=== PATIENT | male | born 1965 | race Caucasian/White ===

== ENCOUNTER 2024-04-08 11:36 | Outpatient (OUT) | payer OTHER, SELFPAY ==
[2024-04-09 08:12] LABS: Testosterone 7 ng/dL (264-916)
== END 2024-04-08 11:37 | disposition home or self-care (01) ==
LOC: LAB 11:40
PROVIDERS: Visit Provider Urology
DX: C61 Malignant neoplasm of prostate (principal); N52.9 Male erectile dysfunction, unspecified
CPT/HCPCS: 36415; 84403

== ENCOUNTER 2024-09-19 13:02 | Outpatient (OUT) | payer OTHER, SELFPAY ==
[2024-09-19 14:07] LABS: Prostate Specific Antigen Dx <0.13 ng/mL (<=4.00)
== END 2024-09-19 13:03 | disposition home or self-care (01) ==
LOC: LAB 13:03
PROVIDERS: Visit Provider Urology
DX: C61 Malignant neoplasm of prostate (principal)
CPT/HCPCS: 36415; 84153

== ENCOUNTER 2024-09-20 09:24 | Outpatient (OUT) | payer OTHER, SELFPAY ==
--- NOTE | 2024-09-20 09:33 | US_ITS ---
The [address] [address] Patient Name: NIKCY FREEMAN MRN: [id number] date: 1965 Sex: M Assigned Patient Location: US Current Patient Location: US Accession/Order Number: [id number] Exam Date: 09/22/2024 09:50 Report Date: 09/22/2024 09:54 At the request of: ELOISE MARCOS MD Procedure: US renal BI BILATERAL RENAL AND BLADDER ULTRASOUND CLINICAL HISTORY: hematuria, kidney stones, prior prostate cancer COMPARISON: CT 04/23/2022 Estimation of renal size is approximately 10.5 cm on the right and 10.2 on the left. There is a stone in the midpole of the right kidney measuring approximately 1 cm in size. A stone is also seen at the inferior pole of the left measuring approximately 7 mm . No hydronephrosis is identified. A parapelvic right renal cyst is identified measuring 4.0 x 4.0 x 3.5 cm . There is also an exophytic cyst at the inferior pole measuring 1.5 x 2.1 x 2.1 cm. There is no perinephric fluid. The urinary bladder is partially distended with a volume of 166 mL. No contour or intraluminal abnormalities are seen. US/US renal BI IMPRESSION: BILATERAL NEPHROLITHIASIS. RIGHT RENAL CYSTS NO OBSTRUCTIVE UROPATHY. Impression dictated by: Elizabeth Mitchell M.D.09/22/2024 9:54 AM Dictation Location: [place] [address] Electronically authenticated by: [id number] Y Date: 09/22/2024 09:54
--- NOTE | 2024-09-20 10:02 | XR_ITS ---
The [address] [address] Patient Name: NICKY FREEMAN MRN: [id number] date: 1965 Sex: M Assigned Patient Location: US Current Patient Location: US Accession/Order Number: [id number] Exam Date: 09/21/2024 22:26 Report Date: 09/21/2024 22:29 At the request of: ELOISE MARCOS MD Procedure: XR abdomen 1V XR abdomen 1V 09/20/2024 10:04 AM SIGNS AND SYMPTOMS: Hematuria, kidney stone PROTOCOL: Frontal radiograph of the abdomen COMPARISON: 09/20/2024 FINDINGS: There are radiodense stones within the renal collecting systems bilaterally measuring 9 mm in greatest dimension on the right and 4 mm in greatest dimension on the left. There is a nonobstructive bowel gas pattern. Degenerative changes are noted in the lower lumbar spine and sacroiliac joints. Vascular calcifications are present in the pelvis. XR/XR abdomen 1V IMPRESSION: Bilateral renal stones are noted measuring up to 9 mm in greatest dimension on the right and 4 mm in greatest dimension on the left. This is consistent with that seen on the previous ultrasound. Impression dictated by: Marlon Webber M.D.09/21/2024 10:29 PM Dictation Location: [place] [address] Electronically authenticated by: [id number] Y Date: 09/21/2024 22:29
== END 2024-09-20 09:25 | disposition home or self-care (01) ==
LOC: US 09:24
PROVIDERS: Visit Provider Urology
DX: R31.0 Gross hematuria (principal); N20.0 Calculus of kidney; N28.1 Cyst of kidney, acquired
CPT/HCPCS: 74018; 76775

== ENCOUNTER 2024-11-01 13:38 | Outpatient (OUT) | payer OTHER, SELFPAY ==
--- NOTE | 2024-11-01 13:41 | ECG_ITS ---
The [facility] Test Date: 2024-11-01 Pat Name: NICKY FREEMAN Department: Room: - Gender: Male Psychotherapist Social Worker: : 1965 Requested By: ELOISE MARCOS Order Number: [id number] Reading MD: CAILIN HOUSE M.D. Measurements Intervals [place] Rate: 66 P: 44 NE: 124 QRS: 63 QRSD: 86 T: 64 QT: 415 QTc: 436 Interpretive Statements SINUS RHYTHM Normal ECG No previous ECG available for comparison Electronically Signed On 11-01-2024 20:21:06 EDT by CAILIN HOUSE M.D.
--- NOTE | 2024-11-01 14:18 | PM.PRESUREVA ---
History of Present Illness History of Present Illness Chief complaint: HEMATURIA, RIGHT KIDNEY STONES Narrative: Present for presurgical testing. The patient reports bilateral kidney stones. He states he has a history of prostate cancer. He reports frequency with urination, nocturia, and weak stream. He denies gross hematuria, dysuria, fever, abdominal pain, nausea, vomiting, or any other complaints. Review of Systems ROS Narrative REVIEW OF SYSTEMS: Negative except as stated in HPI, ten or more systems reviewed. Constitutional: No fever, chills, weakness ENT: No sore throat or epistaxis Cardiovascular: No edema, chest pain, palpitations, or activity intolerance Respiratory: No shortness of breath, cough, or wheezing Musculoskeletal: No joint pain or swelling Gastrointestinal: No abdominal pain, constipation, diarrhea, or vomiting Genitourinary: No dysuria or hematuria Neurological: No numbness, tingling, weakness, or headache Psychiatric: No mood changes [facility] Medical History (Updated 11/01/24 @ 14:03 by Gricelda Newman NP) Low iron ?E61.1 - Iron deficiency (ICD-10) Depression ?F32.A - Depression, unspecified (ICD-10) Snores ?R06.83 - Snoring (ICD-10) SVT (supraventricular tachycardia) ?I47.10 - Supraventricular tachycardia, unspecified (ICD-10) History of external beam radiation therapy ?Z92.3 - Personal history of irradiation (ICD-10) Erectile dysfunction ?N52.9 - Male erectile dysfunction, unspecified (ICD-10) BPH (benign prostatic hyperplasia) ?N40.0 - Benign prostatic hyperplasia without lower urinary tract symptoms (ICD-10) Prostate cancer ?C61 - Malignant neoplasm of prostate (ICD-10) Kidney stones ?N20.0 - Calculus of kidney (ICD-10) Hematuria ?R31.9 - Hematuria, unspecified (ICD-10) Surgical History (Updated 11/01/24 @ 14:14 by Gricelda Newman NP) History of surgery on arm ?Z98.890 - Other specified postprocedural states (ICD-10) History of cardiac radiofrequency ablation (2012) ?Z98.890 - Other specified postprocedural states (ICD-10) H/O prostate biopsy ?Z98.890 - Other specified postprocedural states (ICD-10) H/O cystoscopy ?Z98.890 - Other specified postprocedural states (ICD-10) Family History (Updated 11/01/24 @ 14:03 by Gricelda Newamn NP) Other Family history of prostate cancer Social History (Updated 11/01/24 @ 14:17 by Gricelda Newman NP) Within the past year, how often did you have a drink containing alcohol: never Score interpretation: A score less than 4 is consistent with normal alcohol consumption. Smoking status: Current some day smoker Non-prescribed substance use: denies use Previous occupational history: self-employed Highest level of school completed/degree received: high school graduate Meds Home Medications and Allergies Home Medications ?Medication ?Instructions ?Recorded ?Confirmed ?Type ascorbic acid (vitamin C) 1,000 mg 1 g PO DAILY 11/01/24 11/01/24 History capsule aspirin 81 mg tablet,delayed 81 mg PO DAILY 11/01/24 11/01/24 History release (Adult Aspirin Regimen) calcium 600 mg (as 1 tab PO DAILY 11/01/24 11/01/24 History carbonate)-vitamin D3 5 mcg (200 unit) tablet (Calcium 600 + D(3)) elderberry fruit 200 mg capsule 200 mg PO DAILY 11/01/24 11/01/24 History enzalutamide 80 mg tablet (Xtandi) 80 mg PO Q24H 11/01/24 11/01/24 History multivitamin (Daily Multi-Vitamin 1 tab PO DAILY 11/01/24 11/01/24 History tablet) omega 0-iwu-bpf-fish oil 1,000 mg 1 cap PO DAILY 11/01/24 11/01/24 History (120 mg-180 mg) capsule (Fish Oil) tadalafil 20 mg tablet 20 mg PO DAILY PRN sexual activity 11/01/24 11/01/24 History tamsulosin 0.4 mg capsule 0.4 mg PO BID 11/01/24 11/01/24 History Allergies Allergy/AdvReac Type Severity Reaction Status Date / Time ciprofloxacin (From Cipro) Allergy Anaphylaxis Verified 11/01/24 13:52 Exam Narrative Exam Narrative: Constitutional: Awake, alert, comfortable, well-appearing, nontoxic, interactive, vital signs as charted Head: Normocephalic, atraumatic Neck: Supple, normal appearance, normal range of motion, no meningeal signs, no lymphadenopathy Respiratory: No respiratory distress, breath sounds clear Cardiovascular: Regular rate and rhythm, strong and regular heart tones Abdomen: Nontender, normal bowel sounds, soft, no CVA tenderness Musculoskeletal: Normal gait, no swelling or edema Skin: No rashes or induration, no lesions, only visible skin inspected Neuro: No neurological deficits, normal sensation Psychiatric: Oriented ?3, normal affect Assessment and Plan Assessment and Plan (1) Hematuria: (2) Kidney stones: Plan Cystoscopy, right ESWL scheduled with Dr. Garcia November 17, 2024.
[2024-11-01 14:30] LABS: Basophils Percent Auto 0.2 % (0.2-2.0); Eosinophils Absolute Auto 0.1 10^3/uL (0.0-0.7); Eosinophils Percent Auto 2.4 % (0.9-7.0); Hematocrit 38.4 % (42.0-54.0); Hemoglobin 13.3 g/dL (14.0-18.0); Immature Granulocytes Abs Auto 0.02 10^3/uL (0.00-0.03); Immature Granulocytes Pct Auto 0.4 % (0.0-0.5); Lymphocytes Absolute Auto 1.7 10^3/uL (1.2-3.8); Lymphocytes Percent Auto 31.5 % (20.5-60.0); Mean Corpuscular HGB Conc 34.6 g/dL (29.9-35.2); Mean Corpuscular Hemoglobin 32.6 pg (25.9-34.0); Mean Corpuscular Volume 94.1 fL (80.0-94.0); Monocytes Absolute Auto 0.6 10^3/uL (0.3-0.8); Neutrophils Absolute Auto 2.9 10^3/uL (1.4-6.5); Neutrophils Percent Auto 54.5 % (43.0-75.0); Platelet Count 278 10^3/uL (150-450); Red Blood Count 4.08 10^6/uL (4.70-6.10); Red Cell Distribution Width 12.4 % (11.0-15.0); White Blood Count 5.4 10^3/uL (4.0-11.0)
[2024-11-01 14:41] LABS: INR 0.98; Prothrombin Time 10.4 sec (9.0-11.6)
[2024-11-01 14:54] LABS: Anion Gap 11.9; BUN Creatinine Ratio 14.7; Calcium 9.6 mg/dL (8.5-10.1); Carbon Dioxide 28.4 mmol/L (21.0-32.0); Chloride 104 mmol/L (98-107); Estimated GFR (African America >60 (>=60 mL/min/1.73m^2); Estimated GFR (Non-African Ame >60 (>=60 mL/min/1.73m^2); Glucose 92 mg/dL (74-106); Potassium 4.3 mmol/L (3.5-5.1); Sodium 140 mmol/L (136-145)
== END 2024-11-01 13:39 | disposition home or self-care (01) ==
LOC: PST 13:39
PROVIDERS: PCP Nurse Practitioner Family; Visit Provider Urology
DX: Z01.810 Encounter for preprocedural cardiovascular examination (principal); Z01.812 Encounter for preprocedural laboratory examination; Z01.818 Encounter for other preprocedural examination; R31.9 Hematuria, unspecified; N20.0 Calculus of kidney
CPT/HCPCS: 80048; 85025; 85610; 85730; 93005; G0463

== ENCOUNTER 2024-11-17 11:52 | Day surgery (SDC) | payer OTHER, SELFPAY ==
[2024-11-01 14:12] VITALS: BP 129/84; PULSE 75; TEMP 36.3; O2SAT 100; BMI 22.4
[2024-11-17] VITALS (9 sets, daily range): BP systolic 124–150; BP diastolic 71–88; PULSE 76–99; TEMP 36.2; O2SAT 96–99; BMI 22.2
--- NOTE | 2024-11-17 12:00 | XR_ITS ---
The [address] [address] Patient Name: NICKY FREEMAN MRN: [id number] date: 1965 Sex: M Assigned Patient Location: [facility] Current Patient Location: [facility] Accession/Order Number: [id number] Exam Date: 11/17/2024 12:26 Report Date: 11/17/2024 12:31 At the request of: ELOISE MARCOS MD Procedure: XR abdomen 1V SINGLE VIEW ABDOMEN COMPARISON: 05/21/2025 CLINICAL DATA: Preoperative evaluation for lithotripsy. Kidney stones. Supine view of the abdomen and pelvis was obtained. There is air within the stomach. There is also bowel gas and stool. The kidneys are partially obscured. On the right, there is still a calcification overlying the mid to lower kidney measuring approximately 7 - 8 mm in size. On the left, there might be a couple tiny 2 to 3 mm stones in close proximity at the mid to lower pole. These were also present on the comparison. There are pelvic phleboliths. No soft tissue masses are noted. Scattered sclerotic areas are again seen at the sacrum, right ilium and right proximal femur. XR/XR abdomen 1V IMPRESSION: CONTINUED BILATERAL NEPHROLITHIASIS. Impression dictated by: Elizabeth Mitchell M.D.11/17/2024 12:31 PM Dictation Location: [place] [address] Electronically authenticated by: [id number] Y Date: 11/17/2024 12:31
[2024-11-17] MEDS: LACTATED RINGER'S SOLUTION 1,000 ML 50 ML IV (12:39)
[2024-11-17] MEDS: CEFAZOLIN SODIUM 2 GM/50 ML D5W PREMIX IV (12:46)
--- NOTE | 2024-11-17 13:34 | PM.URSON ---
Urology Surgery Operative Note Operative Note Procedure Date: 11/17/24 Time Out Performed: yes Pre-op Diagnosis: 1. Hematuria. 2. Right nephrolithiasis Post-op Diagnosis: same as pre-op Procedures performed: 1. Cystoscopy. 2. Right ESWL. Anesthesia: General-LMA Primary Surgeon: Andrews Garcia Complications: None Estimated blood loss (mL): 0 Findings: 1. No evidence of bladder tumors. 2. Large right renal calculus Specimens: None Drains: None Indications for Procedures: This gentleman has microhematuria and right nephrolithiasis. He now presents for cystoscopy and right ESWL. He has signed an informed consent after risks were explained. Some of these risks include bleeding, perinephric hematoma, infection and anesthesia to name a few. Detailed description of Procedure: The patient was brought to the Operating Room and placed on Siemens electromagnetic lithotripsy treatment table in the supine position. SCDs were placed on their lower extremities and turned on and functioning during the entire case. Timeout was done by all parties in the room. We all agreed upon the patient's identification and the planned procedures for this patient. General Anesthesia was then administered via LMA. The genitalia were sterilely prepped and draped in the usual fashion. Treatment head was then brought to the patient's correct side. While using flourscopy the stone was identified and lined up into the crosshairs. Before applying any shocks, I passed a flexible cystoscope per urethra and into the bladder. The anterior urethra was normal. Prostatic urethra showed bilobar hypertrophy. Careful panendoscopy in the bladder revealed no evidence of any tumors, stones or lesions. Retroflex of the scope showed no new findings. The scope was then removed. We then began applying shocks at power level 2.0 and increased to a maximal power level of 3.5. Intermittent fluoroscopy revealed that the stone steadily fragmented. We applied a total of 3000 shocks. Our last fluoroscopic image revealed no clear evidence of any solid stone remaining. The procedure was then terminated. He was then transferred to a [facility] bed and wheeled to PACU in stable condition.
--- NOTE | 2024-11-17 14:19 | PC.NURSE ---
large blood tinged urine after pahse 1
== END 2024-11-17 14:45 | disposition home or self-care (01) ==
PROVIDERS: PCP Nurse Practitioner Family; Visit Provider Urology
PROC: (CPT 873; principal; 2024-11-17 13:25)
DX: N20.0 Calculus of kidney (principal); C61 Malignant neoplasm of prostate; R31.0 Gross hematuria; N40.1 Benign prostatic hyperplasia with lower urinary tract symptoms; N52.9 Male erectile dysfunction, unspecified; Z79.01 Long term (current) use of anticoagulants; R33.8 Other retention of urine; Z80.42 Family history of malignant neoplasm of prostate; R35.1 Nocturia; F17.210 Nicotine dependence, cigarettes, uncomplicated
CPT/HCPCS: 50590; 52000; 36415; 74018; J0690; J1100; J2405; J2704; J3010

== ENCOUNTER 2025-03-16 13:37 | Outpatient (OUT) | payer OTHER, SELFPAY ==
--- OUTSIDE RECORDS SUMMARY | 2025-03-16 13:41 | XMS_ITS | Continuity of Care Document ---
Author Name [facility] Organization [facility] Care Team Providers Care Bath Solution Maker Name Role Phone [facility] Unavailable Unavailable Social History Combined list of available smoking, tobacco, and other social history from Department of Defense and Veterans Affairs facilities. Social History Type Response Date Comment Sourc e This section is an empty social history section. [facility]
--- OUTSIDE RECORDS SUMMARY | 2025-03-16 13:42 | XMS_ITS | Encounter Summary ---
Author Organization [facility] Address [address] [place] [address] Care Team Providers Care Auto Emissions Technician Name Role Phone Tamiko Reece UTILITY LOCATE TECHNICIAN Unavailable [phone] Tamiko Reece NP Primary Care Provider Encounter Details Date Type Department Care Team (Late st Contact Info) Description 12/12/2024 Orders Only [facility] [address] [id number] Gene Elizabeth MD [address] [address] Social History Tobacco Use Types Packs/Day Years Used Date Smoking Tobacco: Every Day Cigarettes Alcohol Use Standard Drinks/Week Comments Yes 0 (1 standard drink = 0.6 oz pur e alcohol) Sex and Gender Information Value Date Recorded Sex Assigned at Not on file Legal Sex Male 7:16 PM EDT Gender Identity Not on file Sexual Orientation Not on file documented as of this encounter Plan of Treatment Not on file documented as of this encounter Procedures Procedure Name Priority Date/Time Associated Diagnosis Comments GENERAL PATHOLOGY Routine 12/12/2024 2:55 PM EDT documented in this encounter Results * GENERAL PATHOLOGY (12/12/2024 2:55 PM EDT) Gene Ward MD [facility] Final Result documented in this encounter Visit Diagnoses Not on filedocumented in this encounter Care Teams Auto Emissions Technician Relationship Specialty Start Date End Date Tamiko Reece NP [address] [place] [address] PCP - General Family Medicine 11/30/24 Tamiko Reece NP [address] [place] [address] Referring Physician Family Medicine 09/23/24 documented as of this encounter
--- OUTSIDE RECORDS SUMMARY | 2025-03-16 13:42 | XMS_ITS ---
Author Organization [facility] Address [address] [place], [place] [address] Care Team Providers Care Insurance Account Assistant Name Role Phone Tamiko Reece NP Primary Care Provider Active Problems Problem Noted Date Diagnosed Date Prostate cancer 04/28/2022 Malignant neoplasm metastatic to bone 04/28/2022 Current Treatment and Therapy Plans No current plan information found. Past Treatment and Therapy Plans NON-CHEMO 1 Plan Name Start Date Discontinue Date Treatment Medications Discontinue Reason Plan Provider Cycles AMB BONE MODIFYING AGENT: $$$$ - Q6 WEEKS IF CRCL IS LESS THAN 30 ML/MIN 2 04/25/2024 denosumab (XGEVA) Other Ayad Harrison MD 7 of 7 cycles completed
--- OUTSIDE RECORDS SUMMARY | 2025-03-16 13:42 | XMS_ITS | Clinical Summary ---
Author Organization [facility] Address [address] [place], [place] [address] Care Team Providers Care Associate Account Manager Name Role Phone Tamiko Reece NP Primary Care Provider Allergies Active Allergy Reactions Criticality Noted Date Comments Ciprofloxacin Other: See Comments 04/02/2022 Abdominal breathing Medications aspirin, enteric coated (ASPIRIN, ENTERIC COATED) 81 mg EC tablet Take 81 mg by mouth once daily. Active docosahexaenoi c acid/epa (FISH OIL ORAL) Take by mouth once daily. Active MULTI-VITAMIN ORAL Take by mouth once daily. Active IBUPROFEN ORAL Take by mouth. Active leuprolide (LUPRON) 1 mg/0.2 mL injection Inject 1 mg subcutaneously one time only. Active calcium carbonate/nikolai min D3 (CALCIUM 600 + D,3, ORAL) Take by mouth. Acti ve ascorbic acid (VITAMIN C ORAL) Take by mouth. Activ e elderberry fruit (ELDERBERRY ORAL) Take by mouth. Activ e tamsulosin (FLOMAX) 0.4 mg Take 0.4 mg by mouth twice daily. Active enzalutamide (XTANDI) 80 mg tablet TAKE 2 TABLETS BY MOUTH 1 TIME A DAY. 60 tablet 5 5 Active Active Problems Problem Noted Date Diagnosed Date Prostate cancer 04/28/2022 Malignant neoplasm metastatic to bone 04/28/2022 Immunizations Immunization Administration Dates Next Due COVID-19 original vaccine, a ge 12+ yr, monovalent ([employer] - PURPLE TOP) 03/22/2021 Family History Medical History Relation Comments Prostate Cancer Father Relation Status Comments Father Social History Tobacco Use Types Packs/Day Years Used Date Smoking Tobacco: Every Day Cigarettes Passive Smoke Exposure: Current Smokeless Tobacco: Never Tobacco Cessation:Ready to Q uit: Not Asked; Counseling Given: Not Answered Alcohol Use Standard Drinks/Week Comments Not Currently 0 (1 standard drink = 0.6 oz pur e alcohol) PHQ-2 Answer Date Recorded PHQ-2 score 0 04/19/2024 Area Deprivation Index Answer Date Juan rded National Score (1-100), lower number is lower ri sk 78 12/23/2022 State Score (1-10), lower number is lower risk 6 12/23/2022 Data from: https://www.neighborhoodatlas.[facility]/. Last address used for calculation [address] 12/23/2022 Sex and Gender Information Value Date Recorded Sex Assigned at Male 09/14/2022 10:26 AM EST Legal Sex Male 11:25 AM EDT Gender Identity Male 09/14/2022 10:26 AM EST Sexual Orientation Straight 09/14/2022 10 :26 AM EST Last Filed Vital Signs Vital Sign Reading Time Taken Comments Blood Pressure 130/78 10/18/2024 3:03 PM EDT Pulse 69 10/18/2024 3:03 PM EDT Temperature 36.4 C (97.6 F) 10/18/2024 3:03 PM EDT Respiratory Rate 18 10/18/2024 3:03 PM EDT Oxygen Saturation 100% 10/18/2024 3:03 PM EDT Inhaled Oxygen Concentration - - Weight 64.4 kg (141 lb 15.6 oz) 10/18/2024 3:03 PM EDT Height 163.3 cm (5' 4.29 ) 04/19/2024 3:00 PM ED T Body Mass Index 24.15 04/19/2024 3:00 PM EDT Plan of Treatment Upcoming Encounters Date Type Department Care Team (Latest Contact Info) Description 04/26/2025 1:30 PM EDT Office Visit [facility] [place] [address] 6 month follow up lab 04/26/2025 2:00 PM EDT Visit (SP) Office Hematology/Oncology [facility] [place] [address] Bernard Mock MD [address] [place] [address] [place] [address] 6 month follow up lab Health Maintenance Due Date Last Done Comments Anxiety Screening 10/11/1981 Depression Screening 10/11/1981 HIV Screening 10/11/1981 Hepatitis C Screening 10/11/1981 DTaP,Tdap,Td Vaccine (1 - Tdap) 10/11/1982 Pneumococcal Vaccine: 50+ (1 of 2 - PCV) 10/11/1982 Shingrix Vaccine (1 of 2) 10/11/1982 Lipid Screening 10/11/1998 CT Colonography 10/11/2008 Cologuard (FIT-DNA) 10/11/2008 Colonoscopy 10/11/2008 Colorectal Cancer Screening 10/11/2008 Fecal Occult Blood 10/11/2008 Sigmoidoscopy 10/11/2008 RSV Vaccine (1 - Risk 60-74 years 1-dose series) 2023 Influenza Vaccine (#1) 2025 Diabetes Screening 10/19/2027 10/18/2024, 0 04/19/2024, 10/20/2023, Additional history exists Prostate Cancer Screening Discussion 10/18/2029 10/18/2024, 04/19/2024, 10/20/2023, Additional history exists Procedures Procedure Name Priority Date/Time Associated Diagnosis Comments PSA/PROSTSPECAG DIAG Routine 10/18/2024 2:59 PM EDT Malignant neoplasm metastatic to bone (HCC) COMPREHENSIVE METABOLIC PANEL Routine 10/18/2024 2:59 PM EDT Malignant neoplasm metastatic to bone (HCC) from Last 3 Months or Most Recently Relevant to Health Maintenance Results * PROSTATE-SPECIFIC ANTIGEN DIAGNOSTIC (10/18/2024 2:59 PM EDT) PSA <0.02 <2.60 ng/mL 10/19/2024 7:17 AM EDT [facility] Comment:Total PSA test metho dology used is the Electrochemiluminescence Immunoassay by [employer]. Total PSA values by differing methodologies cannot be interchanged. Blood BLOOD SPECIMEN / Unknown Venipuncture / Unknown 10/18/2024 2:59 PM EDT 10/18/2024 2:59 PM EDT us Lou Moore TANDEM MILL OPERATOR.FOURDRINIER MACHINE OPERATOR LABORATORY Final Re sult [facility] [address] [facility] [address] [place] [address], * (ABNORMAL) COMPREHENSIVE METABOLIC PANEL (10/18/2024 2:59 PM EDT) [facility] Protein, Total 7.1 6.3 - 8.0 g/dL 10/19/2024 3:16 AM EDT [facility] Albumin 4.3 3.9 - 4.9 g/dL 10/19/2024 3:16 AM EDT [facility] Calcium, Total 10.0 8.5 - 10.2 mg/dL 10/19/2024 3:16 AM EDT [facility] Bilirubin, Total 0.3 0.2 - 1.3 mg/dL 10/19/2024 3:16 AM EDT [facility] Alkaline Phosphatase 106 38 - 113 U/L 10/19/2024 3:16 AM EDT [facility] AST 21 14 - 40 U/L 10/19/2024 3:16 AM EDT [facility] ALT 13 10 - 54 U/L 10/19/2024 3:16 AM EDT [facility] Glucose 104(H) 74 - 99 mg/dL 10/19/2024 3:16 AM EDT [facility] Comment: The [place] Diabetes Association (ADA) provides guidance for cutoff values for fasting glucose and random glucose. The ADA defines fasting as no caloric intake for at least 8 hours. Fasting plasma glucose results between 100 to 125 mg/dL indicate increased risk for diabetes (prediabetes). Fasting plasma glucose results greater than or equal to 126 mg/dL meet the criteria for diagnosis of diabetes. In the absence of unequivocal hyperglycemia, results should be confirmed by repeat testing. In a patient with classic symptoms of hyperglycemia or hyperglycemic crisis, random plasma glucose results greater than or equal to 200 mg/dL meet the criteria for diagnosis of diabetes. Reference: Standards of Medical Care in Diabetes 2016, [place] Diabetes Association. Diabetes Care. 2016.39(Suppl 1). BUN 12 9 - 24 mg/dL 10/19/2024 3:16 AM EDT [facility] Creatinine 0.78 0.73 - 1.22 mg/dL 10/19/2024 3:16 AM EDT [facility] Sodium 140 136 - 144 mmol/L 10/19/2024 3:16 AM EDT [facility] Potassium 4.1 3.7 - 5.1 mmol/L 10/19/2024 3:16 AM EDT [facility] Chloride 104 98 - 107 mmol/L 10/19/2024 3:16 AM EDT [facility] CO2 22 22 - 30 mmol/L 10/19/2024 3:16 AM EDT [facility] Anion Gap 14 8 - 15 mmol/L 10/19/2024 3:16 AM EDT [facility] Estimated Glomerular Filtration Rate 101 >=60 mL/min/1.7 3m 10/19/2024 3:16 AM EDT [facility] Comment:Estimated Glomerular Filtration Rate (eGFR) is calculated using the 2020 CKD-EPI creatinine equation. This equation utilizes serum creatinine, sex, and age as parameters. The creatinine assay has traceable calibration to isotope dilution- mass spectrometry. Refer to KDIGO guidelines for clinical interpretation. In patients with unstable renal function, e.g. those with acute kidney injury, the eGFR may not accurately reflect actual GFR. Blood BLOOD SPECIMEN / Unknown Venipuncture / Unknown 10/18/2024 2:59 PM EDT 10/18/2024 2:59 PM EDT us Lou Moore TANDEM MILL OPERATOR.FOURDRINIER MACHINE OPERATOR LABORATORY Final Re sult [facility] [address] [address], from Last 3 Months or Most Recently Relevant to Health Maintenance Insurance [employer] Member Subscriber Plan / Payer (Ef fective 2022-Present) Name:Adan Menard Relation to Subscriber:Self Name:Adan Menard Payer ID:[id number] (NAIC) Group ID:[id number] Type:Medicaid Address: [place] [id number] Care Teams Associate Account Manager Relationship Specialty Start Date End Date Tamiko Reece NP [address] [place] [address] PCP - General Nurse Practitioner 10/20/23
--- OUTSIDE RECORDS SUMMARY | 2025-03-16 13:42 | XMS_ITS | Encounter Summary ---
Author Organization [facility] Address [address] [place] [address] Care Team Providers Care Engagement Quality Consultant Name Role Phone Tamiko Reece PILE OPERATOR Unavailable [phone] Mast, Roland E DO Primary Care Provider [phone] Tamiko Reece PILE OPERATOR Primary Care Provider Encounter Details Date Type Department Care Team (Late st Contact Info) Description 11/24/2024 External Result Encounter [facility] External Department Unsolicited Gene Elizabeth MD [address] [address] Social History Tobacco Use Types Packs/Day Years [...] Procedure Name Priority Date/Time Associated Diagnosis Comments ECG 12-LEAD 11/24/2024 2:12 PM EDT documented in this encounter Results * ECG 12 lead (11/24/2024 2:12 PM EDT) 11/24/2024 2:12 PM EDT [facility] - 11/25/2024 10:53 AM EDT [facility] Main [place] [address] [place] [address] Electrocardiograph Report Signed Patient: Adan Menard MR#: [id number] : 1965 Acct:[id number] Age/Sex: 59 / M ADM Date: 11/24/24 Loc: PS Room: Type: [facility] CLI Attending Dr: Gene Elizabeth MD Ordering Provider: Gene Elizabeth MD Date of Service: 11/24/24 ECG/ECG 12 lead ECG: surgery 12/08 Copies to: Test Reason : Blood Pressure : */* mmHG Vent. Rate : 65 BPM Atrial Rate : 65 BPM P-R Int : 122 ms QRS Dur : 80 ms QT Int : 412 ms P-R-T Axes : 51 54 62 degrees QTcB Int : 428 ms Normal sinus rhythm Normal ECG When compared with ECG of 28-Aug-2023 21:48, No significant change was found Confirmed by [facility]ES [facility] ([id number] on 11/25/2024 10:53:16 AM Referred By: Electronically Signed By: ERICH OLEARY MD [facility] Transcribed By: MUS Signed By Erich Oleary MD, FACC 11/25/24 1053 Procedure Note Erich Oleary MD - 11/25/2024 [facility] Main [address] [address] Electrocardiograph Report Signed Patient: Kiera MenardR#: [id number] : 1965Acct:[id number] Age/Sex: 59 / MADM Date: 11/24/24 Loc: PS Room:Type: [facility] CLI Attending Dr: Gene Elizabeth MD Ordering Provider: Gene Elizabeth MD Date of Service: 11/24/24 ECG/ECG 12 lead ECG: surgery 12/08 Copies to: Test Reason : Blood Pressure : */* mmHG Vent. Rate : 65 BPM Atrial Rate : 65 BPM P-R Int : 122 ms QRS Dur : 80 ms QT Int : 412 ms P-R-T Axes : 51 54 62 degrees QTcB Int : 428 ms Normal sinus rhythm Normal ECG When compared with ECG of 28-Aug-2023 21:48, No significant change was found Confirmed by SHOSHANA JONES [facility], ERICH ([id number]) on 11/25/2024 10:53:16 AM Referred By: Electronically Signed By: ERICH OLEARY MD [facility] Transcribed By: MUS Signed By Erich Oleary MD, [facility] 11/25/24 1053 us Gene Ward MD ECG ORDERABLES Final Result Performing Organization Address City/State/[facility] de Phone Number [address] [place] [address], documented in this encounter Visit Diagnoses Not on filedocumented in this encounter Care Teams Engagement Quality Consultant Relationship Specialty Start Date End Date Roland Garcia DO [address] [place] [id number] PCP - General 10/05/24 11/29/24 Tamiko Reece NP [address] [place] [address] PCP - General Family Medicine 11/30/24 Tamiko Reece NP [address] [place] [address] Referring Physician Family Medicine 09/23/24 documented as of this encounter
--- OUTSIDE RECORDS SUMMARY | 2025-03-16 13:42 | XMS_ITS | Clinical Summary ---
Author Organization [facility] Address [address] [place] [address] Care Team Providers Care Linting Machine Operator Name Role Phone Tamiko Reece PHOTO CARTOGRAPHER Unavailable [phone] Tamiko Reece NP Primary Care Provider Allergies Active Allergy Reactions Criticality Noted Date Comments Ciprofloxacin Shortness of breath High 04/02/2022 Other Reaction(s): Other: See Comments Abdominal breathing Medications Enzalutamide 80 MG tablet Take 160 mg by mouth 08/21/2024 Active tamsulosin (Flomax) 0.4 MG 24 hr capsule 09/02/2024 Activ e aspirin 81 MG EC tablet Take 81 mg by mouth in the morning. Active Multiple Vitamin (multivitamin) tablet Take 1 tablet by mouth Daily Active Active Problems Problem Noted Date Diagnosed Date Chest wall mass 10/31/2024 Epidermal cyst 10/31/2024 Encounters Date Type Department Care Team Description 12/20/2024 1:15 PM EDT Office Visit [facility] [address] [phone] Gene Elizabeth MD Epidermal cyst (Primary Dx) 12/20/2024 Travel 12/19/2024 Travel from Last 3 Months Family History Relation Name Status Comments Brother Alive 1 Father Alive Mother Social History Tobacco Use Types Packs/Day Years Used Date Smoking Tobacco: Every Day Cigarettes Tobacco Cessation:Ready to Q uit: Not Asked; Counseling Given: Not Answered Alcohol Use Standard Drinks/Week Comments Yes 0 (1 standard drink = 0.6 oz pur e alcohol) Sex and Gender Information Value Date Recorded Sex Assigned at Not on file Legal Sex Male 7:16 PM EDT Gender Identity Not on file Sexual Orientation Not on file Last Filed Vital Signs Vital Sign Reading Time Taken Comments Blood Pressure 120/66 10/31/2024 11:19 AM EDT Pulse - - Temperature - - Respiratory Rate - - Oxygen Saturation - - Inhaled Oxygen Concentration - - Weight 65.8 kg (145 lb) 12/20/2024 1:19 PM EDT Height 170.2 cm (5' 7 ) 12/20/2024 1:19 PM EDT Body Mass Index 22.71 12/20/2024 1:19 PM EDT Plan of Treatment Health Maintenance Due Date Last Done Comments CT Colonography 1965 Colonoscopy 1965 Colorectal Cancer Screening 1965 FIT-DNA 1965 FIT 1965 FOBT 1965 Sigmoidoscopy 1965 Influenza Vaccine (#1) 2025 Insurance [employer] Care Teams Linting Machine Operator Relationship Specialty Start Date End Date Tamiko Reece NP [address] [place] [address] PCP - General Family Medicine 11/30/24 Tamiko Reece NP [address] [place] [address] Referring Physician Family Medicine 09/23/24
--- OUTSIDE RECORDS SUMMARY | 2025-03-16 13:42 | XMS_ITS | Encounter Summary ---
Author Organization [facility] Address [address] [place] [address] Care Team Providers Care Air Quality Technician Name Role Phone Tamiko Reece SENIOR STRUCTURAL ENGINEER Primary Care Provider Source Comments In the event this information is protected by the Federal Confidentiality of Alcohol and Drug AbusePatient Records regulations: The Federal rules restrict any use of the information to criminally investigate or prosecute any alcohol or drug abuse patient.[facility] Encounter Details Date Type Department Care Team (Late st Contact Info) Description 12/19/2022 [place] [address] Provider, [facility] Result Notification Patient Outreach Social History Tobacco Use Types Packs/Day Years Used Date Smoking Tobacco: Every Day Cigarettes Passive Smoke Exposure: Current Smokeless Tobacco: Never Alcohol Use Standard Drinks/Week Comments Not Currently 0 (1 standard drink = 0.6 oz pur e alcohol) PHQ-2 Answer Date Recorded PHQ-2 score 0 11/06/2022 Area Deprivation Index Answer Date Juan rded National Score (1-100), lower number is lower ri sk 78 12/23/2022 State Score (1-10), lower number is lower risk 6 12/23/2022 Data from: https://www.neighborhoodatlas.medicine.[facility].edu/. Last address used for calculation [address] [place] [address] 12/23/2022 Sex and Gender Information Value Date Recorded Sex Assigned at Male 09/14/2022 10:26 AM EST Legal Sex Male 11:25 AM EDT Gender Identity Male 09/14/2022 10:26 AM EST Sexual Orientation Straight 09/14/2022 10 :26 AM EST documented as of this encounter Plan of Treatment Upcoming Encounters Date Type Department Care Team (Latest Contact Info) Description 04/26/2025 1:30 PM EDT Office Visit [facility] [address] [place] [address] [place] [address] 6 month follow up lab 04/26/2025 2:00 PM EDT Visit (SP) Office Hematology/Oncology [address] [place] [address] Bernard Mock MD [address] [place] [address] 6 month follow up lab documented as of this encounter Visit Diagnoses Not on filedocumented in this encounter Care Teams Air Quality Technician Relationship Specialty Start Date End Date Tamiko Reece NP [address] [place] [address] PCP - General Nurse Practitioner 10/20/23 documented as of this encounter
--- NOTE | 2025-03-16 13:56 | XR_ITS ---
The [address] [address] Patient Name: NICKY FREEMAN MRN: [id number] date: 1965 Sex: M Assigned Patient Location: LAB Current Patient Location: LAB Accession/Order Number: [id number] Exam Date: 03/16/2025 14:33 Report Date: 03/16/2025 14:34 At the request of: ELOISE MARCOS MD Procedure: XR abdomen 1V KUB: CLINICAL INFORMATION: Follow-up kidney stones COMPARISON: KUB 11/17/2024 FINDINGS: The previously identified stone involving the right kidney is no longer visualized. At least 2 punctate stones are seen involving the left kidney. Phleboliths are seen within the pelvis. No bowel obstruction or free air. Osseous structures demonstrate degenerative change. XR/XR abdomen 1V IMPRESSION: LEFT NEPHROLITHIASIS. PREVIOUSLY IDENTIFIED STONE INVOLVING THE RIGHT KIDNEY APPEARS TO HAVE RESOLVED. Impression dictated by: Arun Gomez Jr., D.O. 03/16/2025 2:34 PM Dictation Location: [place] [address] Electronically authenticated by: [id number] Date: 03/16/2025 14:34
--- OUTSIDE RECORDS SUMMARY | 2025-03-16 13:57 | XMS_ITS | CCD ---
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 more than 200 mg/dL in a nonstressed, ambulatory subject supports the diagnosis of Diabetes Mellitus. ADA recommended reference range Potassium [Moles/Vol] 4.4 mmol/L 3.5 - 5.1 mmol/L [facility] Sodium [Moles/Vol] 140 mmol/L 136 - 145 mmol/L [facility] Urea nitrogen [Mass/Vol] 16 mg/dL 7 - 25 mg/dL [facility] Basophils Auto (Bld) [#/Vol] Ordered By: Antonina Elizabeth on 11-24-2024 Basophils (Bld) [#/Vol] Automated basophil count 0.0-0.2 [facility] Basophils/100 WBC Auto (Bld) Ordered By: Antonina Elizabeth on 11-24-2024 Basophils/100 WBC (Bld) Automated basophil % . [facility] CBC W Auto Differential pane l (Bld)on 11-24-2024 Basophils (Bld) [#/Vol] 0 10*3/uL 0.0 - 0.2 10*3/uL [facility] Basophils/100 WBC Manual cnt (Syn fld) 0.7 % . [facility] Eosinophils (Bld) [#/Vol] 0.1 10*3/uL 0.0 - 0.45 10*3/uL [facility] Eosinophils/100 WBC Manual cnt (Syn fld) 2.3 % . [facility] Erythrocyte distribution width (RBC) [Ratio] 12.8 % 12.0 - 14.8 % [facility] Hematocrit (Bld) [Volume fraction] 37.2 % Low 38.8 - 50.0 % [facility] Hemoglobin (Bld) [Mass/Vol] 13 g/dL 13.0 - 17.0 g/dL [facility] Interpretation and review of laboratory results Abnormal [facility] Lymphocytes (Bld) [#/Vol] 1.8 10*3/uL 1.00 - 4.8 10*3/uL [facility] Lymphocytes/100 WBC Manual cnt (Syn fld) 28.9 % . [facility] MCH (RBC) [Entitic mass] 33.1 pg 27.5 - 35.2 pg [facility] MCHC (RBC) [Mass/Vol] 34.9 g/dL 32.5 - 35.6 g/dL [facility] MCV (RBC) [Entitic vol] 94.9 fL 83.5 - 101 fL [facility] Monocytes (Bld) [#/Vol] 0.6 10*3/uL 0.0 - 0.8 10*3/uL [facility] Monocytes+Macrophages/ 100 WBC Manual cnt (Syn fld) 9.2 % . [facility] Neutrophils (Bld) [#/Vol] 3.7 10*3/uL 1.8 - 7.7 10*3/uL [facility] Neutrophils/100 WBC Manual cnt (Syn fld) 58.9 % . [facility] NRBC 0 /100{WBC} 0 - 0.5 /100{WBC} [facility] Platelet mean volume (Bld) [Entitic vol] 8.1 fL 6.6 - 10.1 fL [facility] Platelets (Bld) [#/Vol] 276 10*3/uL 150 - 450 10*3/uL [facility] RBC LM.HPF (Urine sed) [#/Area] 3.92 10*6/uL 3.90 - 5.60 10*6/uL [facility] WBC (Bld) [#/Vol] 6.3 10*3/uL 4.1 - 10.5 10*3/uL [facility] WBC LM.HPF (Urine sed) [#/Area] 6.3 10*3/uL 4.1 - 10.5 10*3/uL [facility] Calcium [Mass/volume] in Ser um or PlasmaOrdered By: Antonina Elizabeth on 11-24-2024 Calcium [Mass/Vol] Calcium [Mass/volume ] in Serum or Plasma 8.6-10.3 [facility] Carbon dioxide, total [Moles /volume] in Serum or PlasmaOrdered By: Antonina Elizabeth on 11-24-2024 CO2 [Moles/Vol] Carbon dioxide, tota l [Moles/volume] in Serum or Plasma 21.0-31.0 [facility] Chloride [Moles/volume] in S jaret or PlasmaOrdered By: Antonina Elizabeth on 11-24-2024 Chloride [Moles/Vol] Chloride [Moles/vol ume] in Serum or Plasma 98-107 [facility] Complete Blood Count Auto Di ffon 11-24-2024 Basophils (Bld) [#/Vol] 0.0 10*3/uL Normal 0.0-0.2 [facility] Comment on above: Result Comment: PERF ORMED BY: [place] [address] PATHOLOGIST CABLE [employer]OWER OPERATOR ANTONY DE LA TORRE M.D. Performed By: #### B MP, CBC #### [address] Basophils/100 WBC (Bld) 0.7 % Normal . [facility] Comment on above: Performed By: #### B MP, CBC #### [facility] [address] [place] [address] Eosinophils (Bld) [#/Vol] 0.1 10*3/uL Normal 0.0-0.45 [facility] Comment on above: Performed By: #### B MP, CBC #### [address] Eosinophils/100 WBC (Bld) 2.3 % Normal . [facility] Comment on above: Performed By: #### B MP, CBC #### [address] Erythrocyte distribution width (RBC) [Ratio] 12.8 % Normal 12.0-14.8 [facility] Comment on above: Performed By: #### B MP, CBC #### [address] Hematocrit (Bld) [Volume fraction] 37.2 % Low 38.8-50.0 [facility] Comment on above: Performed By: #### B MP, CBC #### [address] Hemoglobin (Bld) [Mass/Vol] 13.0 g/dL Normal 13.0-17.0 [facility] Comment on above: Performed By: #### B MP, CBC #### [address] Lymphocytes (Bld) [#/Vol] 1.8 10*3/uL Normal 1.00-4.8 [facility] Comment on above: Performed By: #### B MP, CBC #### [address] Lymphocytes/100 WBC (Bld) 28.9 % Normal . [facility] Comment on above: Performed By: #### B MP, CBC #### [address] MCH (RBC) [Entitic mass] 33.1 pg Normal 27.5-35.2 [facility] Comment on above: Performed By: #### B MP, CBC #### [address] MCV (RBC) [Entitic vol] 94.9 fL Normal 83.5-101 [facility] Comment on above: Performed By: #### B MP, CBC #### [address] Mean Corpuscular HGB Conc 34.9 g/dL Normal 32.5-35.6 [facility] Comment on above: Performed By: #### B MP, CBC #### [address] Monocytes (Bld) [#/Vol] 0.6 10*3/uL Normal 0.0-0.8 [facility] Comment on above: Performed By: #### B MP, CBC #### [address] Monocytes/100 WBC (Bld) 9.2 % Normal . [facility] Comment on above: Performed By: #### B MP, CBC #### [address] Neutrophils (Bld) [#/Vol] 3.7 10*3/uL Normal 1.8-7.7 [facility] Comment on above: Performed By: #### B MP, CBC #### [address] Neutrophils/100 WBC (Bld) 58.9 % Normal . [facility] Comment on above: Performed By: #### B MP, CBC #### [address] NRBC% 0.0 /100{WBC} Normal 0-0.5 [facility] Comment on above: Performed By: #### B MP, CBC #### [address] Platelet mean volume (Bld) [Entitic vol] 8.1 fL Normal 6.6-10.1 [facility] Comment on above: Performed By: #### B MP, CBC #### [address] Platelets (Bld) [#/Vol] 276 10*3/uL Normal 150-450 [facility] Comment on above: Performed By: #### B MP, CBC #### [address] RBC (Bld) [#/Vol] 3.92 10*6/uL Normal 3.90-5.60 [facility] Comment on above: Performed By: #### B MP, CBC #### [address] WBC (Bld) [#/Vol] 6.3 10*3/uL Normal 4.1-10.5 [facility] Comment on above: Performed By: #### B MP, CBC #### [address] Creatinine [Mass/volume] in Serum or PlasmaOrdered By: Antonina Elizabeth on 11-24-2024 Creatinine [Mass/Vol] Creatinine [Mass/v olume] in Serum or Plasma 0.70-1.30 [facility] ECG 12 lead ECGon 11-24-2024 ECG 12 lead ECG [facility] [place] [address] Electrocardiograph Report Signed Patient: Adan Menard MR#: [id number] : 1965 Acct:[id number] Age/Sex: 59 / M ADM Date: 11/24/24 Loc: Room: Type: [facility] Attending Dr: Antonina Elizabeth MD Ordering Provider: Antonina Elizabeth MD Date of Service: 11/24/24 ECG/ECG [...] change was found Confirmed by SH[facility] J[facility]ES [facility] ([id number][facility] on 11/25/2024 10:53:16 AM Referred By: Electronically Signed By: JEROME ANNA MD FAC Transcribed By: MUS Signed By Jerome Anna MD, FACC 11/25/24 1053 Normal [facility] Eosinophils Auto (Bld) [#/Vo l]Ordered By: Antonina Elizabeth on 11-24-2024 Eosinophils (Bld) [#/Vol] Automated eosinophil count 0.0-0.45 [facility] Eosinophils/100 WBC Auto (Bl d)Ordered By: Antonina Elizabeth on 11-24-2024 Eosinophils/100 WBC (Bld) Automated eosinophil % . [facility] Erythrocyte distribution wid th Auto (RBC) [Ratio]Ordered By: Antonina Elizabeth on 11-24-2024 Erythrocyte distribution width (RBC) [Ratio] Erythrocyte distribution width [Ratio] by Automated count 12.0-14.8 [facility] Glucose [Mass/volume] in Ser um or PlasmaOrdered By: Antonina Elizabeth on 11-24-2024 Glucose [Mass/Vol] Glucose [Mass/volume ] in Serum or Plasma 70-100 [facility] Comment on above: ADA recommended refe rence rangeRandom Glucose Reference Range is dependent on time and content of last meal. Glucose of more than 200 mg/dL in a nonstressed, ambulatory subject supports the diagnosis of Diabetes Mellitus. Hematocrit Auto (Bld) [Volum e fraction]Ordered By: Antonina Elizabeth on 11-24-2024 Hematocrit (Bld) [Volume fraction] Hematocrit [Volume Fraction] of Blood by Automated count Low 38.8-50.0 [facility] Hemoglobin [Mass/volume] in BloodOrdered By: Antonina Elizabeth on 11-24-2024 Hemoglobin (Bld) [Mass/Vol] Hemoglobin [Mass/volume] in Blood 13.0-17.0 [facility] Leukocytes [#/volume] correc alejandra for nucleated erythrocytes in Blood by Automated counOrdered By: Antonina Elizabeth on 11-24-2024 WBC corrected for nucl RBC Auto (Bld) [#/Vol] Leukocytes [#/volume] corrected for nucleated erythrocytes in Blood by Automated coun 4.1-10.5 [facility] Lymphocytes Auto (Bld) [#/Vo l]Ordered By: Antonina Elizabeth on 11-24-2024 Lymphocytes (Bld) [#/Vol] Lymphocytes [#/volume] in Blood by Automated count 1.00-4.8 [facility] Lymphocytes/100 WBC Auto (Bl d)Ordered By: Antonina Elizabeth on 11-24-2024 Lymphocytes/100 WBC (Bld) Lymphocytes/100 leukocytes in Blood by Automated count . [facility] MCH Auto (RBC) [Entitic mass ]Ordered By: Antonina Elizabeth on 11-24-2024 MCH (RBC) [Entitic mass] MCH [Entitic mass] by Automated count 27.5-35.2 [facility] MCHC Auto (RBC) [Mass/Vol]Or dered By: Antonina Elizabeth on 11-24-2024 MCHC (RBC) [Mass/Vol] MCHC [Mass/volume] by Automated count 32.5-35.6 [facility] MCV Auto (RBC) [Entitic vol] Ordered By: Antonina Elizabeth on 11-24-2024 MCV (RBC) [Entitic vol] MCV [Entitic volume] by Automated count 83.5-101 [facility] Monocytes Auto (Bld) [#/Vol] Ordered By: Antonina Elizabeth on 11-24-2024 Monocytes (Bld) [#/Vol] Automated blood monocyte count 0.0-0.8 [facility] Monocytes/100 WBC Auto (Bld) Ordered By: Antonina Elizabeth on 11-24-2024 Monocytes/100 WBC (Bld) Automated monocyte % . [facility] Neutrophils Auto (Bld) [#/Vo l]Ordered By: Antonina Elizabeth on 11-24-2024 Neutrophils (Bld) [#/Vol] Neutrophils [#/volume] in Blood by Automated count 1.8-7.7 [facility] Neutrophils/100 WBC Auto (Bl d)Ordered By: Antonina Elizabeth on 11-24-2024 Neutrophils/100 WBC (Bld) Automated neutrophil % . [facility] No Panel InformationOrdered By: Antonina Elizabeth on 11-24-2024 Estimated GFR (CKD-EPI) > 60.0 mL/Min [facility] Creatinine Clearance (Chem N/A [facility] Nucleated erythrocytes [Pres ence] in Blood by Automated countOrdered By: Antonina Elizabeth on 11-24-2024 Nucleated RBC Auto Ql (Bld) Nucleated erythrocytes [Presence] in Blood by Automated count 0-0.5 [facility] Platelet mean volume Auto (B ld) [Entitic vol]Ordered By: Antonina Elizabeth on 11-24-2024 Platelet mean volume (Bld) [Entitic vol] Platelet mean volume [Entitic volume] in Blood by Automated count 6.6-10.1 [facility] Platelets Auto (Bld) [#/Vol] Ordered By: Antonina Elizabeth on 11-24-2024 Platelets (Bld) [#/Vol] Platelets [#/volume] in Blood by Automated count 150-450 [facility] Potassium [Moles/volume] in Serum or PlasmaOrdered By: Antonina Elizabeth on 11-24-2024 Potassium [Moles/Vol] Potassium [Moles/v olume] in Serum or Plasma 3.5-5.1 [facility] RBC Auto (Bld) [#/Vol]Ordere d By: Antonina Elizabeth on 11-24-2024 RBC (Bld) [#/Vol] Erythrocytes [#/volu me] in Blood by Automated count 3.90-5.60 [facility] Serum or plasma anion gap de terminationOrdered By: Antonina Elizabeth on 11-24-2024 Anion gap [Moles/Vol] Serum or plasma an ion gap determination 6.0-15.0 [facility] Sodium [Moles/volume] in Ser um or PlasmaOrdered By: Antonina Elizabeth on 11-24-2024 Sodium [Moles/Vol] Sodium [Moles/volume ] in Serum or Plasma 136-145 [facility] Urea nitrogen [Mass/volume] in Serum or PlasmaOrdered By: Antonina Elizabeth on 11-24-2024 Urea nitrogen [Mass/Vol] Urea nitrogen [Mass/volume] in Serum or Plasma 7-25 [facility] WBC Auto (Bld) [#/Vol]Ordere d By: Antonina Elizabeth on 11-24-2024 WBC (Bld) [#/Vol] Leukocytes [#/volume ] in Blood by Automated count 4.1-10.5 [facility] Activated partial thrombopla stin time (aPTT) in platelet poor plasma by coagulation aon 11-01-2024 aPTT Coag (PPP) [Time] Activated partial thromboplastin time (aPTT) in platelet poor plasma by coagulation a 22.3-36.2 [facility] Basophils Auto (Bld) [#/Vol] on 11-01-2024 Basophils (Bld) [#/Vol] Automated basophil count 0.0-0.1 [facility] Basophils/100 WBC Auto (Bld) on 11-01-2024 Basophils/100 WBC (Bld) Automated basophil % 0.2-2.0 [facility] Eosinophils/100 WBC Auto (Bl d)on 11-01-2024 Eosinophils/100 WBC (Bld) Automated eosinophil % 0.9-7.0 [facility] Erythrocyte distribution wid th Auto (RBC) [Ratio]on 11-01-2024 Erythrocyte distribution width (RBC) [Ratio] Erythrocyte distribution width [Ratio] by Automated count 11.0-15.0 [facility] Estimated glomerular filtrat ion rate (GFR) non- Americanon 11-01-2024 GFR/1.73 sq M.predicted among non-blacks MDRD (S/P/Bld) [Vol rate/Area] Estimated glomerular filtration rate (GFR) non- >=60 mL/min/1.7 3m 2 [facility] Hematocrit Auto (Bld) [Volum e fraction]on 11-01-2024 Hematocrit (Bld) [Volume fraction] Hematocrit [Volume Fraction] of Blood by Automated count Low 42.0-54.0 [facility] Hemoglobin [Mass/volume] in Bloodon 11-01-2024 Hemoglobin (Bld) [Mass/Vol] Hemoglobin [Mass/volume] in Blood Low 14.0-18.0 [facility] INR in Platelet poor plasma by Coagulation assayon 11-01-2024 INR Coag (PPP) [Relative time] INR in Platelet poor plasma by Coagulation assay [facility] Comment on above: DESIRED INR:2.0-3.0 CONDITIONS NOT LISTED BELOW2.5-3.5 FOR PROSTHETIC HEART VALVE REPLACEMENT2.5-3.5 RECURRENT THROMBOSIS Laboratory - Chemistry and C hemistry - challengeon 11-01-2024 Calcium [Mass/Vol] 9.6 mg/dL 8.5-10.1 [facility] Chloride [Moles/Vol] 104 mmol/L 98-107 [facility] CO2 [Moles/Vol] 28.4 mmol/L 21.0-32.0 [facility] Creatinine [Mass/Vol] 0.95 mg/dL 0.70-1.30 [facility] GFR/1.73 sq M.predicted MDRD (S/P/Bld) [Vol rate/Area] mL/min/{1.73_m2} >=60 mL/min/1.7 3m 2 [facility] Glucose [Mass/Vol] 92 mg/dL 74-106 [facility] Potassium [Moles/Vol] 4.3 mmol/L 3.5-5.1 [facility] Sodium [Moles/Vol] 140 mmol/L 136-145 [facility] Urea nitrogen [Mass/Vol] 14.0 mg/dL 7.0-18.0 [facility] Urea nitrogen/Creatinine [Mass ratio] 14.7 mg/mg [facility] Laboratory - Hematology and Cell countson 11-01-2024 Immature granulocytes/100 WBC (Bld) 0.4 % 0.0-0.5 [facility] Leukocytes [#/volume] correc alejandra for nucleated erythrocytes in Blood by Automated counon 11-01-2024 WBC corrected for nucl RBC Auto (Bld) [#/Vol] Leukocytes [#/volume] corrected for nucleated erythrocytes in Blood by Automated coun 4.0-11.0 [facility] Lymphocytes Auto (Bld) [#/Vo l]on 11-01-2024 Lymphocytes (Bld) [#/Vol] Lymphocytes [#/volume] in Blood by Automated count 1.2-3.8 [facility] Lymphocytes/100 WBC Auto (Bl d)on 11-01-2024 Lymphocytes/100 WBC (Bld) Lymphocytes/100 leukocytes in Blood by Automated count 20.5-60.0 [facility] MCH Auto (RBC) [Entitic mass ]on 11-01-2024 MCH (RBC) [Entitic mass] MCH [Entitic mass] by Automated count 25.9-34.0 [facility] MCHC Auto (RBC) [Mass/Vol]on 11-01-2024 MCHC (RBC) [Mass/Vol] MCHC [Mass/volume] by Automated count 29.9-35.2 [facility] MCV Auto (RBC) [Entitic vol] on 11-01-2024 MCV (RBC) [Entitic vol] MCV [Entitic volume] by Automated count High 80.0-94.0 [facility] Monocytes Auto (Bld) [#/Vol] on 11-01-2024 Monocytes (Bld) [#/Vol] Automated blood monocyte count 0.3-0.8 [facility] Monocytes/100 WBC Auto (Bld) on 11-01-2024 Monocytes/100 WBC (Bld) Automated monocyte % 1.7-12.0 [facility] Neutrophils Auto (Bld) [#/Vo l]on 11-01-2024 Neutrophils (Bld) [#/Vol] Neutrophils [#/volume] in Blood by Automated count 1.4-6.5 [facility] Neutrophils/100 WBC Auto (Bl d)on 11-01-2024 Neutrophils/100 WBC (Bld) Automated neutrophil % 43.0-75.0 [facility] No Panel Informationon 11-01 Eosinophils # (Auto) 0.1 10 3/uL 0.0-0.7 [facility] Immature Granulocyte # (Auto) 0.02 10 3/uL 0.00-0.03 [facility] Platelet mean volume Auto (B ld) [Entitic vol]on 11-01-2024 Platelet mean volume (Bld) [Entitic vol] Platelet mean volume [Entitic volume] in Blood by Automated count 9.5-13.5 [facility] Platelets Auto (Bld) [#/Vol] on 11-01-2024 Platelets (Bld) [#/Vol] Platelets [#/volume] in Blood by Automated count 150-450 [facility] Prothrombin time (PT)on PT Coag (PPP) [Time] Prothrombin time (PT) 9.0- 11.6 [facility] RBC Auto (Bld) [#/Vol]on RBC (Bld) [#/Vol] Erythrocytes [#/volu me] in Blood by Automated count Low 4.70-6.10 [facility] Serum or plasma anion gap de terminationon 11-01-2024 Anion gap [Moles/Vol] Serum or plasma an ion gap determination [facility] Basophils Auto (Bld) [#/Vol] on 10-18-2024 Basophils (Bld) [#/Vol] Automated basophil count <0.11 [facility] Basophils/100 WBC Auto (Bld) on 10-18-2024 Basophils/100 WBC (Bld) Automated basophil % [facility] Blood manual differential co mment interpretation narrativeon 10-18-2024 Manual differential comment Kaleb (Bld) [Interp] Blood manual differential comment interpretation narrative [facility] CBC W Auto Differential pane l (Bld)on 10-18-2024 Basophils (Bld) [#/Vol] 10*3/uL Normal <0.11 [facility] Comment on above: Order Comment: Speci men Type: BLOOD SPECIMEN Ordering Facility: [facility] Address: [address] [place] [address] Performed By: #### 5 7021-8 #### [facility] CLIA [id number] [address] [place] [address] Basophils/100 WBC (Bld) 0.2 % Normal [facility] Comment on above: Order Comment: Speci men Type: BLOOD SPECIMEN Ordering Facility: [facility] Address: [address] [place] [address] Performed By: #### 5 7021-8 #### [facility] CLIA [id number] [address] [place] [address] Differential cell count method Nom (Bld) Auto Normal [facility] Comment on above: Order Comment: Speci men Type: BLOOD SPECIMEN Ordering Facility: [facility] Address: [address] [place] [address] Performed By: #### 5 7021-8 #### [facility] CLIA [id number] [address] [place] [address] Eosinophils (Bld) [#/Vol] 0.11 10*3/uL Normal <0.46 [facility] Comment on above: Order Comment: Speci men Type: BLOOD SPECIMEN Ordering Facility: [facility] Address: [address] [place] [address] Performed By: #### 5 7021-8 #### [facility] CLIA [id number] [address] [place] [address] Eosinophils/100 WBC (Bld) 1.8 % Normal [facility] Comment on above: Order Comment: Speci men Type: BLOOD SPECIMEN Ordering Facility: [facility] Address: [address] [place] [address] Performed By: #### 5 7021-8 #### [facility] CLIA [id number] [address] [place] [address] Erythrocyte distribution width (RBC) [Ratio] 12.6 % Normal 11.5-15.0 [facility] Comment on above: Order Comment: Speci men Type: BLOOD SPECIMEN Ordering Facility: [facility] Address: [address] [place] [address] Performed By: #### 5 7021-8 #### [facility] CLIA [id number] [address] [place] [address] Hematocrit (Bld) [Volume fraction] 38.0 % Low 39.0-51.0 [facility] Comment on above: Order Comment: Speci men Type: BLOOD SPECIMEN Ordering Facility: [facility] Address: [address] [place] [address] Performed By: #### 5 7021-8 #### [facility] CLIA [id number] [address] [place] [address] Hemoglobin (Bld) [Mass/Vol] 13.3 g/dL Normal 13.0-17.0 [facility] Comment on above: Order Comment: Speci men Type: BLOOD SPECIMEN Ordering Facility: [facility] Address: [address] [place] [address] Performed By: #### 5 7021-8 #### [facility] CLIA [id number] [address] [place] [address] Immature granulocytes (Bld) [#/Vol] 10*3/uL Normal <0.10 [facility] Comment on above: Order Comment: Speci men Type: BLOOD SPECIMEN Ordering Facility: [facility] Address: [address] [place] [address] Performed By: #### 5 7021-8 #### [facility] CLIA [id number] [address] [place] [address] Immature granulocytes/100 WBC (Bld) 0.2 % Normal [facility] Comment on above: Order Comment: Speci men Type: BLOOD SPECIMEN Ordering Facility: [facility] Address: [address] [place] [address] Performed By: #### 5 7021-8 #### [facility] CLIA [id number] [address] [place] [address] Lymphocytes (Bld) [#/Vol] 1.62 10*3/uL Normal 1.00-4.00 [facility] Comment on above: Order Comment: Speci men Type: BLOOD SPECIMEN Ordering Facility: [facility] Address: [address] [place] [address] Performed By: #### 5 7021-8 #### [facility] CLIA [id number] [address] [place] [address] Lymphocytes/100 WBC (Bld) 26.6 % Normal [facility] Comment on above: Order Comment: Speci men Type: BLOOD SPECIMEN Ordering Facility: [facility] Address: [address] [place] [address] Performed By: #### 5 7021-8 #### [facility] CLIA [id number] [address] [place] [address] MCH (RBC) [Entitic mass] 33.1 pg Normal 26.0-34.0 [facility] Comment on above: Order Comment: Speci men Type: BLOOD SPECIMEN Ordering Facility: [facility] Address: [address] [place] [address] Performed By: #### 5 7021-8 #### [facility] CLIA [id number] [address] [place] [address] MCHC (RBC) [Mass/Vol] 35.0 g/dL Normal 30.5-36.0 [facility] Comment on above: Order Comment: Speci men Type: BLOOD SPECIMEN Ordering Facility: [facility] Address: [address] [place] [address] Performed By: #### 5 7021-8 #### [facility] [facility] CLIA [id number] [address] [place] [address] 36030 MCV (RBC) [Entitic vol] 94.5 fL Normal 80.0-100.0 [facility] Comment on above: Order Comment: Speci men Type: BLOOD SPECIMEN Ordering Facility: [facility] Address: [address] [place] [address] Performed By: #### 5 7021-8 #### [facility] CLIA [id number] [address] [place] [address] 18565 Monocytes (Bld) [#/Vol] 0.56 10*3/uL Normal <0.87 [facility] Comment on above: Order Comment: Speci men Type: BLOOD SPECIMEN Ordering Facility: [facility] Address: [address] [place] [address] Performed By: #### 5 7021-8 #### [facility] CLIA [id number] [address] [place] [address] 06977 Monocytes/100 WBC (Bld) 9.2 % Normal [facility] Comment on above: Order Comment: Speci men Type: BLOOD SPECIMEN Ordering Facility: [facility] Address: [address] [place] [address] Performed By: #### 5 7021-8 #### [facility] CLIA [id number] [address] [place] [address] 62789 Neutrophils (Bld) [#/Vol] 3.79 10*3/uL Normal 1.45-7.50 [facility] Comment on above: Order Comment: Speci men Type: BLOOD SPECIMEN Ordering Facility: [facility] Address: [address] [place] [address] Performed By: #### 5 7021-8 #### [facility] CLIA [id number] [address] [place] [address] Neutrophils/100 WBC (Bld) 62.0 % Normal [facility] Comment on above: Order Comment: Speci men Type: BLOOD SPECIMEN Ordering Facility: [facility] Address: [address] [place] [address] Performed By: #### 5 7021-8 #### [facility] CLIA [id number] [address] [place] [address] Nucleated RBC (Bld) [#/Vol] 10*3/uL Normal <0.01 [facility] Comment on above: Order Comment: Speci men Type: BLOOD SPECIMEN Ordering Facility: [facility] Address: [address] [place] [address] Performed By: #### 5 7021-8 #### [facility] CLIA [id number] [address] [place] [address] 46657 Nucleated RBC/100 WBC (Bld) [Ratio] 0.0 /100 WBC Normal [facility] Comment on above: Order Comment: Speci men Type: BLOOD SPECIMEN Ordering Facility: [facility] Address: [address] [place] [address] Performed By: #### 5 7021-8 #### [facility] CLIA [id number] [address] [place] [address] Platelet mean volume (Bld) [Entitic vol] 10.2 fL Normal 9.0-12.7 [facility] Comment on above: Order Comment: Speci men Type: BLOOD SPECIMEN Ordering Facility: [facility] Address: [address] [place] [address] Performed By: #### 5 7021-8 #### [facility] CLIA [id number] [address] [place] [address] Platelets (Bld) [#/Vol] 231 10*3/uL Normal 150-400 [facility] Comment on above: Order Comment: Speci men Type: BLOOD SPECIMEN Ordering Facility: [facility] Address: [address] [place], [place] [address] Performed By: #### 5 7021-8 #### [facility] CLIA [id number] [address] [place] [address] 49773 RBC (Bld) [#/Vol] 4.02 10*6/uL Low 4.20-6.00 [facility] Comment on above: Order Comment: Speci men Type: BLOOD SPECIMEN Ordering Facility: [facility] Address: [address] [place] [address] Performed By: #### 5 7021-8 #### [facility] CLIA [id number] [address] [place] [address] 89714 WBC (Bld) [#/Vol] 6.10 10*3/uL Normal 3.70-11.00 [facility] Comment on above: Order Comment: Speci men Type: BLOOD SPECIMEN Ordering Facility: [facility] Address: [address] [place], [place] [address] Performed By: #### 5 7021-8 #### [facility] CLIA [id number] [address] [place] [address] 10562 CNOVSPon 10-18-2024 OVS Visit (SP) Office (H EMASA) -- ADAN MENARD ([id number]) 1965 M Date Time Provider Department 10/18/24 2:40 PM AYAD HARRISON During your visit today, we recorded the following information about you: Temperature Pulse Respiration Blood pressure 97.6 degrees 69/minute 18/minute 130/78 Weight 64.4 kg Ayad Harrison MD 10/19/2024 10:51 AM Signed PATIENT NAME: Adan Menard DATE: 10/19/2023 PRIMARY CARE PHYSICIAN: Tamiko Reece CNP ([facility]) OTHER PHYSICIANS: Dr. Marcos, Dr. Funez Portions of this encounter note have been copied from the note from 04/19/2024 and has been updated where appropriate, and reflect my current medical decision making from today. CC: This is a 59 year old male with metastatic prostate cancer, seen for scheduled follow-up. INTERIM HISTORY: Since the patient's last visit here he has remained on treatment with Lupron plus enzalutamide. Last Lupron given 09/19/[address] Marcos. He has had no apparent side effects from enzalutamide 160 mg daily. He also had been on antiresorptive therapy with Xgeva every 6 months, last given October 2023. Subsequently his insurance company refused to pay for the medication. Fortunately he has had no skeletal events. Apparently he recently developed hematuria and was found to have kidney stones. He is scheduled undergo treatment per Dr. Marcos in the near future. Otherwise no complaints today. MEDICATIONS: Current Outpatient Medications Medication Sig enzalutamide (XTANDI) 80 mg tablet TAKE 2 TABLETS BY MOUTH 1 TIME A DAY. tamsulosin (FLOMAX) 0.4 mg Take 0.4 mg by mouth twice daily. IBUPROFEN ORAL Take by mouth. leuprolide (LUPRON) 1 mg/0.2 mL injection Inject 1 mg subcutaneously one time only. calcium carbonate/vitamin D3 (CALCIUM 600 + D,3, ORAL) Take by mouth. ascorbic acid (VITAMIN C ORAL) Take by mouth. elderberry fruit (ELDERBERRY ORAL) Take by mouth. aspirin, enteric coated (ASPIRIN, ENTERIC COATED) 81 mg EC tablet Take 81 mg by mouth once daily. docosahexaenoic acid/epa (FISH OIL ORAL) Take by mouth once daily. MULTI-VITAMIN ORAL Take by mouth once daily. No current facility-administered medications for this visit. ALLERGIES: ALLERGIES Allergen Reactions Ciprofloxacin Other: See Comments Abdominal breathing PAST MEDICAL HISTORY: PAST MEDICAL HISTORY Diagnosis Date BPH (benign prostatic hyperplasia) Hematospermia Prostate cancer (HCC) Urinary retention PAST SURGICAL HISTORY: PAST SURGICAL HISTORY Procedure Laterality Date PROSTATE BIOPSY W/TRANSRECTAL US FAMILY HISTORY: FAMILY HISTORY Problem Relation Age of Onset Prostate Cancer Father SOCIAL HISTORY: Social History Tobacco Use Smoking status: Every Day Current packs/day: 0.50 Types: Cigarettes Passive exposure: Current Smokeless tobacco: Never Vaping Use Vaping status: Never Used Substance Use Topics Alcohol use: Not Currently Drug use: Never REVIEW OF SYSTEMS: General: No weight loss, malaise or fevers. HEENT: Negative for frequent or significant headaches. No changes in hearing or vision, no nose bleeds or other nasal problems. Respiratory: Negative for cough, wheezing or shortness of breath. Cardiovascular: Negative for chest pain, leg swelling or palpitations. GI: Negative for abdominal discomfort, blood in stools or black stools or change in bowel habits. : No history of dysuria, frequency or incontinence. Musculoskeletal: Negative for joint pain or swelling, back pain and muscle pain. Skin: Negative for lesions, rash and itching. Hematology/Lymphology: Negative for prolonged bleeding, bruising easily or swollen nodes. Neuro: No history of headaches, syncope, paralysis, seizures or tremors. PHYSICAL EXAM: BP 130/78 Pulse 69 Temp 36.4 ?C (97.6 ?F) Resp 18 Wt 64.4 kg (141 lb 15.6 oz) SpO2 100% BMI 24.15 kg/m? ECOG 0 Gen.: This is an age-appropriate patient in no acute distress. Head: Appears atraumatic with no visible lesions. Eyes: Pupils equally round and reactive to light, extraocular muscles are intact. Neck: Supple. Mouth: Masked. Respiratory: Appears to be respiring comfortably. Neurologic: Nonfocal to gross visualization. Alert and oriented ?3. Psychiatric: No evidence of inappropriate anxiety or depression. Skin: Visible areas of skin without rash, lesions, wounds or petechiae. PATHOLOGY: 03/18/2022 TRUS prostate biopsy ([facility]) Adenocarcinoma, Jackpot score 10 (1 core) left lateral base Total 12 of 14 cores involved, 60 to 100% LABS: Hemoglobin (g/dL) Date Value 10/18/2024 13.3 Hematocrit (%) Date Value 10/18/2024 38.0 WBC (k/uL) Date Value 10/18/2024 6.10 Platelet Count (k/uL) Date Value 10/18/2024 231 PSA 03/10/2022 >100.0 04/03/2022 383.9 04/28/2022 47.09 05/15/2022 4.53 (Alexander) 06/19/2022 0.27 (more content not included)... Normal [facility] Comprehensive metabolic 2000 panelon 10-18-2024 Albumin [Mass/Vol] 4.3 g/dL Normal 3.9-4.9 [facility] Comment on above: Order Comment: Speci men Type: BLOOD SPECIMEN Ordering Facility: [facility] Address: [address] [place] [address] Performed By: #### 5 7021-8 #### [facility] CLIA [id number] [address] [place] [address] ALP [Catalytic activity/Vol] 106 U/L Normal 38-113 [facility] Comment on above: Order Comment: Speci men Type: BLOOD SPECIMEN Ordering Facility: [facility] Address: [address] [place] [address] Performed By: #### 5 7021-8 #### [facility] CLIA [id number] [address] [place] [address] ALT [Catalytic activity/Vol] 13 U/L Normal 10-54 [facility] Comment on above: Order Comment: Speci men Type: BLOOD SPECIMEN Ordering Facility: [facility] Address: [address] [place] [address] Performed By: #### 5 7021-8 #### [facility] CLIA [id number] [address] [place] [address] 83348 Anion gap [Moles/Vol] 14 mmol/L Normal 8-15 [facility] Comment on above: Order Comment: Speci men Type: BLOOD SPECIMEN Ordering Facility: [facility] Address: [facility] [place] [address] Performed By: #### 5 7021-8 #### [facility] CLIA [id number] [address] [place] [address] AST [Catalytic activity/Vol] 21 U/L Normal 14-40 [facility] Comment on above: Order Comment: Speci men Type: BLOOD SPECIMEN Ordering Facility: [facility] Address: [address] [place] [id number] Performed By: #### 5 7021-8 #### [facility] CLIA [id number] [address] [place] [address] Bilirubin [Mass/Vol] 0.3 mg/dL Normal 0.2-1.3 [facility] Comment on above: Order Comment: Speci men Type: BLOOD SPECIMEN Ordering Facility: [facility] Address: [address] [place] [address] Performed By: #### 5 7021-8 #### [facility] CLIA [id number] [address] [place] [address] 88387 Calcium [Mass/Vol] 10.0 mg/dL Normal 8.5-10.2 [facility] Comment on above: Order Comment: Speci men Type: BLOOD SPECIMEN Ordering Facility: [facility] Address: [address] [place] [address] Performed By: #### 5 7021-8 #### [facility] CLIA [id number] [address] [place] [address] 31751 Chloride [Moles/Vol] 104 mmol/L Normal 98-107 [facility] Comment on above: Order Comment: Speci men Type: BLOOD SPECIMEN Ordering Facility: [facility] Address: [address] [place] [address] Performed By: #### 5 7021-8 #### [facility] CLIA [id number] [address] [place] [address] 99745 CO2 [Moles/Vol] 22 mmol/L Normal 22-30 [facility] Comment on above: Order Comment: Speci men Type: BLOOD SPECIMEN Ordering Facility: [facility] Address: [address] [place] [address] Performed By: #### 5 7021-8 #### [facility] CLIA [id number] [address] [place] [address]019 Creatinine [Mass/Vol] 0.78 mg/dL Normal 0.73-1.22 [facility] Comment on above: Order Comment: Shanice rahman Type: BLOOD SPECIMEN Ordering Facility: [facility] Address: [address] [facility] [address] Performed By: #### 5 7021-8 #### [facility] CLIA [id number] [address] [place] [address] 37686 Creatinine and Glomerular filtration rate.predicted panel (S/P/Bld) 101 mL/min/1.73m??? Normal >=60 [facility] Comment on above: Order Comment: Shanice rahman Type: BLOOD SPECIMEN Ordering Facility: [facility] Address: [address] [id number] Result Comment: Sravani mated Glomerular Filtration Rate (eGFR) is calculated using the 2020 CKD-EPI creatinine equation. This equation utilizes serum creatinine, sex, and age as parameters. The creatinine assay has traceable calibration to isotope dilution-mass spectrometry. Refer to KDIGO guidelines for clinical interpretation. In patients with unstable renal function, e.g. those with acute kidney injury, the eGFR may not accurately reflect actual GFR. Performed By: #### 5 7021-8 #### [facility] CLIA [id number] [address] [place] [address] 07170 Glucose [Mass/Vol] 104 mg/dL High 74-99 [facility] Comment on above: Order Comment: Shanice rahman Type: BLOOD SPECIMEN Ordering Facility: [facility] Address: [address] [place] [address] Result Comment: The [place] Diabetes Association (ADA) provides guidance for cutoff [...] Standards of Medical Care in Diabetes 2016, [place] [employer]. Diabetes Care. 2016.39(Suppl 1). Performed By: #### 5 7021-8 #### [facility] CLIA [id number] [address] [place] [address] Potassium [Moles/Vol] 4.1 mmol/L Normal 3.7-5.1 [facility] Comment on above: Order Comment: Speci men Type: BLOOD SPECIMEN Ordering Facility: [facility] Address: [address] [place] [address] Performed By: #### 5 7021-8 #### [facility] CLIA [id number] [address] [place] [address] 57920 Protein [Mass/Vol] 7.1 g/dL Normal 6.3-8.0 [facility] Comment on above: Order Comment: Speci men Type: BLOOD SPECIMEN Ordering Facility: [facility] Address: [address] [place] [address] Performed By: #### 5 7021-8 #### [facility] CLIA [id number] [address] [place] [address] 77548 Sodium [Moles/Vol] 140 mmol/L Normal 136-144 [facility] Comment on above: Order Comment: Speci men Type: BLOOD SPECIMEN Ordering Facility: [facility] Address: [address] [place] [address] Performed By: #### 5 7021-8 #### [facility] CLIA [id number] [address] [place] [address] 93803 Urea nitrogen [Mass/Vol] 12 mg/dL Normal 9-24 [facility] Comment on above: Order Comment: Speci men Type: BLOOD SPECIMEN Ordering Facility: [facility] Address: [address] [place] [address] Performed By: #### 5 7021-8 #### [facility] CLIA [id number] [address] [place] [address] 77121 Eosinophils/100 WBC Auto (Bl d)on 10-18-2024 Eosinophils/100 WBC (Bld) Automated eosinophil % [facility] Erythrocyte distribution wid th Auto (RBC) [Ratio]on 10-18-2024 Erythrocyte distribution width (RBC) [Ratio] Erythrocyte distribution width [Ratio] by Automated count 11.5-15.0 [facility] Hematocrit Auto (Bld) [Volum e fraction]on 10-18-2024 Hematocrit (Bld) [Volume fraction] Hematocrit [Volume Fraction] of Blood by Automated count Low 39.0-51.0 [facility] Hemoglobin [Mass/volume] in Bloodon 10-18-2024 Hemoglobin (Bld) [Mass/Vol] Hemoglobin [Mass/volume] in Blood 13.0-17.0 [facility] - Chemistry and C hemistry - challengeon 10-18-2024 Albumin [Mass/Vol] 4.3 g/dL 3.9-4.9 [facility] ALP [Catalytic activity/Vol] 106 U/L 38-113 [facility] ALT [Catalytic activity/Vol] 13 U/L 10-54 [facility] AST [Catalytic activity/Vol] 21 U/L 14-40 [facility] Bilirubin [Mass/Vol] 0.3 mg/dL 0.2-1.3 [facility] Calcium [Mass/Vol] 10.0 mg/dL 8.5-10.2 [facility] Chloride [Moles/Vol] 104 mmol/L 98-107 [facility] CO2 [Moles/Vol] 22 mmol/L 22-30 [facility] Creatinine [Mass/Vol] 0.78 mg/dL 0.73-1.22 [facility] Glucose [Mass/Vol] 104 mg/dL High 74-99 [facility] Comment on above: The [place] Diabete s Association (ADA) provides guidance for cutoff values for fasting glucose and random glucose. The ADA defines fasting as no caloric intake for at least 8 hours. Fasting plasma glucose results between 100 to 125 mg/dL indicate increased risk for diabetes (prediabetes).Fasting plasma glucose results greater than or equal to 126 mg/dL meet the criteria for diagnosis of diabetes. In the absence of unequivocal hyperglycemia, results should be confirmed by repeat testing. In a patient with classic symptoms of hyperglycemia or hyperglycemic crisis, random plasma glucose results greater than or equal to 200 mg/dL meet the criteria for diagnosis of diabetes.Reference: Standards of Medical Care in Diabetes 2016, [place] [employer]. Diabetes Care. 2016.39(Suppl 1). Potassium [Moles/Vol] 4.1 mmol/L 3.7-5.1 [facility] Sodium [Moles/Vol] 140 mmol/L 136-144 [facility] Urea nitrogen [Mass/Vol] 12 mg/dL 9-24 [facility] - Hematology and Cell countson 10-18-2024 Eosinophils (Bld) [#/Vol] 0.11 10*3/uL <0.46 [facility] Immature granulocytes/100 WBC (Bld) 0.2 % [facility] Leukocytes [#/volume] correc alejandra for nucleated erythrocytes in Blood by Automated counon 10-18-2024 WBC corrected for nucl RBC Auto (Bld) [#/Vol] Leukocytes [#/volume] corrected for nucleated erythrocytes in Blood by Automated coun 3.70-11.00 [facility] Lymphocytes Auto (Bld) [#/Vo l]on 10-18-2024 Lymphocytes (Bld) [#/Vol] Lymphocytes [#/volume] in Blood by Automated count 1.00-4.00 [facility] Lymphocytes/100 WBC Auto (Bl d)on 10-18-2024 Lymphocytes/100 WBC (Bld) Lymphocytes/100 leukocytes in Blood by Automated count [facility] MCH Auto (RBC) [Entitic mass ]on 10-18-2024 MCH (RBC) [Entitic mass] MCH [Entitic mass] by Automated count 26.0-34.0 [facility] MCHC Auto (RBC) [Mass/Vol]on 10-18-2024 MCHC (RBC) [Mass/Vol] MCHC [Mass/volume] by Automated count 30.5-36.0 [facility] MCV Auto (RBC) [Entitic vol] on 10-18-2024 MCV (RBC) [Entitic vol] MCV [Entitic volume] by Automated count 80.0-100.0 [facility] Monocytes Auto (Bld) [#/Vol] on 10-18-2024 Monocytes (Bld) [#/Vol] Automated blood monocyte count <0.87 [facility] Monocytes/100 WBC Auto (Bld) on 10-18-2024 Monocytes/100 WBC (Bld) Automated monocyte % [facility] Neutrophils Auto (Bld) [#/Vo l]on 10-18-2024 Neutrophils (Bld) [#/Vol] Neutrophils [#/volume] in Blood by Automated count 1.45-7.50 [facility] Neutrophils/100 WBC Auto (Bl d)on 10-18-2024 Neutrophils/100 WBC (Bld) Automated neutrophil % [facility] No Panel Informationon 10-18 Estimated GFR (CKD-EPI) 101 mL/min/1.73m??? >=60 [facility] Comment on above: Estimated Glomerular Filtration Rate (eGFR) is calculated using the 2020 CKD-EPI creatinine equation. This equation utilizes serum creatinine, sex, and age as parameters. The creatinine assay has traceable calibration to isotope dilution-mass spectrometry. Refer to KDIGO guidelines for clinical interpretation. In patients with unstable renal function, e.g. those with acute kidney injury, the eGFR may not accurately reflect actual GFR. Immature Granulocyte # (Auto) <0.03 k/uL <0.10 [facility] Prostate Specific Antigen <0.02 ng/mL <2.60 [facility] Comment on above: Total PSA test metho dology used is the Electrochemiluminescence Immunoassay by [employer]. Total PSA values by differing methodologies cannot be interchanged. Nucleated RBC Auto (Bld) [#/ Vol]on 10-18-2024 Nucleated RBC (Bld) [#/Vol] Nucleated erythrocytes [#/volume] in Blood by Automated count <0.01 [facility] Nucleated erythrocytes [Pres ence] in Blood by Automated counton 10-18-2024 Nucleated RBC Auto Ql (Bld) Nucleated erythrocytes [Presence] in Blood by Automated count [facility] PSA SerPl-mCncon 10-18-2024 Prostate specific Ag [Mass/Vol] ng/mL Normal <2.60 [facility] Comment on above: Order Comment: Speci men Type: BLOOD SPECIMEN Ordering Facility: [facility] Address: [address] [place] [address] Result Comment: Tota l PSA test methodology used is the Electrochemiluminescence Immunoassay by [employer]. Total PSA values by differing methodologies cannot be interchanged. Performed By: #### 2 857-1 #### [facility] CLIA [id number] [address] [place] [address] [place] Platelet mean volume Auto (B ld) [Entitic vol]on 10-18-2024 Platelet mean volume (Bld) [Entitic vol] Platelet mean volume [Entitic volume] in Blood by Automated count 9.0-12.7 [facility] Platelets Auto (Bld) [#/Vol] on 10-18-2024 Platelets (Bld) [#/Vol] Platelets [#/volume] in Blood by Automated count 150-400 [facility] Protein [Mass/volume] in Ser um or Plasmaon 10-18-2024 Protein [Mass/Vol] Protein [Mass/volume ] in Serum or Plasma 6.3-8.0 [facility] RBC Auto (Bld) [#/Vol]on RBC (Bld) [#/Vol] Erythrocytes [#/volu me] in Blood by Automated count Low 4.20-6.00 [facility] Serum or plasma anion gap de terminationon 10-18-2024 Anion gap [Moles/Vol] Serum or plasma an ion gap determination 8-15 [facility] CNPNon 09-28-2024 CNPN Telephone ([facility]) -- ADAN MENARD ([id number]) 1965 M Date Time Provider Department 09/28/24 DIANA BAUER [facility] During your visit today, we recorded the following information about you: Diana Bauer RPh 09/29/2024 12:29 PM Signed Ambulatory Pharmacy Prior Authorization Note Provider Intervention Required?: No - Pharmacy completed on your behalf. Was the PA documented within the ePA workqueue?: No Rx Plan: Medicaid [facility] ([facility]) Drug: Xtandi 80 mg Cover My Meds Ac: [id number] Determination: Approved Prior Authorization/Case #: [id number] Prior Authorization Expiration: 09/26/25 Time to PA Submission in CMM: 15 min Time to PA Determination in CMM: Same day Additional Information: For questions relating to this submission, please contact [facility] at [phone] Allergies As of Date: 09/28/2024 Noted Allergy Reaction CIPROFLOXACIN 04/02/2022 14 - Other: See Comments Comments: Abdominal breathing Date Reviewed: 04/20/2024 Reviewed by: Yamilet Graf APRN.[employer] - Fully Assessed Prescriptions as of 09/29/2024 - enzalutamide (XTANDI) 80 mg tablet TAKE 2 TABLETS BY MOUTH 1 TIME A DAY. - tamsulosin (FLOMAX) 0.4 mg Take 0.4 mg by mouth twice daily. - IBUPROFEN ORAL Take by mouth. - leuprolide (LUPRON) 1 mg/0.2 mL injection Inject 1 mg subcutaneously one time only. - calcium carbonate/vitamin D3 (CALCIUM 600 + D,3, ORAL) Take by mouth. - ascorbic acid (VITAMIN C ORAL) Take by mouth. - elderberry fruit (ELDERBERRY ORAL) Take by mouth. - aspirin, enteric coated (ASPIRIN, ENTERIC COATED) 81 mg EC tablet Take 81 mg by mouth once daily. - docosahexaenoic acid/epa (FISH OIL ORAL) Take by mouth once daily. - MULTI-VITAMIN ORAL Take by mouth once daily. Problem List As Of Date 09/28/2024 Noted Resolved Prostate cancer (HCC) [C61] 04/28/2022 Malignant neoplasm metastatic to bone (HCC) [C7*04/28/2022 Encounter Status:Closed by DIANA BAUER on 09/29/24 Normal [facility] C Urineon 09-21-2024 Bacteria identified Cx Nom (U) Microbiology PROCEDURE: Urine Culture [R1] SOURCE: U Random BODY SITE: COLLECTED DATE/TIME: 09/19/2024 12:32 EST RECEIVED DATE/TIME: 09/19/2024 18:23 EST START DATE/TIME: 09/19/2024 18:23 EST FREE TEXT SOURCE: PRITI JONES, Eloise MARCOS MD, Eloise Mccarthy FINAL REPORTS Final Report [] Verified Date/Time: 09/21/2024 08:51 EST No growth at 2 days. Performing Locations R1: This test was performed at: [facility], [address] [place] [address], [phone] , [place], Normal [facility] Comment on above: Performed By: #### 2 [id number] #### [facility] [address] [place] [id number] Ambulatory Visit Summaryon 0 09-19-2024 Ambulatory Visit Summary Ambulatory Visit Summary ADAN MENARD :1965 Visit Date:09/19/2024 Ambulatory Visit Instructions Your Diagnosis Prostate cancer BPH with obstruction/lower urinary tract symptoms Urinary retention Gross hematuria ED (erectile dysfunction) Kidney stone Tests Performed CT Urogram -- Results Pending -- Please visit your patient portal for your results or contact your primary care physician. Your Care Team Attending Physician - Eloise MARCOS MD Primary Care Physician - TAMIKO REECE CNP This Is Your Medications List doxycycline (doxycycline hyclate 100 mg Cap) tadalafil (Cialis 20 mg Tab) tamsulosin (tamsulosin 0.4 mg Cap) Contact prescribing physician if questions or concerns ascorbic acid (Vitamin C) aspirin (aspirin 81 mg oral capsule) calcium-vitamin D elderberry enzalutamide (Xtandi 80 mg oral tablet) ibuprofen multivitamin (Multi Vitamin+) omega-3 polyunsaturated fatty acids (Fish Oil) Procedures Performed History of external beam radiation therapy (09/03/2022), Cystoscopy (05/13/2022), Transrectal biopsy of prostate using ultrasound (US) guidance (03/18/2022). Discharge Vitals Temperature (Oral) 37 ???C Heart Rate (Peripheral) 96 Blood Pressure 130/94 Height 169 cm Height 67 in Weight 64 kg Weight 141.096 lb BMI 22.41 What to do next Scheduled Follow-Up Appointments Thursday 10:45 AM EDT With: Eloise MARCOS MD Where: [facility] [address] [place] [address]- You Need to Schedule the Following Appointments Follow Up with PRITI JONES, KHOI Graf When: Where: [facility] [address], [place] [phone] Medications What How Much When Why Instructions New doxycycline (doxycycline hyclate 100 mg Cap) 1 Capsules By Mouth Every day Gross hematuria take one day before procedure and take one day after procedure Pickup at [facility]/pharmacy #[id number] Unchanged tadalafil (Cialis 20 mg Tab) 1 Tablets By Mouth As Directed as needed for for erectile dysfunction Take one tab 1hr prior to sexual activity. Unchanged tamsulosin (tamsulosin 0.4 mg Cap) 1 Capsules By Mouth 2 times a day Unchanged ascorbic acid (Vitamin C) Every day Contact prescribing physician if questions or concerns Unchanged aspirin (aspirin 81 mg oral capsule) By Mouth Every 4 hours Contact prescribing physician if questions or concerns Unchanged calcium-vitamin D Contact prescribing physician if questions or concerns Unchanged elderberry Contact prescribing physician if questions or concerns Unchanged enzalutamide (Xtandi 80 mg oral tablet) Contact prescribing physician if questions or concerns Unchanged ibuprofen Contact prescribing physician if questions or concerns Unchanged multivitamin (Multi Vitamin+) Contact prescribing physician if questions or concerns Unchanged omega-3 polyunsaturated fatty acids (Fish Oil) By Mouth Contact prescribing physician if questions or concerns Pharmacy Information [facility]/pharmacy #[id number]: [address], [place] [id number] [phone] Medications and Immunizations Administered Given Lupron Depot 45 mg/6 months intramuscular injection, extended release, 45 mg, IntraMuscular. For: Allergies Cipro (SOB - Shortness of breath) Problems Ongoing - Any problem that you are currently receiving treatment for. BPH with obstruction/lower urinary tract symptoms Current smoker ED (erectile dysfunction) Family history of prostate cancer Gross hematuria Hematospermia Kidney stone Microscopic hematuria Prostate cancer Prostate cancer metastatic to bone Pseudomonas urinary tract infection Urinary retention Patient Survey You may receive a survey via text or e-mail asking about your office visit. Please share your experience with us by completing your survey. We appreciate your feedback and thank you for choosing us for your care. Education Materials Cystoscopy Cystoscopy is a procedure that is used to help diagnose and sometimes treat conditions that affect the lower urinary tract. The lower urinary tract includes the bladder and the urethra. The urethra is the tube that drains urine from the bladder. Cystoscopy is done using a thin, tube-shaped instrument with a light and camera at the end (cystoscope). The cystoscope may be hard or flexible, depending on the goal of the procedure. The cystoscope is inserted through the urethra, into the bladder. Cystoscopy may be recommended if you have: ??? Urinary tract infections that keep coming back. ??? Blood in the urine (hematuria). ??? An inability to control when you urinate (urinary incontinence) or an overactive bladder. ??? Unusual cells found in a urine sample. ??? A blockage in the urethra, such as a urinary stone. ??? Painful urination. ??? An abnormality in the bladder found during an int (more content not included)... Normal [facility] Urology Office/Clinic Noteon 09-19-2024 Urology Office/Clinic Note Urology Office/Clinic Note Chief Complaint 6 mth w/ PSA and lupron HPI Staff 58 yr old male here for 6m f/u w/ PSA & Lupron DX: Prostate Cancer, BPH, Urinary Retention, ED & Fam Hx of Prostate Cancer (father & uncle). S/P EBRT 08/05/22 - 09/10/22. *Enzalutamide 40mg 4 tabs daily & Xgeva every 6 months. Tamsulosin 0.4mg bid & OTC VitD & Calcium, Cialis 20mg prn PSA was not done but does plan on getting PSA after his visit todaypt unable to urinate at beginning of OV pt states when lying on back for a few hours, he will get up and urinate, starts out weak stream and gets strong after a while.pt also states when sitting in chair or on couch he does not have that issue PSA: 03/10/22 - >100.0 04/03/22 - 383.9 04/28/22 - 47.09 05/15/22 - 4.53 06/19/22 - 0.27 08/07/22 - 0.09 10/01/22 - 0.03 11/06/22 - 0.02 12/23/22 - <0.02 07/21/23 - <0.02 10/20/23 - <0.02 04/19/24 - <0.02 PVR 03/20/23 - 33mL. Dysuria: _no Incomplete bladder emptying: _no Hematuria: _no Frequency: _q3-4 hrs Urgency: _no Nocturia: _2x Stream: _weak at times or at start of urination Leaking: _no Post void dripping: _no Wearing pads/ Depends: _no Urge incontinence: _no Stress incontinence: _no Incontinence without Sensory Awareness: _no Abdominal pain: _no Flank pain: _no Sexual complaints: _ History of Present Illness Tests reviewed: reviewed UA, testosterone level I have reviewed the previous health record information and history for this patient from Dr. Marcos and external providers. I have reviewed and verified the staff HPI to be accurate for this encounter. Review of Systems PHQ Score Initial Depression Screen Score: 0 SCORE ROS - Provider Constitutional: denies weight loss, denies hot flashes. Eyes: denies eye problems. Gastrointestinal: denies nausea, denies vomiting. Cardiovascular: denies chest pain or angina. Integumentary: no dryness Musculoskeletal: denies musculoskeletal symptoms. ENMT: denies otolaryngeal symptoms. Respiratory: no shortness of breath. Heme/Lymph: denies easy bleeding tendency, denies easy bruising tendency. Psychiatric: no confusion, no anxiety. Genitourinary: See HPI. Physical Exam Vitals & Measurements T: 37 ???C(Oral) HR: 96(Peripheral) BP: 130/94 HT: 67 in HT: 169 cm WT: 64 kg WT: 141.096 lb BMI: 22.41 General Appearance: alert, no distress, well nourished, well developed male. Assessment/Plan 1. Prostate cancer (C61: Malignant neoplasm of prostate) PSA: 03/10/22 - >100.0 04/03/22 - 383.9 04/28/22 - 47.09 05/15/22 - 4.53 06/19/22 - 0.27 08/07/22 - 0.09 10/01/22 - 0.03 11/06/22 - 0.02 12/23/22 - <0.02 07/21/23 - <0.02 10/20/23 - <0.02 04/19/24 - <0.02 TRUS/bx 03/18/22 - Hernan 10 (5+5) 1 core, Jackpot 9 (5+4) 1 core, Hernan 7 (4+3) 4 cores, Jackpot 8 (5+3) 1 core, Jackpot 8 (3+5) 2 cores, Jackpot 6 (3+3) 1 core. Bone scan 04/23/22 - multiple bone metastasis. MRI of prostate 05/23/22 - lesions involving the sacrum and right hip suspicious for bony metastatic disease. CXR 12/17/22 - increase sclerosis of the anterolateral left seventh rib suspicious for underlying bone lesion corresponding with area of radiotracer uptake on prior bone scan. EBRT 08/05/22 - 09/10/22. Received Xgeva 10/20/23. No longer following with Dr. Funez. Last seen by Dr. Harrison 04/19/24, plan was to continue with ADT every 6 months plus Enzalutamide 160mg qd. 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 Latest Lupron injection 03/04/24. Taking Enzalutamide 40mg 4 tabs qd and calcium and Vit D for bone health. No updated PSA level on record. Pt states he plans to get this drawn tomorrow. Lupron 45 mgIM injection given today with no complications. Right glute. Pt. denies side effects at this time. Testosterone 04/08/24 - 7 (ref range [phone]). -Obtain PSA nicole. Will call pt with results. -Cont Enzalutamide wo changes 2. BPH with obstruction/lower urinary tract symptoms (N40.1: Benign prostatic hyperplasia with lower urinary tract symptoms) IPSS 4. Taking Flomax 0.4mg bid. Shares stream is slow to start at times, typically when he voids after being supine. Has tried walking around prior to voiding and this has helped stream. Does not notice a difference if he misses a dose of Flomax. Discussed adding a bladder or prostate med. Pt does not feel sxs are bothersome enough. -Cont Flomax wo changes. Pt to call for refills. 3. Urinary retention (R33.9: Retention of urine, unspecified) S/p Cysto and urodynamics 05/13/22. PVR 03/20/23 - 33mL. Hx of CIC. Continues Flomax BID. [1] 4. Gross hematuria (R31.0: Gross hematuria) S/p cysto 05/13/22. UA today shows small blood (moderate on prior UA). Reports he passed a blood clot since last OV. Only one occurrence. Likely due to radiation cystitis. However advised pt there are other possible etiologi (more content not included)... Normal [facility] Comment on above: Result Comment: Elec tronically Signed By: Eloise MARCOS MD\.br\Date and Time Signed: 09/19/24 12:14 EST\.br\Electronically Co-Signed By: Katherine Melgar\.br\Date and Time Co-Signed: 09/19/24 12:10 EST CBC W Auto Differential pane l (Bld)on 04-19-2024 Basophils (Bld) [#/Vol] 10*3/uL Normal <0.11 [facility] Comment on above: Order Comment: Speci men Type: BLOOD SPECIMEN Ordering Facility: [facility] Address: [address] [place] [address] Performed By: #### 5 7021-8 #### [facility] CLIA [id number] [address] [place] [address] Basophils/100 WBC (Bld) 0.3 % Normal [facility] Comment on above: Order Comment: Speci men Type: BLOOD SPECIMEN Ordering Facility: [facility] Address: [address] [place] [address] Performed By: #### 5 7021-8 #### [facility] CLIA [id number] [address] [place] [address] 33092 Differential cell count method Nom (Bld) Auto Normal [facility] Comment on above: Order Comment: Speci men Type: BLOOD SPECIMEN Ordering Facility: [facility] Address: [address] [place] [address] Performed By: #### 5 7021-8 #### [facility] CLIA [id number] [address] [place] [address]353 Eosinophils (Bld) [#/Vol] 0.16 10*3/uL Normal <0.46 [facility] Comment on above: Order Comment: Speci men Type: BLOOD SPECIMEN Ordering Facility: [facility] Address: [address] [place] [address] Performed By: #### 5 7021-8 #### [facility] CLIA [id number] [address] [place] [address] Eosinophils/100 WBC (Bld) 2.0 % Normal [facility] Comment on above: Order Comment: Speci men Type: BLOOD SPECIMEN Ordering Facility: [facility] Address: [address] [place] [address] Performed By: #### 5 7021-8 #### [facility] CLIA [id number] [address] [place] [address]2895 Erythrocyte distribution width (RBC) [Ratio] 12.3 % Normal 11.5-15.0 [facility] Comment on above: Order Comment: Speci men Type: BLOOD SPECIMEN Ordering Facility: [facility] Address: [address] [place] [address] Performed By: #### 5 7021-8 #### [facility] CLIA [id number] [address] [place] [address] Hematocrit (Bld) [Volume fraction] 37.1 % Low 39.0-51.0 [facility] Comment on above: Order Comment: Speci men Type: BLOOD SPECIMEN Ordering Facility: [facility] Address: [address] [place] [address] Performed By: #### 5 7021-8 #### [facility] CLIA [id number] [address] [place] [address]20[address] Hemoglobin (Bld) [Mass/Vol] 13.4 g/dL Normal 13.0-17.0 [facility] Comment on above: Order Comment: Speci men Type: BLOOD SPECIMEN Ordering Facility: [facility] Address: [address] [place] [address] Performed By: #### 5 7021-8 #### [facility] CLIA [id number] [address] [place] [address] Immature granulocytes (Bld) [#/Vol] 0.03 10*3/uL Normal <0.10 [facility] Comment on above: Order Comment: Speci men Type: BLOOD SPECIMEN Ordering Facility: [facility] Address: [address] [place] [address] Performed By: #### 5 7021-8 #### [facility] CLIA [id number] [address] [place] [address] Immature granulocytes/100 WBC (Bld) 0.4 % Normal [facility] Comment on above: Order Comment: Speci men Type: BLOOD SPECIMEN Ordering Facility: [facility] Address: [address] [place] [address] Performed By: #### 5 7021-8 #### [facility] CLIA [id number] [address] [place] [address]05 Lymphocytes (Bld) [#/Vol] 1.73 10*3/uL Normal 1.00-4.00 [facility] Comment on above: Order Comment: Speci men Type: BLOOD SPECIMEN Ordering Facility: [facility] Address: [address] [place] [address] Performed By: #### 5 7021-8 #### [facility] CLIA [id number] [address] [place] [address] 27255 Lymphocytes/100 WBC (Bld) 22.0 % Normal [facility] Comment on above: Order Comment: Speci men Type: BLOOD SPECIMEN Ordering Facility: [facility] Address: [address] [place] [address] Performed By: #### 5 7021-8 #### [facility] CLIA [id number] [address] [place] [address]38 MCH (RBC) [Entitic mass] 33.4 pg Normal 26.0-34.0 [facility] Comment on above: Order Comment: Speci men Type: BLOOD SPECIMEN Ordering Facility: [facility] Address: [address] [place] [address] Performed By: #### 5 7021-8 #### [facility] CLIA [id number] [address] [place] [address] MCHC (RBC) [Mass/Vol] 36.1 g/dL High 30.5-36.0 [facility] Comment on above: Order Comment: Speci men Type: BLOOD SPECIMEN Ordering Facility: [facility] Address: [address] [place] [address] Performed By: #### 5 7021-8 #### [facility] CLIA [id number] [address] [place] [address]1240 MCV (RBC) [Entitic vol] 92.5 fL Normal 80.0-100.0 [facility] Comment on above: Order Comment: Speci men Type: BLOOD SPECIMEN Ordering Facility: [facility] Address: [address] [place] [address] Performed By: #### 5 7021-8 #### [facility] CLIA [id number] [address] [place] [address] 13950 Monocytes (Bld) [#/Vol] 0.61 10*3/uL Normal <0.87 [facility] Comment on above: Order Comment: Speci men Type: BLOOD SPECIMEN Ordering Facility: [facility] Address: [address] [place] [address] Performed By: #### 5 7021-8 #### [facility] CLIA [id number] [address] [place] [address] 32104 Monocytes/100 WBC (Bld) 7.8 % Normal [facility] Comment on above: Order Comment: Speci men Type: BLOOD SPECIMEN Ordering Facility: [facility] Address: [address] [place] [address] Performed By: #### 5 7021-8 #### [facility] CLIA [id number] [address] [place] [address] 45089 Neutrophils (Bld) [#/Vol] 5.31 10*3/uL Normal 1.45-7.50 [facility] Comment on above: Order Comment: Speci men Type: BLOOD SPECIMEN Ordering Facility: [facility] Address: [address] [place] [address] Performed By: #### 5 7021-8 #### [facility] CLIA [id number] [address] [place] [address] Neutrophils/100 WBC (Bld) 67.5 % Normal [facility] Comment on above: Order Comment: Speci men Type: BLOOD SPECIMEN Ordering Facility: [facility] Address: [address] [place] [id number] Performed By: #### 5 7021-8 #### [facility] CLIA [id number] [address] [place] [address] 66217 Nucleated RBC (Bld) [#/Vol] 10*3/uL Normal <0.01 [facility] Comment on above: Order Comment: Speci men Type: BLOOD SPECIMEN Ordering Facility: [facility] Address: [address] [place] [address] Performed By: #### 5 7021-8 #### [facility] CLIA [id number] [address] [place] [address] 02280 Nucleated RBC/100 WBC (Bld) [Ratio] 0.0 /100 WBC Normal [facility] Comment on above: Order Comment: Speci men Type: BLOOD SPECIMEN Ordering Facility: [facility] Address: [address] [place] [address] Performed By: #### 5 7021-8 #### [facility] CLIA [id number] [address] [place] [address] 69237 Platelet mean volume (Bld) [Entitic vol] 10.1 fL Normal 9.0-12.7 [facility] Comment on above: Order Comment: Speci men Type: BLOOD SPECIMEN Ordering Facility: [facility] Address: [address] [place] [address] Performed By: #### 5 7021-8 #### [facility] CLIA [id number] [address] [place] [address] 13297 Platelets (Bld) [#/Vol] 256 10*3/uL Normal 150-400 [facility] Comment on above: Order Comment: Speci men Type: BLOOD SPECIMEN Ordering Facility: [facility] Address: [address] [place] [address] Performed By: #### 5 7021-8 #### [facility] CLIA [id number] [address] [place] [address] 93120 RBC (Bld) [#/Vol] 4.01 10*6/uL Low 4.20-6.00 [facility] Comment on above: Order Comment: Speci men Type: BLOOD SPECIMEN Ordering Facility: [facility] Address: [address] [place] [address] Performed By: #### 5 7021-8 #### [facility] CLIA [id number] [address] [place] [address] 81246 WBC (Bld) [#/Vol] 7.86 10*3/uL Normal 3.70-11.00 [facility] Comment on above: Order Comment: Speci men Type: BLOOD SPECIMEN Ordering Facility: [facility] Address: [address] [place] [address] Performed By: #### 5 7021-8 #### [facility] CLIA [id number] [address] [place] [address] 53548 CNOVSPon 04-19-2024 OVS Visit (SP) Office ( [facility]) -- ADAN MENARD ([id number]) 1965 M Date Time Provider Department 04/19/24 3:00 PM YAMILET GRAF During your visit today, we recorded the following information about you: Temperature Pulse Respiration Blood pressure 97.4 degrees 98/minute 16/minute 144/78 Weight Height 66.8 kg 1.633 m Yamilet Graf APRN.[employer] 04/20/2024 10:59 AM Signed PATIENT NAME: Adan Menard DATE: 04/19/2024 PRIMARY CARE PHYSICIAN: No primary care provider on file. OTHER PHYSICIANS: Dr. Marcos, Dr. Funez Portions of this encounter note have been copied from the note from 10/20/2023 and has been updated where appropriate, and reflect my current medical decision making from today. CC: This is a 58 year old male with metastatic prostate cancer, seen for scheduled follow-up and continued treatment. INTERIM HISTORY: Adan Menard returns for scheduled follow-up. He continues to receive Lupron every [address] Marcos and last received on March 04. He's taking oral calcium and vitamin D. He remains on enzalutamide 160 mg daily and is tolerating it well. He denies any significant side effects. He has had some intentional weight loss. He has been doing 48-hour fasting. He denies any issues with pain. He denies any issues with urination. No pain, burning, difficulty or blood in his urine. He offers no new complaints today. No new issues, problems or concerns. Per telephone encounter 04/14/2024: Denosumab renewal denied - P2P completed 04/14/24 and decision was upheld. 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 I highlighted the location of the bone lesions included the right acetabular and femoral head which is concerning. Dr. Rashawn Marx stated that the primary treatment for the prostate cancer those should be shrinking. If there are growing, then the diagnosis would be considered castrate resistant and we could re-visit the utilization of denosumab. Liz Alejandre, [facility] MEDICATIONS: Current Outpatient Medications Medication Sig enzalutamide (XTANDI) 80 mg tablet TAKE 2 TABLETS BY MOUTH 1 TIME A DAY. tamsulosin (FLOMAX) 0.4 mg Take 0.4 mg by mouth twice daily. IBUPROFEN ORAL Take by mouth. leuprolide (LUPRON) 1 mg/0.2 mL injection Inject 1 mg subcutaneously one time only. calcium carbonate/vitamin D3 (CALCIUM 600 + D,3, ORAL) Take by mouth. ascorbic acid (VITAMIN C ORAL) Take by mouth. elderberry fruit (ELDERBERRY ORAL) Take by mouth. aspirin, enteric coated (ASPIRIN, ENTERIC COATED) 81 mg EC tablet Take 81 mg by mouth once daily. docosahexaenoic acid/epa (FISH OIL ORAL) Take by mouth once daily. MULTI-VITAMIN ORAL Take by mouth once daily. No current facility-administered medications for this visit. ALLERGIES: ALLERGIES Allergen Reactions Ciprofloxacin Other: See Comments Abdominal breathing PAST MEDICAL HISTORY: PAST MEDICAL HISTORY Diagnosis Date BPH (benign prostatic hyperplasia) Hematospermia Prostate cancer (HCC) Urinary retention PAST SURGICAL HISTORY: PAST SURGICAL HISTORY Procedure Laterality Date PROSTATE BIOPSY W/TRANSRECTAL US FAMILY HISTORY: FAMILY HISTORY Problem Relation Age of Onset Prostate Cancer Father SOCIAL HISTORY: Social History Tobacco Use Smoking status: Every Day Current packs/day: 0.50 Types: Cigarettes Passive exposure: Current Smokeless tobacco: Never Vaping Use Vaping status: Never Used Substance Use Topics Alcohol use: Not Currently Drug use: Never REVIEW OF SYSTEMS: General: No weight loss, malaise or fevers. HEENT: Negative for frequent or significant headaches. No changes in hearing or vision, no nose bleeds or other nasal problems. Respiratory: Negative for cough, wheezing or shortness of breath. Cardiovascular: Negative for chest pain, leg swelling or palpitations. GI: Negative for abdominal discomfort, blood in stools or black stools or change in bowel habits. : No history of dysuria, frequency or incontinence. Musculoskeletal: Negative for joint pain or swelling, back pain and muscle pain. Skin: Negative for lesions, rash and itching. Hematology/Lymphology: Negative for prolonged bleeding, bruising easily or swollen nodes. Neuro: No history of headaches, syncope, paralysis, seizures or tremors. PHYSICAL EXAM: BP 144/78 Pulse 98 Temp 36.3 ?C (97.4 ?F) (Temporal) Resp 16 Ht 163.3 cm (5' 4.29 ) Wt 66.8 kg (147 lb 4.3 oz) SpO2 100% BMI 25.05 kg/m? ECOG 0 Exam limited to gross visualization where appropriate due to COVID-19. Gen.: This is an age-appropriate patient in no acute distress. Head: Appears atraumatic with no visible lesions. Eyes: Pupils equally round and reactive to light, extraocular muscles are intact. Neck: Supple (more content not included)... Normal [facility] Comprehensive metabolic 2000 panelon 04-19-2024 Albumin [Mass/Vol] 4.4 g/dL Normal 3.9-4.9 [facility] Comment on above: Order Comment: Speci men Type: BLOOD SPECIMEN Ordering Facility: [facility] Address: [address] [place] [address] Performed By: #### 2 4323-8 #### [facility] CLIA [id number] [address] [place] [address] ALP [Catalytic activity/Vol] 64 U/L Normal 38-113 [facility] Comment on above: Order Comment: Speci men Type: BLOOD SPECIMEN Ordering Facility: [facility] Address: [address] [place] [address] Performed By: #### 2 4323-8 #### [facility] CLIA [id number] [address] [place] [address] ALT [Catalytic activity/Vol] 12 U/L Normal 10-54 [facility] Comment on above: Order Comment: Speci men Type: BLOOD SPECIMEN Ordering Facility: [facility] Address: [address] [place] [address] Performed By: #### 2 4323-8 #### [facility] CLIA [id number] [address] [place] [address]83 Anion gap [Moles/Vol] 10 mmol/L Normal 8-15 [facility] Comment on above: Order Comment: Speci men Type: BLOOD SPECIMEN Ordering Facility: [facility] Address: [address] [place] [address] Performed By: #### 2 4323-8 #### [facility] CLIA [id number] [address] [place] [address]370 AST [Catalytic activity/Vol] 16 U/L Normal 14-40 [facility] Comment on above: Order Comment: Speci men Type: BLOOD SPECIMEN Ordering Facility: [facility] Address: [address] [place] [address] Performed By: #### 2 4323-8 #### [facility] CLIA [id number] [address] [place] [address] Bilirubin [Mass/Vol] 0.4 mg/dL Normal 0.2-1.3 [facility] Comment on above: Order Comment: Speci men Type: BLOOD SPECIMEN Ordering Facility: [facility] Address: [address] [place] [address] Performed By: #### 2 4323-8 #### [facility] CLIA [id number] [address] [place] [address] Calcium [Mass/Vol] 9.5 mg/dL Normal 8.5-10.2 [facility] Comment on above: Order Comment: Speci men Type: BLOOD SPECIMEN Ordering Facility: [facility] Address: [address] [place] [address] Performed By: #### 2 4323-8 #### [facility] CLIA [id number] [address] [place] [address] Chloride [Moles/Vol] 105 mmol/L Normal 98-107 [facility] Comment on above: Order Comment: Speci men Type: BLOOD SPECIMEN Ordering Facility: [facility] Address: [address] [place], [place] [address] Performed By: #### 2 4323-8 #### [facility] CLIA [id number] [address] [place] [address] CO2 [Moles/Vol] 23 mmol/L Normal 22-30 [facility] Comment on above: Order Comment: Speci men Type: BLOOD SPECIMEN Ordering Facility: [facility] Address: [address] [place] [address] Performed By: #### 2 4323-8 #### [facility] CLIA [id number] [address] [place] [address] Creatinine [Mass/Vol] 0.81 mg/dL Normal 0.73-1.22 [facility] Comment on above: Order Comment: Speci men Type: BLOOD SPECIMEN Ordering Facility: [facility] Address: [address] [place] [address] Performed By: #### 2 4323-8 #### [facility] CLIA [id number] [address] [place] [address] Creatinine and Glomerular filtration rate.predicted panel (S/P/Bld) 101 mL/min/1.73m??? Normal >=60 [facility] Comment on above: Order Comment: Shanice rahman Type: BLOOD SPECIMEN Ordering Facility: [facility] Address: [address] [place] [address] Result Comment: Sravani mated Glomerular Filtration Rate (eGFR) is calculated using the 2020 CKD-EPI creatinine equation. This equation utilizes serum creatinine, sex, and age as parameters. The creatinine assay has traceable calibration to isotope dilution-mass spectrometry. Refer to KDIGO guidelines for clinical interpretation. In patients with unstable renal function, e.g. those with acute kidney injury, the eGFR may not accurately reflect actual GFR. Performed By: #### 2 4323-8 #### [facility] CLIA [id number] [address] [place] [address] Glucose [Mass/Vol] 134 mg/dL High 74-99 [facility] Comment on above: Order Comment: Shanice rahman Type: BLOOD SPECIMEN Ordering Facility: [facility] Address: [address] [place] [address] Result Comment: The [place] Diabetes Association (ADA) provides guidance for cutoff [...] Standards of Medical Care in Diabetes 2016, [place] [employer] Association. Diabetes Care. 2016.39(Suppl 1). Performed By: #### 2 4323-8 #### [facility] CLIA [id number] [address] [place] [address] Potassium [Moles/Vol] 4.2 mmol/L Normal 3.7-5.1 [facility] Comment on above: Order Comment: Speci men Type: BLOOD SPECIMEN Ordering Facility: [facility] Address: [address] [place] [address] Performed By: #### 2 4323-8 #### [facility] CLIA [id number] [address] [place] [address] Protein [Mass/Vol] 7.1 g/dL Normal 6.3-8.0 [facility] Comment on above: Order Comment: Speci men Type: BLOOD SPECIMEN Ordering Facility: [facility] Address: [address] [place] [address] Performed By: #### 2 4323-8 #### [facility] CLIA [id number] [address] [place] [address] Sodium [Moles/Vol] 138 mmol/L Normal 136-144 [facility] Comment on above: Order Comment: Speci men Type: BLOOD SPECIMEN Ordering Facility: [facility] Address: [address] [place] [address] Performed By: #### 2 4323-8 #### [facility] CLIA [id number] [address] [place] [address] Urea nitrogen [Mass/Vol] 9 mg/dL Normal 9-24 [facility] Comment on above: Order Comment: Speci men Type: BLOOD SPECIMEN Ordering Facility: [facility] Address: [address] [place] [address] Performed By: #### 2 4323-8 #### [facility] CLIA [id number] [address] [place] [address] [facility] Prostate specific Ag [Mass/Vol] ng/mL Normal <2.60 [facility] Comment on above: Order Comment: Speci men Type: BLOOD SPECIMEN Ordering Facility: [facility] Address: [address] [place] [address] Result Comment: Tota l PSA test methodology used is the Electrochemiluminescence Immunoassay by [employer]. Total PSA values by differing methodologies cannot be interchanged. Performed By: #### 2 857-1 #### [facility] CLIA [id number] [address] [place] [address] [place] CNPNon 04-18-2024 CNPN Telephone ([place]AS[place]) -- ADAN MENARD ([id number]) 1965 M Date Time Provider Department 04/18/24 AYAD HARRISON HEMMARY During your visit today, we recorded the following information about you: Adriana Jamison MA 04/18/2024 8:21 AM Signed Patient has an appt on 04/19. Would you like labs? Allergies As of Date: 04/18/2024 Noted Allergy Reaction CIPROFLOXACIN 04/02/2022 14 - Other: See Comments Comments: Abdominal breathing Date Reviewed: 10/20/2023 Reviewed by: Tamara Faulkner MA - Fully Assessed Reason for Visit: Lab Orders [1688] Primary Visit Diagnosis:Prostate cancer (HCC) [C61] Other Visit Diagnosis:Malignant neoplasm metastatic to bone (HCC) [C79.51] Order(s):COMPLETE BLOOD COUNT AND DIFFERENTIAL [SQCBCDIF] Order #: [id number] FUTURE COMPREHENSIVE METABOLIC PANEL [SQCMP] Order #: [id number] FUTURE PROSTATE-SPECIFIC ANTIGEN DIAGNOSTIC [SQPSA] Order #: [id number] FUTURE Prescriptions as of 04/18/2024 - enzalutamide (XTANDI) 80 mg tablet TAKE 2 TABLETS BY MOUTH 1 TIME A DAY. - tamsulosin (FLOMAX) 0.4 mg Take 0.4 mg by mouth twice daily. - IBUPROFEN ORAL Take by mouth. - leuprolide (LUPRON) 1 mg/0.2 mL injection Inject 1 mg subcutaneously one time only. - calcium carbonate/vitamin D3 (CALCIUM 600 + D,3, ORAL) Take by mouth. - ascorbic acid (VITAMIN C ORAL) Take by mouth. - elderberry fruit (ELDERBERRY ORAL) Take by mouth. - aspirin, enteric coated (ASPIRIN, ENTERIC COATED) 81 mg EC tablet Take 81 mg by mouth once daily. - docosahexaenoic acid/epa (FISH OIL ORAL) Take by mouth once daily. - MULTI-VITAMIN ORAL Take by mouth once daily. Problem List As Of Date 04/18/2024 Noted Resolved Prostate cancer (HCC) [C61] 04/28/2022 Malignant neoplasm metastatic to bone (HCC) [C7*04/28/2022 Encounter Status:Closed by YAMILET GRAF on 04/18/24 [facility] 04-14-2024 CNPN Telephone (HEMASA) -- ADAN MENARD ([id number]) 1965 M Date Time Provider Department 04/14/24 LIZ ALEJANDRE During your visit today, we recorded the following information about you: Lzi Alejandre RPh 04/14/2024 3:24 PM Signed Denosumab renewal denied - P2P completed 04/14/24 and decision was upheld. 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 I highlighted the location of the bone lesions included the right acetabular and femoral head which is concerning. Dr. Rashawn Marx stated that the primary treatment for the prostate cancer those should be shrinking. If there are growing, then the diagnosis would be considered castrate resistant and we could re-visit the utilization of denosumab. Liz Alejandre [facility] Ayad Harrison MD 04/14/2024 5:50 PM Signed I will discuss this with the patient when I see him back on return visit. Allergies As of Date: 04/14/2024 Noted Allergy Reaction CIPROFLOXACIN 04/02/2022 14 - Other: See Comments Comments: Abdominal breathing Date Reviewed: 10/20/2023 Reviewed by: Tamara Faulkner MA - Fully Assessed Reason for Visit: Medication Authorization [9029] Cmt: Xgeva renewal denied Prescriptions as of 08/15/2024 - enzalutamide (XTANDI) 80 mg tablet TAKE 2 TABLETS BY MOUTH 1 TIME A DAY. - tamsulosin (FLOMAX) 0.4 mg Take 0.4 mg by mouth twice daily. - IBUPROFEN ORAL Take by mouth. - leuprolide (LUPRON) 1 mg/0.2 mL injection Inject 1 mg subcutaneously one time only. - calcium carbonate/vitamin D3 (CALCIUM 600 + D,3, ORAL) Take by mouth. - ascorbic acid (VITAMIN C ORAL) Take by mouth. - elderberry fruit (ELDERBERRY ORAL) Take by mouth. - aspirin, enteric coated (ASPIRIN, ENTERIC COATED) 81 mg EC tablet Take 81 mg by mouth once daily. - docosahexaenoic acid/epa (FISH OIL ORAL) Take by mouth once daily. - MULTI-VITAMIN ORAL Take by mouth once daily. Problem List As Of Date 04/14/2024 Noted Resolved Prostate cancer (HCC) [C61] 04/28/2022 Malignant neoplasm metastatic to bone (HCC) [C7*04/28/2022 Encounter Status:Closed by LIZ ALEJANDRE on 08/15/24 [facility] Ambulatory Visit Summaryon 0 03-04-2024 Ambulatory Visit Summary Ambulatory Visit Summary ADAN MENARD :1965 Visit Date:03/04/2024 Ambulatory Visit Instructions Your Diagnosis Prostate cancer BPH with obstruction/lower urinary tract symptoms Urinary retention Microscopic hematuria ED (erectile dysfunction) Your Care Team Attending Physician - Eloise MARCOS MD Primary Care Physician - TAMIKO REECE CNP This Is Your Medications List tadalafil (Cialis 20 mg Tab) tamsulosin (tamsulosin 0.4 mg Cap) Contact prescribing physician if questions or concerns ascorbic acid (Vitamin C) aspirin (aspirin 81 mg oral capsule) calcium-vitamin D elderberry enzalutamide (Xtandi 80 mg oral tablet) ibuprofen multivitamin (Multi Vitamin+) omega-3 polyunsaturated fatty acids (Fish Oil) Procedures Performed History of external beam radiation therapy (09/03/2022), Cystoscopy (05/13/2022), Transrectal biopsy of prostate using ultrasound (US) guidance (03/18/2022). Discharge Vitals Heart Rate (Peripheral) 68 Respiratory Rate 16 Blood Pressure 125/74 Height 169 cm Height 67 in Weight 72 kg Weight 158.4 lb BMI 25.21 What to do next Scheduled Follow-Up Appointments Thursday 10:15 AM EST With: Eloise MARCOS MD Where: [facility] [address] [place] [address] [place] [address]- You Need to Schedule the Following Appointments Follow Up with Eloise MARCOS MD, URL When: Where: [address] [place] [address]- Medications What How Much When Instructions Unchanged tadalafil (Cialis 20 mg Tab) 1 Tablets By Mouth As Directed as needed for for erectile dysfunction Take one tab 1hr prior to sexual activity. Unchanged tamsulosin (tamsulosin 0.4 mg Cap) 1 Capsules By Mouth 2 times a day Unchanged ascorbic acid (Vitamin C) Every day Contact prescribing physician if questions or concerns Unchanged aspirin (aspirin 81 mg oral capsule) By Mouth Every 4 hours Contact prescribing physician if questions or concerns Unchanged calcium-vitamin D Contact prescribing physician if questions or concerns Unchanged elderberry Contact prescribing physician if questions or concerns Unchanged enzalutamide (Xtandi 80 mg oral tablet) Contact prescribing physician if questions or concerns Unchanged ibuprofen Contact prescribing physician if questions or concerns Unchanged multivitamin (Multi Vitamin+) Contact prescribing physician if questions or concerns Unchanged omega-3 polyunsaturated fatty acids (Fish Oil) By Mouth Contact prescribing physician if questions or concerns Medications and Immunizations Administered Given Lupron Depot 45 mg/6 months intramuscular injection, extended release, 45 mg, IntraMuscular. For: Prostate cancer Allergies Cipro (SOB - Shortness of breath) Problems Ongoing - Any problem that you are currently receiving treatment for. BPH with obstruction/lower urinary tract symptoms Current smoker ED (erectile dysfunction) Family history of prostate cancer Hematospermia Kidney stone Microscopic hematuria Prostate cancer Prostate cancer metastatic to bone Pseudomonas urinary tract infection Urinary retention Patient Survey You may receive a survey via text or e-mail asking about your office visit. Please share your experience with us by completing your survey. We appreciate your feedback and thank you for choosing us for your care. Education Materials Erectile Dysfunction Erectile dysfunction (ED) is the inability to get or keep an erection in order to have sexual intercourse. ED is considered a symptom of an underlying disorder and is not considered a disease. ED may include: ? Inability to get an erection. ? Lack of enough hardness of the erection to allow penetration. ? Loss of erection before sex is finished. What are the causes? This condition may be caused by: ? Physical causes, such as: ? Artery problems. This may include heart disease, high blood pressure, atherosclerosis, and diabetes. ? Hormonal problems, such as low testosterone. ? Obesity. ? Nerve problems. This may include back or pelvic injuries, multiple sclerosis, Parkinson's disease, spinal cord injury, and stroke. ? Certain medicines, such as: ? Pain relievers. ? Antidepressants. ? Blood pressure medicines and water pills (diuretics). ? Cancer medicines. ? Antihistamines. ? Muscle relaxants. ? Lifestyle factors, such as: ? Use of drugs such as marijuana, cocaine, or opioids. ? Excessive use of alcohol. ? Smoking. ? Lack of physical activity or exercise. ? Psychological causes, such as: ? Anxiety or stress. ? Sadness or depression. ? Exhaustion. ? Fear about sexual performance. ? Guilt. What are the signs or symptoms? Symptoms of this condition include: ? Inability to get an erection. ? Lack of enough emnauel (more content not included)... Normal [facility] Urology Office/Clinic Noteon 03-04-2024 Urology Office/Clinic Note Urology Office/Clinic Note Chief Complaint 6m PSA & Lupron HPI Staff 6m Lupron DX: Prostate Cancer, BPH, Urinary Retention, ED & Fam Hx of Prostate Cancer (father & uncle). S/P EBRT 08/05/22 - 09/10/22. Last Lupron 09/11/23 *Continues Enzalutamide 40mg 4 tabs daily & Xgeva every 6 months. As well as Tamsulosin 0.4mg bid & OTC VitD & Calcium. Started on Cialis 20mg prn at time of last encounter. Last seen by Dr Harrison 10/21/23. Will now be receiving Xgeva q6m (vs 3 previously) Cialis is working well. Denies all urinary sx. Denies straining, good stream. Feels empty. No concerns at this time. History of Present Illness Tests reviewed: reviewed UA & PSA. I have reviewed the previous health record information and history for this patient from Dr. Marcos. I have reviewed and verified the staff HPI to be accurate for this encounter. There have been no associated fever, chills, flank pain, or blood in the urine. Denies any urinary infections since last encounter. Review of Systems PHQ Score Initial Depression Screen Score: 0 SCORE ROS - Provider Constitutional: denies weight loss, denies hot flashes. Eyes: denies eye problems. Gastrointestinal: denies nausea, denies vomiting. Cardiovascular: denies chest pain or angina. Integumentary: no dryness Musculoskeletal: denies musculoskeletal symptoms. ENMT: denies otolaryngeal symptoms. Respiratory: no shortness of breath. Heme/Lymph: denies easy bleeding tendency, denies easy bruising tendency. Psychiatric: no confusion, no anxiety. Genitourinary: See HPI. Physical Exam Vitals & Measurements HR: 68(Peripheral) RR: 16 BP: 125/74 HT: 67 in HT: 169 cm WT: 72 kg WT: 158.4 lb BMI: 25.21 General Appearance: alert, no distress, well nourished, well developed male. Assessment/Plan 1. Prostate cancer (C61: Malignant neoplasm of prostate) PSA: 03/10/22 - >100.0 04/03/22 - 383.9 04/28/22 - 47.09 05/15/22 - 4.53 06/19/22 - 0.27 08/07/22 - 0.09 10/01/22 - 0.03 11/06/22 - 0.02 12/23/22 - <0.02 07/21/23 - <0.02 10/20/23 - <0.02 ~Next PSA is due in this fall TRUS/bx 03/18/22 - Hernan 10 (5+5) 1 core, Jackpot 9 (5+4) 1 core, Hernan 7 (4+3) 4 cores, Jackpot 8 (5+3) 1 core, Jackpot 8 (3+5) 2 cores, Hernan 6 (3+3) 1 core. Bone scan 04/23/22 - multiple bone metastasis. MRI of prostate 05/23/22 - lesions involving the sacrum and right hip suspicious for bony metastatic disease. CXR 12/17/22 - increase sclerosis of the anterolateral left seventh rib suspicious for underlying bone lesion corresponding with area of radiotracer uptake on prior bone scan. EBRT 08/05/22 - 09/10/22. No longer following with Dr. Funez. Last seen by Dr. Harrison 10/20/23. Plan ~continue with ADT every 6 months plus Enzalutamide 160mg qd. Received Xgeva 10/20/23. Will now receive q6mos rather than q3mos. Latest Lupron injection 09/11/23. Taking Enzalutamide 40mg 4 tabs qd, Xgeva every 6 months, and calcium and Vit D for bone health. Lupron 45 mgIM injection given today with no complications. Right glute. Experiencing hot flashes. States he has noticed recent hair growth. Discussed checking a testosterone level given morning erections and recent hair growth. -Cont following with rad onc -Will check testosterone level in 1 mos, have drawn before 1000 -Pt to be called with results Follow up in 6 mos w/ Lupron. 2. BPH with obstruction/lower urinary tract symptoms (N40.1: Benign prostatic hyperplasia with lower urinary tract symptoms) Taking Flomax 0.4mg bid. Occasionally will forget night time dose. Does not notice a difference with missing dose. No urinary concerns. 3. Urinary retention (R33.9: Retention of urine, unspecified) S/p Cysto and urodynamics 05/13/22. PVR 03/20/23 - 33mL. Hx of CIC. Continues Flomax BID. [1] 4. Microscopic hematuria (R31.29: Other microscopic hematuria) S/p cysto 05/13/22. UA today shows moderate blood. Denies gross hematuria. Likely due to radiation. 5. ED (erectile dysfunction) (N52.9: Male erectile dysfunction, unspecified) Started on Cialis 20mg prn last visit. Insurance denied med. Pt decided to use Viyet and pay with kim. Working well for pt. Denies SE. Pt states over the last 4 mos he has started to have morning erections again. -Cont Cialis -Will check testosterone level in 1 mos Follow-up With When Contact Information Eloise MARCOS MD, URL [address] [place] [address]- Additional Instructions: 6 mos w/ Lupron Patient Education Erectile Dysfunction I, Ingrid Blake, personally scribed for Dr. Marcos on 03/04/2024 08:56:16. . Documentation recorded by the scribe, Ingrid Blake, accurately reflects the services(s) I performed and decisions made by me. Authenticated by Dr. Marcos on 03/04/2024 08:58:42. Problem List/Past Medical History Ongoing BPH with obstruction/lower urinary tract symptoms Current smoker (more content not included)... Normal [facility] Comment on above: Result Comment: Elec tronically Signed By: Eloise MARCOS MD\.br\Date and Time Signed: 03/04/24 08:58 EDT\.br\Electronically Co-Signed By: Ingrid Blake\.br\Date and Time Co-Signed: 03/04/24 08:56 EDT Alanine aminotransferase [En zymatic activity/volume] in Serum or PlasmaOrdered By: Fausto Spicer on 08-28-2023 ALT [Catalytic activity/Vol] 14 U/L 7-52 [facility] Albumin [Mass/volume] in Ser um or Plasma by Bromocresol green (BCG) dye binding methoOrdered By: Fausto Spicer on 08-28-2023 Albumin BCG dye [Mass/Vol] 4.3 g/dL 3.5-5.7 [facility] Alkaline phosphatase [Enzyma tic activity/volume] in Serum or PlasmaOrdered By: Fausto Spicer on 08-28-2023 ALP [Catalytic activity/Vol] 43 U/L 34-104 [facility] Aspartate aminotransferase [ Enzymatic activity/volume] in Serum or PlasmaOrdered By: Fausto Spicer on 08-28-2023 AST [Catalytic activity/Vol] 19 U/L 13-39 [facility] Basophils Auto (Bld) [#/Vol] Ordered By: Fausto Spicer on 08-28-2023 Basophils (Bld) [#/Vol] 0.0 10*3/uL 0.0-0.2 [facility] Basophils/100 WBC Auto (Bld) Ordered By: Fausto Spicer on 08-28-2023 Basophils/100 WBC (Bld) 0.4 % . [facility] Bilirubin.direct [Mass/volum e] in Serum or PlasmaOrdered By: Fausto Spicer on 08-28-2023 Bilirubin.direct [Mass/Vol] 0.00 mg/dL 0.03-0.18 [facility] Comment on above: If the DBIL is less than 0.1, IBIL is not able to becalculated. Bilirubin.total [Mass/volume ] in Serum or PlasmaOrdered By: Fausto Spicer on 08-28-2023 Bilirubin [Mass/Vol] 0.5 mg/dL 0.3-1.0 [facility] Calcium [Mass/volume] in Ser um or PlasmaOrdered By: Fausto Spicer on 08-28-2023 Calcium [Mass/Vol] 9.6 mg/dL 8.6-10.3 [facility] Carbon dioxide, total [Moles /volume] in Serum or PlasmaOrdered By: Fausto Spicer on 08-28-2023 CO2 [Moles/Vol] 26.0 mmol/L 21.0-31.0 [facility] Chloride [Moles/volume] in S jaret or PlasmaOrdered By: Fausto Spicer on 08-28-2023 Chloride [Moles/Vol] 107 mmol/L 98-107 [facility] Creatinine [Mass/volume] in Serum or PlasmaOrdered By: Fausto Spicer on 08-28-2023 Creatinine [Mass/Vol] 0.93 mg/dL 0.70-1.30 [facility] Eosinophils Auto (Bld) [#/Vo l]Ordered By: Fausto Spicer on 08-28-2023 Eosinophils (Bld) [#/Vol] 0.3 10*3/uL 0.0-0.45 [facility] Eosinophils/100 WBC Auto (Bl d)Ordered By: Fausto Spicer on 08-28-2023 Eosinophils/100 WBC (Bld) 4.8 % . [facility] Erythrocyte distribution wid th Auto (RBC) [Ratio]Ordered By: Fausto Spicer on 08-28-2023 Erythrocyte distribution width (RBC) [Ratio] 12.8 % 12.0-14.8 [facility] Globulin Calc (S) [Mass/Vol] Ordered By: Fausto Spicer on 08-28-2023 Globulin (S) [Mass/Vol] 2.7 g/dL [facility] Glucose [Mass/volume] in Ser um or PlasmaOrdered By: Fausto Spicer on 08-28-2023 Glucose [Mass/Vol] 90 mg/dL 70-100 [facility] Comment on above: ADA recommended refe rence rangeRandom Glucose Reference Range is dependent on time and content of last meal. Glucose of more than 200 mg/dL in a nonstressed, ambulatory subject supports the diagnosis of Diabetes Mellitus. Hematocrit Auto (Bld) [Volum e fraction]Ordered By: Fausto Spicer on 08-28-2023 Hematocrit (Bld) [Volume fraction] 38.0 % 38.8-50.0 [facility] Hemoglobin [Mass/volume] in BloodOrdered By: Fausto Spicer on 08-28-2023 Hemoglobin (Bld) [Mass/Vol] 13.1 g/dL 13.0-17.0 [facility] Leukocytes [#/volume] correc alejandra for nucleated erythrocytes in Blood by Automated counOrdered By: Fausto Spicer on 08-28-2023 WBC corrected for nucl RBC Auto (Bld) [#/Vol] 6.2 10*3/uL 4.1-10.5 [facility] Lipase [Enzymatic activity/v olume] in Serum or PlasmaOrdered By: Fausto Spicer on 08-28-2023 Lipase [Catalytic activity/Vol] 32.0 U/L 11.0-82.0 [facility] Lymphocytes Auto (Bld) [#/Vo l]Ordered By: Fausto Spicer on 08-28-2023 Lymphocytes (Bld) [#/Vol] 2.4 10*3/uL 1.00-4.8 [facility] Lymphocytes/100 WBC Auto (Bl d)Ordered By: Fausto Spicer on 08-28-2023 Lymphocytes/100 WBC (Bld) 38.4 % . [facility] MCH Auto (RBC) [Entitic mass ]Ordered By: Fausto Spicer on 08-28-2023 MCH (RBC) [Entitic mass] 33.4 pg 27.5-35.2 [facility] MCHC Auto (RBC) [Mass/Vol]Or dered By: Fausto Spicer on 08-28-2023 MCHC (RBC) [Mass/Vol] 34.4 g/dL 32.5-35.6 [facility] MCV Auto (RBC) [Entitic vol] Ordered By: Fausto Spicer on 08-28-2023 MCV (RBC) [Entitic vol] 97.1 fL 83.5-101 [facility] Monocyte distribution width [Entitic volume] in Blood by AutomatedOrdered By: Fausto Spicer on 08-28-2023 Monocyte distribution width Auto (Bld) [Entitic vol] 17.28 % 0.00-20.00 [facility] Monocytes Auto (Bld) [#/Vol] Ordered By: Fausto Spicer on 08-28-2023 Monocytes (Bld) [#/Vol] 0.6 10*3/uL 0.0-0.8 [facility] Monocytes/100 WBC Auto (Bld) Ordered By: Fausto Spicer on 08-28-2023 Monocytes/100 WBC (Bld) 10.4 % . [facility] Neutrophils Auto (Bld) [#/Vo l]Ordered By: Fausto Spicer on 08-28-2023 Neutrophils (Bld) [#/Vol] 2.8 10*3/uL 1.8-7.7 [facility] Neutrophils/100 WBC Auto (Bl d)Ordered By: Fausto Spicer on 08-28-2023 Neutrophils/100 WBC (Bld) 46.0 % . [facility] No Panel InformationOrdered By: Fausto Spicer on 08-28-2023 Estimated GFR (CKD-EPI) > 60.0 mL/Min [facility] Creatinine Clearance (Chem 79.96 [facility] Nucleated erythrocytes [Pres ence] in Blood by Automated countOrdered By: Fausto Spicer on 08-28-2023 Nucleated RBC Auto Ql (Bld) 0.1 /100{WBC} 0-0.5 [facility] Platelet mean volume Auto (B ld) [Entitic vol]Ordered By: Fausto Spicer on 08-28-2023 Platelet mean volume (Bld) [Entitic vol] 8.3 fL 6.6-10.1 [facility] Platelets Auto (Bld) [#/Vol] Ordered By: Fausto Spicer on 08-28-2023 Platelets (Bld) [#/Vol] 294 10*3/uL 150-450 [facility] Potassium [Moles/volume] in Serum or PlasmaOrdered By: Fausto Spicer on 08-28-2023 Potassium [Moles/Vol] 3.8 mmol/L 3.5-5.1 [facility] Protein [Mass/volume] in Ser um or PlasmaOrdered By: Fausto Spicer on 08-28-2023 Protein [Mass/Vol] 7.0 g/dL 6.4-8.9 [facility] RBC Auto (Bld) [#/Vol]Ordere d By: Fausto Spicer on 08-28-2023 RBC (Bld) [#/Vol] 3.91 10*6/uL 3.90-5.60 [facility] Serum or plasma albumin/glob ulin mass ratioOrdered By: Fausto Spicer on 08-28-2023 Albumin/Globulin [Mass ratio] 1.6 {ratio} [facility] Serum or plasma anion gap de terminationOrdered By: Fausto Spicer on 08-28-2023 Anion gap [Moles/Vol] 9.8 mmol/L 6.0-15.0 [facility] Serum or plasma non-glucuron idated bilirubin measurement (mass/volume)Ordered By: Fausto Spicer on 08-28-2023 Bilirubin.indirect [Mass/Vol] 0.5 mg/dL [facility] Sodium [Moles/volume] in Ser um or PlasmaOrdered By: Fausto Spicer on 08-28-2023 Sodium [Moles/Vol] 139 mmol/L 136-145 [facility] Urea nitrogen [Mass/volume] in Serum or PlasmaOrdered By: Fausto Spicer on 08-28-2023 Urea nitrogen [Mass/Vol] 17 mg/dL 7- [facility] WBC Auto (Bld) [#/Vol]Ordere d By: Fausto Spicer on 08-28-2023 WBC (Bld) [#/Vol] 6.2 10*3/uL 4.1-10.5 [facility] PSA/PROSTSPECAG DIAGon 12-23 Prostate specific Ag [Mass/Vol] <2.60 ng/mL [facility] XR Ribs - left Views and Viki st PAOrdered By: [facility] Provider on 12-18-2022 Interpretation and review of laboratory results Abnormal [facility] Radiology Result ACTIONABLE Abnormal [facility] Comment on above: This report contains an incidental or actionable finding. This finding may be a new finding separate from the reason your provider ordered the imaging test or it may be an already known finding that needs additional or continued follow-up. Because of this incidental or actionable finding, you may need another test (imaging or a different type of test). Please contact your provider for the next steps. [facility] XR Ribs - left Views and Viki st PAon 12-18-2022 IMPRESSION: Increase sclerosis of the anterolateral left seventh rib suspicious for underlying bone lesion corresponding with area of radiotracer uptake on prior bone scan. Suggest CT or MRI of the left ribs without contrast for further evaluation. ACTIONABLE RESULT: FOLLOW-UP Acuity: Actionable Findings: Musculoskeletal/Rheumatolo gic System Routing Code: MSK_1 Recommendation: Unlisted Recommendation (see report) Time Frame: Additional evaluation as described in the impression COMMUNICATION: Results will be communicated with the ordering provider via [employer] staff message or phone message by [facility] [employer] [facility] within 2 business days of report finalization. Algorithms for management of incidental imaging findings can be found on the [facility] Intranet Sharepoint site at: [email or web address] [email or web address]/A [email or web address] Transcribe Date/Time: Dec 18 2022 8:41A Dictated by: KIERA NEGRO MD This examination was interpreted and the report reviewed and electronically signed by: KIERA NEGRO MD on Dec 18 2022 8:47AM EST Thank you for allowing us to participate in the care of your patient. Should there be any questions regarding this interpretation, please call [phone]. If you are unable to reach us at the number above, please feel free to [facility] at [phone]. DIVISION OF RADIOLOGY * * *Final Report* * * DATE OF EXAM: Dec 17 2022 2:33PM [id number] - XR RIB/CHST 3V AP RIB/OBL/CHST L / PROCEDURE REASON: multiple diagnoses * * * * Physician Interpretation * * * * RESULT: HISTORY: Malignant neoplasm metastatic to bone (HCC) Prostate cancer (HCC) . increased lt lower rib pain; no known injury hx of bone mets TECHNIQUE: XR RIB/CHST 3V AP RIB/OBL/CHST L Laterality: LEFT Number of different views (projections): 5 COMPARISON: Chest radiograph 04/22/2022. Bone scan 04/23/2022 RESULT: Apparent increase sclerosis involving the anterolateral aspect of the left seventh rib suspicious for underlying bone lesion, which corresponds with the area of increased radiotracer uptake on prior bone scan. No visualized acute fracture. Cardiomediastinal silhouette is within normal limits. No focal consolidation, pleural effusion, or pneumothorax. Slight coarsening of lung markings. Degenerative changes of thoracic spine. DIVISION OF RADIOLOGY Provider, [facility] - 12/18/2022 * * *Final Report* * * DATE OF EXAM: Dec 17 2022 2:33PM [id number] - XR RIB/CHST 3V AP RIB/OBL/CHST L / PROCEDURE REASON: multiple diagnoses * * * * Physician Interpretation * * * * RESULT: HISTORY: Malignant neoplasm metastatic to bone (HCC) Prostate cancer (HCC) . increased lt lower rib pain; no known injury hx of bone mets TECHNIQUE: XR RIB/CHST 3V AP RIB/OBL/CHST L Laterality: LEFT Number of different views (projections): 5 COMPARISON: Chest radiograph 04/22/2022. Bone scan 04/23/2022 RESULT: Apparent increase sclerosis involving the anterolateral aspect of the left seventh rib suspicious for underlying bone lesion, which corresponds with the area of increased radiotracer uptake on prior bone scan. No visualized acute fracture. Cardiomediastinal silhouette is within normal limits. No focal consolidation, pleural effusion, or pneumothorax. Slight coarsening of lung markings. Degenerative changes of thoracic spine. IMPRESSION IMPRESSION: Increase sclerosis of the anterolateral left seventh rib suspicious for underlying bone lesion corresponding with area of radiotracer uptake on prior bone scan. Suggest CT or MRI of the left ribs without contrast for further evaluation. ACTIONABLE RESULT: FOLLOW-UP Acuity: Actionable Findings: Musculoskeletal/Rheumatolo gic System Routing Code: MSK_1 Recommendation: Unlisted Recommendation (see report) Time Frame: Additional evaluation as described in the impression COMMUNICATION: Results will be communicated with the ordering provider via [employer] staff message or phone message by [facility] within 2 business days of report finalization. Algorithms for management of incidental imaging findings can be found on the [facility] Intranet Sharepoint site at: [email or web address] [email or web address] Transcribe Date/Time: Dec 18 2022 8:41A Dictated by: KIERA NEGRO MD This examination was interpreted and the report reviewed and electronically signed by: KIERA NEGRO MD on Dec 18 2022 8:47AM EST Thank you for allowing us to participate in the care of your patient. Should there be any questions regarding this interpretation, please call [phone]. If you are unable to reach us at the number above, please feel free to contact [facility] eRadiology at [phone]. [facility] XR Ribs - left Views and Viki st PAon 12-17-2022 Radiology Study observation (narrative) [facility] CULTURE URINEon 07-16-2022 CULTURE URINE Culture Observations : NO GROWTH. Normal [facility] Comment on above: Performed By: #### U RCX #### [facility] [address] [place] [address] Dr. Jennifer Fung UA RANDOMon 07-16-2022 Bilirubin Ql (U) Negative Normal NEGATIVE [facility] Comment on above: Performed By: #### G ENTR #### [facility] [address] [place] [address] Dr. Jennifer Fung Clarity (U) CLEAR Normal CLEAR [facility] Comment on above: Performed By: #### G ENTR #### [facility] [address] [place] [address] Dr. Jennifer Fung Color (U) LT. YELLOW Normal YELLOW [facility] Comment on above: Performed By: #### G ENTR #### [facility] [address] [place] [address] Dr. Jennifer Fung Glucose Ql (U) Negative Normal NEGATIVE [facility] Comment on above: Performed By: #### G ENTR #### [facility] [address] [place] [address] Dr. Jennifer Fung Hemoglobin Ql (U) TRACE-INTACT Abnormal NEGATIVE [facility] Comment on above: Performed By: #### G ENTR #### [facility] [address] [place] [address] Dr. Jennifer Fung Ketones Ql (U) Negative Normal NEGATIVE [facility] Comment on above: Performed By: #### G ENTR #### [facility] [address] [place] [address] Dr. Jennifer Fung LEUKOCYTES Negative Normal NEGATIVE [facility] Comment on above: Performed By: #### G ENTR #### [facility] [address] [place] [address] Dr. Jennifer Fung Nitrite Ql (U) Negative Normal NEGATIVE [facility] Comment on above: Performed By: #### G ENTR #### [facility] [address] [place] [address] Dr. Jennifer Fung pH (U) 7.0 [pH] Normal 5-9 [facility] Comment on above: Performed By: #### G ENTR #### [facility] [address] [place] [address] Dr. Jennifer Fung SPEC GRAVITY 1.015 Normal 1.005-<=1. 025 [facility] Comment on above: Performed By: #### G ENTR #### [facility] [address] [place] [address] Dr. Jennifer Fung UA PROTEIN Negative Normal NEGATIVE/ TRACE [facility] Comment on above: Performed By: #### G ENTR #### [facility] [address] [place] [address] Dr. Jennifer Fung Urobilinogen Qn (U) 0.2 {Damion'U}/dL Normal 0.2 - 1. 0 [facility] Comment on above: Performed By: #### G ENTR #### [facility] [address] [place] [address] Dr. Jennifer Fung CULTURE URINEon 05-20-2022 CULTURE URINE Culture Observations : NO GROWTH. Normal [facility] Comment on above: Performed By: #### U RCX #### [facility] [address] [place] [address] Dr. Jennifer Fung UA RANDOMon 05-20-2022 Bilirubin Ql (U) Negative Normal NEGATIVE [facility] Comment on above: Performed By: #### U MICRO, ERUR #### [facility] [address] [place] [address] Dr. Jennifer Fung Clarity (U) CLEAR Normal CLEAR [facility] Comment on above: Performed By: #### U MICRO, ERUR #### [facility] [address] [place] [address] Dr. Jennifer Fung Color (U) LT. YELLOW Normal YELLOW [facility] Comment on above: Performed By: #### U MICRO, ERUR #### [facility] [address] [place] [address] Dr. Jennifer Fung Glucose Ql (U) Negative Normal NEGATIVE [facility] Comment on above: Performed By: #### U MICRO, ERUR #### [facility] [address] [place] [address] Dr. Jennifer Fung Hemoglobin Ql (U) TRACE-INTACT Abnormal NEGATIVE [facility] Comment on above: Performed By: #### U MICRO, ERUR #### [facility] [address] [place] [address] Dr. Jennifer Fung Ketones Ql (U) Negative Normal NEGATIVE [facility] Comment on above: Performed By: #### U MICRO, ERUR #### [facility] [address] [place] [address] Dr. Jennifer Fung LEUKOCYTES Negative Normal NEGATIVE [facility] Comment on above: Performed By: #### U MICRO, ERUR #### [facility] [address] [place] [address] Dr. Jennifer Fung Nitrite Ql (U) Negative Normal NEGATIVE [facility] Comment on above: Performed By: #### U MICRO, ERUR #### [facility] [address] [place] [address] Dr. Jennifer Fung pH (U) 6.5 [pH] Normal 5-9 [facility] Comment on above: Performed By: #### U MICRO, ERUR #### [facility] [address] [place] [address] Dr. Jennifer Fung SPEC GRAVITY <=1.005 Abnormal 1.005-<=1. 025 [facility] Comment on above: Performed By: #### U MICRO, ERUR #### [facility] [address] [place] [address] Dr. Jennifer Fung UA PROTEIN Negative Normal NEGATIVE/ TRACE [facility] Comment on above: Performed By: #### U MICRO, ERUR #### [facility] [address] [place] [address] Dr. Jennifer Fung Urobilinogen Qn (U) 0.2 {Damion'U}/dL Normal 0.2 - 1. 0 [facility] Comment on above: Performed By: #### U MICRO, ERUR #### [facility] [address] [place] [address] Dr. Jennifer Fung CREATININEon 05-11-2022 Creatinine [Mass/Vol] 0.79 mg/dL Normal 0.70-1.30 [facility] Comment on above: Performed By: #### U MICRO, ERUR #### [facility] [address] [place] [address] Dr. Jennifer Fung EGFR-AF INDIAN >60 Normal >=60 [facility] Comment on above: Performed By: #### U MICRO, ERUR #### [facility] [address] [place] [address] Dr. Jennifer Fung EGFR-NON AF INDIAN >60 Normal >=60 [facility] Comment on above: Performed By: #### U MICRO, ERUR #### [facility] [address] [place] [address] Dr. Jennifer Fung TOBRAMYCIN RANDOMon 05-11-20 22 TOBRAMYCIN RANDOM 0.3 ug/mL Normal [facility] Comment on above: Performed By: #### U MICRO, ERUR #### [facility] [address] [place] [address] Dr. Jennifer Fung TOBRAMYCIN RANDOMon 05-10-20 22 TOBRAMYCIN RANDOM 1.6 ug/mL Normal [facility] Comment on above: Performed By: #### G ENTR #### [facility] [address] [place] [address] Dr. Jennifer Fung CULTURE URINEon 05-08-2022 CULTURE URINE Isolate 1 Pseudomonas aeruginosa 25,000 cfu/mL of ORGANISM 1 Pseudomonas aeruginosa ANTIBIOTIC M.I.C RX STATUS Piperacillin/Tazobactam <=4 S F Ceftazidime <=1 S F Imipenem <=0.25 S F Amikacin 16 S F Gentamicin 8 I F Tobramycin 2 S F Ciprofloxacin <=0.25 S F Levofloxacin 0.5 S F Normal [facility] Comment on above: Performed By: #### U RCX #### [facility] [address] [place] [address] Dr. Jennifer Fung CBC AUTO DIFFon 05-02-2022 BASO # 0.0 103/ul Normal 0.0-0.1 [facility] Comment on above: Performed By: #### C BC #### [facility] [address] [place] [address] Dr. Jennifer Fung Basophils/100 WBC (Bld) 0.5 % Normal 0.2-2.0 [facility] Comment on above: Performed By: #### C BC #### [facility] [address] [place] [address] Dr. Jennifer Fung EO # 0.4 103/ul Normal 0.0-0.7 [facility] Comment on above: Performed By: #### C BC #### [facility] [address] [place] [address] Dr. Jennifer Fung Eosinophils/100 WBC (Bld) 4.2 % Normal 0.9-7.0 [facility] Comment on above: Performed By: #### C BC #### [facility] [address] [place] [address] Dr. Jennifer Fung Erythrocyte distribution width (RBC) [Ratio] 12.7 % Normal 11.0-15.0 [facility] Comment on above: Performed By: #### C BC #### [facility] [address] [place] [address] Dr. Jennifer Fnug Hematocrit (Bld) [Volume fraction] 39.6 % Critically low 42.0-54.0 [facility] Comment on above: Performed By: #### C BC #### [facility] [address] [place] [address] Dr. Jennifer Fung Hemoglobin (Bld) [Mass/Vol] 13.4 g/dL Critically low 14.0-18.0 [facility] Comment on above: Performed By: #### C BC #### [facility] [address] [place] [address] Dr. Jennifer Fung IG # 0.02 10e3/ul Normal 0.00-0.03 [facility] Comment on above: Performed By: #### C BC #### [facility] [address] [place] [address] Dr. Jennifer Fung IG % 0.2 % Normal 0.0-0.5 [facility] Comment on above: Performed By: #### C BC #### [facility] [address] [place] [address] Dr. Jennifer Fung LYMPH # 3.3 103/ul Normal 1.2-3.8 [facility] Comment on above: Performed By: #### C BC #### [facility] [address] [place] [address] Dr. Jennifer Fung Lymphocytes/100 WBC (Bld) 38.6 % Normal 20.5-60.0 [facility] Comment on above: Performed By: #### C BC #### [facility] [address] [place] [address] Dr. Jennifer Fung MANUAL DIFF REQ NO Normal [facility] Comment on above: Performed By: #### C BC #### [facility] [address] [place] [address] Dr. Jennifer Fung MCH (RBC) [Entitic mass] 31.8 pg Normal 25.9-34.0 [facility] Comment on above: Performed By: #### C BC #### [facility] [address] [place] [address] Dr. Jennifer Fung MCHC (RBC) [Mass/Vol] 33.8 g/dL Normal 29.9-35.2 [facility] Comment on above: Performed By: #### C BC #### [facility] [address] [place] [address] Dr. Jennifer Fung MCV (RBC) [Entitic vol] 94.1 fL Critically high 80.0-94.0 [facility] Comment on above: Performed By: #### C BC #### [facility] [address] [place] [address] Dr. Jennifer Fung MONO # 0.8 103/ul Normal 0.3-0.8 [facility] Comment on above: Performed By: #### C BC #### [facility] [address] [place] [address] Dr. Jennifer Fung Monocytes/100 WBC (Bld) 9.2 % Normal 1.7-12.0 [facility] Comment on above: Performed By: #### C BC #### [facility] [address] [place] [address] Dr. Jennifer Fung NEUT # 4.1 103/ul Normal 1.4-6.5 [facility] Comment on above: Performed By: #### C BC #### [facility] [address] [place] [address] Dr. Jennifer Fung Neutrophils/100 WBC (Bld) 47.3 % Normal 43.0-75.0 [facility] Comment on above: Performed By: #### C BC #### [facility] [address] [place] [address] Dr. Jennifer Fung Platelet mean volume (Bld) [Entitic vol] 9.9 fL Normal 9.5-13.5 [facility] Comment on above: Performed By: #### C BC #### [facility] [address] [place] [address] Dr. Jennifer Fung PLT 319 103/ul Normal 150-450 [facility] Comment on above: Performed By: #### C BC #### [facility] [address] [place] [address] Dr. Jennifer Fung RBC 4.21 106/ul Critically low 4.70-6.10 [facility] Comment on above: Performed By: #### C BC #### [facility] [address] [place] [address] Dr. Jennifer Fung WBC 8.6 103/ul Normal 4.0-11.0 [facility] Comment on above: Performed By: #### C BC #### [facility] [address] [place] [address] Dr. Jennifer Fung PROF 14(COMP METB)on 022 Albumin [Mass/Vol] 3.7 g/dL Normal 3.4-5.0 [facility] Comment on above: Performed By: #### C MP #### [facility] [address] [place] [address] Dr. Jennifer Fung Albumin/Globulin [Mass ratio] 1.0 {ratio} Normal [facility] Comment on above: Performed By: #### C MP #### [facility] [address] [place] [address] Dr. Jennifer Fung ALP [Catalytic activity/Vol] 127 U/L Critically high 46-116 [facility] Comment on above: Performed By: #### C MP #### [facility] [address] [address] [address] Jennifer Fung ALT [Catalytic activity/Vol] 54 U/L Normal 16-63 [facility] Comment on above: Performed By: #### C MP #### [facility] [address] [place] [address] Dr. Jennifer Fung Anion gap [Moles/Vol] 11.1 mmol/L Normal [facility] Comment on above: Performed By: #### C MP #### [facility] [address] [place] [address] Dr. Jennifer Fung AST [Catalytic activity/Vol] 32 U/L Normal 15-37 [facility] Comment on above: Performed By: #### C MP #### [facility] [address] [place] [address] Dr. Jennifer Fung Bilirubin [Mass/Vol] 0.3 mg/dL Normal 0.2-1.0 [facility] Comment on above: Performed By: #### C MP #### [facility] [address] [place] [address] Dr. Jennifer Fung Calcium [Mass/Vol] 9.2 mg/dL Normal 8.5-10.1 [facility] Comment on above: Performed By: #### C MP #### [facility] [address] [place] [address] Dr. Jennifer Fung Chloride [Moles/Vol] 103 mmol/L Normal 98-107 [facility] Comment on above: Performed By: #### C MP #### [facility] [address] [place] [address] Dr. Jennifer Fung CO2 [Moles/Vol] 26.5 mmol/L Normal 21.0-32.0 [facility] Comment on above: Performed By: #### C MP #### [facility] [address] [place] [address] Dr. Jennifer Fung Creatinine [Mass/Vol] 0.80 mg/dL Normal 0.70-1.30 [facility] Comment on above: Performed By: #### C MP #### [facility] [address] [place] [address] Dr. Jennifer Fung EGFR-AF INDIAN >60 Normal >=60 [facility] Comment on above: Performed By: #### C MP #### [facility] [address] [address] [address] Jennifer Fung EGFR-NON AF INDIAN >60 Normal >=60 [facility] Comment on above: Performed By: #### C MP #### [facility] [address] [address] [address] Jennifer Fung Globulin (S) [Mass/Vol] 3.8 g/dL [facility] Comment on above: Performed By: #### C MP #### [facility] [address] [address] [address] Jennifer Fung Glucose [Mass/Vol] 97 mg/dL Normal 74-106 [facility] Comment on above: Performed By: #### C MP #### [facility] [address] [place] [address] Dr. Jennifer Fung Potassium [Moles/Vol] 4.6 mmol/L Normal 3.5-5.1 [facility] Comment on above: Performed By: #### C MP #### [facility] [address] [address] [address] Jennifer Fung Protein [Mass/Vol] 7.5 g/dL Normal 6.4-8.2 [facility] Comment on above: Performed By: #### C MP #### [facility] [address] [address] [address] Jennifer Fung Sodium [Moles/Vol] 136 mmol/L Normal 136-145 [facility] Comment on above: Performed By: #### C MP #### [facility] [address] [address] [address] Jennifer Fung Urea nitrogen [Mass/Vol] 17.0 mg/dL Normal 7.0-18.0 [facility] Comment on above: Performed By: #### C MP #### [facility] [address] [address] [address] Jennifer Fung Urea nitrogen/Creatinine [Mass ratio] 21.2 mg/mg [facility] Comment on above: Performed By: #### C MP #### [facility] [address] [place] [address] Dr. Jennifer Fung CULTURE URINEon 05-01-2022 CULTURE URINE Isolate 1 Pseudomonas aeruginosa >100,000 cfu/mL of ORGANISM 1 Pseudomonas aeruginosa ANTIBIOTIC M.I.C RX STATUS Piperacillin/Tazobactam <=4 S F Ceftazidime <=1 S F Imipenem <=0.25 S F Amikacin <=2 S F Gentamicin <=1 S F Tobramycin <=1 S F Ciprofloxacin <=0.25 S F Levofloxacin 0.5 S F Normal [facility] Comment on above: Performed By: #### U RCX #### [facility] [address] [place] [address] Dr. Jennifer Fung CULTURE URINEon 04-30-2022 CULTURE URINE Isolate 1 Pseudomonas aeruginosa >100,000 cfu/mL of ORGANISM 1 Pseudomonas aeruginosa ANTIBIOTIC M.I.C RX STATUS Piperacillin/Tazobactam <=4 S F Ceftazidime <=1 S F Imipenem 1 S F Amikacin <=2 S F Gentamicin <=1 S F Tobramycin <=1 S F Ciprofloxacin <=0.25 S F Levofloxacin 0.5 S F Normal [facility] Comment on above: Performed By: #### G ENTR #### [facility] [address] [place] [address] Dr. Jennifer Fung GENTAMICIN RANDOMon 04-29-20 22 GENTAMICIN 1.3 ug/mL [facility] Comment on above: Performed By: #### G ENTR #### [facility] [address] [place] [address] Dr. Jennifer Fung CBC AUTO DIFFon 04-28-2022 BASO # 0.0 103/ul Normal 0.0-0.1 [facility] Comment on above: Performed By: #### U MICRO, ERUR #### [facility] [address] [place] [address] Dr. Jennifer Fung Basophils/100 WBC (Bld) 0.3 % Normal 0.2-2.0 [facility] Comment on above: Performed By: #### U MICRO, ERUR #### [facility] [address] [place] [address] Dr. Jennifer Fung EO # 0.4 103/ul Normal 0.0-0.7 [facility] Comment on above: Performed By: #### U MICRO, ERUR #### [facility] [address] [place] [address] Dr. Jennifer Fung Eosinophils/100 WBC (Bld) 4.6 % Normal 0.9-7.0 [facility] Comment on above: Performed By: #### U MICRO, ERUR #### [facility] [address] [place] [address] Dr. Jennifer Fung Erythrocyte distribution width (RBC) [Ratio] 12.4 % Normal 11.0-15.0 [facility] Comment on above: Performed By: #### U MICRO, ERUR #### [facility] [address] [place] [address] Dr. Jennifer Fung Hematocrit (Bld) [Volume fraction] 36.7 % Critically low 42.0-54.0 [facility] Comment on above: Performed By: #### U MICRO, ERUR #### [facility] [address] [place] [address] Dr. Jennifer Fung Hemoglobin (Bld) [Mass/Vol] 12.7 g/dL Critically low 14.0-18.0 [facility] Comment on above: Performed By: #### U MICRO, ERUR #### [facility] [address] [place] [address] Dr. Jennifer Fung IG # 0.02 10e3/ul Normal 0.00-0.03 [facility] Comment on above: Performed By: #### U MICRO, ERUR #### [facility] [address] [place] [address] Dr. Jennifer Fung IG % 0.2 % Normal 0.0-0.5 [facility] Comment on above: Performed By: #### U MICRO, ERUR #### [facility] [address] [place] [address] Dr. Jennifer Fung LYMPH # 3.3 103/ul Normal 1.2-3.8 [facility] Comment on above: Performed By: #### U MICRO, ERUR #### [facility] [address] [place] [address] Dr. Jennifer Fung Lymphocytes/100 WBC (Bld) 35.9 % Normal 20.5-60.0 [facility] Comment on above: Performed By: #### U MICRO, ERUR #### [facility] [address] [place] [address] Dr. Jennifer Fung MANUAL DIFF REQ NO Normal [facility] Comment on above: Performed By: #### U MICRO, ERUR #### [facility] [address] [place] [address] Dr. Jennifer Fung MCH (RBC) [Entitic mass] 31.8 pg Normal 25.9-34.0 [facility] Comment on above: Performed By: #### U MICRO, ERUR #### [facility] [address] [place] [address] Dr. Jennifer Fung MCHC (RBC) [Mass/Vol] 34.6 g/dL Normal 29.9-35.2 [facility] Comment on above: Performed By: #### U MICRO, ERUR #### [facility] [address] [place] [address] Dr. Jennifer Fung MCV (RBC) [Entitic vol] 91.8 fL Normal 80.0-94.0 [facility] Comment on above: Performed By: #### U MICRO, ERUR #### [facility] [address] [place] [address] Dr. Jennifer Fung MONO # 0.8 103/ul Normal 0.3-0.8 [facility] Comment on above: Performed By: #### U MICRO, ERUR #### [facility] [address] [place] [address] Dr. Jennifer Fung Monocytes/100 WBC (Bld) 8.9 % Normal 1.7-12.0 [facility] Comment on above: Performed By: #### U MICRO, ERUR #### [facility] [address] [place] [address] Dr. Jennifer Fung NEUT # 4.6 103/ul Normal 1.4-6.5 [facility] Comment on above: Performed By: #### U MICRO, ERUR #### [facility] [address] [address] [address] Jennifer Fung Neutrophils/100 WBC (Bld) 50.1 % Normal 43.0-75.0 [facility] Comment on above: Performed By: #### U MICRO, ERUR #### [facility] [address] [address] [address] Jennifer Fung Platelet mean volume (Bld) [Entitic vol] 9.7 fL Normal 9.5-13.5 [facility] Comment on above: Performed By: #### U MICRO, ERUR #### [facility] [address] [place] [address] Dr. Jennifer Fung PLT 301 103/ul Normal 150-450 [facility] Comment on above: Performed By: #### U MICRO, ERUR #### [facility] [address] [place] [address] Dr. Jennifer Fung RBC 4.00 106/ul Critically low 4.70-6.10 [facility] Comment on above: Performed By: #### U MICRO, ERUR #### [facility] [address] [place] [address] Dr. Jennifer Fung WBC 9.2 103/ul Normal 4.0-11.0 [facility] Comment on above: Performed By: #### U MICRO, ERUR #### [facility] [address] [place] [address] Dr. Jennifer Fung ER URINE PROFILEon 2 Bilirubin Ql (U) Negative Normal NEGATIVE [facility] Comment on above: Performed By: #### G ENTR #### [facility] [address] [place] [address] Dr. Jennifer Fung Clarity (U) CLEAR Normal CLEAR [facility] Comment on above: Performed By: #### G ENTR #### [facility] [address] [place] [address] Dr. Jennifer Fung Color (U) YELLOW Normal YELLOW [facility] Comment on above: Performed By: #### G ENTR #### [facility] [address] [place] [address] Dr. Jennifer GRANDA A micrscopic examina tion will be performed if indicated. Normal [facility] Comment on above: Performed By: #### G ENTR #### [facility] [address] [place] [address] Dr. Jennifer Fung Glucose Ql (U) Negative Normal NEGATIVE [facility] Comment on above: Performed By: #### G ENTR #### [facility] [address] [address] [address] Jennifer Fung Hemoglobin Ql (U) SMALL Abnormal NEGATIVE [facility] Comment on above: Performed By: #### G ENTR #### [facility] [address] [place] [address] Dr. Jennifer Fung Ketones Ql (U) Negative Normal NEGATIVE [facility] Comment on above: Performed By: #### G ENTR #### [facility] [address] [place] [address] Dr. Jennifer Fung LEUKOCYTES LARGE Abnormal NEGATIVE [facility] Comment on above: Performed By: #### G ENTR #### [facility] [address] [place] [address] Dr. Jennifer Fung Nitrite Ql (U) Positive Abnormal NEGATIVE [facility] Comment on above: Performed By: #### G ENTR #### [facility] [address] [place] [address] Dr. Jennifer Fung pH (U) 7.0 [pH] Normal 5-9 [facility] Comment on above: Performed By: #### G ENTR #### [facility] [address] [place] [address] Dr. Jennifer Fung SPEC GRAVITY <=1.005 Abnormal 1.005-<=1. 025 [facility] Comment on above: Performed By: #### G ENTR #### [facility] [address] [place] [address] Dr. Jennifer Fung UA PROTEIN Negative Normal NEGATIVE/ TRACE [facility] Comment on above: Performed By: #### G ENTR #### [facility] [address] [place] [address] Dr. Jennifer Fung UR MICRO IND INDICATED Normal [facility] Comment on above: Performed By: #### G ENTR #### [facility] [address] [place] [address] Dr. Jennifer Fung Urobilinogen Qn (U) 0.2 {Damion'U}/dL Normal 0.2 - 1. 0 [facility] Comment on above: Performed By: #### G ENTR #### [facility] [address] [place] [address] Dr. Jennifer Fung PROF CHEM 8 (BAS METB)on Anion gap [Moles/Vol] 11.1 mmol/L Normal [facility] Comment on above: Performed By: #### B MP #### [facility] [address] [place] [address] Dr. Jennifer Fung Calcium [Mass/Vol] 9.1 mg/dL Normal 8.5-10.1 [facility] Comment on above: Performed By: #### B MP #### [facility] [address] [place] [address] Dr. Jennifer Fung Chloride [Moles/Vol] 104 mmol/L Normal 98-107 [facility] Comment on above: Performed By: #### B MP #### [facility] [address] [place] [address] Dr. Jennifer Fung CO2 [Moles/Vol] 26.9 mmol/L Normal 21.0-32.0 [facility] Comment on above: Performed By: #### B MP #### [facility] [address] [place] [address] Dr. Jennifer Fung Creatinine [Mass/Vol] 0.70 mg/dL Normal 0.70-1.30 [facility] Comment on above: Performed By: #### B MP #### [facility] [address] [place] [address] Dr. Jennifer Fung EGFR-AF INDIAN >60 Normal >=60 [facility] Comment on above: Performed By: #### B MP #### [facility] [address] [place] [address] Dr. Jennifer Fung EGFR-NON AF INDIAN >60 Normal >=60 [facility] Comment on above: Performed By: #### B MP #### [facility] [address] [address] [address] Jennifer Fung Glucose [Mass/Vol] 92 mg/dL Normal 74-106 [facility] Comment on above: Performed By: #### B MP #### [facility] [address] [address] [address] Jennifer Fung Potassium [Moles/Vol] 4.0 mmol/L Normal 3.5-5.1 [facility] Comment on above: Performed By: #### B MP #### [facility] [address] [address] [address] Jennifer Fung Sodium [Moles/Vol] 138 mmol/L Normal 136-145 [facility] Comment on above: Performed By: #### B MP #### [facility] [address] [place] [address] Dr. Jennifer Fung Urea nitrogen [Mass/Vol] 12.0 mg/dL Normal 7.0-18.0 [facility] Comment on above: Performed By: #### B MP #### [facility] [address] [address] [address] Jennifer Fung Urea nitrogen/Creatinine [Mass ratio] 17.1 mg/mg Normal [facility] Comment on above: Performed By: #### B MP #### [facility] [address] [place] [address] Dr. Jennifer Fung URINE MICROSCOPIC ONLYon BACTERIA SMALL Abnormal NONE SEEN [facility] Comment on above: Performed By: #### U MICRO, ERUR #### [facility] [address] [place] [address] Dr. Jennifer Fung Bacteria identified Cx Nom (U) INDICATED Normal [facility] Comment on above: Performed By: #### U MICRO, ERUR #### [facility] [address] [place] [address] Dr. Jennifer Fung CAST NONE SEEN Normal NONE SEEN [facility] Comment on above: Performed By: #### U MICRO, ERUR #### [facility] [address] [place] [address] Dr. Jennifer Fung Crystals LM Nom (Urine sed) NONE SEEN Normal NONE SEEN [facility] Comment on above: Performed By: #### U MICRO, ERUR #### [facility] [address] [place] [address] Dr. Jennifer Fung Epithelial cells LM Ql (Urine sed) FEW Abnormal NONE SEEN /RARE [facility] Comment on above: Performed By: #### U MICRO, ERUR #### [facility] [address] [place] [address] Dr. Jennifer Fung MUCOUS NONE SEEN Normal NONE SEEN [facility] Comment on above: Performed By: #### U MICRO, ERUR #### [facility] [address] [place] [address] Dr. Jennifer Fung RBC 5-10 Abnormal 0-2 [facility] Comment on above: Performed By: #### U MICRO, ERUR #### [facility] [address] [place] [address] Dr. Jennifer Fung WBC (U) [#/Vol] /uL Abnormal NONE SEEN [facility] Comment on above: Performed By: #### U MICRO, ERUR #### [facility] [address] [place] [address] Dr. Jennifer Fung CULTURE URINEon 04-27-2022 CULTURE URINE Isolate 1 Pseudomonas aeruginosa >100,000 cfu/mL of ORGANISM 1 Pseudomonas aeruginosa ANTIBIOTIC M.I.C RX STATUS Piperacillin/Tazobactam <=4 S F Ceftazidime <=1 S F Imipenem 1 S F Amikacin <=2 S F Gentamicin <=1 S F Tobramycin <=1 S F Ciprofloxacin <=0.25 S F Levofloxacin 0.5 S F Normal [facility] Comment on above: Performed By: #### G ENTR #### [facility] [address] [place] [address] ABD/PELV W CONon 04-23-20 CT ABD/PELV W CON EXAMINATION: CT ABD/ PELV W CON HISTORY: Primary malignant neoplasm of prostate COMPARISON: No relevant comparison available. TECHNIQUE: Axial, Coronal, and Sagittal images were obtained without and/or with IV contrast as indicated by examination type. Dose reduction techniques were achieved by using automated exposure control and/or adjustment of mA and/or kV according to patient size and/or use of iterative reconstruction technique. FINDINGS: LUNG BASES: No visible pulmonary or pleural disease. LIVER: No enlargement, atrophy, suspicious density, or significant focal lesion. BILIARY: No dilatation or calcification. PANCREAS: No lesion, fluid collection, or abnormal duct dilatation. SPLEEN: No enlargement or focal lesion. ADRENALS: No mass or enlargement. KIDNEYS: Bilateral parapelvic cysts, a few tiny cortical cysts, and nonobstructing 8 mm stone within right kidney and 2 mm stone in left kidney. BOWEL/MESENTERY: No visible mass, obstruction, or bowel wall thickening. AORTA/VASCULAR: No aneurysm or dissection. RETROPERITONEUM: A few prominent para-aortic lymph nodes inferior to level of renal arteries, largest is 2.4 x 1.9 x 1.8 cm. LYMPH NODES: 1.7 cm long axis right pelvic lymph node. URINARY BLADDER: No visible focal wall thickening, lesion, or calculus. PELVIC ORGANS: Enlarged heterogeneous prostate with abnormal enhancement of right side of prostate, and enhancing mass projecting posterior inferior from the right posterior lateral margin, approximately 2.8 x 2.7 x 1.9 cm external to the prostate. No appreciable involvement of the bowel or adjacent musculature, or inferior bladder wall. ABDOMINAL WALL: No hernia or mass. BONES: Suspicious bone lesion within S1 vertebral body in right femoral head. Focus within right iliac wing may represent a benign bone island. OTHER: Negative. IMPRESSION: 1. Bilateral nonobstructing nephrolithiasis. 2. Enlarged heterogeneous prostate with mass protruding right posterior inferior from the gland without appreciable involvement of adjacent structures. 3. Slightly prominent right pelvic lymph node adjacent the external iliac artery. A few slightly prominent para-aortic lymph nodes just inferior to renal arteries. 4. 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 Electronically authenticated by: KELLE ZURITA Date: 2022-04-23 17:00 Normal [facility] BONE [facility] BODYon 022 [facility] BODY NUCLEAR MEDICINE TOT AL BODY BONE SCAN HISTORY: Prostate carcinoma. COMPARISON: CT abdomen and pelvis 04/23/2022. METHOD: The patient was injected intravenously with 25.1 mCi of Tc-99m MDP, scintigraphy of the entire skeleton was performed more than three hours later. FINDINGS: There is a focus of very increased uptake in the calvarium. There is a focus of increased uptake in the right posterior seventh rib. There is a focus of mild increased uptake in the left lateral seventh rib. There are multiple foci of abnormal increased uptake in the left scapula. There is a focus of intense uptake at L2 and focal uptake at L1. There is a large intense focus of increased uptake in the sacrum. There is a focus of increased uptake in the right femoral head. There is no evidence of abnormal uptake in the manubrium or sternum. IMPRESSION: Multiple bone metastasis. Electronically authenticated by: AMADOR GOODMAN Date: 2022-04-23 15:52 Normal [facility] XR Chest PA and Lateralon IMPRESSION: No acute radiographic abnormality. Transcribe Date/Time: Apr 22 2022 2:05P Dictated by: SURI YOST MD This examination was interpreted and the report reviewed and electronically signed by: SURI YOST MD on Apr 22 2022 3:01PM EST Thank you for allowing us to participate in the care of your patient. Should there be any questions regarding this interpretation, please call [phone]. If you are unable to reach us at the number above, please feel free to contact [facility] at [phone]. DIVISION OF RADIOLOGY * * *Final Report* * * DATE OF EXAM: Apr 22 2022 10:59AM [id number] - XR CHEST 2V FRONTAL/LAT / PROCEDURE REASON: Malignant neoplasm of prostate (HCC) * * * * Physician Interpretation * * * * RESULT: EXAMINATION: CHEST RADIOGRAPH (2 VIEW FRONTAL & LATERAL) CLINICAL HISTORY: Malignant neoplasm of prostate (HCC) MQ: XC2_6 EXAM DATE/TIME: 04/22/2022 10:59 AM COMPARISON: No relevant prior studies available. RESULT: Lines, tubes, and devices: None. Lungs and pleura: No consolidation. No lung mass. No pleural effusion. No pneumothorax. Cardiomediastinal silhouette: Normal cardiomediastinal silhouette. Bones and soft tissues: Unremarkable. DIVISION OF RADIOLOGY Provider, [facility] [place] - 04/22/2022 * * *Final Report* * * DATE OF EXAM: Apr 22 2022 10:59AM [id number] - XR CHEST 2V FRONTAL/LAT / PROCEDURE REASON: Malignant neoplasm of prostate (HCC) * * * * Physician Interpretation * * * * RESULT: EXAMINATION: CHEST RADIOGRAPH (2 VIEW FRONTAL & LATERAL) CLINICAL HISTORY: Malignant neoplasm of prostate (HCC) MQ: XC2_6 EXAM DATE/TIME: 04/22/2022 10:59 AM COMPARISON: No relevant prior studies available. RESULT: Lines, tubes, and devices: None. Lungs and pleura: No consolidation. No lung mass. No pleural effusion. No pneumothorax. Cardiomediastinal silhouette: Normal cardiomediastinal silhouette. Bones and soft tissues: Unremarkable. IMPRESSION IMPRESSION: No acute radiographic abnormality. Transcribe Date/Time: Apr 22 2022 2:05P Dictated by: SURI YOST MD This examination was interpreted and the report reviewed and electronically signed by: SURI YOST MD on Apr 22 2022 3:01PM EST Thank you for allowing us to participate in the care of your patient. Should there be any questions regarding this interpretation, please call [phone]. If you are unable to reach us at the number above, please feel free to contact [facility] at [phone]. [facility] Radiology Study observation (narrative) [facility] XR Chest PA and LateralOrder ed By: [facility] Provider on 04-22-2022 [facility] CULTURE URINEon 04-13-2022 CULTURE URINE Isolate 1 Pseudomonas aeruginosa >100,000 cfu/ml of ORGANISM 1 Pseudomonas aeruginosa ANTIBIOTIC M.I.C RX STATUS Piperacillin/Tazobactam <=4 S F Ceftazidime <=1 S F Imipenem <=0.25 S F Amikacin <=2 S F Gentamicin <=1 S F Tobramycin <=1 S F Ciprofloxacin <=0.25 S F Levofloxacin 0.25 S F Normal [facility] Comment on above: Performed By: #### G ENTR #### [facility] [address] [address] [address] Jennifer LYNNE URINE PROFILEon 2 Bilirubin Ql (U) Negative Normal NEGATIVE [facility] Comment on above: Performed By: #### U MICRO, ERUR #### [facility] [address] [address] [address] Jennifer Fung Clarity (U) CLEAR Normal CLEAR [facility] Comment on above: Performed By: #### U MICRO, ERUR #### [facility] [address] [place] [address] Dr. Jennifer Fung Color (U) LT. YELLOW Normal YELLOW [facility] Comment on above: Performed By: #### U MICRO, ERUR #### [facility] [address] [address] [address] Jennifer Fung ERUAHD A micrscopic examina tion will be performed if indicated. Normal [facility] Comment on above: Performed By: #### U MICRO, ERUR #### [facility] [address] [place] [address] Dr. Jennifer Fung Glucose Ql (U) Negative Normal NEGATIVE [facility] Comment on above: Performed By: #### U MICRO, ERUR #### [facility] [address] [place] [address] Dr. Jennifer Fung Hemoglobin Ql (U) LARGE Abnormal NEGATIVE [facility] Comment on above: Performed By: #### U MICRO, ERUR #### [facility] [address] [place] [address] Dr. Jennifer Fung Ketones Ql (U) Negative Normal NEGATIVE [facility] Comment on above: Performed By: #### U MICRO, ERUR #### [facility] [address] [place] [address] Dr. Jennifer Fung LEUKOCYTES MODERATE Abnormal NEGATIVE [facility] Comment on above: Performed By: #### U MICRO, ERUR #### [facility] [address] [address] [address] Jennifer Fung Nitrite Ql (U) Positive Abnormal NEGATIVE [facility] Comment on above: Performed By: #### U MICRO, ERUR #### [facility] [address] [place] [address] Dr. Jennifer Fung pH (U) 6.5 [pH] Normal 5-9 [facility] Comment on above: Performed By: #### U MICRO, ERUR #### [facility] [address] [place] [address] Dr. Jennifer Fung Protein (U) [Mass/Vol] 100 mg/dL Abnormal NEGAT VLADISLAV/ TRACE [facility] Comment on above: Performed By: #### U MICRO, ERUR #### [facility] [address] [place] [address] Dr. Jennifer Fung SPEC GRAVITY 1.020 Normal 1.005-<=1. 025 [facility] Comment on above: Performed By: #### U MICRO, ERUR #### [facility] [address] [place] [address] Dr. Jennifer Fung UR MICRO IND INDICATED Normal [facility] Comment on above: Performed By: #### U MICRO, ERUR #### [facility] [address] [place] [address] Dr. Jennifer Fung Urobilinogen Qn (U) 0.2 {Damion'U}/dL Normal 0.2 - 1. 0 [facility] Comment on above: Performed By: #### U MICRO, ERUR #### [facility] [address] [place] [address] Dr. Jennifer Fung URINE MICROSCOPIC ONLYon BACTERIA SMALL Abnormal NONE SEEN [facility] Comment on above: Performed By: #### U MICRO, ERUR #### [facility] [address] [place] [address] Dr. Jennifer Fung Bacteria identified Cx Nom (U) INDICATED Normal [facility] Comment on above: Performed By: #### U MICRO, ERUR #### [facility] [address] [place] [address] Dr. Jennifer Fung CAST NONE SEEN Normal NONE SEEN [facility] Comment on above: Performed By: #### U MICRO, ERUR #### [facility] [address] [place] [address] Dr. Jennifer Fung Crystals LM Nom (Urine sed) NONE SEEN Normal NONE SEEN [facility] Comment on above: Performed By: #### U MICRO, ERUR #### [facility] [address] [place] [address] Dr. Jennifer Fung Epithelial cells LM Ql (Urine sed) RARE Normal NONE SEEN /RARE [facility] Comment on above: Performed By: #### U MICRO, ERUR #### [facility] [address] [address] [address] Jennifer Fung MUCOUS NONE SEEN Normal NONE SEEN [facility] Comment on above: Performed By: #### U MICRO, ERUR #### [facility] [address] [address] [address] Jennifer Fung RBC 2-5 Abnormal 0-2 [facility] Comment on above: Performed By: #### U MICRO, ERUR #### [facility] [address] [address] [address] Jennifer Fung WBC 5-10 Abnormal NONE SEEN [facility] Comment on above: Performed By: #### U MICRO, ERUR #### [facility] [address] [address] [address] Jennifer Fung Comprehensive metabolic 2000 panelon 04-04-2022 Albumin [Mass/Vol] 4.5 g/dL 3.9 - 4.9 g/dL [facility] ALP [Catalytic activity/Vol] 99 U/L 38 - 113 U/L [facility] ALT [Catalytic activity/Vol] 14 U/L 10 - 54 U/L [facility] Anion gap [Moles/Vol] 8 mmol/L Low 9 - 18 mmol/L [facility] AST [Catalytic activity/Vol] 19 U/L 14 - 40 U/L [facility] Bilirubin [Mass/Vol] 0.4 mg/dL 0.2 - 1 .3 mg/dL [facility] Calcium [Mass/Vol] 9.8 mg/dL 8.5 - 10. 2 mg/dL [facility] Chloride [Moles/Vol] 105 mmol/L 97 - 10 5 mmol/L [facility] CO2 [Moles/Vol] 24 mmol/L 22 - 30 mmol/L [facility] Creatinine [Mass/Vol] 0.75 mg/dL 0.73 - 1.22 mg/dL [facility] Estimated Glomerular Filtration Rate 105 mL/min/1.73m >=60 mL/min/1.7 3m [facility] Glucose [Mass/Vol] 93 mg/dL 74 - 99 mg/dL [facility] Potassium [Moles/Vol] 4.1 mmol/L 3.7 - 5.1 mmol/L [facility] Protein [Mass/Vol] 7.0 g/dL 6.3 - 8.0 g/dL [facility] Sodium [Moles/Vol] 137 mmol/L 136 - 144 mmol/L [facility] Urea nitrogen [Mass/Vol] 15 mg/dL 9 - 24 mg/dL [facility] PSA/PROSTSPECAG DIAGon 04-04 Prostate specific Ag [Mass/Vol] 383.90 ng/mL High <2.60 ng/mL [facility] CBC W Auto Differential pane l (Bld)on 04-03-2022 Abs Immature Gran 0.03 k/uL <0.10 k/uL [facility] Basophils (Bld) [#/Vol] <0.11 k/uL [facility] Basophils/100 WBC (Bld) 0.2 % [facility] Differential cell count method Nom (Bld) Auto [facility] Eosinophils (Bld) [#/Vol] 0.11 10*3/uL <0.46 k/uL [facility] Eosinophils/100 WBC (Bld) 1.2 % [facility] Erythrocyte distribution width (RBC) [Ratio] 12.6 % 11.5 - 15.0 % [facility] Hematocrit (Bld) [Volume fraction] 39.3 % 39.0 - 51.0 % [facility] Hemoglobin (Bld) [Mass/Vol] 13.5 g/dL 13.0 - 17.0 g/dL [facility] Immature Gran % 0.3 % [facility] Lymphocytes (Bld) [#/Vol] 3.03 10*3/uL 1.00 - 4.00 k/uL [facility] Lymphocytes/100 WBC (Bld) 32.2 % [facility] MCH (RBC) [Entitic mass] 31.5 pg 26.0 - 34.0 pg [facility] MCHC (RBC) [Mass/Vol] 34.4 g/dL 30.5 - 36.0 g/dL [facility] MCV (RBC) [Entitic vol] 91.6 fL 80.0 - 100.0 fL [facility] Monocytes (Bld) [#/Vol] 0.69 10*3/uL <0.87 k/uL [facility] Monocytes/100 WBC (Bld) 7.3 % [facility] Neutrophils (Bld) [#/Vol] 5.52 10*3/uL 1.45 - 7.50 k/uL [facility] Neutrophils/100 WBC (Bld) 58.8 % [facility] Nucleated RBC (Bld) [#/Vol] <0.01 k/uL [facility] Nucleated RBC/100 WBC (Bld) [Ratio] 0.0 /100 WBC [facility] Platelet mean volume (Bld) [Entitic vol] 9.8 fL 9.0 - 12.7 fL [facility] Platelets (Bld) [#/Vol] 297 10*3/uL 150 - 400 k/uL [facility] RBC (Bld) [#/Vol] 4.29 10*6/uL 4.20 - 6.00 m/uL [facility] WBC (Bld) [#/Vol] 9.40 10*3/uL 3.70 - 11.00 k/uL [facility] ER URINE PROFILEon 2 Bilirubin Ql (U) Negative Normal NEGATIVE [facility] Comment on above: Performed By: #### U MICRO, ERUR #### [facility] [address] [place] [address] Dr. Jennifer Fung Clarity (U) CLEAR Normal CLEAR [facility] Comment on above: Performed By: #### U MICRO, ERUR #### [facility] [address] [place] [address] Dr. Jennifer Fung Color (U) LT. YELLOW Normal YELLOW [facility] Comment on above: Performed By: #### U MICRO, ERUR #### [facility] [address] [place] [address] Dr. Jennifer Fung ERUAHD A micrscopic examina tion will be performed if indicated. Normal [facility] Comment on above: Performed By: #### U MICRO, ERUR #### [facility] [address] [place] [address] Dr. Jennifer Fung Glucose Ql (U) Negative Normal NEGATIVE [facility] Comment on above: Performed By: #### U MICRO, ERUR #### [facility] [address] [place] [address] Dr. Jennifer Fung Hemoglobin Ql (U) TRACE-INTACT Abnormal NEGATIVE [facility] Comment on above: Performed By: #### U MICRO, ERUR #### [facility] [address] [place] [address] Dr. Jennifer Fung Ketones Ql (U) Negative Normal NEGATIVE [facility] Comment on above: Performed By: #### U MICRO, ERUR #### [facility] [address] [place] [address] Dr. Jennifer Fung LEUKOCYTES Negative Normal NEGATIVE [facility] Comment on above: Performed By: #### U MICRO, ERUR #### [facility] [address] [place] [address] Dr. Jennifer Fung Nitrite Ql (U) Negative Normal NEGATIVE [facility] Comment on above: Performed By: #### U MICRO, ERUR #### [facility] [address] [place] [address] Dr. Jennifer Fung pH (U) 5.5 [pH] Normal 5-9 [facility] Comment on above: Performed By: #### U MICRO, ERUR #### [facility] [address] [place] [address] Dr. Jennifer Fung SPEC GRAVITY 1.010 Normal 1.005-<=1. 025 [facility] Comment on above: Performed By: #### U MICRO, ERUR #### [facility] [address] [place] [address] Dr. Jennifer Fung UA PROTEIN Negative Normal NEGATIVE/ TRACE [facility] Comment on above: Performed By: #### U MICRO, ERUR #### [facility] [address] [place] [address] Dr. Jennifer Fung UR MICRO IND INDICATED Normal [facility] Comment on above: Performed By: #### U MICRO, ERUR #### [facility] [address] [place] [address] Dr. Jennifer Fung Urobilinogen Qn (U) 0.2 {Damion'U}/dL Normal 0.2 - 1. 0 [facility] Comment on above: Performed By: #### U MICRO, ERUR #### [facility] [address] [place] [address] Dr. Jennifer Fung URINE MICROSCOPIC ONLYon BACTERIA NONE SEEN Normal NONE SEEN [facility] Comment on above: Performed By: #### U MICRO, ERUR #### [facility] [address] [place] [address] Dr. Jennifer Fung Bacteria identified Cx Nom (U) NOT INDICATED Normal [facility] Comment on above: Performed By: #### U MICRO, ERUR #### [facility] [address] [place] [address] Dr. Jennifer Fung CAST NONE SEEN Normal NONE SEEN [facility] Comment on above: Performed By: #### U MICRO, ERUR #### [facility] [address] [place] [address] Dr. Jennifer Fung Crystals LM Nom (Urine sed) NONE SEEN Normal NONE SEEN [facility] Comment on above: Performed By: #### U MICRO, ERUR #### [facility] [address] [place] [address] Dr. Jennifer Fung Epithelial cells LM Ql (Urine sed) FEW Abnormal NONE SEEN /RARE [facility] Comment on above: Performed By: #### U MICRO, ERUR #### [facility] [address] [place] [address] Dr. Jennifer Fung MUCOUS NONE SEEN Normal NONE SEEN [facility] Comment on above: Performed By: #### U MICRO, ERUR #### [facility] [address] [place] [address] Dr. Jennifer Fung RBC 2-5 Abnormal 0-2 [facility] Comment on above: Performed By: #### U MICRO, ERUR #### [facility] [address] [place] [address] Dr. Jennifer Fung WBC NONE SEEN Normal NONE SEEN [facility] Comment on above: Performed By: #### U MICRO, ERUR #### [facility] [address] [place] [address] Dr. Jennifer Fung Vital Signs Date Time Vital Sign Value Performing Clinician Facility 12-20-2024 13:19-0400 Body height 170.2 cm Antonina Ward MD Work Phone: [facility] 12-20-2024 13:19-0400 Body mass index (BMI) [Ratio] 22.71 kg/m2 Antonina Ward MD Work Phone: [facility] 12-20-2024 13:19-0400 Body weight 65.77 kg Antonina Ward MD Work Phone: [facility] 12-08-2024 09:00-0400 Diastolic blood pressure 70 mm[Hg] Tamiko Reece PACKAGING INSPECTOR Work Phone: [facility] 12-08-2024 09:00-0400 Heart rate 72 /min Tamiko Reece PACKAGING INSPECTOR Work Phone: [facility] 12-08-2024 09:00-0400 Respiratory rate 18 /min Tamiko Reece PACKAGING INSPECTOR Work Phone: [facility] 12-08-2024 09:00-0400 SaO2% (BldA) [Mass fraction] 99 % Tamiko Shanell PACKAGING INSPECTOR Work Phone: [facility] 12-08-2024 09:00-0400 Systolic blood pressure 114 mm[Hg] Tamiko Shanell PACKAGING INSPECTOR Work Phone: [facility] 12-08-2024 08:15-0400 Body temperature 97.1 [degF] Tamiko Reece PACKAGING INSPECTOR Work Phone: [facility] 12-08-2024 07:00-0400 Body height 170.18 cm Tamiko Reece PACKAGING INSPECTOR Work Phone: [facility] 12-08-2024 07:00-0400 Body weight 65 kg Tamiko Shanell [place] Work Phone: [facility] 10-31-2024 11:19-0400 Body height 170.2 cm Antonina Ward MD Work Phone: [facility] 10-31-2024 11:19-0400 Body mass index (BMI) [Ratio] 22.71 kg/m2 Antonina Ward MD Work Phone: [facility] 10-31-2024 11:19-0400 Body weight 65.77 kg Antonina Ward MD Work Phone: [facility] 10-31-2024 11:19-0400 Diastolic blood pressure 66 mm[Hg] Antonina Ward MD Work Phone: [facility] 10-31-2024 11:19-0400 Systolic blood pressure 120 mm[Hg] Antonina Ward MD Work Phone: [facility] 10-18-2024 15:03-0400 Body mass index (BMI) [Ratio] 24.15 kg/m2 Ayad Harrison MD Work Phone: [facility] 10-18-2024 15:03-0400 Body temperature 97.59 [degF] Ayad Harrison MD Work Phone: [facility] 10-18-2024 15:03-0400 Body weight 64.4 kg Ayad Harrison MD Work Phone: [facility] 10-18-2024 15:03-0400 Diastolic blood pressure 78 mm[Hg] Ayad Harrison MD Work Phone: [facility] 10-18-2024 15:03-0400 Heart rate 69 /min Ayad Harrison MD Work Phone: [facility] 10-18-2024 15:03-0400 Respiratory rate 18 /min Ayad Harrison MD Work Phone: [facility] 10-18-2024 15:03-0400 SaO2% (BldA) [Mass fraction] 100 % Ayad Harrison MD Work Phone: [facility] 10-18-2024 15:03-0400 Systolic blood pressure 130 mm[Hg] Ayad Harrison MD Work Phone: [facility] 09-21-2024 10:12-0500 Body height 170.18 cm [facility] 09-21-2024 10:12-0500 Body mass index (BMI) [Ratio] 22.6 kg/m2 [facility] 09-21-2024 10:12-0500 Body temperature 97.2 [degF] [facility] 09-21-2024 10:12-0500 Body weight 65.54 kg [facility] 09-21-2024 10:12-0500 Diastolic blood pressure 76 mm[Hg] [facility] 09-21-2024 10:12-0500 Heart rate 76 /min [facility] 09-21-2024 10:12-0500 SaO2% (BldA) [Mass fraction] 100 % [facility] 09-21-2024 10:12-0500 Systolic blood pressure 116 mm[Hg] [facility] 09-19-2024 11:04-0500 Blood Pressure Location Eloise MARCOS [facility] 09-19-2024 11:04-0500 Body temperature 98.6 [degF] Eloise MARCOS [facility] 09-19-2024 11:04-0500 Diastolic blood pressure 94 mm[Hg] Eloise MARCOS [facility] 09-19-2024 11:04-0500 Heart rate 96 /min Eloise MARCOS [facility] 09-19-2024 11:04-0500 Systolic blood pressure 130 mm[Hg] Eloise MARCOS [facility] 04-19-2024 15:00-0400 Body height 163.3 cm Yamilet Graf APRN.CNP Work Phone: [facility] 04-19-2024 15:00-0400 Body mass index (BMI) [Ratio] 25.05 kg/m2 Yamilet Graf APRN.CNP Work Phone: [facility] 04-19-2024 15:00-0400 Body temperature 97.39 [degF] Yamilet Graf APRN.PRIVATE SECTOR EXECUTIVE Work Phone: [facility] 04-19-2024 15:00-0400 Body weight 66.8 kg Yamilet Graf APRN.PRIVATE SECTOR EXECUTIVE Work Phone: [facility] 04-19-2024 15:00-0400 Diastolic blood pressure 78 mm[Hg] Yamilet Graf APRN.PRIVATE SECTOR EXECUTIVE Work Phone: [facility] 04-19-2024 15:00-0400 Heart rate 98 /min Yamilet Graf APRN.PRIVATE SECTOR EXECUTIVE Work Phone: [facility] 04-19-2024 15:00-0400 Respiratory rate 16 /min Yamilet Graf APRN.PRIVATE SECTOR EXECUTIVE Work Phone: [facility] 04-19-2024 15:00-0400 SaO2% (BldA) [Mass fraction] 100 % Yamilet Graf APRN.PRIVATE SECTOR EXECUTIVE Work Phone: [facility] 04-19-2024 15:00-0400 Systolic blood pressure 144 mm[Hg] Yamilet Graf APRN.PRIVATE SECTOR EXECUTIVE Work Phone: [facility] 03-04-2024 08:19-0400 Blood Pressure Location Eloise MARCOS [facility] 03-04-2024 08:19-0400 Diastolic blood pressure 74 mm[Hg] Eloise MARCOS [facility] 03-04-2024 08:19-0400 Heart rate 68 /min Eloise MARCOS [facility] 03-04-2024 08:19-0400 Respiratory rate 16 /min Eloise MARCOS [facility] 03-04-2024 08:19-0400 Systolic blood pressure 125 mm[Hg] Eloise MARCOS [facility] 10-20-2023 15:10-0400 Body height 163.3 cm Ayad Harrison MD Work Phone: [facility] 10-20-2023 15:10-0400 Body temperature 97.3 [degF] Ayad Harrison MD Work Phone: [facility] 10-20-2023 15:10-0400 Body weight 73 kg Ayad Harrison MD Work Phone: [facility] 10-20-2023 15:10-0400 Diastolic blood pressure 85 mm[Hg] Ayad Harrison MD Work Phone: [facility] 10-20-2023 15:10-0400 Heart rate 75 /min Ayad Harrison MD Work Phone: [facility] 10-20-2023 15:10-0400 Respiratory rate 16 /min Ayad Harrison MD Work Phone: [facility] 10-20-2023 15:10-0400 SaO2% (BldA) [Mass fraction] 97 % Ayad Harrison MD Work Phone: [facility] 10-20-2023 15:10-0400 Systolic blood pressure 137 mm[Hg] Ayad Harrison MD Work Phone: [facility] 09-11-2023 10:53-0500 Blood Pressure Location Eloise MARCOS [facility] 09-11-2023 10:53-0500 Diastolic blood pressure 74 mm[Hg] Eloise MARCOS [facility] 09-11-2023 10:53-0500 Heart rate 68 /min Eloise MARCOS [facility] 09-11-2023 10:53-0500 Respiratory rate 16 /min Eloise MARCOS [facility] 09-11-2023 10:53-0500 Systolic blood pressure 110 mm[Hg] Eloise MARCOS [facility] 09-03-2023 11:00-0500 Body height 170.18 cm Tamiko Reece Other [facility] 09-03-2023 11:00-0500 Body mass index (BMI) [Ratio] 24.9 kg/m2 Tamiko Reece [facility] 09-03-2023 11:00-0500 Body weight 72.12 kg Tamiko Reece [facility] 09-03-2023 11:00-0500 Diastolic blood pressure 78 mm[Hg] Tamiko Reece Other [facility] 09-03-2023 11:00-0500 SaO2% (BldA) [Mass fraction] 97 % Tamiko Reece [facility] 09-03-2023 11:00-0500 Systolic blood pressure 124 mm[Hg] Tamiko Reece [facility] 08-28-2023 23:38-0500 Diastolic blood pressure 84 mm[Hg] DO Fausto Spicer [facility] 08-28-2023 23:38-0500 Heart rate 73 /min DO Fausto Spicer [facility] 08-28-2023 23:38-0500 Respiratory rate 18 /min DO Fausto Spicer [facility] 08-28-2023 23:38-0500 SaO2% (BldA) [Mass fraction] 99 % DO Fausto Spicer [facility] 08-28-2023 23:38-0500 Systolic blood pressure 139 mm[Hg] DO Fausto Spicer [facility] 08-28-2023 21:13-0500 Body temperature 97.6 [degF] DO Fausto Spicer [facility] 08-28-2023 21:00-0500 Body height 170.18 cm DO Fausto Spicer [facility] 08-28-2023 21:00-0500 Body weight 70.6 kg DO Fausto Spicer [facility] 04-21-2023 13:53-0400 Body height 163.4 cm Ayad Harrison MD Work Phone: [facility] 04-21-2023 13:53-0400 Body temperature 97.11 [degF] Ayad Harrison MD Work Phone: [facility] 04-21-2023 13:53-0400 Body weight 71.22 kg Ayad Harrison MD Work Phone: [facility] 04-21-2023 13:53-0400 Diastolic blood pressure 73 mm[Hg] Ayad Harrison MD Work Phone: [facility] 04-21-2023 13:53-0400 Heart rate 68 /min Ayad Harrison MD Work Phone: [facility] 04-21-2023 13:53-0400 Respiratory rate 16 /min Ayad Harrison MD Work Phone: [facility] 04-21-2023 13:53-0400 SaO2% (BldA) [Mass fraction] 99 % Ayad Harrison MD Work Phone: [facility] 04-21-2023 13:53-0400 Systolic blood pressure 123 mm[Hg] Ayad Harrison MD Work Phone: [facility] 03-20-2023 10:44-0400 Blood Pressure Location Eloise PRITI [facility] 03-20-2023 10:44-0400 Diastolic blood pressure 68 mm[Hg] Eloise MARCOS [facility] 03-20-2023 10:44-0400 Heart rate 70 /min Eloise MARCOS [facility] 03-20-2023 10:44-0400 Respiratory rate 16 /min Eloise MARCOS [facility] 03-20-2023 10:44-0400 Systolic blood pressure 127 mm[Hg] Eloise MARCOS [facility] 12-23-2022 11:16-0400 Body temperature 97.39 [degF] BENJAMIN Funez MD Work Phone: [facility] 12-23-2022 11:16-0400 Body weight 72.12 kg BENJAMIN Funez MD Work Phone: [facility] 12-23-2022 11:16-0400 Diastolic blood pressure 77 mm[Hg] BENJAMIN Funez MD Work Phone: [facility] 12-23-2022 11:16-0400 Heart rate 82 /min BENJAMIN Funez MD Work Phone: [facility] 12-23-2022 11:16-0400 Respiratory rate 16 /min BENJAMIN Funez MD Work Phone: [facility] 12-23-2022 11:16-0400 SaO2% (BldA) [Mass fraction] 98 % BENJAMIN Funez MD Work Phone: [facility] 12-23-2022 11:16-0400 Systolic blood pressure 123 mm[Hg] BENJAMIN Funez MD Work Phone: [facility] 11-06-2022 15:14-0400 Body height 163.4 cm Ayad Harrison MD Work Phone: [facility] 11-06-2022 15:14-0400 Body temperature 97.2 [degF] Ayad Harrison MD Work Phone: [facility] 11-06-2022 15:14-0400 Body weight 74.39 kg Ayad Hrarison MD Work Phone: [facility] 11-06-2022 15:14-0400 Diastolic blood pressure 75 mm[Hg] Ayad Harrison MD Work Phone: [facility] 11-06-2022 15:14-0400 Heart rate 79 /min Ayad Harrison MD Work Phone: [facility] 11-06-2022 15:14-0400 Respiratory rate 16 /min Ayad Harrison MD Work Phone: [facility] 11-06-2022 15:14-0400 SaO2% (BldA) [Mass fraction] 100 % Ayad Harrison MD Work Phone: [facility] 11-06-2022 15:14-0400 Systolic blood pressure 149 mm[Hg] Ayad Harrison MD Work Phone: [facility] 09-19-2022 09:35-0500 Blood Pressure Location Eloise MARCOS [facility] 09-19-2022 09:35-0500 Diastolic blood pressure 76 mm[Hg] Eloise MARCOS [facility] 09-19-2022 09:35-0500 Heart rate 70 /min Eloise MARCOS [facility] 09-19-2022 09:35-0500 Respiratory rate 16 /min Eloise MARCOS [facility] 09-19-2022 09:35-0500 Systolic blood pressure 128 mm[Hg] Eloise MARCOS [facility] 09-11-2022 10:34-0500 Body temperature 97.39 [degF] Pete Kc MD Work Phone: [facility] 09-11-2022 10:34-0500 Body weight 71.94 kg Pete Kc MD Work Phone: [facility] 09-11-2022 10:34-0500 Diastolic blood pressure 84 mm[Hg] Pete Kc MD Work Phone: [facility] 09-11-2022 10:34-0500 Heart rate 88 /min Pete Kc MD Work Phone: [facility] 09-11-2022 10:34-0500 Respiratory rate 16 /min Pete Kc MD Work Phone: [facility] 09-11-2022 10:34-0500 SaO2% (BldA) [Mass fraction] 100 % Pete Kc MD Work Phone: [facility] 09-11-2022 10:34-0500 Systolic blood pressure 137 mm[Hg] Pete Kc MD Work Phone: [facility] 09-01-2022 11:56-0500 Body temperature 97.39 [degF] BENJAMIN Funez MD Work Phone: [facility] 09-01-2022 11:56-0500 Body weight 71.03 kg BENJAMIN Funez MD Work Phone: [facility] 09-01-2022 11:56-0500 Diastolic blood pressure 91 mm[Hg] BENJAMIN Funez MD Work Phone: [facility] 09-01-2022 11:56-0500 Heart rate 76 /min BENJAMIN Funez MD Work Phone: [facility] 09-01-2022 11:56-0500 Respiratory rate 16 /min BENJAMIN Funez MD Work Phone: [facility] 09-01-2022 11:56-0500 SaO2% (BldA) [Mass fraction] 100 % BENJAMIN Funez MD Work Phone: [facility] 09-01-2022 11:56-0500 Systolic blood pressure 150 mm[Hg] BENJAMIN Funez MD Work Phone: [facility] 08-25-2022 10:33-0500 Body temperature 97.5 [degF] BENJAMIN Funez MD Work Phone: [facility] 08-25-2022 10:33-0500 Body weight 70.58 kg BENJAMIN Funez MD Work Phone: [facility] [facility] 08-25-2022 10:33-0500 Diastolic blood pressure 80 mm[Hg] BENJAMIN Funez MD Work Phone: [facility] 08-25-2022 10:33-0500 Heart rate 89 /min BENJAMIN Funez MD Work Phone: [facility] 08-25-2022 10:33-0500 Respiratory rate 16 /min BENJAMIN Funez MD Work Phone: [facility] 08-25-2022 10:33-0500 SaO2% (BldA) [Mass fraction] 100 % BENJAMIN Funez MD Work Phone: [facility] 08-25-2022 10:33-0500 Systolic blood pressure 128 mm[Hg] BENJAMIN Funez MD Work Phone: [facility] 08-18-2022 10:30-0500 Body temperature 97.7 [degF] BENJAMIN Funez MD Work Phone: [facility] 08-18-2022 10:30-0500 Body weight 70.31 kg BENJAMIN Funez MD Work Phone: [facility] 08-18-2022 10:30-0500 Diastolic blood pressure 83 mm[Hg] BENJAMIN Funez MD Work Phone: [facility] 08-18-2022 10:30-0500 Heart rate 96 /min BENJAMIN Funez MD Work Phone: [facility] 08-18-2022 10:30-0500 Respiratory rate 16 /min BENJAMIN Funez MD Work Phone: [facility] 08-18-2022 10:30-0500 SaO2% (BldA) [Mass fraction] 100 % BENJAMIN Funez MD Work Phone: [facility] 08-18-2022 10:30-0500 Systolic blood pressure 149 mm[Hg] BENJAMIN Funez MD Work Phone: [facility] 08-07-2022 13:50-0500 Body height 163.4 cm Yamilet Graf PACKAGING INSPECTOR.PRIVATE SECTOR EXECUTIVE Work Phone: [facility] 08-07-2022 13:50-0500 Body temperature 97.3 [degF] Yamilet Graf PACKAGING INSPECTOR.PRIVATE SECTOR EXECUTIVE Work Phone: [facility] 08-07-2022 13:50-0500 Body weight 69.85 kg Yamilet Graf APRN.PRIVATE SECTOR EXECUTIVE Work Phone: [facility] 08-07-2022 13:50-0500 Diastolic blood pressure 76 mm[Hg] Yamilet Graf APRN.PRIVATE SECTOR EXECUTIVE Work Phone: [facility] 08-07-2022 13:50-0500 Heart rate 85 /min Yamilet Graf APRN.PRIVATE SECTOR EXECUTIVE Work Phone: [facility] 08-07-2022 13:50-0500 Respiratory rate 16 /min Yamilet Graf APRN.PRIVATE SECTOR EXECUTIVE Work Phone: [facility] 08-07-2022 13:50-0500 SaO2% (BldA) [Mass fraction] 99 % Yamilet Graf APRN.PRIVATE SECTOR EXECUTIVE Work Phone: [facility] 08-07-2022 13:50-0500 Systolic blood pressure 129 mm[Hg] Yamilet Graf APRN.PRIVATE SECTOR EXECUTIVE Work Phone: [facility] 08-05-2022 11:47-0500 Body temperature 97.81 [degF] BENJAMIN Funez MD Work Phone: [facility] 08-05-2022 11:47-0500 Body weight 68.95 kg BENJAMIN Funez MD Work Phone: [facility] 08-05-2022 11:47-0500 Diastolic blood pressure 84 mm[Hg] BENJAMIN Funez MD Work Phone: [facility] 08-05-2022 11:47-0500 Heart rate 91 /min BENJAMIN Funez MD Work Phone: [facility] 08-05-2022 11:47-0500 Respiratory rate 16 /min BENJAMIN Funez MD Work Phone: [facility] 08-05-2022 11:47-0500 SaO2% (BldA) [Mass fraction] 100 % BENJAMIN Funez MD Work Phone: [facility] 08-05-2022 11:47-0500 Systolic blood pressure 127 mm[Hg] BENJAMIN Funez MD Work Phone: [facility] 06-09-2022 12:34-0500 Blood Pressure Location Eloise MARCOS [facility] 06-09-2022 12:34-0500 Diastolic blood pressure 86 mm[Hg] Eloise MARCOS [facility] 06-09-2022 12:34-0500 Heart rate 70 /min Eloise MARCOS [facility] 06-09-2022 12:34-0500 Respiratory rate 16 /min Eloise MARCOS [facility] 06-09-2022 12:34-0500 Systolic blood pressure 122 mm[Hg] Eloise MARCOS [facility] 05-28-2022 10:36-0400 Body temperature 98.2 [degF] BENJAMIN Funez MD Work Phone: [facility] 05-28-2022 10:36-0400 Body weight 69.58 kg BENJAMIN Funez MD Work Phone: [facility] 05-28-2022 10:36-0400 Diastolic blood pressure 74 mm[Hg] BENJAMIN Funez MD Work Phone: [facility] 05-28-2022 10:36-0400 Heart rate 82 /min BENJAMIN Funez MD Work Phone: [facility] 05-28-2022 10:36-0400 Respiratory rate 16 /min BENJAMIN Funez MD Work Phone: [facility] 05-28-2022 10:36-0400 SaO2% (BldA) [Mass fraction] 98 % BENJAMIN Funez MD Work Phone: [facility] 05-28-2022 10:36-0400 Systolic blood pressure 132 mm[Hg] BENJAMIN Funez MD Work Phone: [facility] 05-20-2022 10:20-0400 Body temperature 96.21 [degF] NA Dee Dee JONES Work Phone: [facility] 05-20-2022 10:20-0400 Body weight 67.59 kg BENJAMIN Funez MD Work Phone: [facility] 05-20-2022 10:20-0400 Diastolic blood pressure 86 mm[Hg] BENJAMIN Funez MD Work Phone: [facility] 05-20-2022 10:20-0400 Heart rate 81 /min BENJAMIN Funez MD Work Phone: [facility] 05-20-2022 10:20-0400 Respiratory rate 16 /min BENJAMIN Funez MD Work Phone: [facility] 05-20-2022 10:20-0400 SaO2% (BldA) [Mass fraction] 100 % BENJAMIN Funez MD Work Phone: [facility] 05-20-2022 10:20-0400 Systolic blood pressure 136 mm[Hg] BENJAMIN Funez MD Work Phone: [facility] 05-08-2022 10:15-0400 Body temperature 97.2 [degF] [facility] [place] Work Phone: [facility] 05-08-2022 10:15-0400 Diastolic blood pressure 67 mm[Hg] [facility] [place] Work Phone: [facility] 05-08-2022 10:15-0400 Heart rate 81 /min [facility] Work Phone: [facility] 05-08-2022 10:15-0400 Respiratory rate 16 /min [facility] Work Phone: [facility] 05-08-2022 10:15-0400 SaO2% (BldA) [Mass fraction] 100 % [facility] [place] Work Phone: [facility] 05-08-2022 10:15-0400 Systolic blood pressure 121 mm[Hg] [facility] [place] Work Phone: [facility] 04-03-2022 15:48-0400 Body height 163.4 cm Ayad Harrison MD Work Phone: [facility] 04-03-2022 15:48-0400 Body temperature 98.2 [degF] Ayad Harrison MD Work Phone: [facility] 04-03-2022 15:48-0400 Body weight 64.14 kg Ayad Harrison MD Work Phone: [facility] 04-03-2022 15:48-0400 Diastolic blood pressure 64 mm[Hg] Ayad Harrison MD Work Phone: [facility] 04-03-2022 15:48-0400 Heart rate 74 /min Ayad Harrison MD Work Phone: [facility] 04-03-2022 15:48-0400 Respiratory rate 16 /min Ayad Harrison MD Work Phone: [facility] 04-03-2022 15:48-0400 SaO2% (BldA) [Mass fraction] 97 % Ayad Harrison MD Work Phone: [facility] 04-03-2022 15:48-0400 Systolic blood pressure 110 mm[Hg] Ayad Harrison MD Work Phone: [facility] 03-31-2022 10:21-0400 Blood Pressure Location Eloise MARCOS [facility] 03-31-2022 10:21-0400 Diastolic blood pressure 71 mm[Hg] Eloiseviola MARCOS [facility] 03-31-2022 10:21-0400 Heart rate 81 /min Eloiseviola MARCOS [facility] 03-31-2022 10:21-0400 Respiratory rate 16 /min Eloise MARCOS [facility] 03-31-2022 10:21-0400 Systolic blood pressure 125 mm[Hg] Eloiseviola MARCOS [facility] 03-10-2022 09:51-0400 Blood Pressure Location Eloise MARCOS [facility] 03-10-2022 09:51-0400 Diastolic blood pressure 76 mm[Hg] Eloise MARCOS [facility] 03-10-2022 09:51-0400 Heart rate 82 /min Eloiseviola MARCOS [facility] 03-10-2022 09:51-0400 Systolic blood pressure 122 mm[Hg] Eloise MARCOS [facility] Encounters Encounter Date Encounter Type Care Provider Facility Start: 12-20-2024 End: 12-20-2024 Postop follow up visit related to original px Antonina Elizabeth MD Work Phone: [facility] Comment on above: Epidermal cyst (Prim olvin Dx) Start: 12-20-2024 End: 12-20-2024 ambulatory ANTONINA ELIZABETH V Not Available Start: 12-08-2024 End: 12-08-2024 Admission to same day surgery center Tamiko Reece APRN Work Phone: [facility] [place] Start: 12-08-2024 End: 12-08-2024 ambulatory Tamiko Reece APRN Work Phone: [facility] Work Phone: Start: 11-24-2024 End: 11-24-2024 External Result Encounter Antonina Elizabeth MD Work Phone: [facility] Unsolicited Start: 11-24-2024 End: 11-24-2024 External Result Encounter Antonina Ward MD Work Phone: [facility] Unsolicited Start: 11-24-2024 End: 11-24-2024 Patient encounter procedure Tamiko Reece APRN Work Phone: [facility] Work Phone: Start: 11-24-2024 End: 11-24-2024 ambulatory Tamiko Reece APRN Work Phone: [facility] Work Phone: Start: 11-24-2024 Encounter for preprocedural laboratory examination Antonina Elizabeth [facility] Start: 11-17-2024 End: 11-17-2024 ambulatory Eloise MARCOS Facility:[id number] Start: 11-07-2024 End: 11-08-2024 Refill Ayad Harrison MD Work Phone: Hematology/Oncology Comment on above: Refill Request Start: 11-01-2024 Non-patient / Non-visit [facility] Work Phone: Start: 10-31-2024 End: 10-31-2024 ambulatory ANTONINA ELIZABETH V Not Available Start: 10-31-2024 End: 10-31-2024 Office outpatient new 45 minutes Antonina Elizabeth MD Work Phone: [facility] Comment on above: Chest wall mass (Carmen chalino Dx); Epidermal cyst Start: 10-18-2024 Non-patient / Non-visit [facility] Work Phone: Start: 10-18-2024 End: 10-18-2024 Office outpatient visit 15 minutes Ayad Harrison MD Work Phone: Hematology/Oncology Comment on above: Prostate cancer (HCC ) (Primary Dx); 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) Start: 10-18-2024 End: 10-18-2024 ambulatory AYAD HARRISON Facility:[facility] Start: 09-28-2024 End: 09-29-2024 Telephone encounter Diana PinedaChetviola [facility] Work Phone: [facility] Start: 09-21-2024 Patient encounter status [facility] Start: 09-21-2024 End: 09-21-2024 ambulatory [facility] Work Phone: Start: 09-21-2024 End: 09-21-2024 Encounter for general adult medical examination without abnormal findings [facility] Start: 09-21-2024 End: 09-21-2024 Patient encounter procedure [facility] Work Phone: Start: 09-19-2024 End: 09-19-2024 ambulatory Eloise MARCOS Facility:[facility] Start: 09-19-2024 End: 09-19-2024 Lab Drop off Eloise MARCOS [facility] Start: 09-19-2024 End: 09-19-2024 ambulatory Eloise MARCOS Facility:[facility] Start: 09-19-2024 End: 09-19-2024 Patient encounter procedure Eloise MARCOS [facility] Start: 08-19-2024 End: 08-21-2024 Refill Ayad Harrison MD Work Phone: Hematology/Oncology Comment on above: Refill Request Start: 04-19-2024 End: 04-19-2024 Patient encounter procedure Yamilet Graf APRN.PRIVATE SECTOR EXECUTIVE Work Phone: Hematology/Oncology Start: 04-19-2024 End: 04-19-2024 ambulatory Yamilet Graf APRN.PRIVATE SECTOR EXECUTIVE Work Phone: Hematology/Oncology Comment on above: Malignant neoplasm m etastatic to bone (HCC) (Primary Dx); Prostate cancer (HCC) Start: 04-18-2024 End: 04-18-2024 Telephone encounter Ayad Harrsion MD Work Phone: Hematology/Oncology Comment on above: Lab Orders Start: 04-14-2024 End: 08-15-2024 Telephone encounter Liz Alejandre [facility] Work Phone: Hematology/Oncology Comment on above: Medication Authoriza tion (Xgeva renewal denied) Start: 03-04-2024 End: 03-04-2024 ambulatory Eloise MARCOS Facility:[facility] Start: 03-04-2024 End: 03-04-2024 Patient encounter procedure Eloise MARCOS [facility] Start: 02-01-2024 Refill Ayad Harrison MD Work Phone: Hematology/Oncology Comment on above: Refill Request Start: 10-20-2023 End: 10-20-2023 ambulatory [facility] Work Phone: Hematology/Oncology Comment on above: Prostate cancer (HCC ) (Primary Dx); Malignant neoplasm metastatic to bone (HCC) Prostate cancer (HCC ) (Primary Dx); 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) Start: 10-20-2023 End: 10-20-2023 Patient encounter procedure Ayad Harrison MD Work Phone: [facility] Start: 09-11-2023 End: 09-11-2023 Patient encounter procedure Eloise MARCOS [facility] Start: 09-04-2023 Telephone encounter Mary Triana Hematology/Oncology Start: 09-03-2023 End: 09-03-2023 ambulatory Tamiko Reece Other [facility] Other Start: 09-03-2023 Office outpatient ne w 30 minutes Tamiko Reece [facility] Start: 08-28-2023 End: 08-29-2023 Emergency department patient visit DO Fausto Spicer [facility] Work Phone: Start: 04-21-2023 End: 04-21-2023 ambulatory [facility] Work Phone: Hematology/Oncology Comment on above: Prostate cancer (HCC ) (Primary Dx); Malignant neoplasm metastatic to bone (HCC) Start: 04-21-2023 End: 04-21-2023 Patient encounter procedure Ayad Harrison MD Work Phone: [facility] Start: 03-20-2023 End: 03-20-2023 Patient encounter procedure Eloise MARCOS [facility] Start: 03-16-2023 Refill Ayad Harrison MD Work Phone: Hematology/Oncology Comment on above: Refill Request Start: 01-06-2023 Telephone encounter Ayad pozo MD Work Phone: Hematology/Oncology Comment on above: Lab Orders Start: 12-23-2022 End: 12-23-2022 Patient encounter procedure Joe Funez MD Work Phone: Radiation Oncology Comment on above: Malignant neoplasm o f prostate (HCC) (Primary Dx) Start: 12-17-2022 End: 12-17-2022 Subsequent hospital visit by physician General Pebbles Nagel Mc Work Phone: Radiology Comment on above: Malignant neoplasm m etastatic to bone (HCC) [C79.51] Start: 11-13-2022 ambulatory Ayad Harrison MD Work Phone: Hematology/Oncology Comment on above: Prescription Start: 11-10-2022 Refill Kalani Stephenson RN Hematol ogy/Oncology Comment on above: Refill Request Start: 11-06-2022 End: 11-06-2022 ambulatory [facility] Work Phone: Hematology/Oncology Comment on above: Prostate cancer (HCC ) (Primary Dx); Malignant neoplasm metastatic to bone (HCC) Prostate cancer (HCC ) (Primary Dx) Start: 11-06-2022 End: 11-06-2022 Patient encounter procedure Ayad Harrison MD Work Phone: [facility] Start: 10-07-2022 Patient encounter procedure [facility] Provider [facility] Department Start: 09-19-2022 End: 09-19-2022 Patient encounter procedure Eloise MARCOS [facility] Start: 09-11-2022 End: 09-11-2022 Patient encounter procedure Pete Kc MD Work Phone: Radiation Oncology Comment on above: Prostate cancer (HCC ) (Primary Dx) Start: 09-11-2022 Radiation Oncology Note Joe Funez MD Work Phone: Radiation Oncology Comment on above: Completion Note Start: 09-08-2022 End: 09-08-2022 Patient encounter procedure Joe Funez MD Work Phone: Radiation Oncology Comment on above: Prostate cancer (HCC ) (Primary Dx) Start: 09-01-2022 End: 09-01-2022 Patient encounter procedure Joe Funez MD Work Phone: Radiation Oncology Comment on above: Malignant neoplasm o f prostate (HCC) (Primary Dx) Start: 08-25-2022 End: 08-25-2022 Patient encounter procedure Joe Funez MD Work Phone: Radiation Oncology Comment on above: Malignant neoplasm o f prostate (HCC) (Primary Dx) Start: 08-18-2022 End: 08-18-2022 Patient encounter procedure Joe Funez MD Work Phone: Radiation Oncology Comment on above: Malignant neoplasm o f prostate (HCC) (Primary Dx) Start: 08-07-2022 End: 08-07-2022 ambulatory Yamilet Graf APRN.PRIVATE SECTOR EXECUTIVE Work Phone: Hematology/Oncology Comment on above: Prostate cancer (HCC ) (Primary Dx); Bone metastasis (HCC); Bladder outlet obstruction Prostate cancer (HCC ) (Primary Dx); Bone metastasis (HCC) Start: 08-07-2022 End: 08-07-2022 Patient encounter procedure Yamilet Graf APRN.PRIVATE SECTOR EXECUTIVE Work Phone: [facility] Start: 08-05-2022 End: 08-05-2022 Patient encounter procedure Joe Funez MD Work Phone: Radiation Oncology Comment on above: Malignant neoplasm o f prostate (HCC) (Primary Dx) Start: 07-17-2022 End: 07-17-[address] ELOISE MARCOS Facility:[facility] Start: 07-16-2022 End: 07-16-2022 Patient encounter procedure Joe Funez MD Work Phone: [facility] Comment on above: Malignant neoplasm o f prostate (HCC) (Primary Dx) Start: 07-16-2022 Radiation Oncology Note Joe Funez MD Work Phone: Radiation Oncology Comment on above: Simulation Note Treatment Planning Start: 07-16-2022 End: 07-16-2022 Subsequent hospital visit by physician Joe Funez MD Work Phone: Radiology [facility] Start: 06-20-2022 Telephone encounter Sarah Phelan RN Work Phone: Hematology/Oncology Comment on above: Results Start: 06-09-2022 End: 06-09-2022 Patient encounter procedure Eloise MARCOS [facility] Start: 05-28-2022 ambulatory Gricelda Washington RN Radiati on Oncology Comment on above: Patient Education Start: 05-28-2022 End: 05-28-2022 Patient encounter procedure Joe Funez MD Work Phone: Radiation Oncology Comment on above: Malignant neoplasm o f prostate (HCC) (Primary Dx) Start: 05-23-2022 End: 05-23-2022 ambulatory PHYSICIAN [facility] Work Phone: Start: 05-23-2022 End: 05-23-2022 Patient encounter procedure PHYSICIAN [facility] [place] Start: 05-20-2022 End: 05-20-[address] ELOISE MARCOS Facility:[facility] Start: 05-20-2022 End: 05-20-2022 Patient encounter procedure Joe Funez MD Work Phone: Radiation Oncology Comment on above: Prostate cancer (HCC ) (Primary Dx) Start: 05-19-2022 Telephone encounter Tamiko Watkins RN Hematology/Oncology Comment on above: Medication Problem Start: 05-15-2022 Telephone encounter Ayad pozo MD Work Phone: Radiation Oncology Comment on above: Patient Update; elev ated BP Start: 05-15-2022 End: 05-16-[address] ELOISE MARCOS Facility:[facility] Start: 05-12-2022 Telephone encounter Joe Funez MD Work Phone: Radiation Oncology Comment on above: Appointment Start: 05-09-2022 Telephone encounter Paul SYED Work Phone: [facility] Comment on above: Results Start: 05-09-2022 End: 05-16-[address] ELOISE MARCOS Facility:[facility] Start: 05-08-2022 End: 05-08-2022 ambulatory [facility] Work Phone: Hematology/Oncology Comment on above: Prostate cancer (HCC ) (Primary Dx); Bone metastasis (HCC) Start: 05-06-2022 End: 05-06-[address] ELOISE MARCOS Facility:[facility] Start: 05-06-2022 End: 05-06-2022 Patient encounter procedure TAMIKO TURNER [facility] [place] Start: 05-04-2022 End: 05-04-[address] ELOISE MARCOS Facility:[facility] Start: 05-03-2022 End: 05-04-[address] ELOISE MARCOS Facility:[facility] Start: 05-02-2022 Telephone encounter Sarah Phelan RN Work Phone: Hematology/Oncology Comment on above: Results Start: 05-02-2022 End: 05-03-[address] ELOISE MARCOS Facility:[facility] Start: 04-28-2022 End: 05-02-[address] ELOISE MARCOS Facility:[facility] Start: 04-27-2022 End: 04-28-2022 ambulatory MAXIME ARCHULETA Facility:[facility] Start: 04-25-2022 End: 04-25-[address] ELOISE MARCOS Facility:[facility] Start: 04-23-2022 End: 04-24-[address] ELOISE MARCOS Facility:[facility] Start: 04-22-2022 End: 04-22-2022 Subsequent hospital visit by physician General Pebbles Nagel Mc Work Phone: Radiology Comment on above: Malignant neoplasm o f prostate (HCC) [C61] Start: 04-22-2022 End: 04-22-2022 ambulatory Paul SYED Work Phone: [facility] Comment on above: Prostate cancer (HCC ) Start: 04-22-2022 End: 04-22-2022 Telemedicine consultation with patient Paul SYED Work Phone: [facility] Start: 04-18-2022 Telephone encounter Ayad pozo MD Work Phone: [facility] Comment on above: Insurance Authorizat ion Start: 04-17-2022 End: 04-17-2022 Patient encounter procedure TAMIKO TURNER [facility] [place] Start: 04-17-2022 End: 04-17-2022 ambulatory MAXIME ARCHULETA Facility:[facility] Start: 04-15-2022 End: 04-22-[address] ELOISE MARCOS Facility:[facility] Start: 04-11-2022 Telephone encounter Sarah Phelan RN Work Phone: Hematology/Oncology Comment on above: Patient Question Start: 04-10-2022 End: 04-11-[address] JOSE DWYER Facility:[facility] Start: 04-04-2022 Telephone encounter Mila Kilpatrick RN R adiology [facility] Comment on above: Orders Patient Update Start: 04-03-2022 End: 04-03-2022 ambulatory Ayad Harrison MD Work Phone: Hematology/Oncology Comment on above: Prostate cancer (HCC ) (Primary Dx); Bladder outlet obstruction Start: 04-03-2022 End: 04-03-2022 Patient encounter procedure Ayad Harrison MD Work Phone: [facility] Start: 04-02-2022 Chart abstracting Ayad ramachandran MD Work Phone: Hematology/Oncology Start: 03-31-2022 End: 03-31-2022 Patient encounter procedure Eloise MARCOS [facility] Start: 03-10-2022 End: 03-11-[address] ELOISE MARCOS Facility:[facility] Start: 03-10-2022 End: 03-10-2022 Patient encounter procedure Eloise MARCOS [facility] Start: 03-04-2022 End: 03-04-[address] DARREN ISABEL Facility:[facility] Procedures Date Procedure Procedure Detail Performing Clinician Start: 12-08-2024 Excision of cyst Li lynne Shanell CARTER Work Phone: Start: 11-24-2024 Basic metabolic pane l calcium total Antonina Elizabeth MD Work Phone: Start: 11-24-2024 Complete blood count with white cell differential, automated Antonina Elizabeth MD Work Phone: Start: 12-23-2022 Assay of prostate sp ecific antigen total G Cornell Funez MD Work Phone: Start: 12-17-2022 Radex ribs uni w/posteroant ch minimum 3 views Ayad Harrison MD Work Phone: Start: 09-03-2022 History of external beam radiation therapy Eloise MARCOS Start: 05-15-[address] DARREN CALDERON Comment on above: Performed By: #### G ENTR #### [facility] [address] [place] [address] Dr. Jennifer Fung Start: 05-13-2022 Cystoscopy Eloise DEJESUS Start: 04-22-2022 Radiologic exam ches t 2 views Yamilet Graf APRN.ENRIQUE Work Phone: Start: 03-18-2022 Transrectal biopsy o f prostate using ultrasound guidance Eloise MARCOS Start: 03-10-[address] DARREN CALDERON Comment on above: Performed By: #### G ENTR #### [facility] [address] [place] [address] Dr. Jennifer Fung Plan of Treatment Date Care Activity Detail Author Start: 10-11-2038 RSV Vaccine (1 - 1-d ose 75+ series) RSV Vaccine (1 - 1-dose 75+ series) [facility] Start: 10-18-2029 Prostate specific antigen measurement Prostate Cancer Screening Discussion [facility] Start: 04-19-2029 Prostate specific antigen measurement Prostate Cancer Screening Discussion [facility] Start: 10-19-2028 Prostate specific antigen measurement Prostate Cancer Screening Discussion [facility] Start: 07-21-2028 Prostate specific antigen measurement Prostate Cancer Screening Discussion [facility] Start: 01-14-2028 PROSTATE CANCER SCREENING DISCUSSION PROSTATE CANCER SCREENING DISCUSSION [facility] Start: 12-24-2027 PROSTATE CANCER SCREENING DISCUSSION PROSTATE CANCER SCREENING DISCUSSION [facility] Start: 11-07-2027 PROSTATE CANCER SCREENING DISCUSSION PROSTATE CANCER SCREENING DISCUSSION [facility] Start: 10-19-2027 Diabetes Screening Diabetes Screenin g [facility] Start: 10-02-2027 PROSTATE CANCER SCREENING DISCUSSION PROSTATE CANCER SCREENING DISCUSSION [facility] Start: 08-07-2027 PROSTATE CANCER SCREENING DISCUSSION PROSTATE CANCER SCREENING DISCUSSION [facility] Start: 06-19-2027 PROSTATE CANCER SCREENING DISCUSSION PROSTATE CANCER SCREENING DISCUSSION [facility] Start: 04-28-2027 PROSTATE CANCER SCREENING DISCUSSION PROSTATE CANCER SCREENING DISCUSSION [facility] Start: 04-19-2027 Diabetes Screening Diabetes Screenin g [facility] Start: 04-03-2027 PROSTATE CANCER SCREENING DISCUSSION PROSTATE CANCER SCREENING DISCUSSION [facility] Start: 10-19-2026 Diabetes Screening Diabetes Screenin g [facility] Start: 07-21-2026 Diabetes Screening Diabetes Screenin g [facility] Start: 04-21-2026 Diabetes Screening Diabetes Screenin g [facility] Start: 01-13-2026 DIABETES SCREEN DIABETES SCREEN [facility] Start: 11-06-2025 DIABETES SCREEN DIABETES SCREEN [facility] Start: 08-07-2025 DIABETES SCREEN DIABETES SCREEN [facility] Start: 06-19-2025 DIABETES SCREEN DIABETES SCREEN [facility] Start: 04-28-2025 DIABETES SCREEN DIABETES SCREEN [facility] Start: 04-26-2025 End: 04-26-2025 Follow-up encounter 04/26/2025 2:00 PM EDT Visit (SP) Office Hematology/Oncology [address] [place] [address] Bernard Mock MD [address] [place] [address] 6 month follow up lab Hematology/Oncology Comment on above: 6 month follow up paola b Start: 04-26-2025 End: 04-26-2025 Patient encounter procedure 04/26/2025 1:30 PM EDT Office Visit [facility] [address] [place] [address] 6 month follow up lab [facility] Comment on above: 6 month follow up la b Start: 04-03-2025 DIABETES SCREEN DIABETES SCREEN [facility] Start: 04-03-2025 Influenza vaccination Influenz a Vaccine (Season Ended) [facility] Start: 03-17-2025 ambulatory Ambulatory Facility:[facility] Start: 12-20-2024 End: 12-20-2024 Patient encounter procedure 12/20/2024 1:15 PM EDT [facility] [address] [id number] Antonina Elizabeth MD [address] [facility] [address] [place] [address] [facility] Start: 12-08-2024 End: 12-08-2024 [facility] Start: 10-18-2024 End: 10-18-2024 Follow-up encounter Hematology/Oncology Comment on above: 6 month follow up la b Start: 10-18-2024 End: 10-18-2024 Patient encounter procedure 10/18/2024 2:30 PM EDT Office Visit [facility] [address] [place] [address] 6 month follow up lab [facility] Comment on above: 6 month follow up la b Start: 10-17-2024 End: 01-16-2025 CBC W Auto Differential panel - Blood COMPLETE BLOOD COUNT AND DIFFERENTIAL Lab Routine Malignant neoplasm metastatic to bone (HCC) Expected: 10/17/2024, Expires: 01/16/2025 [facility] Work Phone: Comment on above: Expected: 10/17/2024 , Expires: 01/16/2025 Start: 10-17-2024 End: 01-16-2025 Comprehensive metabolic 2000 panel - Serum or Plasma COMPREHENSIVE METABOLIC PANEL Lab Routine Malignant neoplasm metastatic to bone (HCC) Expected: 10/17/2024, Expires: 01/16/2025 [facility] Comment on above: Expected: 10/17/2024 , Expires: 01/16/2025 Start: 10-17-2024 End: 01-16-2025 Prostate specific Ag [Mass/volume] in Serum or Plasma PROSTATE-SPECIFIC ANTIGEN DIAGNOSTIC Lab Routine Malignant neoplasm metastatic to bone (HCC) Expected: 10/17/2024, Expires: 01/16/2025 [facility] Comment on above: Expected: 10/17/2024 , Expires: 01/16/2025 Start: 09-22-2024 Patient referral [facility] Work Phone: Start: 04-19-2024 End: 04-19-2024 Follow-up encounter Hematology/Oncology Comment on above: 6 month follow up Xg shimon Start: 04-19-2024 End: 04-19-2024 Patient encounter procedure 04/19/2024 2:45 PM EDT Office Visit [facility] [address] [place] [address] [place] [address] 6 month follow up Xgeva [facility] Comment on above: 6 month follow up Xg shimon Start: 04-18-2024 End: 07-18-2024 CBC W Auto Differential panel - Blood COMPLETE BLOOD COUNT AND DIFFERENTIAL Lab Routine Prostate cancer (HCC) Malignant neoplasm metastatic to bone (HCC) Expected: 04/18/2024, Expires: 07/18/2024 [facility] Work Phone: Comment on above: Expected: 04/18/2024 , Expires: 07/18/2024 Start: 04-18-2024 End: 07-18-2024 Comprehensive metabolic 2000 panel - Serum or Plasma COMPREHENSIVE METABOLIC PANEL Lab Routine Prostate cancer (HCC) Malignant neoplasm metastatic to bone (HCC) Expected: 04/18/2024, Expires: 07/18/2024 [facility] Comment on above: Expected: 04/18/2024 , Expires: 07/18/2024 Start: 04-18-2024 End: 07-18-2024 Prostate specific Ag [Mass/volume] in Serum or Plasma PROSTATE-SPECIFIC ANTIGEN DIAGNOSTIC Lab Routine Prostate cancer (HCC) Malignant neoplasm metastatic to bone (HCC) Expected: 04/18/2024, Expires: 07/18/2024 [facility] Comment on above: Expected: 04/18/2024 , Expires: 07/18/2024 Start: 04-03-2024 Covid-19 Vaccine ( season) Covid-19 Vaccine () [facility] Start: 04-03-2024 Covid-19 Vaccine () Covid-19 Vaccine () [facility] Start: 04-03-2024 Influenza vaccination Influenza Vacc ine (#1) [facility] Start: 2023 RSV Vaccine (1 - 1-d ose 60+ series) RSV Vaccine (1 - 1-dose 60+ series) [facility] Start: 08-28-2023 Plain X-ray of left tibia and left fibula XR tibia fibula LT 2V* [facility] Start: 08-28-2023 XR Tibia and Fibula - left 2 Views [facility] Start: 08-28-2023 Computed tomography of abdomen and pelvis with contrast CT abdomen pelvis w [facility] Start: 08-28-2023 CT Abdomen and Pelvi s W contrast IV [facility] Start: 08-28-2023 CT cervical spine without contrast CT cervical spine wo [facility] Start: 08-28-2023 CT Cervical spine WO contrast [facility] Start: 08-28-2023 CT Chest W contrast IV [facility] Start: 08-28-2023 CT of head without contrast CT head/brain wo [facility] Start: 08-28-2023 CT of thorax with contrast CT chest w [facility] Start: 08-28-2023 CT Unspecified body region WO contrast [facility] Start: 08-28-2023 Plain X-ray of right femur XR femur RT 2V* [facility] Start: 08-28-2023 XR Femur - right 2 Views [facility] Start: 08-03-2023 Behavioral Health Screening Behavioral Health Screening [facility] Start: 08-03-2023 Depression Assessment Depression Ass essment [facility] Start: 04-03-2023 Covid-19 Vaccine () Covid-19 Vaccine () [facility] Start: 04-03-2023 Influenza vaccination [facility] Start: 01-13-2023 End: 03-15-2023 CBC W Auto Differential panel - Blood CBC + DIFF Lab Routine Prostate cancer (HCC) Expected: 01/13/2023, Expires: 03/15/2023 [facility] Work Phone: Comment on above: Expected: 01/13/2023 , Expires: 03/15/2023 Start: 01-13-2023 End: 03-15-2023 Comprehensive metabolic 2000 panel - Serum or Plasma COMP METABOLIC PANEL Lab Routine Prostate cancer (HCC) Expected: 01/13/2023, Expires: 03/15/2023 [facility] Work Phone: Comment on above: Expected: 01/13/2023 , Expires: 03/15/2023 Start: 01-13-2023 End: 03-15-2023 Prostate specific Ag [Mass/volume] in Serum or Plasma PSA/PROSTSPECAG DIAG Lab Routine Prostate cancer (HCC) Expected: 01/13/2023, Expires: 03/15/2023 [facility] Work Phone: Comment on above: Expected: 01/13/2023 , Expires: 03/15/2023 Start: 11-05-2022 End: 01-05-2023 CBC W Auto Differential panel - Blood CBC + DIFF Lab Routine Prostate cancer (HCC) Bone metastasis (HCC) Bladder outlet obstruction Expected: 11/05/2022, Expires: 01/05/2023 [facility] Work Phone: Comment on above: Expected: 11/05/2022 , Expires: 01/05/2023 Start: 11-05-2022 End: 01-05-2023 Comprehensive metabolic 2000 panel - Serum or Plasma COMP METABOLIC PANEL Lab Routine Prostate cancer (HCC) Bone metastasis (HCC) Bladder outlet obstruction Expected: 11/05/2022, Expires: 01/05/2023 [facility] Work Phone: Comment on above: Expected: 11/05/2022 , Expires: 01/05/2023 Start: 11-05-2022 End: 01-05-2023 Prostate specific Ag [Mass/volume] in Serum or Plasma PSA/PROSTSPECAG DIAG Lab Routine Prostate cancer (HCC) Bone metastasis (HCC) Bladder outlet obstruction Expected: 11/05/2022, Expires: 01/05/2023 [facility] Work Phone: Comment on above: Expected: 11/05/2022 , Expires: 01/05/2023 Start: 10-01-2022 End: 12-01-2022 Prostate specific Ag [Mass/volume] in Serum or Plasma PSA/PROSTSPECAG DIAG Lab Routine Prostate cancer (HCC) Expected: 10/01/2022, Expires: 12/01/2022 [facility] Work Phone: Comment on above: Expected: 10/01/2022 , Expires: 12/01/2022 Start: 08-03-2022 DEPRESSION ASSESSMENT DEPRESSION ASS ESSMENT [facility] Start: 05-23-2022 MR Prostate WO and W contrast IV [facility] Start: 05-23-2022 MR prostate wo/w con MR prostate wo/ w con [facility] Start: 04-22-2022 End: 06-22-2022 MISC SEND OUT TST 1 MISC SEND OUT TST 1 Lab Routine Prostate cancer (HCC) Expected: 04/22/2022, Expires: 06/22/2022 [facility] Work Phone: Comment on above: Expected: 04/22/2022 , Expires: 06/22/2022 Start: 04-03-2022 Influenza vaccination INFLUENZA (#1) [facility] Start: 08-03-2021 DEPRESSION ASSESSMENT DEPRESSION ASS ESSMENT [facility] Start: 05-17-2021 COVID-19 VACCINE (2 - Pfizer series) COVID-19 VACCINE (2 - Pfizer series) [facility] Start: 04-12-2021 COVID-19 VACCINE (2 - Pfizer series) COVID-19 VACCINE (2 - Pfizer series) [facility] Start: 10-11-2018 PROSTATE CANCER SCREENING DISCUSSION PROSTATE CANCER SCREENING DISCUSSION [facility] Start: 10-11-2013 SHINGRIX VACCINE (1 of 2) SHINGRIX VACCINE (1 of 2) [facility] Start: 10-11-2008 COLOGUARD (FIT-DNA) COLOGUARD (FIT-D NA) [facility] Start: 10-11-2008 Colonoscopy COLONOSCOPY [facility] Start: 10-11-2008 COLORECTAL CANCER SCREENING COLORECTAL CANCER SCREENING [facility] Start: 10-11-[address] COLONOGRAPHY [facility] Start: 10-11-2008 DIABETES SCREEN DIABETES SCREEN [facility] Start: 10-11-2008 FECAL OCCULT BLOOD FECAL OCCULT BLOO D [facility] Start: 10-11-2008 Screening for malign ant neoplasm of colon [facility] Start: 10-11-[address] [facility] Start: 10-11-1998 Lipid 1996 panel - S jaret or Plasma Lipid Screening [facility] Start: 10-11-1998 Lipid panel Lipid Screening [facility] Start: 10-11-1998 LIPID SCREEN LIPID SCREEN [facility] Start: 10-11-1982 Pneumococcal Vaccine : 50+ (1 of 2 - PCV) Pneumococcal Vaccine: 50+ (1 of 2 - PCV) [facility] Start: 10-11-1982 Urine microalbumin profile [facility] Start: 10-11-1981 Anxiety Screening Anxiety Screening [facility] Start: 10-11-1981 Depression Screening Depression Scre ening [facility] Start: 10-11-1981 HEPATITIS C SCREENING HEPATITIS C [facility] Start: 10-11-1981 Hepatitis C screening Hepatitis C [facility] Start: 10-11-1981 HIV SCREEN[address] HIV SCREENING [facility] Start: 10-11-1981 HIV screening HIV Screening [facility] Start: 1975 Adult depression screening assessment DEPRESSION SCREENING [facility] Start: 10-11-1969 PNEUMOCOCCAL (1 - PCV) PNEUMOCOCCAL (1 - PCV) [facility] Start: 10-11-1969 Pneumococcal vaccination [facility] Start: 04-13-1964 COVID-19 VACCINE (#1) COVID-19 VACCI NE (#1) [facility] Start: 1963 HEPATITIS B (1 of 3 - 3-dose series) HEPATITIS B (1 of 3 - 3-dose series) [facility] Start: 1965 Screening for malign ant neoplasm of colon [facility] End: 05-03-2023 CT CHEST W IVCON CT CHEST W IVCON Radiology Routine Prostate cancer (HCC) 1 Occurrences starting 04/03/2022 until 05/03/2023 [facility] Work Phone: Comment on above: 1 Occurrences starti ng 04/03/2022 until 05/03/2023 CT SIM PLANNING RADIATION ONCOLOGY CT SIM PLANNING RADIATION ONCOLOGY Radiology Routine Malignant neoplasm of prostate (HCC) Ordered: 07/22/2022 [facility] Work Phone: Comment on above: Ordered: 07/22/2022 Patient Education [facility] Work Phone: Patient referral [facility] Work Phone: End: 05-18-2023 Radiologic exam chest 2 views XR CHEST 2V FRONTAL/LAT Radiology Routine Malignant neoplasm of prostate (HCC) 1 Occurrences starting 04/18/2022 until 05/18/2023 [facility] Work Phone: Comment on above: 1 Occurrences starti ng 04/18/2022 until 05/18/2023 [facility] Immunizations Immunization Date Immunization Notes Care Provider Irineo thomas 03-22-2021 SARS-CoV-2 (COVID-19 ) mRNA BNT-162b2 vax Eloise MARCOS [facility] Comment on above: Result Comment: 2022: [id number] NEGATED: Highlighted row has not occurred!03-10-2022 SARS-CoV-2 mRNA (tozinameran 5y-11y) vaccine Eloise MARCOS [facility] Payers Date Payer Category Payer Self-pay 2024 Private Health Insurance [facility] MEDICA[facility] [id number] 2022 Medicaid [id number] 2021 Medicaid [id number] 1963 Unknown [id number] 2.16.840.1.303908.3.579.2. 593 1963 Unknown [id number] 2.16.840.1.397522.3.579.2. 593 1963 Unknown [id number] 2.16840.1.192615.3.579.2. 593 1963 Unknown [id number] 2.16840.1.821277.3.579.2. 593 1963 Unknown [id number] 2.16.840.1.960775.3.579.2. 593 1963 Unknown [id number] 2.16.840.1.594676.3.579.2. 593 1963 Unknown [id number] 2.16.840.1.232970.3.579.2. 593 1963 Unknown [id number] 2.16.840.1.422629.3.579.2. 593 1963 Unknown [id number] 2.16.840.1.655036.3.579.2. 593 1963 Unknown [id number] 2.16.840.1.096644.3.579.2. 593 1963 Unknown [id number] 2.16.840.1.714954.3.579.2. 593 1963 Unknown [id number] 2.16.840.1.840936.3.579.2. 593 1963 Unknown [id number] 2.16.840.1.678027.3.579.2. 593 1963 Unknown [id number] 2.16.840.1.043030.3.579.2. 593 1963 Unknown [id number] 2.16.840.1.869460.3.579.2 593 1963 Unknown [id number] 2.16.840.1.990129.3.579.2 593 1963 Unknown [id number] 2.16.840.1.302772.3.579.2. 593 1963 Unknown [id number] 2.16.840.1.671964.3.579.2 727 1963 Unknown [id number] 2.16.840.1.474251.3.579.2. 1259 1963 Unknown [id number] 2.16.840.1.869294.3.579.2. 1259 1963 Unknown [id number] 2.16.840.1.738409.3.579.2. 727 1963 Unknown [id number] 2.16.840.1.115907.3.579.2. 72 1963 Unknown [id number] 2.16.840.1.688887.3.579.2. 727 1963 Unknown [id number] 2.16.840.1.966946.3.579.2. 727 1959 Medicaid [id number] Unknown Regular Auto/Medical [id number] Unknown Regular Auto/Medical [id number] Unknown [id number] 2.16.840.1.367450.3.579.2. 531 Unknown [id number] 2.16.840.1.159748.3.579.2. 531 Social History Date Type Detail Facility Start: 03-10-2022 End: 03-31-2022 Tobacco smoking status Never smoked tobacco (finding) [facility] Tobacco smoking status Never [facility] Start: 01-13-2023 End: 11-15-2024 Sex Assigned At Male [facility] Start: 04-02-2022 End: 10-31-2024 Tobacco smoking status NHIS Smokes tobacco daily [facility] History of tobacco use Cigarette Smoker [facility] History of tobacco use Passive smoker [facility] Start: 04-02-2022 End: 01-13-2023 Tobacco use and exposure Smokeless tobacco non-user [facility] Start: 1965 Sex Assigned At Not on file [facility] Start: 04-03-2022 End: 10-18-2024 Alcohol intake Ex-drinker (finding) [facility] Start: 03-24-2022 End: 06-19-2022 Exposure to SARS-CoV-2 (event) Not sure [facility] Start: 1965 Sex Assigned At Male [facility] Start: 09-19-2022 End: 09-19-2024 Tobacco smoking status Heavy tobacco smoker (finding) [facility] Start: 01-13-2023 End: 04-15-2025 Cigarettes smoked current (pack per day) - Reported 0.5 [facility] Start: 09-14-2022 Gender identity Identifies as male gender (finding) [facility] Start: 09-14-2022 Sexual orientation Heterosexual (finding) [facility] Start: 09-21-2024 End: 12-08-2024 Tobacco smoking status NHIS Smoker (finding) [facility] Start: 09-21-2024 End: 12-08-2024 Sex Male (finding) [facility] Start: 10-31-2024 End: 12-20-2024 Alcoholic beverage intake Current drinker of alcohol (finding) [facility] Goals Date Patient Goal Desired Activity /State Functional Status Date Assessment Result Facility 09-19-2024 Functional Status N/A [facility] 03-04-2024 Functional Status N/A [facility] 09-11-2023 Functional Status N/A [facility] 03-20-2023 Functional Status N/A [facility] 09-19-2022 Functional Status N/A [facility] 06-09-2022 Functional Status N/A [facility] 03-31-2022 Functional Status N/A [facility] 03-10-2022 Functional Status N/A [facility] Clinical Notes 03-10-2022 to 12-20-2024 Antonina Ward MD - 12/20/2024 1:15 PM Abdoul Ward MD - 10/31/2024 11:00 AM Ayad Eisenberg MD - 10/17/2024 2:46 PM EDT Note Date & Type Note Facility 12-20-2024 History of Presen t illness Narrative Images from the original note were not included. Patient is status post excision of a right breast mass. Pathology revealed epidermal inclusion cyst. Patient is without complaints. On examination, he is awake alert and in no acute distress. Right breast incision is clean and dry without evidence of infection or hematoma/ seroma. 1. Epidermal cyst Patient can resume his normal activities. He will be discharged from the office and continue to follow with his primary care provider. documented in this encounter [facility] 10-31-2024 History of Presen t illness Narrative Images from the original note were not included. Adan Menard 1965 Adan Menard is a 59 y.o. male presents with chief complaint of Consult (Chest Cyst- on Rt breast x 20yrs. Pt says it is not painful and has gotten bigger over time. ) HPI: The patient is a 59-year-old male presents with an anterior chest wall mass. This has been present for about 20 years. Initially it was very small. Gradually it has become larger. There has been no drainage. Patient has metastatic prostate cancer which is being treated with hormonal therapy. Patient is eating. States he is not having difficulty with urination. He has lost some weight. SUBJECTIVE: MEDICATIONS: ALLERGIES Current Outpatient Medications Medication Instructions aspirin 81 mg, Daily RT Enzalutamide 160 mg Multiple Vitamin (multivitamin) tablet 1 tablet, Daily tamsulosin (Flomax) 0.4 MG 24 hr capsule Allergies Allergen Reactions Ciprofloxacin Shortness of breath Other Reaction(s): Other: See Comments Abdominal breathing PAST MEDICAL HISTORY: SOCIAL HISTORY SURGICAL HISTORY: Past Medical History: Diagnosis Date Chicken pox COVID-19 Encounter for colorectal cancer screening using Cologuard test History of BPH Measles Mumps Prostate cancer (CMS/HCC) metastatic Social History Tobacco Use Smoking status: Every Day Current packs/day: 0.50 Types: Cigarettes Substance Use Topics Alcohol use: Yes Drug use: Never Past Surgical History: Procedure Laterality Date OTHER SURGICAL HISTORY Hx of Ablasion treatment OTHER SURGICAL HISTORY Hx of surgery on arm PROSTATE BIOPSY REVIEW OF SYMPTOMS: Review of Systems Constitutional: Negative for fever. Respiratory: Negative for shortness of breath. Cardiovascular: Negative for chest pain. Gastrointestinal: Negative for abdominal pain. Genitourinary: Negative for difficulty urinating. Skin: Mass Neurological: Negative for syncope. OBJECTIVE: Visit Vitals BP 120/66 Ht 5' 7 Wt 145 lb BMI 22.71 kg/m Smoking Status Every Day BSA 1.76 m Physical Exam Constitutional: General: He is not in acute distress. HENT: Head: Atraumatic. Eyes: General: No scleral icterus. Cardiovascular: Rate and Rhythm: Normal rate and regular rhythm. Pulmonary: Breath sounds: Normal breath sounds. Abdominal: Palpations: Abdomen is soft. Musculoskeletal: Comments: In the anterior chest wall, there is approximately 3 cm rounded mobile mass. There is no overlying erythema or induration. No open areas or drainage noted. Skin: General: Skin is warm and dry. Neurological: Mental Status: He is alert. ASSESSMENT AND PLAN: Assessment/Plan Diagnoses and all orders for this visit: Chest wall mass Epidermal cyst - Ambulatory referral to General Surgery The plan will be to excise the chest wall mass. The procedure, benefits, risks including risks of bleeding, infection, hematoma / seroma were discussed. documented in this encounter [facility] 10-17-2024 Note HNO ID: [id number] Author: AYAD HARRISON MD Service: ? Author Type: Physician Type: Progress Notes Filed: 10/19/2024 10:51 Note Text: PATIENT NAME: Adan Menard DATE: 10/19/2023 PRIMARY CARE PHYSICIAN: Tamiko Reece CNP ([facility]) OTHER PHYSICIANS: Dr. Marcos, Dr. Funez Portions of this encounter note have been copied from the note from 04/19/2024 and has been updated where appropriate, and reflect my current medical decision making from today. CC: This is a 59 year old male with metastatic prostate cancer, seen for scheduled follow-up. INTERIM HISTORY: Since the patient's last visit here he has remained on treatment with Lupron plus enzalutamide. Last Lupron given 09/19/[address] Marcos. He has had no apparent side effects from enzalutamide 160 mg daily. He also had been on antiresorptive therapy with Xgeva every 6 months, last given October 2023. Subsequently his insurance company refused to pay for the medication. Fortunately he has had no skeletal events. Apparently he recently developed hematuria and was found to have kidney stones. He is scheduled undergo treatment per Dr. Marcos in the near future. Otherwise no complaints today. MEDICATIONS: Current Outpatient Medications Medication Sig enzalutamide (XTANDI) 80 mg tablet TAKE 2 TABLETS BY MOUTH 1 TIME A DAY. tamsulosin (FLOMAX) 0.4 mg Take 0.4 mg by mouth twice daily. IBUPROFEN ORAL Take by mouth. leuprolide (LUPRON) 1 mg/0.2 mL injection Inject 1 mg subcutaneously one time only. calcium carbonate/vitamin D3 (CALCIUM 600 + D,3, ORAL) Take by mouth. ascorbic acid (VITAMIN C ORAL) Take by mouth. elderberry fruit (ELDERBERRY ORAL) Take by mouth. aspirin, enteric coated (ASPIRIN, ENTERIC COATED) 81 mg EC tablet Take 81 mg by mouth once daily. docosahexaenoic acid/epa (FISH OIL ORAL) Take by mouth once daily. MULTI-VITAMIN ORAL Take by mouth once daily. No current facility-administered medications for this visit. ALLERGIES: ALLERGIES Allergen Reactions Ciprofloxacin Other: See Comments Abdominal breathing PAST MEDICAL HISTORY: PAST MEDICAL HISTORY Diagnosis Date BPH (benign prostatic hyperplasia) Hematospermia Prostate cancer (HCC) Urinary retention PAST SURGICAL HISTORY: PAST SURGICAL HISTORY Procedure Laterality Date PROSTATE BIOPSY W/TRANSRECTAL US FAMILY HISTORY: FAMILY HISTORY Problem Relation Age of Onset Prostate Cancer Father SOCIAL HISTORY: Social History Tobacco Use Smoking status: Every Day Current packs/day: 0.50 Types: Cigarettes Passive exposure: Current Smokeless tobacco: Never Vaping Use Vaping status: Never Used Substance Use Topics Alcohol use: Not Currently Drug use: Never REVIEW OF SYSTEMS: General: No weight loss, malaise or fevers. HEENT: Negative for frequent or significant headaches. No changes in hearing or vision, no nose bleeds or other nasal problems. Respiratory: Negative for cough, wheezing or shortness of breath. Cardiovascular: Negative for chest pain, leg swelling or palpitations. GI: Negative for abdominal discomfort, blood in stools or black stools or change in bowel habits. : No history of dysuria, frequency or incontinence. Musculoskeletal: Negative for joint pain or swelling, back pain and muscle pain. Skin: Negative for lesions, rash and itching. Hematology/Lymphology: Negative for prolonged bleeding, bruising easily or swollen nodes. Neuro: No history of headaches, syncope, paralysis, seizures or tremors. PHYSICAL EXAM: BP 130/78 Pulse 69 Temp 36.4 ?C (97.6 ?F) Resp 18 Wt 64.4 kg (141 lb 15.6 oz) SpO2 100% BMI 24.15 kg/m? ECOG 0 Gen.: This is an age-appropriate patient in no acute distress. Head: Appears atraumatic with no visible lesions. Eyes: Pupils equally round and reactive to light, extraocular muscles are intact. Neck: Supple. Mouth: Masked. Respiratory: Appears to be respiring comfortably. Neurologic: Nonfocal to gross visualization. Alert and oriented ?3. Psychiatric: No evidence of inappropriate anxiety or depression. Skin: Visible areas of skin without rash, lesions, wounds or petechiae. PATHOLOGY: 03/18/2022 TRUS prostate biopsy ([facility]) Adenocarcinoma, Jackpot score 10 (1 core) left lateral base Total 12 of 14 cores involved, 60 to 100% LABS: Hemoglobin (g/dL) Date Value 10/18/2024 13.3 Hematocrit (%) Date Value 10/18/2024 38.0 WBC (k/uL) Date Value 10/18/2024 6.10 Platelet Count (k/uL) Date Value 10/18/2024 231 PSA 03/10/2022 >100.0 04/03/2022 383.9 04/28/2022 47.09 05/15/2022 4.53 (Alexander) 06/19/2022 0.27 08/07/2022 0.09 10/01/2022 0.03 11/06/2022 0.02 12/23/2022 <0.02 01/13/2023 <0.02 04/21/2023 <0.02 10/20/2023 <0.02 04/19/2024 <0.02 10/18/2024 RADIOLOGY/OTHER STUDIES: 12/17/2022 XR of ribs and chest IMPRESSION: Increase sclerosis of the anterolateral left seventh rib suspicious for underlying bone (more content not included)... [facility] 10-17-2024 History of Presen t illness Narrative PATIENT NAME: Adan Menard DATE: 10/19/2023 PRIMARY CARE PHYSICIAN: Tamiko Reece, ENRIQUE ([facility]) OTHER PHYSICIANS: Dr. Marcos, Dr. Funez Portions of this encounter note have been copied from the note from 04/19/2024 and has been updated where appropriate, and reflect my current medical decision making from today. CC: This is a 59 year old male with metastatic prostate cancer, seen for scheduled follow-up. INTERIM HISTORY: Since the patient's last visit here he has remained on treatment with Lupron plus enzalutamide. Last Lupron given 09/19/[address] Marcos. He has had no apparent side effects from enzalutamide 160 mg daily. He also had been on antiresorptive therapy with Xgeva every 6 months, last given October 2023. Subsequently his insurance company refused to pay for the medication. Fortunately he has had no skeletal events. Apparently he recently developed hematuria and was found to have kidney stones. He is scheduled undergo treatment per Dr. Marcos in the near future. Otherwise no complaints today. MEDICATIONS: Current Outpatient Medications Medication Sig enzalutamide (XTANDI) 80 mg tablet TAKE 2 TABLETS BY MOUTH 1 TIME A DAY. tamsulosin (FLOMAX) 0.4 mg Take 0.4 mg by mouth twice daily. IBUPROFEN ORAL Take by mouth. leuprolide (LUPRON) 1 mg/0.2 mL injection Inject 1 mg subcutaneously one time only. calcium carbonate/vitamin D3 (CALCIUM 600 + D,3, ORAL) Take by mouth. ascorbic acid (VITAMIN C ORAL) Take by mouth. elderberry fruit (ELDERBERRY ORAL) Take by mouth. aspirin, enteric coated (ASPIRIN, ENTERIC COATED) 81 mg EC tablet Take 81 mg by mouth once daily. docosahexaenoic acid/epa (FISH OIL ORAL) Take by mouth once daily. MULTI-VITAMIN ORAL Take by mouth once daily. No current facility-administered medications for this visit. ALLERGIES: ALLERGIES Allergen Reactions Ciprofloxacin Other: See Comments Abdominal breathing PAST MEDICAL HISTORY: PAST MEDICAL HISTORY Diagnosis Date BPH (benign prostatic hyperplasia) Hematospermia Prostate cancer (HCC) Urinary retention PAST SURGICAL HISTORY: PAST SURGICAL HISTORY Procedure Laterality Date PROSTATE BIOPSY W/TRANSRECTAL US FAMILY HISTORY: FAMILY HISTORY Problem Relation Age of Onset Prostate Cancer Father SOCIAL HISTORY: Social History Tobacco Use Smoking status: Every Day Current packs/day: 0.50 Types: Cigarettes Passive exposure: Current Smokeless tobacco: Never Vaping Use Vaping status: Never Used Substance Use Topics Alcohol use: Not Currently Drug use: Never REVIEW OF SYSTEMS: General: No weight loss, malaise or fevers. HEENT: Negative for frequent or significant headaches. No changes in hearing or vision, no nose bleeds or other nasal problems. Respiratory: Negative for cough, wheezing or shortness of breath. Cardiovascular: Negative for chest pain, leg swelling or palpitations. GI: Negative for abdominal discomfort, blood in stools or black stools or change in bowel habits. : No history of dysuria, frequency or incontinence. Musculoskeletal: Negative for joint pain or swelling, back pain and muscle pain. Skin: Negative for lesions, rash and itching. Hematology/Lymphology: Negative for prolonged bleeding, bruising easily or swollen nodes. Neuro: No history of headaches, syncope, paralysis, seizures or tremors. PHYSICAL EXAM: BP 130/78 Pulse 69 Temp 36.4 C (97.6 F) Resp 18 Wt 64.4 kg (141 lb 15.6 oz) SpO2 100% BMI 24.15 kg/m ECOG 0 Gen.: This is an age-appropriate patient in no acute distress. Head: Appears atraumatic with no visible lesions. Eyes: Pupils equally round and reactive to light, extraocular muscles are intact. Neck: Supple. Mouth: Masked. Respiratory: Appears to be respiring comfortably. Neurologic: Nonfocal to gross visualization. Alert and oriented 3. Psychiatric: No evidence of inappropriate anxiety or depression. Skin: Visible areas of skin without rash, lesions, wounds or petechiae. PATHOLOGY: 03/18/2022 TRUS prostate biopsy ([facility]) Adenocarcinoma, Hernan score 10 (1 core) left lateral base Total 12 of 14 cores involved, 60 to 100% LABS: Hemoglobin (g/dL) Date Value 10/18/2024 13.3 Hematocrit (%) Date Value 10/18/2024 38.0 WBC (k/uL) Date Value 10/18/2024 6.10 Platelet Count (k/uL) Date Value 10/18/2024 231 PSA 03/10/2022 >100.0 04/03/2022 383.9 04/28/2022 47.09 05/15/2022 4.53 (Alexander) 06/19/2022 0.27 08/07/2022 0.09 10/01/2022 0.03 11/06/2022 0.02 12/23/2022 <0.02 01/13/2023 <0.02 04/21/2023 <0.02 10/20/2023 <0.02 04/19/2024 <0.02 10/18/2024 RADIOLOGY/OTHER STUDIES: 12/17/2022 XR of ribs and chest IMPRESSION: Increase sclerosis of the anterolateral left seventh rib suspicious for underlying bone lesion corresponding with area of radiotracer uptake on prior bone scan. Suggest CT or MRI of the left ribs without contrast for further evaluation. 05/23/2022 [place] prostate [place] Peripheral zone of the prostate gland diffusely hypointense related to patient's known malignancy. Soft tissue thickening in the region of the right neurovascular bundle. 04/23/2022 CT abdomen/pelvis ([facility]) Bilateral nonobstructing nephrolithiasis. Enlarged heterogeneous prostate with mass protruding right posterior inferior from the gland without appreciable involvement of adjacent structures. Slightly prominent right pelvic lymph node adjacent to the external iliac artery. 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 04/23/2022 Nuclear bone scan ([facility]) Multiple bone metastases. (Increased uptake in the calvarium, right posterior seventh rib, left lateral seventh rib, left scapula, L2, L1, sacrum, right femoral head) 04/22/2022 Chest x-ray IMPRESSION: No acute radiographic abnormality. ASSESSMENT/PLAN: 1. Metastatic prostate cancer (HCC) - ICD9: 185, ICD10: C61 The patient had a long history of LUTS and developed acute urinary obstruction requiring Goodman catheter placement 03/04/2022. He was seen by urology 03/10/2022 and evaluation revealed an enlarged prostate with diffuse nodularity and PSA > 100. TRUS biopsy 03/18/2022 revealed high-grade adenocarcinoma (Jackpot 10). Bone scan 04/23/2022 revealed diffuse bone metastases. Staging CT scans revealed regional adenopathy, but no visceral organ metastases. 03/31/2022 the patient received Lupron 45 mg IM per urology, with plans to continue every 6 months. Enzalutamide 160 mg daily started 04/25/2022. Xgeva started 05/08/2022, with initial plans to give every 3 months. Subsequently Xgeva changed to every 6 months. The patient received external beam radiation therapy to the prostate 08/05/2022 through 09/10/2022 (7000 cGy in 20 fractions). Xgeva last given October 2023, and subsequently declined by the patient's insurance. PSA has been undetectable since December 2022. The patient will continue as is with his current therapy including Lupron every [address] Marcos (next due March 2025) plus enzalutamide 160 mg daily. Return to our office in 6 months for follow-up and labs. Will discuss restaging if the PSA increases and/or suspicious symptoms or signs develop. 2. Cardiac dysrhythmia Tachycardia diagnosed as a teenager. Status post cardiac ablation 2005. Currently stable. Ayad Harrison MD CC: Dr. Marcos, [facility] Urology documented in this encounter [facility] 09-28-2024 Telephone encounter Note Ambulatory Pharmacy Prior Authorization Note Provider Intervention Required?: No - Pharmacy completed on your behalf. Was the PA documented within the ePA workqueue?: No Rx Plan: Medicaid [employer] ([employer]) Drug: Xtandi 80 mg Cover My Meds Ac: [id number] Determination: Approved Prior Authorization/Case #: [id number] Prior Authorization Expiration: 09/26/25 Time to PA Submission in CMM: 15 min Time to PA Determination in CMM: Same day Additional Information: For questions relating to this submission, please contact [facility] at [phone] [facility] Work Phone: 09-28-2024 Miscellaneous Notes Ambulatory Pharmacy Prior Authorization Note Provider Intervention Required?: No - Pharmacy completed on your behalf. Was the PA documented within the ePA workqueue?: No Rx Plan: Medicaid [employer] ([employer]) Drug: Xtandi 80 mg Cover My Meds Ac: [id number] Determination: Approved Prior Authorization/Case #: [id number] Prior Authorization Expiration: 09/26/25 Time to PA Submission in CMM: 15 min Time to PA Determination in CMM: Same day Additional Information: For questions relating to this submission, please contact [facility] at [phone] documented in this encounter [facility] 09-21-2024 Hospital Discharg e instructions Ambulatory OrdersReferral to General Surgery Time Frame: 09/22/24, Location: None SelectedAMB Cologuard Time Frame: 09/21/24, Location: Determined By Patient [facility] Work Phone: 09-21-2024 Evaluation note Diagnosis Onset Date Resolution Screening for colon cancer acute September 21 10:04am Screening for lipid disorders acute September 21 10:04am Wellness examination acute 2024 10:04am [facility] Work Phone: 1(236) 891-474502-19-2025 Evaluation note* Diagnosis Onset Date Resolution Status Admit Date Epidermoid cyst acute September 21, 2024 10:04am Hx of malignant neoplasm of prostate acute September 21 10:04am Screening for colon cancer acute September 21, 2024 10:04am Screening for lipid disorders acute September 21, 2024 10:04am Wellness examination acute 2024 10:04am [facility] Work Phone: [phone]) 851-828802-17-2025 Hospital Discharge instructions Patient Education 09/19/2024 12:05:01 Cystoscopy Cystoscopy Cystoscopy is a procedure that is used to help diagnose and sometimes treat conditions that affect the lower urinary tract. The lower urinary tract includes the bladder and the urethra. The urethra is the tube that drains urine from the bladder. Cystoscopy is done using a thin, tube-shaped instrument with a light and camera at the end (cystoscope). The cystoscope may be hard or flexible, depending on the goal of the procedure. The cystoscope is inserted through the urethra, into the bladder. Cystoscopy may be recommended if you have: Urinary tract infections that keep coming back. Blood in the urine (hematuria). An inability to control when you urinate (urinary incontinence) or an overactive bladder. Unusual cells found in a urine sample. A blockage in the urethra, such as a urinary stone. Painful urination. An abnormality in the bladder found during an intravenous pyelogram (IVP) or CT scan. Cystoscopy may also be done to remove a sample of tissue to be examined under a microscope (biopsy). Tell a health care provider about: Any allergies you have. All medicines you are taking, including vitamins, herbs, eye drops, creams, and ohoi-euc-zfekjmn medicines. Any problems you or family members have had with anesthetic medicines. Any blood disorders you have. Any surgeries you have had. Any medical conditions you have. Whether you are or may be . What are the risks? Generally, this is a safe procedure. However, problems may occur, including: Infection. Bleeding. Allergic reactions to medicines. Damage to other structures or organs. What happens before the procedure? Medicines Ask your health care provider about: Changing or stopping your regular medicines. This is especially important if you are taking diabetes medicines or blood thinners. Taking medicines such as aspirin and ibuprofen. These medicines can thin your blood. Do not take these medicines unless your health care provider tells you to take them. Taking umoa-uii-nihprcy medicines, vitamins, herbs, and supplements. Tests You may have an exam or testing, such as: X-rays of the bladder, urethra, or kidneys. CT scan of the abdomen or pelvis. Urine tests to check for signs of infection. General instructions Follow instructions from your health care provider about eating or drinking restrictions. Ask your health care provider what steps will be taken to help prevent infection. These steps may include: ?Washing skin with a germ-killing soap. ?Taking antibiotic medicine. Plan to have a responsible adult take you home from the hospital or clinic. What happens during the procedure? You will be given one or more of the following: ?A medicine to help you relax (sedative). ?A medicine to numb the area (local anesthetic). The area around the opening of your urethra will be cleaned. The cystoscope will be passed through your urethra into your bladder. Germ-free (sterile) fluid will flow through the cystoscope to fill your bladder. The fluid will stretch your bladder so that your health care provider can clearly examine your bladder samson. Your doctor will look at the urethra and bladder. Your doctor may take a biopsy or remove stones. The cystoscope will be removed, and your bladder will be emptied. The procedure may vary among health care providers and hospitals. What can I expect after the procedure? After the procedure, it is common to have: Some soreness or pain in your abdomen and urethra. Urinary symptoms. These include: ?Mild pain or burning when you urinate. Pain should stop within a few minutes after you urinate. This may last for up to 1 week. ?A small amount of blood in your urine for several days. ?Feeling like you need to urinate but producing only a small amount of urine. Follow these instructions at home: Medicines Take yygc-dfo-hbucbkk and prescription medicines only as told by your health care provider. If you were prescribed an antibiotic medicine, take it as told by your health care provider. Do notstop taking the antibiotic even if you start to feel better. General instructions Return to your normal activities as told by your health care provider. Ask your health care provider what activities are safe for you. If you were given a sedative during the procedure, it can affect you for several hours. Do not drive or operate machinery until your health care provider says that it is safe. Watch for any blood in your urine. If the amount of blood in your urine increases, call your healthcare provider. Follow instructions from your health care provider about eating or drinking restrictions. If a tissue sample was removed for testing (biopsy) during your procedure, it is up to you to get your test results. Ask your health care provider, or the department that is doing the test, when yourresults will be ready. Drink enough fluid to keep your urine pale yellow. Keep all follow-up visits. This is important. Contact a health care provider if: You have pain that gets worse or does not get better with medicine, especially pain when you urinate. You have trouble urinating. You have more blood in your urine. Get help right away if: You have blood clots in your urine. You have abdominal pain. You have a fever or chills. You are unable to urinate. Summary Cystoscopy is a procedure that is used to help diagnose and sometimes treat conditions that affect the lower urinary tract. Cystoscopy is done using a thin, tube-shaped instrument with a light and camera at the end. After the procedure, it is common to have some soreness or pain in your abdomen and urethra. Watch for any blood in your urine. If the amount of blood in your urine increases, call your healthcare provider. If you were prescribed an antibiotic medicine, take it as told by your health care provider. Do notstop taking the antibiotic even if you start to feel better. This information is not intended to replace advice given to you by your health care provider. Make sure you discuss any questions you have with your health care provider. Document Revised: 04/02/2022 Document Reviewed: 03/01/2021 [employer] Patient Education 2023 [employer]. 09/19/2024 11:49:10 Hormone Suppression Therapy for Prostate Cancer Hormone Suppression Therapy for Prostate Cancer Hormone suppression therapy is a treatment for prostate cancer that can help slow the growth of cancer cells in the prostate gland. It is also called androgen deprivation therapy (ADT) or androgen suppression therapy. Hormone suppression therapy targets male sex hormones (androgens) in the body that help cancer cells grow. Hormone suppression therapy alone will not cure prostate cancer, but it can slow the growth of cancer cells and may shrink tumors over time. Your health care provider can help you find the best treatment that fits your lifestyle. Hormone suppression therapy may be used in the following cases: When prostate cancer has spread too far to other places in the body and cannot be cured by surgery or radiation. When a person has health problems that prevent the use of surgery or radiation. Before radiation to help shrink the size of the cancer and make the radiation treatment more effective. If the prostate cancer remains or comes back following treatment with surgery or radiation. What are the types of hormone suppression therapy? Orchiectomy Orchiectomy, also called surgical castration, is a surgery to remove one or both testicles. The testicles make the two main androgens testosterone and dihydrotestosterone (DHT). This surgery reduces the levels of testosterone in the blood, leading to decreased androgen production. Medicine therapy Medicine therapy, also called medical or chemical castration, involves taking medicines to keep your body from making or using androgens. Medicines can do this in one of three ways: 1.Reducing androgen production by the testicles. Luteinizing hormone-releasing hormone (LHRH) agonists. These medicines are injected or implanted under your skin to lower the amount of androgens that your testicles make. Depending on the medicine, they can be given monthly or up to every 3 to 6 months. If you take these medicines, you may also beprescribed other medicines to help with side effects. LHRH antagonists. These medicines also work to lower the amount of androgens made in the testicles,but they work faster than LHRH agonist medicines and have less severe side effects. They are given as a monthly injection under the skin, and they are used when prostate cancer is in an advanced stage. Estrogens. These medicines are female hormones that help to reduce androgen production by the testicles. Estrogens are not used as commonly as other types of hormone suppression therapy due to their side effects. However, they may be used if other treatments do not work. 2.Blocking androgen attachment throughout the body. Anti-androgen medicines, also called androgen receptor antagonists, block areas on the body where androgens attach. These are pills that are usually used in combination with other types of hormone suppression therapy, like orchiectomy and other medicines. 3.Blocking androgen production throughout the body. Androgen synthesis inhibitor medicines. These medicines help to stop other areas of the body from making androgens. They are taken as pills. They may be used if the prostate cancer is advanced and has not gotten better with surgery or other medicines. A steroid medicine may be given with this type of medicine to help with side effects. What are the risks? Hormone suppression therapy may cause side effects, including: Hot flashes. Diarrhea and nausea. Itching. Sexual side effects, such as: ?Decrease or lack of sexual desire. ?Decrease in size of the penis or testicles. ?Inability to get an erection (erectile dysfunction, or impotence). ?Breast tenderness or increase in breast size. Fatigue. Weight gain. Anemia. Thinning of the bones (osteoporosis) and loss of muscle mass. Depression, mood swings, and trouble with thinking or focusing. Hormone suppression therapy may also increase your risk of high blood pressure, increased cholesterol levels, stroke, heart attack, or diabetes. What are the benefits? One of the main benefits of hormone suppression therapy is having additional treatment options. Youmay have only one type of treatment, or two or more types at the same time. Treatments may be combined to: Help with side effects. Treat advanced cancer. Where to find more information [place] [employer]: www.cancer.org National Cancer [place]: www.cancer.gov Contact a health care provider if: You have pain or side effects that do not get better with treatment. You have trouble urinating. You have new side effects that do not go away. Get help right away if: You have severe chest pain. You have trouble breathing. You have an irregular heartbeat. You have numbness or paralysis in the lower half of your body. You are confused. You have trouble talking or understanding speech. These symptoms may be an emergency. Do not wait to see if the symptoms will go away. Get medical help right away. Call your local emergency services (911 in the [place] Do not drive yourself to the hospital. Summary Hormone suppression therapy is a treatment for prostate cancer that can help to slow the growth of cancer cells in the prostate gland. Hormone suppression therapy alone will not cure prostate cancer, but it can slow the growth of prostate cancer and may shrink tumors over time. Treatment to suppress hormones may include surgery or medicines. Side effects such as hot flashes, changes in sexual function or desire, and weakened bones can result from hormone suppression therapy. This information is not intended to replace advice given to you by your health care provider. Make sure you discuss any questions you have with your health care provider. Document Revised: 10/31/2021 Document Reviewed: 10/31/2021 [employer] Patient Education 2023 [employer]. 09/19/2024 11:45:07 Steps to Quit Smoking Steps to Quit Smoking Smoking tobacco is the leading cause of preventable . It can affect almost every organ in the body. Smoking puts you and those around you at risk for developing many serious chronic diseases. Quitting smoking can be very challenging. Do not get discouraged if you are not successful the first time. Some people need to make many attempts to quit before they achieve long-term success. Do your best to stick to your quit plan, and talk with your health care provider if you have any questionsor concerns. How do I get ready to quit? When you decide to quit smoking, create a plan to help you succeed. Before you quit: Pick a date to quit. Set a date within the next 2 weeks to give you time to prepare. Write down the reasons why you are quitting. Keep this list in places where you will see it often. Tell your family, friends, and co-workers that you are quitting. Support from people you are close to can make quitting easier. Talk with your health care provider about your options for quitting smoking. Find out what treatment options are covered by your health insurance. Identify people, places, things, and activities that make you want to smoke (triggers). Avoid them. What first steps can I take to quit smoking? Throw away all cigarettes at home, at work, and in your car. Throw away smoking accessories, such as ashtrays and lighters. Clean your car. Make sure to empty the ashtray. Clean your home, including curtains and carpets. What strategies can I use to quit smoking? Talk with your health care provider about combining strategies, such as taking medicines while you are also receiving in-person counseling. Using these two strategies together makes you more likely to succeed in quitting than if you used either strategy on its own. If you are or , talk with your health care provider about finding counseling or other support strategies to quit smoking. Do not take medicine to help you quit smoking unless your health care provider tells you to. Quit right away Quit smoking completely, instead of gradually reducing how much you smoke over a period of time. Stopping smoking right away may be more successful than gradually quitting. Attend in-person counseling to help you build problem-solving skills. You are more likely to succeed in quitting if you attend counseling sessions regularly. Even short sessions of 10 minutes can be effective. Take medicine You may take medicines to help you quit smoking. Some medicines require a prescription. You can also purchase [id number]-[id number] medicines. Medicines may have nicotine in them to replace the nicotine in cigarettes. Medicines may: Help to stop cravings. Help to relieve withdrawal symptoms. Your health care provider may recommend: Nicotine patches, gum, or lozenges. Nicotine inhalers or sprays. Non-nicotine medicine that you take by mouth. Find resources Find resources and support systems that can help you quit smoking and remain smoke-free after you quit. These resources are most helpful when you use them often. They include: Online chats with a counselor. Telephone quitlines. Printed self-help materials. Support groups or group counseling. Text messaging programs. Mobile phone apps or applications. Use apps that can help you stick to your quit plan by providing reminders, tips, and encouragement. Examples of free services include Quit Guide from the CDC and smokefree.gov What can I do to make it easier to quit? Reach out to your family and friends for support and encouragement. Call telephone quitlines, such as 9-085-[facility]-NOW, reach out to support groups, or work with a counselor for support. Ask people who smoke to avoid smoking around you. Avoid places that trigger you to smoke, such as bars, parties, or smoke-break areas at work. Spend time with people who do not smoke. Lessen the stress in your life. Stress can be a smoking trigger for some people. To lessen stress, try: ?Exercising regularly. ?Doing deep-breathing exercises. ?Doing yoga. ?Meditating. What benefits will I see if I quit smoking? Over time, you should start to see positive results, such as: Improved sense of smell and taste. Decreased coughing and sore throat. Slower heart rate. Lower blood pressure. Clearer and healthier skin. The ability to breathe more easily. Fewer sick days. Summary Quitting smoking can be very challenging. Do not get discouraged if you are not successful the first time. Some people need to make many attempts to quit before they achieve long-term success. When you decide to quit smoking, create a plan to help you succeed. Quit smoking right away, not slowly over a period of time. Find resources and support systems that can help you quit smoking and remain smoke-free after you quit. This information is not intended to replace advice given to you by your health care provider. Make sure you discuss any questions you have with your health care provider. Document Revised: 07/11/2022 Document Reviewed: 07/11/2022 [employer] Patient Education 2023 [employer]. Follow Up Care 03/04/2024 09:00:59 With:PRITI JONES, Eloise Mccarthy, URL Address: [facility] [address] [place] [phone] When: Unknown [facility] 02-17-2025 NotePatient Education Oncology Hormone Suppression Therapy for Prostate Cancer Hormone suppression therapy is a treatment for prostate cancer that can help slow the growth of cancer cells in the prostate gland. It is also called androgen deprivation therapy (ADT) or androgen suppression therapy. Hormone suppression therapy targets male sex hormones (androgens) in the body that help cancer cells grow. Hormone suppression therapy alone will not cure prostate cancer, but it can slow the growth of cancer cells and may shrink tumors over time. Your health care provider can help you find the best treatment that fits your lifestyle. Hormone suppression therapy may be used in the following cases: ??? When prostate cancer has spread too far to other places in the body and cannot be cured by surgery or radiation. ??? When a person has health problems that prevent the use of surgery or radiation. ??? Before radiation to help shrink the size of the cancer and make the radiation treatment more effective. ??? If the prostate cancer remains or comes back following treatment with surgery or radiation. What are the types of hormone suppression therapy? Orchiectomy Orchiectomy, also called surgical castration, is a surgery to remove one or both testicles. The testicles make the two main androgens?testosterone and dihydrotestosterone (DHT). This surgery reduces the levels of testosterone in the blood, leading to decreased androgen production. Medicine therapy Medicine therapy, also called medical or chemical castration, involves taking medicines to keep your body from making or using androgens. Medicines can do this in one of three ways: 1. Reducing androgen production by the testicles. ??? Luteinizing hormone-releasing hormone (LHRH) agonists. These medicines are injected or implanted under your skin to lower the amount of androgens that your testicles make. Depending on the medicine, they can be given monthly or up to every 3 to 6 months. If you take these medicines, you may also be prescribed other medicines to help with side effects. ??? LHRH antagonists. These medicines also work to lower the amount of androgens made in the testicles, but they work faster than LHRH agonist medicines and have less severe side effects. They are given as a monthly injection under the skin, and they are used when prostate cancer is in an advanced stage. ??? Estrogens. These medicines are female hormones that help to reduce androgen production by the testicles. Estrogens are not used as commonly as other types of hormone suppression therapy due to their side effects. However, they may be used if other treatments do not work. 2. Blocking androgen attachment throughout the body. ??? Anti-androgen medicines, also called androgen receptor antagonists, block areas on the body where androgens attach. These are pills that are usually used in combination with other types of hormone suppression therapy, like orchiectomy and other medicines. 3. Blocking androgen production throughout the body. ??? Androgen synthesis inhibitor medicines. These medicines help to stop other areas of the body from making androgens. They are taken as pills. They may be used if the prostate cancer is advanced and has not gotten better with surgery or other medicines. A steroid medicine may be given with this type of medicine to help with side effects. What are the risks? Hormone suppression therapy may cause side effects, including: ??? Hot flashes. ??? Diarrhea and nausea. ??? Itching. ??? Sexual side effects, such as: ? Decrease or lack of sexual desire. ? Decrease in size of the penis or testicles. ? Inability to get an erection (erectile dysfunction, or impotence). ? Breast tenderness or increase in breast size. ??? Fatigue. ??? Weight gain. ??? Anemia. ??? Thinning of the bones (osteoporosis) and loss of muscle mass. ??? Depression, mood swings, and trouble with thinking or focusing. Hormone suppression therapy may also increase your risk of high blood pressure, increased cholesterol levels, stroke, heart attack, or diabetes. What are the benefits? One of the main benefits of hormone suppression therapy is having additional treatment options. Youmay have only one type of treatment, or two or more types at the same time. Treatments may be combined to: ??? Help with side effects. ??? Treat advanced cancer. Where to find more information ??? [place] [employer]: www.cancer.org ??? National Cancer [place]: www.cancer.gov Contact a health care provider if: ??? You have pain or side effects that do not get better with treatment. ??? You have trouble urinating. ??? You have new side effects that do not go away. Get help right away if: ??? You have severe chest pain. ??? You have trouble breathing. ??? You have an irregular heartbeat. ??? You have numbness or paralysis in the lower half of your body. ??? You are confused. ??? You (more content not included)...[facility]01-17-2025 Telephone encounter Note* Telephone Encounter - Diana Bauer RPh - 08/19/2024 9:27 AM EST F/U appt 10/18/24. Script pending to last 3 months Thank you Toney Bauer, PharmD, BCOP [facility] Work Phone: [phone] Miscellaneous Notes* Telephone Encounter - Anand DianaWoo gunter - 08/19/2024 9:27 AM EST F/U appt 10/18/24. Script pending to last 3 months Thank you Toney Bauer, PharmD, BCOP [facility]24 NoteHNO ID: [id number] Author: YAMILET GRAF APRN.[employer] EXECUTIVE Service: ? Author Type: Nurse Practitioner Type: Progress Notes Filed: 04/20/2024 10:59 Note Text: PATIENT NAME: Adan Menard DATE: 04/19/2024 PRIMARY CARE PHYSICIAN: No primary care provider on file. OTHER PHYSICIANS: Dr. Marcos, Dr. Funez Portions of this encounter note have been copied from the note from 10/20/2023 and has been updated where appropriate, and reflect my current medical decision making from today. CC: This is a 58 year old male with metastatic prostate cancer, seen for scheduled follow-up and continued treatment. INTERIM HISTORY: Adan Menard returns for scheduled follow-up. He continues to receive Lupron every [address] Marcos and last received on March 04. He's taking oral calcium and vitamin D. He remains on enzalutamide 160 mg daily and is tolerating it well. He denies any significant side effects. He has had some intentional weight loss. He has been doing 48-hour fasting. He denies any issues with pain. He denies any issues with urination. No pain, burning, difficulty or blood in his urine. He offers no new complaints today. No new issues, problems or concerns. Per telephone encounter 04/14/2024: Denosumab renewal denied - P2P completed 04/14/24 and decision was upheld. 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 I highlighted the location of the bone lesions included the right acetabular and femoral head which is concerning. Dr. Rashawn Marx stated that the primary treatment for the prostate cancer those should be shrinking. If there are growing, then the diagnosis would be considered castrate resistant and we could re-visit the utilization of denosumab. Liz Alejandre, [facility] MEDICATIONS: Current Outpatient Medications Medication Sig enzalutamide (XTANDI) 80 mg tablet TAKE 2 TABLETS BY MOUTH 1 TIME A DAY. tamsulosin (FLOMAX) 0.4 mg Take 0.4 mg by mouth twice daily. IBUPROFEN ORAL Take by mouth. leuprolide (LUPRON) 1 mg/0.2 mL injection Inject 1 mg subcutaneously one time only. calcium carbonate/vitamin D3 (CALCIUM 600 + D,3, ORAL) Take by mouth. ascorbic acid (VITAMIN C ORAL) Take by mouth. elderberry fruit (ELDERBERRY ORAL) Take by mouth. aspirin, enteric coated (ASPIRIN, ENTERIC COATED) 81 mg EC tablet Take 81 mg by mouth once daily. docosahexaenoic acid/epa (FISH OIL ORAL) Take by mouth once daily. MULTI-VITAMIN ORAL Take by mouth once daily. No current facility-administered medications for this visit. ALLERGIES: ALLERGIES Allergen Reactions Ciprofloxacin Other: See Comments Abdominal breathing PAST MEDICAL HISTORY: PAST MEDICAL HISTORY Diagnosis Date BPH (benign prostatic hyperplasia) Hematospermia Prostate cancer (HCC) Urinary retention PAST SURGICAL HISTORY: PAST SURGICAL HISTORY Procedure Laterality Date PROSTATE BIOPSY W/TRANSRECTAL US FAMILY HISTORY: FAMILY HISTORY Problem Relation Age of Onset Prostate Cancer Father SOCIAL HISTORY: Social History Tobacco Use Smoking status: Every Day Current packs/day: 0.50 Types: Cigarettes Passive exposure: Current Smokeless tobacco: Never Vaping Use Vaping status: Never Used Substance Use Topics Alcohol use: Not Currently Drug use: Never REVIEW OF SYSTEMS: General: No weight loss, malaise or fevers. HEENT: Negative for frequent or significant headaches. No changes in hearing or vision, no nose bleeds or other nasal problems. Respiratory: Negative for cough, wheezing or shortness of breath. Cardiovascular: Negative for chest pain, leg swelling or palpitations. GI: Negative for abdominal discomfort, blood in stools or black stools or change in bowel habits. : No history of dysuria, frequency or incontinence. Musculoskeletal: Negative for joint pain or swelling, back pain and muscle pain. Skin: Negative for lesions, rash and itching. Hematology/Lymphology: Negative for prolonged bleeding, bruising easily or swollen nodes. Neuro: No history of headaches, syncope, paralysis, seizures or tremors. PHYSICAL EXAM: BP 144/78 Pulse 98 Temp 36.3 ?C (97.4 ?F) (Temporal) Resp 16 Ht 163.3 cm (5' 4.29 ) Wt 66.8 kg (147 lb 4.3 oz) SpO2 100% BMI 25.05 kg/m? ECOG 0 Exam limited to gross visualization where appropriate due to COVID-19. Gen.: This is an age-appropriate patient in no acute distress. Head: Appears atraumatic with no visible lesions. Eyes: Pupils equally round and reactive to light, extraocular muscles are intact. Neck: Supple. Mouth: Masked. Respiratory: Appears to be respiring comfortably. Neurologic: Nonfocal to gross visualization. Alert and oriented ?3. Psychiatric: No evidence of inappropriate anxiety or depression. Skin: Visible areas of skin without rash, lesions, wounds or petechiae. PATHOLOGY: 03/18/2022 TRUS (more content not included)...[facility] 04-19-2024 History of Present illness Narrative* Yamilet Graf APRN.[employer] EXECUTIVE - 04/19/2024 3:21 PM EDT PATIENT NAME: Adan Menard DATE: 04/19/2024 PRIMARY CARE PHYSICIAN: No primary care provider on file. OTHER PHYSICIANS: Dr. Marcos, Dr. Funez Portions of this encounter note have been copied from the note from 10/20/2023 and has been updated where appropriate, and reflect my current medical decision making from today. CC: This is a 58 year old male with metastatic prostate cancer, seen for scheduled follow-up and continued treatment. INTERIM HISTORY: Adan Menard returns for scheduled follow-up. He continues to receive Lupron every6 months from Dr. Marcos and last received on March 04. He's taking oral calcium and vitamin D. He remains on enzalutamide 160 mg daily and is tolerating it well. He denies any significant side effects. He has had some intentional weight loss. He has been doing 48-hour fasting. He denies any issues with pain. He denies any issues with urination. No pain, burning, difficulty or blood in his urine.He offers no new complaints today. No new issues, problems or concerns. Per telephone encounter 04/14/2024: Denosumab renewal denied - P2P completed 04/14/24 and decision was upheld. 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 I highlighted the location of the bone lesions included the right acetabular and femoral head whichis concerning. Dr. Rashawn Marx stated that the primary treatment for the prostate cancer those should be shrinking. If there are growing, then the diagnosis would be considered castrate resistant and we could re-visit the utilization of denosumab. Liz Alejandre, [facility] MEDICATIONS: Current Outpatient Medications Medication Sig enzalutamide (XTANDI) 80 mg tablet TAKE 2 TABLETS BY MOUTH 1 TIME A DAY. tamsulosin (FLOMAX) 0.4 mg Take 0.4 mg by mouth twice daily. IBUPROFEN ORAL Take by mouth. leuprolide (LUPRON) 1 mg/0.2 mL injection Inject 1 mg subcutaneously one time only. calcium carbonate/vitamin D3 (CALCIUM 600 + D,3, ORAL) Take by mouth. ascorbic acid (VITAMIN C ORAL) Take by mouth. elderberry fruit (ELDERBERRY ORAL) Take by mouth. aspirin, enteric coated (ASPIRIN, ENTERIC COATED) 81 mg EC tablet Take 81 mg by mouth once daily. docosahexaenoic acid/epa (FISH OIL ORAL) Take by mouth once daily. MULTI-VITAMIN ORAL Take by mouth once daily. No current facility-administered medications for this visit. ALLERGIES: ALLERGIES Allergen Reactions Ciprofloxacin Other: See Comments Abdominal breathing PAST MEDICAL HISTORY: PAST MEDICAL HISTORY Diagnosis Date BPH (benign prostatic hyperplasia) Hematospermia Prostate cancer (HCC) Urinary retention PAST SURGICAL HISTORY: PAST SURGICAL HISTORY Procedure Laterality Date PROSTATE BIOPSY W/TRANSRECTAL US FAMILY HISTORY: FAMILY HISTORY Problem Relation Age of Onset Prostate Cancer Father SOCIAL HISTORY: Social History Tobacco Use Smoking status: Every Day Current packs/day: 0.50 Types: Cigarettes Passive exposure: Current Smokeless tobacco: Never Vaping Use Vaping status: Never Used Substance Use Topics Alcohol use: Not Currently Drug use: Never REVIEW OF SYSTEMS: General: No weight loss, malaise or fevers. HEENT: Negative for frequent or significant headaches. No changes in hearing or vision, no nose bleeds or other nasal problems. Respiratory: Negative for cough, wheezing or shortness of breath. Cardiovascular: Negative for chest pain, leg swelling or palpitations. GI: Negative for abdominal discomfort, blood in stools or black stools or change in bowel habits. : No history of dysuria, frequency or incontinence. Musculoskeletal: Negative for joint pain or swelling, back pain and muscle pain. Skin: Negative for lesions, rash and itching. Hematology/Lymphology: Negative for prolonged bleeding, bruising easily or swollen nodes. Neuro: No history of headaches, syncope, paralysis, seizures or tremors. PHYSICAL EXAM: BP 144/78 Pulse 98 Temp 36.3 C (97.4 F) (Temporal) Resp 16 Ht 163.3 cm (5' 4.29 ) Wt 66.8kg (147 lb 4.3 oz) SpO2 100% BMI 25.05 kg/m ECOG 0 Exam limited to gross visualization where appropriate due to COVID-19. Gen.: This is an age-appropriate patient in no acute distress. Head: Appears atraumatic with no visible lesions. Eyes: Pupils equally round and reactive to light, extraocular muscles are intact. Neck: Supple. Mouth: Masked. Respiratory: Appears to be respiring comfortably. Neurologic: Nonfocal to gross visualization. Alert and oriented 3. Psychiatric: No evidence of inappropriate anxiety or depression. Skin: Visible areas of skin without rash, lesions, wounds or petechiae. PATHOLOGY: 03/18/2022 TRUS prostate biopsy ([facility]) Adenocarcinoma, Jackpot score 10 (1 core) left lateral base Total 12 of 14 cores involved, 60 to 100% LABS: Hemoglobin (g/dL) Date Value 04/19/2024 13.4 Hematocrit (%) Date Value 04/19/2024 37.1 WBC (k/uL) Date Value 04/19/2024 7.86 Platelet Count (k/uL) Date Value 04/19/2024 256 PSA 03/10/2022 >100.0 04/03/2022 383.9 04/28/2022 47.09 05/15/2022 4.53 ([place]) 06/19/2022 0.27 08/07/2022 0.09 10/01/2022 0.03 11/06/2022 0.02 12/23/2022 <0.02 01/13/2023 <0.02 04/21/2023 <0.02 10/20/2023 <0.02 RADIOLOGY/OTHER STUDIES: 12/17/2022 XR of ribs and chest IMPRESSION: Increase sclerosis of the anterolateral left seventh rib suspicious for underlying bone lesion corresponding with area of radiotracer uptake on prior bone scan. Suggest CT or MRI of the left ribs without contrast for further evaluation. 05/23/2022 [place] Peripheral zone of the prostate gland diffusely hypointense related to patient's known malignancy. Soft tissue thickening in the region of the right neurovascular bundle. 04/23/2022 CT abdomen/pelvis ([facility]) Bilateral nonobstructing nephrolithiasis. Enlarged heterogeneous prostate with mass protruding right posterior inferior from the gland without appreciable involvement of adjacent structures. Slightly prominent right pelvic lymph node adjacent to the external iliac artery. 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 04/23/2022 Nuclear bone scan ([facility]) Multiple bone metastases. (Increased uptake in the calvarium, right posterior seventh rib, left lateral seventh rib, left scapula, L2, L1, sacrum, right femoral head) 04/22/2022 Chest x-ray IMPRESSION: No acute radiographic abnormality. ASSESSMENT/PLAN: 1. Metastatic prostate cancer (HCC) - ICD9: 185, ICD10: C61 The patient has a long history of LUTS and developed acute urinary obstruction requiring Goodman catheter placement 03/04/2022. He was seen by urology on 03/10/2022, and evaluation revealed an enlarged prostate with diffuse nodularity and PSA > 100. TRUS biopsy 03/18/2022 revealed high-grade adenocarcinoma. Bone scan 04/23/2022 revealed diffuse bone metastases. Staging CT scans revealed regional adenopathy, but no evidence of visceral organ metastases. 03/31/2022 the patient received Lupron 45 mg IM, with plans to continue every 6 months. [id number] mg daily started 04/25/2022. Xgeva started 05/08/2022, with initial plans to give every 3 months.The patient received external beam radiation therapy to the prostate 08/05/2022 through 09/10/2022 (7000 cGy in 20 fractions). Currently the patient is clinically stable. PSA has been undetectable since December 2022. 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 Patient notified of insurance decision. The patient will continue as is with his current therapy including Lupron every [address] Marcos (next due September 2024) plus enzalutamide 160 mg daily. We will see her back in 6 months for follow-up and labs. 2. Cardiac dysrhythmia Tachycardia diagnosed as a teenager. Status post cardiac ablation 2005. Currently stable. Yamilet Graf APRN.CNP CC: Dr. Marcos, [facility] I spent a total of 30 minutes on the date of the service which included preparing to see the patient, [id number] patient care, completing clinical documentation, obtaining and/or reviewing separately obtained history, performing a medically appropriate examination, counseling and educating the pat ient/family/caregiver, ordering medications, tests, or procedures, independently interpreting results (not separately reported), and communicating results to the patient/family/caregiver. documented in this encounterPrem[facility] Telephone encounter Note * Telephone Encounter - Adriana Jamison MA - 04/18/2024 8:20 AM EDT Patient has an appt on 04/19. Would you like labs? [facility]09-16[facility]24 Miscellaneous Notes* Telephone Encounter - Adriana Jamison MA - 04/18/2024 8:20 AM EDT Patient has an appt on 04/19. Would you like labs? documented in this encounterPrem[facility]09-12-2024 Telephone encounter Note * Telephone Encounter - Ayad Harrison MD - 04/14/2024 5:50 PM EDT I will discuss this with the patient when I see him back on return visit. [facility] Miscellaneous Notes* Telephone Encounter - Ayad Harrison MD - 04/14/2024 5:50 PM EDT I will discuss this with the patient when I see him back on return visit. * Telephone Encounter - Liz Alejandre [facility] - 04/14/2024 11:34 AM EDT Denosumab renewal denied - P2P completed 04/14/24 and decision was upheld. 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 I highlighted the location of the bone lesions included the right acetabular and femoral head whichis concerning. Dr. Rashawn Marx stated that the primary treatment for the prostate cancer those should be shrinking. If there are growing, then the diagnosis would be considered castrate resistant and we could re-visit the utilization of denosumab. Liz Alejandre RPh documented in this encounterPrem[facility]09-12-2024 Telephone encounter Note * Telephone Encounter - Liz Alejandre RPh - 04/14/2024 11:34 AM EDT Denosumab renewal denied - P2P completed 04/14/24 and decision was upheld. 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 I highlighted the location of the bone lesions included the right acetabular and femoral head whichis concerning. Dr. Rashawn Marx stated that the primary treatment for the prostate cancer those should be shrinking. If there are growing, then the diagnosis would be considered castrate resistant and we could re-visit the utilization of denosumab. Liz Alejnadre RPh [facility] Work Phone: 1(684) 865-120408-02-2024 Hospital Discharge instructions Patient Education 03/04/2024 08:55:42 Erectile Dysfunction Erectile Dysfunction Erectile dysfunction (ED) is the inability to get or keep an erection in order to have sexual intercourse. ED is considered a symptom of an underlying disorder and is not considered a disease. ED mayinclude: Inability to get an erection. Lack of enough hardness of the erection to allow penetration. Loss of erection before sex is finished. What are the causes? This condition may be caused by: Physical causes, such as: ?Artery problems. This may include heart disease, high blood pressure, atherosclerosis, and diabetes. ?Hormonal problems, such as low testosterone. ?Obesity. ?Nerve problems. This may include back or pelvic injuries, multiple sclerosis, Parkinson's disease,spinal cord injury, and stroke. Certain medicines, such as: ?Pain relievers. ?Antidepressants. ?Blood pressure medicines and water pills (diuretics). ?Cancer medicines. ?Antihistamines. ?Muscle relaxants. Lifestyle factors, such as: ?Use of drugs such as marijuana, cocaine, or opioids. ?Excessive use of alcohol. ?Smoking. ?Lack of physical activity or exercise. Psychological causes, such as: ?Anxiety or stress. ?Sadness or depression. ?Exhaustion. ?Fear about sexual performance. ?Guilt. What are the signs or symptoms? Symptoms of this condition include: Inability to get an erection. Lack of enough hardness of the erection to allow penetration. Loss of the erection before sex is finished. Sometimes having normal erections, but with frequent unsatisfactory episodes. Low sexual satisfaction in either partner due to erection problems. A curved penis occurring with erection. The curve may cause pain, or the penis may be too curved toallow for intercourse. Never having nighttime or morning erections. How is this diagnosed? This condition is often diagnosed by: Performing a physical exam to find other diseases or specific problems with the penis. Asking you detailed questions about the problem. Doing tests, such as: ?Blood tests to check for diabetes mellitus or high cholesterol, or to measure hormone levels. ?Other tests to check for underlying health conditions. ?An ultrasound exam to check for scarring. ?A test to check blood flow to the penis. Doing a sleep study at home to measure nighttime erections. How is this treated? This condition may be treated by: Medicines, such as: ?Medicine taken by mouth to help you achieve an erection (oral medicine). ?Hormone replacement therapy to replace low testosterone levels. ?Medicine that is injected into the penis. Your health care provider may instruct you how to give yourself these injections at home. ?Medicine that is delivered with a short applicator tube. The tube is inserted into the opening at the tip of the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 Post op shoe for comfort - patient to get one at pharmacy. E Rest avoiding vigorous physical activity, walking for long distances or periods of time. F/u w as needed. Sep, Contusion of left elbow, subsequent encounter (ICD-10 - S50.02XD) Instructed to RICE , apply ice 2 to three times daily x 48 hours for 20 minute intervals, OTC ibuprofen with food as directed, rest --activity as tolerated. Follow up in 1 week or sooner if worsening of symptoms or new symptoms. Sep, Screening for colon cancer (ICD-10 - Z12.11) Discussed with patient the colon cancer screening options including cologuard and colonoscopy. Risks and benefits of each discussed. Patient opts for cologuard screening. Sep, Current smoker (ICD-10 - F17.200) We discussed possible complications of smoking including risk of heart disease, stroke, lung disease, and increase risk of cancer. Your goal is to quit smoking. The availability, risks, and benefits of medication used to treat nicotine addiction as releveant to you have been discussed. We are working together to achieve these goals with the following plan; barriers to these goals have been discussed. You have been given relevant education handouts and a summary of your care plan. Your next follow-up visit for this problem is six months, we will continue to ask progress for quitting and willingness to quit at each appointment. [facility] Other 01-26-2024 Hospital Discharge instructions Additional Instructions Increase your intake of fluids. Take Motrin Tylenol as needed for any aches and pains. Follow-up with the PCP for any persistent symptoms 5 to 7 days.[facility] Work Phone: [phone]) 976-896709-19-2023 History of Present illness Narrative* Ayad Harrison MD - 04/21/2023 7:27 AM EDT PATIENT NAME: Adan Menard DATE: 04/21/2023 PRIMARY CARE PHYSICIAN: No primary care provider on file. OTHER PHYSICIANS: Dr. Marcos, Dr. Funez Portions of this encounter note have been copied from the note from 01/13/2023 and has been updated where appropriate, and reflect my current medical decision making from today. CC: This is a 57 year old male with metastatic prostate cancer, seen for scheduled follow-up and continued treatment. INTERIM HISTORY: Since the patient's last visit here he has had no significant medical changes. He remains on Lupron plus enzalutamide, and is tolerating treatment well. He has occasional hot flasheswhich tend to correlate with his activities and diet. No significant side effects of treatment. Currently he denies any significant bone pain. No difficulties with urination. Overall he feels quite well and continue to work full-time. MEDICATIONS: Current Outpatient Medications Medication Sig enzalutamide (XTANDI) 80 mg tablet Take 2 tablets (160 mg) by mouth once daily. tamsulosin (FLOMAX) 0.4 mg Take 0.4 mg by mouth twice daily. IBUPROFEN ORAL Take by mouth. leuprolide (LUPRON) 1 mg/0.2 mL injection Inject 1 mg subcutaneously one time only. calcium carbonate/vitamin D3 (CALCIUM 600 + D,3, ORAL) Take by mouth. ascorbic acid (VITAMIN C ORAL) Take by mouth. elderberry fruit (ELDERBERRY ORAL) Take by mouth. aspirin, enteric coated (ASPIRIN, ENTERIC COATED) 81 mg EC tablet Take 81 mg by mouth once daily. docosahexaenoic acid/epa (FISH OIL ORAL) Take by mouth once daily. MULTI-VITAMIN ORAL Take by mouth once daily. No current facility-administered medications for this visit. ALLERGIES: ALLERGIES Allergen Reactions Ciprofloxacin Other: See Comments Abdominal breathing PAST MEDICAL HISTORY: PAST MEDICAL HISTORY Diagnosis Date BPH (benign prostatic hyperplasia) Hematospermia Prostate cancer (HCC) Urinary retention PAST SURGICAL HISTORY: PAST SURGICAL HISTORY Procedure Laterality Date PROSTATE BIOPSY W/TRANSRECTAL US FAMILY HISTORY: FAMILY HISTORY Problem Relation Age of Onset Prostate Cancer Father SOCIAL HISTORY: Social History Tobacco Use Smoking status: Every Day Packs/day: .5 Types: Cigarettes Passive exposure: Current Smokeless tobacco: Never Vaping Use Vaping Use: Never used Substance Use Topics Alcohol use: Not Currently Drug use: Never REVIEW OF SYSTEMS: General: No weight loss, malaise or fevers. HEENT: Negative for frequent or significant headaches. No changes in hearing or vision, no nose bleeds or other nasal problems. Respiratory: Negative for cough, wheezing or shortness of breath. Cardiovascular: Negative for chest pain, leg swelling or palpitations. GI: Negative for abdominal discomfort, blood in stools or black stools or change in bowel habits. : No history of dysuria, frequency or incontinence. Musculoskeletal: Negative for joint pain or swelling, back pain and muscle pain. Skin: Negative for lesions, rash and itching. Hematology/Lymphology: Negative for prolonged bleeding, bruising easily or swollen nodes. Neuro: No history of headaches, syncope, paralysis, seizures or tremors. PHYSICAL EXAM: BP 123/73 Pulse 68 Temp 36.2 C (97.1 F) (Temporal) Resp 16 Ht 163.4 cm (5' 4.33 ) Wt 71.2kg (157 lb) SpO2 99% BMI 26.67 kg/m ECOG 0 Exam limited to gross visualization where appropriate due to COVID-19. Gen.: This is an age-appropriate patient in no acute distress. Head: Appears atraumatic with no visible lesions. Eyes: Pupils equally round and reactive to light, extraocular muscles are intact. Neck: Supple. Mouth: Masked. Respiratory: Appears to be respiring comfortably. Neurologic: Nonfocal to gross visualization. Alert and oriented 3. Psychiatric: No evidence of inappropriate anxiety or depression. Skin: Visible areas of skin without rash, lesions, wounds or petechiae. PATHOLOGY: 03/18/2022 TRUS prostate biopsy ([facility]) Adenocarcinoma, Hernan score 10 (1 core) left lateral base Total 12 of 14 cores involved, 60 to 100% LABS: Hemoglobin (g/dL) Date Value 04/21/2023 13.9 Hematocrit (%) Date Value 04/21/2023 40.4 WBC (k/uL) Date Value 04/21/2023 5.37 Platelet Count (k/uL) Date Value 04/21/2023 251 PSA 03/10/2022 >100.0 04/03/2022 383.9 04/28/2022 47.09 05/15/2022 4.53 ([place]) 06/19/2022 0.27 08/07/2022 0.09 10/01/2022 0.03 11/06/2022 0.02 12/23/2022 <0.02 01/13/2023 <0.02 RADIOLOGY/OTHER STUDIES: 12/17/2022 XR of ribs and chest IMPRESSION: Increase sclerosis of the anterolateral left seventh rib suspicious for underlying bone lesion corresponding with area of radiotracer uptake on prior bone scan. Suggest CT or MRI of the left ribs without contrast for further evaluation. 05/23/2022 MRI prostate [place] Peripheral zone of the prostate gland diffusely hypointense related to patient's known malignancy. Soft tissue thickening in the region of the right neurovascular bundle. 04/23/2022 CT abdomen/pelvis ([facility]) Bilateral nonobstructing nephrolithiasis. Enlarged heterogeneous prostate with mass protruding right posterior inferior from the gland without appreciable involvement of adjacent structures. Slightly prominent right pelvic lymph node adjacent to the external iliac artery. 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 04/23/2022 Nuclear bone scan ([facility]) Multiple bone metastases. (Increased uptake in the calvarium, right posterior seventh rib, left lateral seventh rib, left scapula, L2, L1, sacrum, right femoral head) 04/22/2022 Chest x-ray IMPRESSION: No acute radiographic abnormality. ASSESSMENT/PLAN: 1. Metastatic prostate cancer (HCC) - ICD9: 185, ICD10: C61 The patient has a long history of LUTS and developed acute urinary obstruction requiring Goodman catheter placement 03/04/2022. He was seen by urology on 03/10/2022, and evaluation revealed an enlarged prostate with diffuse nodularity and PSA > 100. TRUS biopsy 03/18/2022 revealed high-grade adenocarcinoma. Bone scan 04/23/2022 revealed diffuse bone metastases. Staging CT scans revealed regional adenopathy, but no evidence of visceral organ metastases. 03/31/2022 the patient received Lupron 45 mg IM, with plans to continue every 6 months. [id number] mg daily started 04/25/2022. Xgeva started 05/08/2022, with plans to give every 3 months. The patient received external beam radiation therapy to the prostate 08/05/2022 through 09/10/2022 (7000 cGy in20 fractions). Currently the patient is clinically stable and PSA is not detectable. The patient will continue as is with his current therapy including Lupron every [address] Marcos (next due September 2023), enzalutamide 160 mg daily, and Xgeva every 3 months. He will receive Xgeva today as scheduled. Return in 3 months for follow-up and labs. 2. Cardiac dysrhythmia Tachycardia diagnosed as a teenager. Status post cardiac ablation 2005. Currently stable. Ayad Harrison MD CC: Dr. Marcos, [facility]rology documented in this encounterPrem[facility] Hospital Discharge instructions Patient Education 03/20/2023 11:11:29 Prostate Cancer Prostate Cancer The prostate is a small gland that produces fluid that makes up semen (seminal fluid). It is located below the bladder in men, in front of the rectum. Prostate cancer is the abnormal growth of cells in the prostate gland. What are the causes? The exact cause of this condition is not known. What increases the risk? You are more likely to develop this condition if: You are 65 years of age or older. You have a family history of prostate cancer. You have a family history of breast and ovarian cancer. You have genes that are passed from parent to child (inherited), such as BRCA1 and BRCA2. You have Krishna syndrome. men and men of descent are diagnosed with prostate cancer at higher rates than other men. The reasons for this are not well understood and are likely due to a combination of genetic and environmental factors. What are the signs or symptoms? Symptoms of this condition include: Problems with urination. This may include: ?A weak or interrupted flow of urine. ?Trouble starting or stopping urination. ?Trouble emptying the bladder all the way. ?The need to urinate more often, especially at night. Blood in urine or semen. Persistent pain or discomfort in the lower back, lower abdomen, or hips. Trouble getting an erection. Weakness or numbness in the legs or feet. How is this diagnosed? This condition can be diagnosed with: A digital rectal exam. For this exam, a health care provider inserts a gloved finger into the rectum to feel the prostate gland. A blood test called a prostate-specific antigen (PSA) test. A procedure in which a sample of tissue is taken from the prostate and checked under a microscope (prostate biopsy). An imaging test called transrectal ultrasonography. Once the condition is diagnosed, tests will be done to determine how far the cancer has spread. This is called staging the cancer. Staging may involve imaging tests, such as a bone scan, CT scan, PETscan, or MRI. Stages of prostate cancer The stages of prostate cancer are as follows: Stage 1 (I). At this stage, the cancer is found in the prostate only. The cancer is not visible on imaging tests, and it is usually found by accident, such as during prostate surgery. Stage 2 (II). At this stage, the cancer is more advanced than it is in stage 1, but the cancer has not spread outside the prostate. Stage 3 (III). At this stage, the cancer has spread beyond the outer layer of the prostate to nearby tissues. The cancer may be found in the seminal vesicles, which are near the bladder and the prostate. Stage 4 (IV). At this stage, the cancer has spread to other parts of the body, such as the lymph nodes, bones, bladder, rectum, liver, or lungs. Prostate cancer grading Prostate cancer is also graded according to how the cancer cells look under a microscope. This is called the Hernan score and the total score can range from 6 10, indicating how likely it is that the cancer will spread (metastasize) to other parts of the body. The higher the score, the greater thelikelihood that the cancer will spread. Jackpot 6 or lower: This indicates that the cancer cells look similar to normal prostate cells (well differentiated). Hernan 7: This indicates that the cancer cells look somewhat similar to normal prostate cells (moderately differentiated). Hernan 8, 9, or 10: This indicates that the cancer cells look very different than normal prostate cells (poorly differentiated). How is this treated? Treatment for this condition depends on several factors, including the stage of the cancer, your age, personal preferences, and your overall health. Talk with your health care provider about treatment options that are recommended for you. Common treatments include: Observation for early stage prostate cancer (active surveillance). This involves having exams, blood tests, and in some cases, more biopsies. For some men, this is the only treatment needed. Surgery. Types of surgeries include: ?Open surgery (radical prostatectomy). In this surgery, a larger incision is made to remove the prostate. ?A laparoscopic radical prostatectomy. This is a surgery to remove the prostate and lymph nodes through several small incisions. It is often referred to as a minimally invasive surgery. ?A robotic radical prostatectomy. This is laparoscopic surgery to remove the prostate and lymph nodes with the help of robotic arms that are controlled by the surgeon. ?Cryoablation. This is surgery to freeze and destroy cancer cells. Radiation treatment. Types of radiation treatment include: ?External beam radiation. This type aims beams of radiation from outside the body at the prostate to destroy cancerous cells. ?Brachytherapy. This type uses radioactive needles, seeds, wires, or tubes that are implanted into the prostate gland. Like external beam radiation, brachytherapy destroys cancerous cells. An advantage is that this type of radiation limits the damage to surrounding tissue and has fewer side effects. Chemotherapy. This treatment kills cancer cells or stops them from multiplying. It kills both cancer cells and normal cells. Targeted therapy. This treatment uses medicines to kill cancer cells without damaging normal cells. Hormone treatment. This treatment involves taking medicines that act on testosterone, one of the male hormones, by: ?Stopping your body from producing testosterone. ?Blocking testosterone from reaching cancer cells. Follow these instructions at home: Lifestyle Do not use any products that contain nicotine or tobacco. These products include cigarettes, chewing tobacco, and vaping devices, such as e-cigarettes. If you need help quitting, ask your health careprovider. Eat a healthy diet. To do this: ?Eat foods that are high in fiber. These include beans, whole grains, and fresh fruits and vegetables. ?Limit foods that are high in fat and sugar. These include fried or sweet foods. Treatment for prostate cancer may affect sexual function. If you have a partner, continue to have intimate moments. This may include touching, holding, hugging, and caressing your partner. Get plenty of sleep. Consider joining a support group for men who have prostate cancer. Meeting with a support group mayhelp you learn to manage the stress of having cancer. General instructions Take [id number] and prescription medicines only as told by your health care provider. If you have to go to the hospital, notify your cancer specialist (oncologist). Keep all follow-up visits. This is important. Where to find more information [place] [employer]: www.cancer.org [place] [employer]: www.cancer.net National Cancer [place]: www.cancer.gov Contact a health care provider if: You have new or increasing trouble urinating. You have new or increasing blood in your urine. You have new or increasing pain in your hips, back, or chest. Get help right away if: You have weakness or numbness in your legs. You cannot control urination or your bowel movements (incontinence). You have chills or a fever. Summary The prostate is a small gland that is involved in the production of semen. It is located below a man's bladder, in front of the rectum. Prostate cancer is the abnormal growth of cells in the prostate gland. Treatment for this condition depends on the stage of the cancer, your age, personal preferences, and your overall health. Talk with your health care provider about treatment options that are recommended for you. Consider joining a support group for men who have prostate cancer. Meeting with a support group mayhelp you learn to manage the stress of having cancer. This information is not intended to replace advice given to you by your health care provider. Make sure you discuss any questions you have with your health care provider. Document Revised: 10/16/2021 Document Reviewed: 10/16/2021 [employer] Patient Education 2022 [employer]. Follow Up Care 09/19/2022 10:23:40 With:PRITI JONES, Eloise Mccarthy, URL Address: [address] [place], [place] [id number]- When: Unknown [facility] 06-06-2023 Miscellaneous Notes* Telephone Encounter - Adriana Jamison - 01/06/2023 3:38 PM EDT Patient has an OTV appointment on 12/13. Please place lab orders. Adriana Jamison documented in this encounterPremier [facility]05-23-2023 History of Present illness Narrative* Joe Funez MD - 12/23/2022 11:00 AM EDT Radiation Oncology - Follow Up Note PATIENT NAME: Adan Menard PATIENT DIAGNOSIS: Prostate adenocarcinoma, initial PSA 383.9, biopsy Hernan score 5 + 5 = 10 (grade group5), clinical stage T3a, N1, M1, stage IVB [any T, any N, M1, any PSA, any GG] (AJCC 8th ed.), s/p TRUS Random biopsy. RADIATION SUMMARY: DATES OF TREATMENT: 08-05-2022 to 09-10-2022 AREA TREATED: Prostate DELIVERED DOSE: Area: Prostate with daily CBCT Imaging 7000 cGy in 28 fractions, 2 VMAT Arc Aguilar,10X TOTAL: 7000cGy in 28 fractions ELAPSED TIME: 37 days. INTERVAL HISTORY: Patient overall doing well. He remains very active doing construction/remodeling work. He has developed some left rib pain that is episodic for him. He did undergo imaging as noted below. He is here today to discuss this. He states his pain is better over the last couple days. RADIOLOGY: X-ray left rib: Increase sclerosis of the anterolateral left seventh rib suspicious for underlying bone lesion corresponding with area of radiotracer uptake on prior bone scan. Suggest CT or MRI of the left ribs without contrast for further evaluation. PSA HISTORY: PSA (ng/mL) Date Value 12/23/2022 <0.02 11/06/2022 0.02 10/01/2022 0.03 08/07/2022 0.09 ALLERGIES Allergen Reactions Ciprofloxacin Other: See Comments Abdominal breathing enzalutamide (XTANDI) 80 mg tablet Take 2 tablets (160 mg) by mouth once daily. tamsulosin (FLOMAX) 0.4 mg Take 0.4 mg by mouth twice daily. IBUPROFEN ORAL Take by mouth. leuprolide (LUPRON) 1 mg/0.2 mL injection Inject 1 mg subcutaneously one time only. calcium carbonate/vitamin D3 (CALCIUM 600 + D,3, ORAL) Take by mouth. ascorbic acid (VITAMIN C ORAL) Take by mouth. elderberry fruit (ELDERBERRY ORAL) Take by mouth. aspirin, enteric coated (ASPIRIN, ENTERIC COATED) 81 mg EC tablet Take 81 mg by mouth once daily. docosahexaenoic acid/epa (FISH OIL ORAL) Take by mouth once daily. MULTI-VITAMIN ORAL Take by mouth once daily. REVIEW OF SYSTEMS: Denies any chest pain or shortness of breath. No cough. Bladder function stable with some frequency, generally good stream. PHYSICAL EXAM: BP 123/77 Pulse 82 Temp 36.3 C (97.4 F) Resp 16 Wt 72.1 kg (159 lb) SpO2 98% BMI 27.01 kg/m KPS: 100 General Appearance: Alert and oriented. No acute distress. Lungs clear to auscultation percussion No significant skeletal pain or percussion Rectal exam is deferred. ASSESSMENT/PLAN: Prostate adenocarcinoma, initial PSA 383.9, biopsy Hernan score 5 + 5 = 10 (gradegroup 5), clinical stage T3a, N1, M1, stage IVB [any T, any N, M1, any PSA, any GG] (AJCC 8th ed.),s/p TRUS Random biopsy. Patient has had a good response to his treatment including ADT with currently PSA 0. I did review imaging and clearly there was a rib lesion initially as seen on bone scan and an area of sclerosis matches this. However it is unclear whether this is active thus causing him pain or an area of old involvement that is an active. Given his PSA 0 and the pain is intermittent we will plan to hold off onradiation. Signed by: Joe Funez MD cc: To use this Smartlink, specify the provider ID whose address you want to display, e.g., .PROVADDR[1(where 1 is the provider ID). Joe Funez [address] [place] [address] [place] [address] documented in this encounterPremier [facility]05-17-2023 History of Present illness Narrative* Martita Epstein RT(R) - 12/17/2022 1:00 PM EDT Radiology Service Progress Note PATIENT NAME: Adan Menard DATE OF SERVICE: December 17, 2022 TIME: 2:14 PM PATIENT IDENTITY VERIFICATION COMPLETED USING TWO (2) IDENTIFIERS: Name and Date of confirmedby patient verbally. FALL SCREENING: Has the patient had 2 falls in the last year or 1 fall with injury or currently using an Ambulatory Assistive Device (Walker, Cane, Wheelchair, Crutches, etc.)? No PATIENT GENDER DATA: Male PATIENT RELEVANT IMPLANT DATA REVIEWED: Not Applicable RADIOLOGY DEPARTMENT: General X-ray: Exam(s) Completed: Rib X-Ray: Left PERIPHERAL IV DATA: Not applicable SIGNED BY: RT Anahi(R) December 17, 2022 2:14 PM documented in this encounterPremier Health [facility] Center04-10-2023 Miscellaneous Notes* Telephone Encounter - Kalani Stephenson RN - 11/10/2022 4:13 PM EDT Received call from pt requesting refill of Xtandi to be sent to [facility] specialty pharmacy. Pt states he only has about a week left and doesn't want to run out. BRM: Order pending. Please review and sign. Kalani Stephenson RN documented in this encounterPremier Health [facility] Center04-06-2023 History of Present illness Narrative* Ayad Harrison MD - 11/06/2022 8:23 AM EDT PATIENT NAME: Adan Menard DATE: 11/06/2022 PRIMARY CARE PHYSICIAN: No primary care provider on file. OTHER PHYSICIANS: Dr. Marcos, Dr. Funez Portions of this encounter note have been copied from the note from 08/07/2022 and has been updated where appropriate, and reflect my current medical decision making from today. CC: This is a 57 year old male with metastatic prostate cancer, seen for scheduled follow-up and continued treatment. INTERIM HISTORY: Since the patient's last visit here he received radiation therapy to the prostate08/05/2022 through 09/10/2022 (7000 cGy in 20 fractions). He had moderate diarrhea during treatment, otherwise no obvious side effects. His urinary symptoms have improved significantly. He remains on Lupron every 6 months plus enzalutamide and appears to be tolerating treatment well. Over the past few months he has noticed bilateral ankle swelling, particularly in the evenings. No unusual leg pain or redness. He denies any bone pain or other systemic symptoms. 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 MEDICATIONS: Current Outpatient Medications Medication Sig tamsulosin (FLOMAX) 0.4 mg Take 0.4 mg by mouth twice daily. XTANDI 40 mg IBUPROFEN ORAL Take by mouth. leuprolide (LUPRON) 1 mg/0.2 mL injection Inject 1 mg subcutaneously one time only. calcium carbonate/vitamin D3 (CALCIUM 600 + D,3, ORAL) Take by mouth. ascorbic acid (VITAMIN C ORAL) Take by mouth. elderberry fruit (ELDERBERRY ORAL) Take by mouth. aspirin, enteric coated (ASPIRIN, ENTERIC COATED) 81 mg EC tablet Take 81 mg by mouth once daily. docosahexaenoic acid/epa (FISH OIL ORAL) Take by mouth once daily. MULTI-VITAMIN ORAL Take by mouth once daily. No current facility-administered medications for this visit. ALLERGIES: ALLERGIES Allergen Reactions Ciprofloxacin Other: See Comments Abdominal breathing PAST MEDICAL HISTORY: PAST MEDICAL HISTORY Diagnosis Date BPH (benign prostatic hyperplasia) Hematospermia Prostate cancer (HCC) Urinary retention PAST SURGICAL HISTORY: PAST SURGICAL HISTORY Procedure Laterality Date PROSTATE BIOPSY W/TRANSRECTAL US FAMILY HISTORY: FAMILY HISTORY Problem Relation Age of Onset Prostate Cancer Father SOCIAL HISTORY: Social History Tobacco Use Smoking status: Every Day Types: Cigarettes Passive exposure: Current Smokeless tobacco: Never Substance Use Topics Alcohol use: Not Currently Drug use: Never REVIEW OF SYSTEMS: General: No weight loss, malaise or fevers. HEENT: Negative for frequent or significant headaches. No changes in hearing or vision, no nose bleeds or other nasal problems. Respiratory: Negative for cough, wheezing or shortness of breath. Cardiovascular: Negative for chest pain, leg swelling or palpitations. GI: Negative for abdominal discomfort, blood in stools or black stools or change in bowel habits. : No history of dysuria, frequency or incontinence. Musculoskeletal: Negative for joint pain or swelling, back pain and muscle pain. Skin: Negative for lesions, rash and itching. Hematology/Lymphology: Negative for prolonged bleeding, bruising easily or swollen nodes. Neuro: No history of headaches, syncope, paralysis, seizures or tremors. PHYSICAL EXAM: BP 149/75 Pulse 79 Temp 36.2 C (97.2 F) (Temporal) Resp 16 Ht 163.4 cm (5' 4.33 ) Wt 74.4kg (164 lb) SpO2 100% BMI 27.86 kg/m ECOG 0 Exam limited to gross visualization where appropriate due to COVID-19. Gen.: This is an age-appropriate patient in no acute distress. Head: Appears atraumatic with no visible lesions. Eyes: Pupils equally round and reactive to light, extraocular muscles are intact. Neck: Supple. Mouth: Masked. Respiratory: Appears to be respiring comfortably. Neurologic: Nonfocal to gross visualization. Alert and oriented 3. Psychiatric: No evidence of inappropriate anxiety or depression. Skin: Visible areas of skin without rash, lesions, wounds or petechiae. PATHOLOGY: 03/18/2022 TRUS prostate biopsy ([facility]) Adenocarcinoma, Hernan score 10 (1 core) left lateral base Total 12 of 14 cores involved, 60 to 100% LABS: Hemoglobin (g/dL) Date Value 11/06/2022 13.2 Hematocrit (%) Date Value 11/06/2022 39.8 WBC (k/uL) Date Value 11/06/2022 5.99 Platelet Count (k/uL) Date Value 11/06/2022 257 PSA 03/10/2022 >100.0 04/03/2022 383.9 04/28/2022 47.09 05/15/2022 4.53 ([place]) 06/19/2022 0.27 08/07/2022 0.09 10/01/2022 0.03 11/06/2022 RADIOLOGY/OTHER STUDIES: 05/23/2022 [place] prostate [place] Peripheral zone of the prostate gland diffusely hypointense related to patient's known malignancy. Soft tissue thickening in the region of the right neurovascular bundle. 04/23/2022 CT abdomen/pelvis ([facility]) Bilateral nonobstructing nephrolithiasis. Enlarged heterogeneous prostate with mass protruding right posterior inferior from the gland without appreciable involvement of adjacent structures. Slightly prominent right pelvic lymph node adjacent to the external iliac artery. 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 04/23/2022 Nuclear bone scan ([facility]) Multiple bone metastases. (Increased uptake in the calvarium, right posterior seventh rib, left lateral seventh rib, left scapula, L2, L1, sacrum, right femoral head) 04/22/2022 Chest x-ray IMPRESSION: No acute radiographic abnormality. ASSESSMENT/PLAN: 1. Metastatic prostate cancer (HCC) - ICD9: 185, ICD10: C61 The patient has a long history of LUTS and developed acute urinary obstruction requiring Goodman catheter placement 03/04/2022. He was seen by urology on 03/10/2022, and evaluation revealed an enlarged prostate with diffuse nodularity and PSA > 100. TRUS biopsy 03/18/2022 revealed high-grade adenocarcinoma. Bone scan 04/23/2022 revealed diffuse bone metastases. Staging CT scans revealed regional adenopathy, but no evidence of visceral organ metastases. 03/31/2022 the patient received Lupron 45 mg IM, with plans to continue every 6 months. [id number] mg daily started 04/25/2022. Xgeva started 05/08/2022, with plans to give every 3 months. The patient received external beam radiation therapy to the prostate 08/05/2022 through 09/10/2022 (7000 cGy in20 fractions). Since starting treatment the patient has improved clinically and his PSA has decreased significantly. He is currently clinically stable and asymptomatic. For now he will continue as is with his current medications. We will see him every 3 months for follow-up, labs and Xgeva. He will receive Lupron every [address] Marcos (September). I suspect the patient has mild fluid retention secondary to hormonal therapy. I suggested he wear support hose during the day. Diuretics will be offered if symptoms worsen. 2. Cardiac dysrhythmia Tachycardia diagnosed as a teenager. Status post cardiac ablation 2005. Currently stable. Ayad Harrison MD CC: Dr. Marcos, [facility] urology documented in this encounterPremier Health [facility]02-17-2023 Hospital Discharge instructions Patient Education 09/19/2022 10:07:29 Prostate Cancer Prostate Cancer The prostate is a walnut-sized gland that is involved in the production of semen. It is located below a man's bladder, in front of the rectum. Prostate cancer is the abnormal growth of cells in the prostate gland. What are the causes? The exact cause of this condition is not known. What increases the risk? This condition is more likely to develop in men who: Are older than age 65. Are -[place]. Are obese. Have a family history of prostate cancer. Have a family history of breast cancer. What are the signs or symptoms? Symptoms of this condition include: A need to urinate often. Weak or interrupted flow of urine. Trouble starting or stopping urination. Inability to urinate. Pain or burning during urination. Painful ejaculation. Blood in urine or semen. Persistent pain or discomfort in the lower back, lower abdomen, hips, or upper thighs. Trouble getting an erection. Trouble emptying the bladder all the way. How is this diagnosed? This condition can be diagnosed with: A digital rectal exam. For this exam, a health care provider inserts a gloved finger into the rectum to feel the prostate gland. A blood test called a prostate-specific antigen (PSA) test. An imaging test called transrectal ultrasonography. A procedure in which a sample of tissue is taken from the prostate and examined under a microscope (prostate biopsy). Once the condition is diagnosed, tests will be done to determine how far the cancer has spread. This is called staging the cancer. Staging may involve imaging tests, such as: A bone scan. A CT scan. A PET scan. An MRI. The stages of prostate cancer are as follows: Stage I. At this stage, the cancer is found in the prostate only. The cancer is not visible on imaging tests and it is usually found by accident, such as during a prostate surgery. Stage II. At this stage, the cancer is more advanced than it is in stage I, but the cancer has not spread outside the prostate. Stage III. At this stage, the cancer has spread beyond the outer layer of the prostate to nearby tissues. The cancer may be found in the seminal vesicles, which are near the bladder and the prostate. Stage IV. At this stage, the cancer has spread other parts of the body, such as the lymph nodes, bones, bladder, rectum, liver, or lungs. How is this treated? Treatment for this condition depends on several factors, including the stage of the cancer, your age, personal preferences, and your overall health. Talk with your health care provider about treatment options that are recommended for you. Common treatments include: Observation for early stage prostate cancer (active surveillance). This involves having exams, blood tests, and in some cases, more biopsies. For some men, this is the only treatment needed. Surgery. Types of surgeries include: ?Open surgery. In this surgery, a larger incision is made to remove the prostate. ?A laparoscopic prostatectomy. This is a surgery to remove the prostate and lymph nodes through several, small incisions. It is often referred to as a minimally invasive surgery. ?A robotic prostatectomy. This is a surgery to remove the prostate and lymph nodes with the help ofa robotic arm that is controlled by a computer. ?Orchiectomy. This is a surgery to remove the testicles. ?Cryosurgery. This is a surgery to freeze and destroy cancer cells. Radiation treatment. Types of radiation treatment include: ?External beam radiation. This type aims beams of radiation from outside the body at the prostate to destroy cancerous cells. ?Brachytherapy. This type uses radioactive needles, seeds, wires, or tubes that are implanted into the prostate gland. Like external beam radiation, brachytherapy destroys cancerous cells. An advantage is that this type of radiation limits the damage to surrounding tissue and has fewer side effects. High-intensity, focused ultrasonography. This treatment destroys cancer cells by delivering high-energy ultrasound waves to the cancerous cells. Chemotherapy medicines. This treatment kills cancer cells or stops them from multiplying. Hormone treatment. This treatment involves taking medicines that act on one of the male hormones (testosterone): ?By stopping your body from producing testosterone. ?By blocking testosterone from reaching cancer cells. Follow these instructions at home: Take [id number] and prescription medicines only as told by your health care provider. Maintain a healthy diet. Get plenty of sleep. Consider joining a support group for men who have prostate cancer. Meeting with a support group mayhelp you learn to cope with the stress of having cancer. Keep all follow-up visits as told by your health care provider. This is important. If you have to go to the hospital, notify your cancer specialist (oncologist). Treatment for prostate cancer may affect sexual function. Continue to have intimate moments with your partner. This may include touching, holding, hugging, and caressing. Contact a health care provider if: You have trouble urinating. You have blood in your urine. You have pain in your hips, back, or chest. Get help right away if: You have weakness or numbness in your legs. You cannot control urination or your bowel movements (incontinence). You have trouble breathing. You have sudden chest pain. You have chills or a fever. Summary The prostate is a walnut-sized gland that is involved in the production of semen. It is located below a man's bladder, in front of the rectum. Prostate cancer is the abnormal growth of cells in the prostate gland. Treatment for this condition depends on several factors, including the stage of the cancer, your age, personal preferences, and your overall health. Talk with your health care provider about treatment options that are recommended for you. Consider joining a support group for men who have prostate cancer. Meeting with a support group mayhelp you learn to cope with the stress of having cancer. This information is not intended to replace advice given to you by your health care provider. Make sure you discuss any questions you have with your health care provider. Document Released: 07/20/2006 Document Revised: 07/02/2018 Document Reviewed: 03/30/2017 [employer] Patient Education 2020 [employer]. Follow Up Care 05/29/2022 14:25:42 With:PRITI JONES, Eloise Mccarthy, URL Address: [address] [place] [address] [place] [address]- When: Unknown [facility] 02-09-2023 History of Present illness Narrative* Pete Kc MD - 09/11/2022 11:33 PM EST Radiation Oncology - On Treatment Review (OTR) Note PATIENT NAME: Adan Menard PATIENT Pete Kc MD documented in this encounterPremier Health [facility]02-09-2023 History of Present illness Narrative* Joe Funez MD - 09/11/2022 12:00 AM EST [facility] Radiation Oncology Department RADIATION ONCOLOGY - COMPLETION NOTE PATIENT: ADAN MENARDDOB: 1965 DATES OF TREATMENT: 08-05-2022 to 09-10-2022 DIAGNOSIS: Prostate adenocarcinoma, initial PSA 383.9, biopsy Jackpot score 5 + 5 = 10 (grade group5), clinical stage T3a, N1, M1, stage IVB [any T, any N, M1, any PSA, any GG] (AJCC 8th ed.), s/p TRUS Random biopsy. AREA TREATED: Prostate DELIVERED DOSE: Area: Prostate with daily CBCT Imaging 7000cGy in 28 fractions, 2 VMAT Arc Aguilar, 10X TOTAL: 7000cGy in 28 fractions ELAPSED TIME: 37 days. CLINICAL SUMMARY: The patient tolerated radiation with mild to moderate radiation related cystitis/prostatitis and fatigue as expected. No other issues. The patient was able to complete treatment as intended without break interruption or modification of prescription plan. The disease response will be assesses in clinic. The patient will be seen again in 2-3 weeks for post radiation follow-up. Staff Physician Cornell Funez M.D. / KG 33:00 PM documented in this encounterPremier Health [facility]02-06-2023 History of Present illness Narrative* Joe Funez MD - 09/08/2022 10:35 AM EST Radiation Oncology - On Treatment Review (OTR) Note PATIENT NAME: Adan Menard PATIENT DIAGNOSIS: Prostate adenocarcinoma, initial PSA 383.9, biopsy Hernan score 5 + 5 = 10 (grade group5), clinical stage T3a, N1, M1, stage IVB [any T, any N, M1, any PSA, any GG] (AJCC 8th ed.), s/p TRUS Random biopsy. COURSE: definitive Current dose: 6250 cGy in 25 fx Planned dose: 7000 cGy in 28 fx SUBJECTIVE: Symptoms fairly stable. Having more symptoms for the end of the week. Improvement on the weekend seemed a little bit slower this week. No other new issues. PHYSICAL EXAM: 09/08/22 1040 BP: (P) 135/83 Pulse: (P) 104 Resp: (P) 16 Temp: (P) 36.4 C (97.5 F) SpO2: (P) 100% Weight: (P) 71.2 kg (157 lb) KPS: 100 General Appearance: Alert and oriented. No acute distress. IMAGING/LAB RESULTS: Hemoglobin (g/dL) Date Value 08/07/2022 13.2 Hematocrit (%) Date Value 08/07/2022 38.4 WBC (k/uL) Date Value 08/07/2022 6.80 Platelet Count (k/uL) Date Value 08/07/2022 308 PSA (ng/mL) Date Value 08/07/2022 0.09 06/19/2022 0.27 04/28/2022 47.09 04/03/2022 383.90 TOXICITY ASSESSMENT (CTC v4.0): Fatigue:grade 0 - No symptoms Radiation Dermatitis: grade 0 - No symptoms Diarrhea:grade 1 Proctitis: grade 0 - No symptoms Urinary frequency: grade 1 Dysuria: grade 0 - No symptoms Urinary incontinence: grade 0 (No symptoms) Urinary retention: grade 1 Treatment chart checked: Yes Patient treatment site reviewed and verified:Yes Port films reviewed and current:Yes Medications started: None ASSESSMENT/PLAN: Patient doing well. Chart and imaging reviewed. Continue radiation as outlined. Patient will finish this week. Follow-up care discussed. Joe Funez MD documented in this encounterPremier Health [facility]01-30-2023 History of Present illness Narrative* Joe Funez MD - 09/01/2022 11:55 AM EST Radiation Oncology - On Treatment Review (OTR) Note PATIENT NAME: Adan Menard PATIENT DIAGNOSIS: Prostate adenocarcinoma, initial PSA 383.9, biopsy Jackpot score 5 + 5 = 10 (grade group5), clinical stage T3a, N1, M1, stage IVB [any T, any N, M1, any PSA, any GG] (AJCC 8th ed.), s/p TRUS Random biopsy. COURSE: definitive Current dose: 5000 cGy in 20 fx Planned dose: 7000 cGy in 28 fx SUBJECTIVE: Symptoms fairly stable. Still with intermittent obstructive issues. PHYSICAL EXAM: 09/01/22 1156 BP: 150/91 Pulse: 76 Resp: 16 Temp: 36.3 C (97.4 F) TempSrc: Temporal SpO2: 100% Weight: 71 kg (156 lb 9.6 oz) KPS: 100 General Appearance: Alert and oriented. No acute distress. IMAGING/LAB RESULTS: Hemoglobin (g/dL) Date Value 08/07/2022 13.2 Hematocrit (%) Date Value 08/07/2022 38.4 WBC (k/uL) Date Value 08/07/2022 6.80 Platelet Count (k/uL) Date Value 08/07/2022 308 PSA (ng/mL) Date Value 08/07/2022 0.09 06/19/2022 0.27 04/28/2022 47.09 04/03/2022 383.90 TOXICITY ASSESSMENT (CTC v4.0): Fatigue:grade 0 - No symptoms Radiation Dermatitis: grade 0 - No symptoms Diarrhea:grade 1 Proctitis: grade 0 - No symptoms Urinary frequency: grade 1 Dysuria: grade 0 - No symptoms Urinary incontinence: grade 0 (No symptoms) Urinary retention: grade 1 Treatment chart checked: Yes Patient treatment site reviewed and verified:Yes Port films reviewed and current:Yes Medications started: None ASSESSMENT/PLAN: Patient doing well. Chart and imaging reviewed. Continue radiation as outlined. Joe Funez MD documented in this encounterPremier Health [facility] Center01-23-2023 History of Present illness Narrative* Joe Funez MD - 08/25/2022 10:34 AM EST Radiation Oncology - On Treatment Review (OTR) Note PATIENT NAME: Adan Menard PATIENT DIAGNOSIS: Prostate adenocarcinoma, initial PSA 383.9, biopsy Hernan score 5 + 5 = 10 (grade group5), clinical stage T3a, N1, M1, stage IVB [any T, any N, M1, any PSA, any GG] (AJCC 8th ed.), s/p TRUS Random biopsy. COURSE: definitive Current dose: 3750 cGy in 15 fx Planned dose: 7000 cGy in 28 fx SUBJECTIVE: Symptoms fairly stable. Better on the weekend. PHYSICAL EXAM: 08/25/22 1033 BP: 128/80 Pulse: 89 Resp: 16 Temp: 36.4 C (97.5 F) TempSrc: Temporal SpO2: 100% Weight: 70.6 kg (155 lb 9.6 oz) KPS: 100 General Appearance: Alert and oriented. No acute distress. IMAGING/LAB RESULTS: Hemoglobin (g/dL) Date Value 08/07/2022 13.2 Hematocrit (%) Date Value 08/07/2022 38.4 WBC (k/uL) Date Value 08/07/2022 6.80 Platelet Count (k/uL) Date Value 08/07/2022 308 PSA (ng/mL) Date Value 08/07/2022 0.09 06/19/2022 0.27 04/28/2022 47.09 04/03/2022 383.90 TOXICITY ASSESSMENT (CTC v4.0): Fatigue:grade 0 - No symptoms Radiation Dermatitis: grade 0 - No symptoms Diarrhea:grade 1 Proctitis: grade 0 - No symptoms Urinary frequency: grade 1 Dysuria: grade 0 - No symptoms Urinary incontinence: grade 0 (No symptoms) Urinary retention: grade 1 Treatment chart checked: Yes Patient treatment site reviewed and verified:Yes Port films reviewed and current:Yes Medications started: None ASSESSMENT/PLAN: Doing well. Patient wanting to take a Thursday or 2 off. Seems to help his overall acute symptoms. Discussed medicine length, patient may take this Thursday off. Otherwise continue radiation as outlined. Joe Funez MD documented in this encounterPrem[facility]-16-[facility] History of Present illness Narrative* Joe Funez MD - 08/18/2022 10:27 AM EST Radiation Oncology - On Treatment Review (OTR) Note PATIENT NAME: Adan Menard PATIENT DIAGNOSIS: Prostate adenocarcinoma, initial PSA 383.9, biopsy Hernan score 5 + 5 = 10 (grade group5), clinical stage T3a, N1, M1, stage IVB [any T, any N, M1, any PSA, any GG] (AJCC 8th ed.), s/p TRUS Random biopsy. COURSE: definitive Current dose: 2500 cGy in 10 fx Planned dose: 7000 cGy in 28 fx SUBJECTIVE: Having issues with increased urinary frequency some occasional hesitancy mostly in the morning. Some discomfort in the perineal area. PHYSICAL EXAM: KPS: 100 General Appearance: Alert and oriented. No acute distress. IMAGING/LAB RESULTS: Hemoglobin (g/dL) Date Value 08/07/2022 13.2 Hematocrit (%) Date Value 08/07/2022 38.4 WBC (k/uL) Date Value 08/07/2022 6.80 Platelet Count (k/uL) Date Value 08/07/2022 308 PSA (ng/mL) Date Value 08/07/2022 0.09 06/19/2022 0.27 04/28/2022 47.09 04/03/2022 383.90 TOXICITY ASSESSMENT (CTC v4.0): Fatigue:grade 0 - No symptoms Radiation Dermatitis: grade 0 - No symptoms Diarrhea:grade 1 Proctitis: grade 0 - No symptoms Urinary frequency: grade 1 Dysuria: grade 0 - No symptoms Urinary incontinence: grade 0 (No symptoms) Urinary retention: grade 1 Treatment chart checked: Yes Patient treatment site reviewed and verified:Yes Port films reviewed and current:Yes Medications started: None ASSESSMENT/PLAN: Doing well. Discussed Flomax twice daily. Continue radiation. Joe Funez MD documented in this encounterPrem[facility]01-05-2023 History of Present illness Narrative* Mary Motley RN - 08/07/2022 2:43 PM EST Patient Identification confirmed: yes. Injection given and documented on OCT per provider order. Mary Motley RN documented in this encounterPremier [facility]01-05-2023 History of Present illness Narrative* Yamilet Graf APRN.CNP - 08/07/2022 1:30 PM EST PATIENT NAME: Adan Menard DATE: 08/07/2022 PRIMARY CARE PHYSICIAN: No primary care provider on file. OTHER PHYSICIANS: Dr. Marcos, Dr. Funez Portions of this encounter note have been copied from Dr. Ayad Harrison's note from 06/19/2022 and has been updated where appropriate, and reflect my current medical decision making from today. CC: This is a 56 year old male with metastatic prostate cancer, seen for scheduled follow-up and continued treatment. INTERIM HISTORY: Adan Menard returns for follow-up. Since his last visit there has been no significant medical changes. He remains on treatment with enzalutamide 160 mg daily, every 3-month Xgeva and every 6-month Lupron which he is tolerating it well. He denies any side effects from the enzalutamide. He started radiation on 08/05/2022. 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 He takes ibuprofen before bed with improvement. He denies any other unusual pains. He remains on calcium and vitamin D. He is urinating without any problems. He has not had to straightcath. There has been no changes in the condition of his teeth nor does he have any upcoming extracti ons scheduled. He offers no new complaints today. No new issues, problems or concerns. MEDICATIONS: Current Outpatient Medications Medication Sig tamsulosin (FLOMAX) 0.4 mg Take 0.4 mg by mouth once daily. XTANDI 40 mg IBUPROFEN ORAL Take by mouth. leuprolide (LUPRON) 1 mg/0.2 mL injection Inject 1 mg subcutaneously one time only. calcium carbonate/vitamin D3 (CALCIUM 600 + D,3, ORAL) Take by mouth. ascorbic acid (VITAMIN C ORAL) Take by mouth. elderberry fruit (ELDERBERRY ORAL) Take by mouth. aspirin, enteric coated (ASPIRIN, ENTERIC COATED) 81 mg EC tablet Take 81 mg by mouth once daily. docosahexaenoic acid/epa (FISH OIL ORAL) Take by mouth once daily. MULTI-VITAMIN ORAL Take by mouth once daily. No current facility-administered medications for this visit. ALLERGIES: ALLERGIES Allergen Reactions Ciprofloxacin Other: See Comments Abdominal breathing PAST MEDICAL HISTORY: PAST MEDICAL HISTORY Diagnosis Date BPH (benign prostatic hyperplasia) Hematospermia Prostate cancer (HCC) Urinary retention PAST SURGICAL HISTORY: PAST SURGICAL HISTORY Procedure Laterality Date PROSTATE BIOPSY W/TRANSRECTAL US FAMILY HISTORY: FAMILY HISTORY Problem Relation Age of Onset Prostate Cancer Father SOCIAL HISTORY: Social History Tobacco Use Smoking status: Every Day Types: Cigarettes Passive exposure: Current Smokeless tobacco: Never Substance Use Topics Alcohol use: Not Currently Drug use: Never REVIEW OF SYSTEMS: General: No weight loss, malaise or fevers. HEENT: Negative for frequent or significant headaches. No changes in hearing or vision, no nose bleeds or other nasal problems. Respiratory: Negative for cough, wheezing or shortness of breath. Cardiovascular: Negative for chest pain, leg swelling or palpitations. GI: Negative for abdominal discomfort, blood in stools or black stools or change in bowel habits. : No history of dysuria, frequency or incontinence. Musculoskeletal: Negative for joint pain or swelling, back pain and muscle pain. Skin: Negative for lesions, rash and itching. Hematology/Lymphology: Negative for prolonged bleeding, bruising easily or swollen nodes. Neuro: No history of headaches, syncope, paralysis, seizures or tremors. PHYSICAL EXAM: BP 129/76 Pulse 85 Temp 36.3 C (97.3 F) (Temporal) Resp 16 Ht 163.4 cm (5' 4.33 ) Wt 69.9kg (154 lb) SpO2 99% BMI 26.16 kg/m ECOG 0 Exam limited to gross visualization where appropriate due to COVID-19. Gen.: This is an age-appropriate patient in no acute distress. Head: Appears atraumatic with no visible lesions. Eyes: Pupils equally round and reactive to light, extraocular muscles are intact. Neck: Supple. Mouth: Masked. Respiratory: Appears to be respiring comfortably. Neurologic: Nonfocal to gross visualization. Alert and oriented 3. Psychiatric: No evidence of inappropriate anxiety or depression. Skin: Visible areas of skin without rash, lesions, wounds or petechiae. PATHOLOGY: 03/18/2022 TRUS prostate biopsy ([facility]) Adenocarcinoma, Jackpot score 10 (1 core) left lateral base Total 12 of 14 cores involved, 60 to 100% LABS: Hemoglobin (g/dL) Date Value 08/07/2022 13.2 Hematocrit (%) Date Value 08/07/2022 38.4 WBC (k/uL) Date Value 08/07/2022 6.80 Platelet Count (k/uL) Date Value 08/07/2022 308 PSA 03/10/2022 >100.0 04/03/2022 383.9 04/28/2022 47.09 05/15/2022 4.53 ([place]) 06/19/2022 0.27 RADIOLOGY/OTHER STUDIES: 05/23/2022 [place] Peripheral zone of the prostate gland diffusely hypointense related to patient's known malignancy. Soft tissue thickening in the region of the right neurovascular bundle. 04/23/2022 CT abdomen/pelvis ([facility]) Bilateral nonobstructing nephrolithiasis. Enlarged heterogeneous prostate with mass protruding right posterior inferior from the gland without appreciable involvement of adjacent structures. Slightly prominent right pelvic lymph node adjacent to the external iliac artery. 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 04/23/2022 Nuclear bone scan ([facility]) Multiple bone metastases. (Increased uptake in the calvarium, right posterior seventh rib, left lateral seventh rib, left scapula, L2, L1, sacrum, right femoral head) 04/22/2022 Chest x-ray IMPRESSION: No acute radiographic abnormality. ASSESSMENT/PLAN: 1. Prostate cancer (HCC) - ICD9: 185, ICD10: C61 The patient has a long history of LUTS and developed acute urinary obstruction requiring Goodman catheter placement 03/04/2022. He was seen by urology on 03/10/2022, and evaluation revealed an enlarged prostate with diffuse nodularity and PSA > 100. TRUS biopsy 03/18/2022 revealed high-grade adenocarcinoma. Bone scan 04/23/2022 revealed diffuse bone metastases. Staging CT scans revealed regional adenopathy, but no evidence of visceral organ metastases. 03/31/2022 the patient received Lupron 45 mg IM, with plans to continue every 6 months. [id number] mg daily started 04/25/2022. Xgeva started 05/08/2022, with plans to give every 3 months. Since starting treatment the patient has improved clinically and his PSA has decreased significantly. He iscurrently clinically stable and asymptomatic. The patient was referred to radiation oncology and palliative radiation to the prostate was recommended. He started radiation on 08/05/[address] Funez. For now he will continue as is with his current medications. We will see him every 3 months for follow-up, labs and Xgeva. He will receive Lupron every [address] Marcos (September). 2. Cardiac dysrhythmia Tachycardia diagnosed as a teenager. Status post cardiac ablation 2005. Currently stable. Yamilet Graf APRN.CNP CC: Dr. Marcos, [facility] urology I spent a total of 30 minutes on the date of the service which included preparing to see the patient, rpio-[id number] patient care, completing clinical documentation, obtaining and/or reviewing separately obtained history, performing a medically appropriate examination, counseling and educating the pat ient/family/caregiver, ordering medications, tests, or procedures, independently interpreting results (not separately reported), and communicating results to the patient/family/caregiver. documented in this encounterPremier [facility]01-03-2023 History of Present illness Narrative* G Cornell Funez MD - 08/05/2022 4:57 PM EST Radiation Oncology - On Treatment Review (OTR) Note PATIENT NAME: Adan Menard PATIENT DIAGNOSIS: Prostate adenocarcinoma, initial PSA 383.9, biopsy Hernan score 5 + 5 = 10 (grade group5), clinical stage T3a, N1, M1, stage IVB [any T, any N, M1, any PSA, any GG] (AJCC 8th ed.), s/p TRUS Random biopsy. COURSE: definitive Current dose: 250 cGy in 1 fx Planned dose: 7000 cGy in 28 fx SUBJECTIVE: Doing well. No new problems. Urine function has been good. PHYSICAL EXAM: KPS: 100 General Appearance: Alert and oriented. No acute distress. IMAGING/LAB RESULTS: None TOXICITY ASSESSMENT (CTC v4.0): Fatigue:grade 0 - No symptoms Radiation Dermatitis: grade 0 - No symptoms Diarrhea:grade 0 - No symptoms Proctitis: grade 0 - No symptoms Urinary frequency: grade 0 - No symptoms Dysuria: grade 0 - No symptoms Urinary incontinence: grade 0 (No symptoms) Urinary retention: grade 0 - No symptoms Treatment chart checked: Yes Patient treatment site reviewed and verified:Yes Port films reviewed and current:Yes Medications started: None ASSESSMENT/PLAN: Patient starting radiation today. Plan of care and expectations again reviewed. Plan, MU calculations and qa report reviewed. Initial imaging including cone beam ct and verification reviewed and approved. First treatment given. Continue radiation as prescribed. Joe Funez MD documented in this encounterPrem[facility]12-14-2022 History of Present illness Narrative* Joe Funez MD - 07/16/2022 12:00 AM EST ADAN MENARD [id number] 07/16/2022 [facility] Radiation Oncology Department SIMULATION NOTE DATE OF SIMULATION: 07/16/2022 THERAPIST: Nisha Gagnon MACHINE: Siemens [employer] DIAGNOSIS: Malignant neoplasm of [id number] AREA: prostate CONTRAST: None Consent in Epic: Yes PATIENT POSITION: Supine. FIXATION DEVICE: In order to achieve accurate and reproducible treatments, the patient is immobilized with orfit AIO A time-out was conducted and recorded by the therapist. CT scan was completed for target localization and planning. Field arrangement will be determined after plan has been completed. The patient is scheduled for a verification simulation on the treatment machine to ensure proper set-up and field arrangement is correct prior to the first treatment of primary and boost aguilar if applicable. Patient education will be completed per nursing. Electronically Signed Cornell Funez M.D. / CDT 2:12 PM documented in this encounterPremier Health [facility]12-14-2022 History of Present illness Narrative* Joe Funez MD - 07/16/2022 12:00 AM EST ADAN MENARD [id number] 07/16/2022 [facility] Department of Radiation Oncology Treatment Planning Note For reasons stated in the consult note, Adan Menard is a candidate for radiation therapy. Based onreview and interpretation of the relevant diagnostic studies together with the exam findings, Adan Menard was simulated on 07/16/2022 at which time the target volume and/or requisite aguilar were deli neated, as indicated in the simulation note, to be treated according to the prescription. The treatment target and organs at risk were contoured on the simulation scan using the fused MRI. After reviewing multiple treatment plans with dosimetry, the best plan was approved to deliver the prescribed course of radiation to the target area using inverse planning to allow for the best isodose distribution, treating to the 97.2% isodose line with 10MV and 2 aguilar. Custom MLC asym jaws forIMRT were the treatment devices used to shape/modify the beams. Limiting dose to normal tissue was confirmed upon review of the calculated dose volume histogram. IMRT planning was used because it best met the dose/volume constraints for the organs at risk for this patient, better than what could be achieved using conventional or 3D planning. The specific doserequirements for the PTV, organs at risk and dose-volume histograms are contained in this treatmentplan and/or elsewhere in the medical record. A completed summary of this plan dated 07/30/22 incorporated herein by reference includes dose, beam arrangements, energy, blocking, isodose distribution, and/or ports and DVH. Electronically Signed Cornell Funez M.D. :26 PM documented in this encounterPremier Health [facility] Center11-18-2022 Miscellaneous Notes* Telephone Encounter - Sarah Phelan RN - 06/20/2022 1:24 PM EST Pt notified and states he is very happy. Sarah Banegas RN * Telephone Encounter - Sarah Phelan RN - 06/20/2022 1:23 PM EST ----- Message from Ayad Harrison MD sent at 06/20/2022 11:15 AM EST ----- Please inform the patient that his PSA is much improved at 0.27. Excellent news. We will continue as planned. documented in this encounterPremier Health [facility]11-07-2022 Hospital Discharge instructions Patient Education 06/09/2022 13:17:15 Prostate Cancer Prostate Cancer The prostate is a walnut-sized gland that is involved in the production of semen. It is located below a man's bladder, in front of the rectum. Prostate cancer is the abnormal growth of cells in the prostate gland. What are the causes? The exact cause of this condition is not known. What increases the risk? This condition is more likely to develop in men who: Are older than age 65. Are -[place]. Are obese. Have a family history of prostate cancer. Have a family history of breast cancer. What are the signs or symptoms? Symptoms of this condition include: A need to urinate often. Weak or interrupted flow of urine. Trouble starting or stopping urination. Inability to urinate. Pain or burning during urination. Painful ejaculation. Blood in urine or semen. Persistent pain or discomfort in the lower back, lower abdomen, hips, or upper thighs. Trouble getting an erection. Trouble emptying the bladder all the way. How is this diagnosed? This condition can be diagnosed with: A digital rectal exam. For this exam, a health care provider inserts a gloved finger into the rectum to feel the prostate gland. A blood test called a prostate-specific antigen (PSA) test. An imaging test called transrectal ultrasonography. A procedure in which a sample of tissue is taken from the prostate and examined under a microscope (prostate biopsy). Once the condition is diagnosed, tests will be done to determine how far the cancer has spread. This is called staging the cancer. Staging may involve imaging tests, such as: A bone scan. A CT scan. A PET scan. An MRI. The stages of prostate cancer are as follows: Stage I. At this stage, the cancer is found in the prostate only. The cancer is not visible on imaging tests and it is usually found by accident, such as during a prostate surgery. Stage II. At this stage, the cancer is more advanced than it is in stage I, but the cancer has not spread outside the prostate. Stage III. At this stage, the cancer has spread beyond the outer layer of the prostate to nearby tissues. The cancer may be found in the seminal vesicles, which are near the bladder and the prostate. Stage IV. At this stage, the cancer has spread other parts of the body, such as the lymph nodes, bones, bladder, rectum, liver, or lungs. How is this treated? Treatment for this condition depends on several factors, including the stage of the cancer, your age, personal preferences, and your overall health. Talk with your health care provider about treatment options that are recommended for you. Common treatments include: Observation for early stage prostate cancer (active surveillance). This involves having exams, blood tests, and in some cases, more biopsies. For some men, this is the only treatment needed. Surgery. Types of surgeries include: ?Open surgery. In this surgery, a larger incision is made to remove the prostate. ?A laparoscopic prostatectomy. This is a surgery to remove the prostate and lymph nodes through several, small incisions. It is often referred to as a minimally invasive surgery. ?A robotic prostatectomy. This is a surgery to remove the prostate and lymph nodes with the help ofa robotic arm that is controlled by a computer. ?Orchiectomy. This is a surgery to remove the testicles. ?Cryosurgery. This is a surgery to freeze and destroy cancer cells. Radiation treatment. Types of radiation treatment include: ?External beam radiation. This type aims beams of radiation from outside the body at the prostate to destroy cancerous cells. ?Brachytherapy. This type uses radioactive needles, seeds, wires, or tubes that are implanted into the prostate gland. Like external beam radiation, brachytherapy destroys cancerous cells. An advantage is that this type of radiation limits the damage to surrounding tissue and has fewer side effects. High-intensity, focused ultrasonography. This treatment destroys cancer cells by delivering high-energy ultrasound waves to the cancerous cells. Chemotherapy medicines. This treatment kills cancer cells or stops them from multiplying. Hormone treatment. This treatment involves taking medicines that act on one of the male hormones (testosterone): ?By stopping your body from producing testosterone. ?By blocking testosterone from reaching cancer cells. Follow these instructions at home: Take smty-vns-yrwnadi and prescription medicines only as told by your health care provider. Maintain a healthy diet. Get plenty of sleep. Consider joining a support group for men who have prostate cancer. Meeting with a support group mayhelp you learn to cope with the stress of having cancer. Keep all follow-up visits as told by your health care provider. This is important. If you have to go to the hospital, notify your cancer specialist (oncologist). Treatment for prostate cancer may affect sexual function. Continue to have intimate moments with your partner. This may include touching, holding, hugging, and caressing. Contact a health care provider if: You have trouble urinating. You have blood in your urine. You have pain in your hips, back, or chest. Get help right away if: You have weakness or numbness in your legs. You cannot control urination or your bowel movements (incontinence). You have trouble breathing. You have sudden chest pain. You have chills or a fever. Summary The prostate is a walnut-sized gland that is involved in the production of semen. It is located below a man's bladder, in front of the rectum. Prostate cancer is the abnormal growth of cells in the prostate gland. Treatment for this condition depends on several factors, including the stage of the cancer, your age, personal preferences, and your overall health. Talk with your health care provider about treatment options that are recommended for you. Consider joining a support group for men who have prostate cancer. Meeting with a support group mayhelp you learn to cope with the stress of having cancer. This information is not intended to replace advice given to you by your health care provider. Make sure you discuss any questions you have with your health care provider. Document Released: 07/20/2006 Document Revised: 07/02/2018 Document Reviewed: 03/30/2017 [employer] Patient Education 2020 [employer]. Follow Up Care 05/22/2022 09:36:47 With:PRITI JONES, Eloise Mccarthy, URL Address: [facility] [address] [place] [address]- [phone] When: Unknown [facility] 10-26-2022 Nurse Note* Gricelda Washington RN - 05/28/2022 12:37 PM EDT Radiation Therapy - Patient Education Note PATIENT NAME: Adan Menard PATIENT May 28, 2022 [facility] FACILITY/LOCATION: [facility] READINESS TO LEARN Cognitive Ability: Alert and oriented Motivation to learn: Interested Family Support: Unable to assess - Family not present Instruction provide to: Patient Patient learns best by: Written Instruction - Hand-outs Factors effecting learning: None Physical limitations effecting learning: None LEARNING RESPONSE Diagnosis: Pt educated today for radiation therapy to pelvis. Education Topic/Teaching Points: Radiation therapy, Side effects, and OTV: Method of instruction: Written instruction - handouts Patient /Family response: Patient verbalized understanding of radiation treatments, side effects, OTV, and transportation. Follow-up plan: Recommend - Recommend continued instruction and follow up as directed Supplemental material: Informational handouts on Diarrhea, Pelvic handout, and Prostate external beam. Referral (recommendation): None, Pt denied need for social work, van service, and peanut shaker. Signed by: Gricelda Washington RN documented in this encounterPremier Health Atrium Medical Center10-26-2022 History of Present illness Narrative* Joe Funez MD - 05/28/2022 10:41 AM EDT Radiation Oncology - Prostate Cancer New Patient/Consult Note PATIENT NAME: Adan Menard PATIENT REQUESTING PROVIDER: Dr. Harrison DIAGNOSIS: 56 year old male with prostate adenocarcinoma, initial PSA 383.9, biopsy Hernan score 5+ 5 = 10 (grade group 5), clinical stage T3a, N1, M1, stage IVB [any T, any N, M1, any PSA, any GG](AJCC 8th ed.), s/p TRUS Random biopsy. HPI: Patient returns after further work-up including MRI prostate on 05/24/2022. He no longer does self cath as he had minimal post void residual. No dysuria. No hematuria. MRI demonstrated diffuse T2 hypointensity in the peripheral zone. Soft tissue thickening right neurovascular bundle possibly representing extraprostatic extension. Lesions involving sacrum and right hip suspicious for bony metastatic disease. (In comparison to CT it appears the overall extent of disease especially right periprosthetic soft tissue component has improved) 04/23/2022 CT abdomen/pelvis: Bilateral nonobstructing nephrolithiasis. Enlarged heterogeneous prostate with mass protruding right posterior inferior from the gland without appreciable involvement of adjacent structures. Slightly prominent right pelvic lymph node adjacent to the external iliac artery. 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 04/23/2022 bone scan: Multiple bone metastases. (Increased uptake in the calvarium, right posterior seventh rib, left lateral seventh rib, left scapula, L2, L1, sacrum, right femoral head) Patient was started on Lupron end of March, subsequently enzalutamide started end of April. Patient has had his catheter in place until just recently. He has done well after removal with very minimal post void residual. Denies current dysuria or hematuria. Denies pelvic pain. Denies other areas of significant pain. Is fairly active. PSA history: PSA (ng/mL) Date Value 04/28/2022 47.09 04/03/2022 383.90 The patient reports the following pertinent history: Urinary frequency (D/N): 6-7/2-3 Dysuria: No Incontinence: 1- No pads Hematuria: No Bowel Movement Frequency: 1/day Bowel Movement Quality: Normal Blood per Rectum: No Androgen Deprivation: none Prior Radiation Therapy, Collagen Vascular Disease, or Inflammatory Bowel Disease: No Currently on Anticoagulation: No History of Hip Replacement: No History of Prior TURP: No ALLERGIES Allergen Reactions Ciprofloxacin Other: See Comments Abdominal breathing tamsulosin (FLOMAX) 0.4 mg Take 0.4 mg by mouth once daily. XTANDI 40 mg IBUPROFEN ORAL Take by mouth. leuprolide (LUPRON) 1 mg/0.2 mL injection Inject 1 mg subcutaneously one time only. calcium carbonate/vitamin D3 (CALCIUM 600 + D,3, ORAL) Take by mouth. ascorbic acid (VITAMIN C ORAL) Take by mouth. elderberry fruit (ELDERBERRY ORAL) Take by mouth. aspirin, enteric coated (ASPIRIN, ENTERIC COATED) 81 mg EC tablet Take 81 mg by mouth once daily. docosahexaenoic acid/epa (FISH OIL ORAL) Take by mouth once daily. MULTI-VITAMIN ORAL Take by mouth once daily. PAST MEDICAL HISTORY Diagnosis Date BPH (benign prostatic hyperplasia) Hematospermia Prostate cancer (HCC) Urinary retention PAST SURGICAL HISTORY Procedure Laterality Date PROSTATE BIOPSY W/TRANSRECTAL US FAMILY HISTORY Problem Relation Age of Onset Prostate Cancer Father Social History Tobacco Use Smoking status: Every Day Types: Cigarettes Passive exposure: Current Smokeless tobacco: Never Substance Use Topics Alcohol use: Not Currently Drug use: Never REVIEW OF SYSTEMS: GENERAL: feeling well without fatigue, no recent change in weight NECK: denies swelling or pain in neck RESPIRATORY: no cough, no wheezing or shortness of breath CARDIOVASCULAR: no chest pain, no palpitations MUSCULOSKELETAL: denies any painful or swollen joints, no muscle aches SKIN: no rash ENDOCRINE: denies cold/heat intolerance, denies polyuria or polydipsia, no goiter NEURO: no numbness or paresthesias and no weakness of the extremities As noted in HPI PHYSICAL EXAM: VS: BP 132/74 Pulse 82 Temp 36.8 C (98.2 F) (Temporal) Resp 16 Wt 69.6 kg (153 lb 6.4 oz) SpO2 98% BMI 26.06 kg/m KARNOFSKY PERFORMANCE STATUS: 100 General Appearance: Alert and oriented. No acute distress. HEENT: NCAT. Sclera anicteric. PERRL. EOMI. Neck: Normal ROM. No palpable cervical or supraclavicular adenopathy. Chest: No respiratory distress. Lungs clear to auscultation bilaterally. Heart: Regular rate and rhythm. Abdomen: Soft. Nontender. Nondistended. Musculoskeletal: No edema. Normal ROM in extremities. No bone or spine tenderness. Neuro: Speech fluent. Gait normal. No focal deficits. Skin: No rashes noted Lymphatics: No palpable lymphadenopathy. GENITOURINARY: Deferred exam RECTAL: Deferred exam RADIOLOGY/LABORATORY DATA: see HPI ASSESSMENT/PLAN: Prostate adenocarcinoma, initial PSA 383.9, biopsy Jackpot score 5 + 5 = 10 (gradegroup 5), clinical stage T3a, N1, M1, stage IVB [any T, any N, M1, any PSA, any GG] (AJCC 8th ed.),s/p TRUS Random biopsy. Patient has had an excellent response to ADT. MRI shows excellent soft tissue response. Clinically doing better and no longer needing catheter. We discussed again the role of radiation. I do feel given the initial large locally advanced process that radiation of the prostate will help with local control. There is also evidence that overall disease control may be prolonged with the addition of radiation to the primary. Patient wants to wait till a little bit bloodshot I do not feel is unreasonable given his excellent response. Could consider in the next 4 to 6 weeks initiating treatment to theprostate. We will have him back in 4 weeks for further discussion. Signed by: Joe Funez MD cc: Dr. Priti Harrison documented in this encounterPremier [facility]10-18-[facility]22 History of Present illness Narrative* Joe Funez MD - 05/20/2022 10:23 AM EDT Radiation Oncology - Prostate Cancer New Patient/Consult Note PATIENT NAME: Adan Menard PATIENT REQUESTING PROVIDER: Dr. Harrison DIAGNOSIS: 56 year old male with prostate adenocarcinoma, initial PSA 383.9, biopsy Hernan score 5+ 5 = 10 (grade group 5), clinical stage T3a, N1, M1, stage IVB [any T, any N, M1, any PSA, any GG](AJCC 8th ed.), s/p TRUS Random biopsy. HPI: 56 year old male with prostate adenocarcinoma who presents for an opinion regarding the role of radiation therapy in the management of the patient's disease. Final recommendations will be communicated back to the requesting physician by way of the shared medical record, or letter to requestingphysician via US mail. Patient presented with worsening obstructive urinary complaints to the point where he required Goodman catheter placement in early March. He underwent evaluation with finding of a PSA of 383 8. He underwent biopsy on 03/18/2022 which demonstrated Jackpot 10 (5+5) adenocarcinoma. He underwent staging as noted below 04/23/2022 CT abdomen/pelvis: Bilateral nonobstructing nephrolithiasis. Enlarged heterogeneous prostate with mass protruding right posterior inferior from the gland without appreciable involvement of adjacent structures. Slightly prominent right pelvic lymph node adjacent to the external iliac artery. 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 04/23/2022 bone scan: Multiple bone metastases. (Increased uptake in the calvarium, right posterior seventh rib, left lateral seventh rib, left scapula, L2, L1, sacrum, right femoral head) Patient was started on Lupron end of March, subsequently enzalutamide started end of April. Patient has had his catheter in place until just recently. He has done well after removal with very minimal post void residual. Denies current dysuria or hematuria. Denies pelvic pain. Denies other areas of significant pain. Is fairly active. PSA history: PSA (ng/mL) Date Value 04/28/2022 47.09 04/03/2022 383.90 The patient reports the following pertinent history: Urinary frequency (D/N): 6-7/2-3 Dysuria: No Incontinence: 1- No pads Hematuria: No Bowel Movement Frequency: 1/day Bowel Movement Quality: Normal Blood per Rectum: No Androgen Deprivation: none Prior Radiation Therapy, Collagen Vascular Disease, or Inflammatory Bowel Disease: No Currently on Anticoagulation: No History of Hip Replacement: No History of Prior TURP: No ALLERGIES Allergen Reactions Ciprofloxacin Other: See Comments Abdominal breathing tamsulosin (FLOMAX) 0.4 mg Take 0.4 mg by mouth once daily. XTANDI 40 mg IBUPROFEN ORAL Take by mouth. leuprolide (LUPRON) 1 mg/0.2 mL injection Inject 1 mg subcutaneously one time only. calcium carbonate/vitamin D3 (CALCIUM 600 + D,3, ORAL) Take by mouth. ascorbic acid (VITAMIN C ORAL) Take by mouth. elderberry fruit (ELDERBERRY ORAL) Take by mouth. aspirin, enteric coated (ASPIRIN, ENTERIC COATED) 81 mg EC tablet Take 81 mg by mouth once daily. docosahexaenoic acid/epa (FISH OIL ORAL) Take by mouth once daily. MULTI-VITAMIN ORAL Take by mouth once daily. PAST MEDICAL HISTORY Diagnosis Date BPH (benign prostatic hyperplasia) Hematospermia Prostate cancer (HCC) Urinary retention PAST SURGICAL HISTORY Procedure Laterality Date PROSTATE BIOPSY W/TRANSRECTAL US FAMILY HISTORY Problem Relation Age of Onset Prostate Cancer Father Social History Tobacco Use Smoking status: Every Day Types: Cigarettes Passive exposure: Current Smokeless tobacco: Never Substance Use Topics Alcohol use: Not Currently Drug use: Never REVIEW OF SYSTEMS: GENERAL: feeling well without fatigue, no recent change in weight NECK: denies swelling or pain in neck RESPIRATORY: no cough, no wheezing or shortness of breath CARDIOVASCULAR: no chest pain, no palpitations MUSCULOSKELETAL: denies any painful or swollen joints, no muscle aches SKIN: no rash ENDOCRINE: denies cold/heat intolerance, denies polyuria or polydipsia, no goiter NEURO: no numbness or paresthesias and no weakness of the extremities As noted in HPI PHYSICAL EXAM: VS: BP 136/86 Pulse 81 Temp (!) 35.7 C (96.2 F) Resp 16 Wt 67.6 kg (149 lb) SpO2 100% BMI 25.31 kg/m KARNOFSKY PERFORMANCE STATUS: 100 General Appearance: Alert and oriented. No acute distress. HEENT: NCAT. Sclera anicteric. PERRL. EOMI. Neck: Normal ROM. No palpable cervical or supraclavicular adenopathy. Chest: No respiratory distress. Lungs clear to auscultation bilaterally. Heart: Regular rate and rhythm. Abdomen: Soft. Nontender. Nondistended. Musculoskeletal: No edema. Normal ROM in extremities. No bone or spine tenderness. Neuro: Speech fluent. Gait normal. No focal deficits. Skin: No rashes noted Lymphatics: No palpable lymphadenopathy. GENITOURINARY: Deferred exam RECTAL: Deferred exam RADIOLOGY/LABORATORY DATA: see HPI ASSESSMENT/PLAN: Prostate adenocarcinoma, initial PSA 383.9, biopsy Hernan score 5 + 5 = 10 (gradegroup 5), clinical stage T3a, N1, M1, stage IVB [any T, any N, M1, any PSA, any GG] (AJCC 8th ed.),s/p TRUS Random biopsy. Patient presents with a very locally advanced and metastatic process. CT demonstrating large prostate mass extending into the bladder as well as lateral to the prostate area. Fortunately with ADT he has had an excellent PSA response and functional response, being able to have his catheter removed and at the present time without significant obstructive issues and limited postvoid residual. HoweverI am concerned given the size of his primary lesion despite his excellent response to ADT he is at risk for local progression. I do feel he would benefit from radiation help prevent local progressionand local related problems. There is also evidence that treatment directed toward the primary in addition to systemic therapy may help prolong disease-free control. Given this recommend considerationpatient wants to consider this a little bit more we will have him back in 3 to 4 weeks and considerinitiating treatment planning process at that time. Signed by: Joe Funez MD cc: Dr. Marcos documented in this encounterPrem[facility]10-17-2022 Miscellaneous Notes* Telephone Encounter - Tamiko Watkins RN - 05/19/2022 4:30 PM EDT Left message on voice mail. Tamiko Watkins RN * Telephone Encounter - Diana Bauer RPh - 05/19/2022 4:17 PM EDT I would not be concerned missing 1-2 days, just not more than a week. Toney Bauer rPh * Telephone Encounter - Tamiko Watkins RN - 05/19/2022 12:12 PM EDT My apologies- yes, Xtandi. Tamiko Watkins RN * Telephone Encounter - Diana Bauer RPh - 05/19/2022 12:02 PM EDT What drug are we talking about? Xtandi? Toney Bauer rPh * Telephone Encounter - Tamiko Watkins RN - 05/19/2022 11:22 AM EDT Patient went into to [facility] mail in pharmacy for the first time to get his refill. He has 5 doses leftand the anticipated delivery is either the 24th or 25th. Which will make him 1 or 2 days short. Patient states that when he signed on to this, it was explained that it would be delivered with 1-2 days left of previous script. PHARM: are you able to call the patient and help him with this. If it is indeed going to be late, do we need to give him a supply to cover? Tamiko Watkins RN documented in this encounterPremier [facility]10-14-2022 Miscellaneous Notes* Telephone Encounter - Jelena Bee LPN - 05/16/2022 1:55 PM EDT Adan called back and I informed him of Dr. Harrison's recommendations. He said he will notify his PCPif he continues to have elevated BP's. He is aware that if swelling returns in his leg that he needs to have an US to rule out DVT. He will keep appt's as scheduled. Jelena Bee LPN * Telephone Encounter - Jelena Bee LPN - 05/16/2022 11:51 AM EDT Attempted to call patient but there was no answer. Jelena Bee LPN * Telephone Encounter - Ayad Harrison MD - 05/15/2022 6:31 PM EDT The patient needs to follow-up with his PCP for the treatment of hypertension. If leg swelling worsens significantly I would recommend a Dopp scan to rule out DVT. If otherwise stable he should follow-up with his current appointments as scheduled. JULIÁN Steele * Telephone Encounter - Jelena Bee LPN - 05/15/2022 3:05 PM EDT Adan called to notify Dr. Harrison that the nurses at [facility] said his BP has been elevated a couple times, 150's/80's while he was there for his IV antibiotics to treat pseudomonas due to previous goodman catheter. He has no history of HTN. He said he is aware this is a possible side effect of enzalutamide. He is not interested in stopping this medication but wanted you to be aware. He started Flomax 0.4mg today stating this could possibly lower his BP. He does not have a BP cuff/monitor at home. He also noted swelling in his right lower extremity last week, stating it was swollen significantly . He denies swelling, pain, warmth or redness of his RLE today. He has no history of DVT. He has aconsult with Dr. Funez 05/20/22 and follow up with Dr. Harrison 06/19/22. Do you have any recommendations? Thanks Jelena Bee LPN documented in this encounterPrem[facility]10-10-2022 Miscellaneous Notes* Telephone Encounter - Swetha Sutherland - 05/12/2022 8:53 AM EDT Patient has been contacted and scheduled for appointment. Patient transferred to [facility] nurse for further questioning. Swetha Sutherland * Telephone Encounter - Jelena Bee LPN - 05/12/2022 8:44 AM EDT Swetha: Will you please schedule Adan for a consult with -dx prostate cancer. Jelena Bee LPN * Telephone Encounter - Jelena Bee LPN - 05/12/2022 8:43 AM EDT ----- Message from Joe Funez MD sent at 05/12/2022 8:07 AM EDT ----- Yes, thank you. ----- Message ----- From: Jelena Bee LPN Sent: 05/09/2022 8:33 AM EDT To: Joe Funez MD Any update on Mr. Menard? Do we need to schedule an appt with you? Thanks Charleen ----- Message ----- From: Joe Funez MD Sent: 05/01/2022 9:04 AM EDT To: Ayad Harrison MD, Jelena Bee LPN Waiting to look at CT, hopefully can be downloaded. Certainly a short course or RT can be considered if locally adv process contributing to obstructiveuropathy ----- Message ----- From: Ayad Harrison MD Sent: 04/30/2022 11:22 AM EDT To: Joe Funez MD Dustin, when you have a minute can you check out this chart? Clearly metastatic disease and responding to hormone therapy. However, continued bladder outlet obstruction requiring Goodman catheter. Dr. Marcos mentioned to the patient that radiation to the prostate may be of benefit given his scan findings. Thanks documented in this encounterPrem[facility]10-07-2022 Miscellaneous Notes* Telephone Encounter - Paul Rafia, KUNAL - 05/09/2022 11:09 AM EDT Results left on patient voicemail. HISTORY Adan Menard is a 56 year old male with a personal and family history of prostate cancer. He was seen on 04/22/22, initially referred for genetic counseling and risk assessment by Dr. Harrison to discuss the possibility of a genetic predisposition to cancer. At that initial visit the patient chose to p ursue next generation sequencing for hereditary cancer syndromes. At that time, a plan was made to discuss these results by telephone when available. The patient's medical history, family history, genetic testing results, and plan were reviewed with Dr. Zenaida Dixon prior to contacting the patient. RESULTS Adan Menard's Custom Cancer Panel through [facility] was negative for a deleterious mutation. A scanned copy of this test report is available through EPIC chart review under the lab tab, listedas external lab - miscellaneous lab. RISK ASSESSMENT AND PLAN The Custom Cancer Panel includes APC, ALYCE, AXIN2, BAP1, BARD1, BMPR1A, BRCA1, BRCA2, BRIP1, CDH1, CDK4, CDKN2A, CHEK2, CTNNA1, DDX41, DICER1, EPCAM, FH, FLCN, GREM1, HOXB13, MAX, MEN1, MET, MITF, MLH1, MSH2, MSH3, MSH6, MUTYH, NF1, NTHL1, PALB2, PMS2, POLD1, POLE, POT1, PTCH1, PTEN, RAD51C, RAD51D,RET, SDHA, SDHAF2, SDHB, SDHC, SDHD, SMAD4, SMARCA4, STK11, LIHP740, TP53, TSC1, TSC2, and VHL. This negative result makes a hereditary cancer syndrome less likely as the explanation for the patient's personal and family history of cancer. However, it cannot completely rule out this possibility. There are several possible explanations for a negative genetic testing result: It is estimated that a small percentage of mutations are not detected with the utilized testing technology. These negative results make a hereditary cancer syndrome less likely, but they do not entirely rule out the possibility that a mutation exists in these genes that could not be detected. There may be other genes that increase the odds of cancer for which there is no testing at this time, or testing was not indicated by the personal or family history. Cancer is common. Cancer may be due to chance. Some families have clustering of cancer. In these families, the risk of cancer may be higher than the general population. These cancers are likely attributed to shared genetic, environmental, and lifestyle factors. At the present time, a strong genetic factor increasing the risk for cancer in this family has not been identified. The patient should continue to follow the medical management recommendations as determined by health care providers based on own personal history and family history. Currently, an underlying genetic etiology for the cancer in the family is not known. For the patient s family members, any cancer surveillance planning should involve inclusion of a patient's personal physician and an assessment of their personal risk factors. Family members should also be sure that their personal physicians are aware of all of the cancer diagnoses in the family so that additional cancer surveillance measures can be considered, if appropriate. Please also note that the recommendation above may be altered if new genetic information relevant to this family is learned. The patient was encouraged to recontact us with any changes to the personal or family history of cancer as this may affect risk assessments. Additionally the patient should contact us every few yearsto inquire about new genetic testing options. After discussing the implications of these results in regards to the patients risks and the risks for their family members, a copy of this discussion, a copy of their genetic testing results and educational information regarding these results will be mailed to the patient. Paul Morataya MS, [facility] Licensed, Certified Genetic Counselor [facility] CC: Dr. Hunter Fernández SEND TO PATIENT: Copy of Encounter, Genetic Testing Results documented in this encounterPremier [facility]10-04-2022 Hospital Discharge instructions Patient Education 05/06/2022 13:06:29 Prostate Cancer Prostate Cancer The prostate is a walnut-sized gland that is involved in the production of semen. It is located below a man's bladder, in front of the rectum. Prostate cancer is the abnormal growth of cells in the prostate gland. What are the causes? The exact cause of this condition is not known. What increases the risk? This condition is more likely to develop in men who: Are older than age 65. Are -[place]. Are obese. Have a family history of prostate cancer. Have a family history of breast cancer. What are the signs or symptoms? Symptoms of this condition include: A need to urinate often. Weak or interrupted flow of urine. Trouble starting or stopping urination. Inability to urinate. Pain or burning during urination. Painful ejaculation. Blood in urine or semen. Persistent pain or discomfort in the lower back, lower abdomen, hips, or upper thighs. Trouble getting an erection. Trouble emptying the bladder all the way. How is this diagnosed? This condition can be diagnosed with: A digital rectal exam. For this exam, a health care provider inserts a gloved finger into the rectum to feel the prostate gland. A blood test called a prostate-specific antigen (PSA) test. An imaging test called transrectal ultrasonography. A procedure in which a sample of tissue is taken from the prostate and examined under a microscope (prostate biopsy). Once the condition is diagnosed, tests will be done to determine how far the cancer has spread. This is called staging the cancer. Staging may involve imaging tests, such as: A bone scan. A CT scan. A PET scan. An MRI. The stages of prostate cancer are as follows: Stage I. At this stage, the cancer is found in the prostate only. The cancer is not visible on imaging tests and it is usually found by accident, such as during a prostate surgery. Stage II. At this stage, the cancer is more advanced than it is in stage I, but the cancer has not spread outside the prostate. Stage III. At this stage, the cancer has spread beyond the outer layer of the prostate to nearby tissues. The cancer may be found in the seminal vesicles, which are near the bladder and the prostate. Stage IV. At this stage, the cancer has spread other parts of the body, such as the lymph nodes, bones, bladder, rectum, liver, or lungs. How is this treated? Treatment for this condition depends on several factors, including the stage of the cancer, your age, personal preferences, and your overall health. Talk with your health care provider about treatment options that are recommended for you. Common treatments include: Observation for early stage prostate cancer (active surveillance). This involves having exams, blood tests, and in some cases, more biopsies. For some men, this is the only treatment needed. Surgery. Types of surgeries include: ?Open surgery. In this surgery, a larger incision is made to remove the prostate. ?A laparoscopic prostatectomy. This is a surgery to remove the prostate and lymph nodes through several, small incisions. It is often referred to as a minimally invasive surgery. ?A robotic prostatectomy. This is a surgery to remove the prostate and lymph nodes with the help ofa robotic arm that is controlled by a computer. ?Orchiectomy. This is a surgery to remove the testicles. ?Cryosurgery. This is a surgery to freeze and destroy cancer cells. Radiation treatment. Types of radiation treatment include: ?External beam radiation. This type aims beams of radiation from outside the body at the prostate to destroy cancerous cells. ?Brachytherapy. This type uses radioactive needles, seeds, wires, or tubes that are implanted into the prostate gland. Like external beam radiation, brachytherapy destroys cancerous cells. An advantage is that this type of radiation limits the damage to surrounding tissue and has fewer side effects. High-intensity, focused ultrasonography. This treatment destroys cancer cells by delivering high-energy ultrasound waves to the cancerous cells. Chemotherapy medicines. This treatment kills cancer cells or stops them from multiplying. Hormone treatment. This treatment involves taking medicines that act on one of the male hormones (testosterone): ?By stopping your body from producing testosterone. ?By blocking testosterone from reaching cancer cells. Follow these instructions at home: Take [id number] and prescription medicines only as told by your health care provider. Maintain a healthy diet. Get plenty of sleep. Consider joining a support group for men who have prostate cancer. Meeting with a support group mayhelp you learn to cope with the stress of having cancer. Keep all follow-up visits as told by your health care provider. This is important. If you have to go to the hospital, notify your cancer specialist (oncologist). Treatment for prostate cancer may affect sexual function. Continue to have intimate moments with your partner. This may include touching, holding, hugging, and caressing. Contact a health care provider if: You have trouble urinating. You have blood in your urine. You have pain in your hips, back, or chest. Get help right away if: You have weakness or numbness in your legs. You cannot control urination or your bowel movements (incontinence). You have trouble breathing. You have sudden chest pain. You have chills or a fever. Summary The prostate is a walnut-sized gland that is involved in the production of semen. It is located below a man's bladder, in front of the rectum. Prostate cancer is the abnormal growth of cells in the prostate gland. Treatment for this condition depends on several factors, including the stage of the cancer, your age, personal preferences, and your overall health. Talk with your health care provider about treatment options that are recommended for you. Consider joining a support group for men who have prostate cancer. Meeting with a support group mayhelp you learn to cope with the stress of having cancer. This information is not intended to replace advice given to you by your health care provider. Make sure you discuss any questions you have with your health care provider. Document Released: 07/20/2006 Document Revised: 07/02/2018 Document Reviewed: 03/30/2017 [employer] Patient Education 2020 [employer] Follow Up Care 05/05/2022 15:55:35 With:return for cysto/uros with PRW 05/13/22 as scheduled Address:Unknown When: Unknown [facility] [place] 09-30-2022 Miscellaneous Notes* Telephone Encounter - Sarah Phelan RN - 05/02/2022 2:33 PM EDT Adan called requesting results of PSA. Results reviewed with patient. Adan states that he is very happy that his PSA has dropped that much. Pt voiced frustration with his urology situation at this time but very happy about his PSA results. Sarah Banegas RN documented in this encounterPremier Health Atrium Medical Center09-20-2022 History of Present illness Narrative* KUNAL Díaz - 04/22/2022 11:28 AM EDT [facility] Consultation Note Genetic Counselor: Paul Morataya MS, [facility] Patient: Adan Menard Patient Name and confirmed at initiation of visit. Appointment occurred via audiovisual communication through [employer] Virtual Visit. HIGH LEVEL SUMMARY: The patient's personal and family history is potentially suggestive of a hereditary cancer syndrome. The patient provided informed consent for Custom Cancer Panel through [employer]. Results are expectedin 2-3 weeks. IDENTIFICATION AND CHIEF COMPLAINT: Dr. Ayad Harrison requested a consultation for genetic counseling and risk assessment for Adan Menard, a 56 year old male, for discussion of his personal and family history of prostate cancer. He presents to clinic today to discuss the possibility of a genetic predisposition to cancer, and to further clarify his risks, as well as his family members' risks for cancer. HISTORY OF PRESENT ILLNESS: In March of 2022, at the age of 56, Adan Menard was diagnosed with high grade adenocarcinoma of the prostate (Jackpot score 10). He has begun taking Lupron and further therapy will be determined based on further work-up. PAST MEDICAL HISTORY Diagnosis Date BPH (benign prostatic hyperplasia) Hematospermia Prostate cancer (HCC) Urinary retention PAST SURGICAL HISTORY Procedure Laterality Date PROSTATE BIOPSY W/TRANSRECTAL US SOCIAL HISTORY: Social History Tobacco Use Smoking status: Every Day Types: Cigarettes Passive exposure: Current Smokeless tobacco: Never Substance Use Topics Alcohol use: Not Currently Drug use: Never FAMILY HISTORY: We obtained a detailed, 4-generation family history. Significant diagnoses are listed below: Father and 3 paternal uncles with prostate cancer, 1 uncle similarly young at diagnosis, and 1 uncle from his cancer A copy of the patient's pedigree will be available under the scanned documents tab following today's visit. GENETIC COUNSELING RISK ASSESSMENT, DISCUSSION, AND SUGGESTED FOLLOW UP: We reviewed the natural history and genetic etiology of sporadic, familial and hereditary cancer syndromes. The patient's personal and family history is potentially suggestive of a hereditary cancer syndrome. The patient meets NCCN HBOC testing criteria based on his personal history of intraductal/cribiformprostate cancer or high- or wkix-blnr-cape group prostate cancer. We discussed that identification of a hereditary cancer syndrome may help his care providers tailorhis medical management. If a mutation is detected, the patient will be referred back to the referring provider and to any additional appropriate care providers to discuss the relevant options. Inheritance of hereditary cancer syndromes was discussed with the patient. If a mutation is not found in the patient, this will decrease the likelihood of a hereditary cancersyndrome as the explanation for the patient's personal and family history of prostate cancer. However, it cannot completely rule out this possibility. Cancer surveillance options would be discussed for the patient according to the appropriate standard National Comprehensive Cancer Network and [place] Cancer Society guidelines, with consideration of their personal and family history risk factors.In this case, the patient will be referred back to their care providers for discussions of management. Based on this assessment of the patient's family and personal history, genetic testing is recommended. We reviewed that multiple genes could account for his history. Therefore, a multigene panel was discussed. BRCA1/2 were specifically reviewed. The patient was offered Custom Cancer Panel through [employer]. After considering the risks, benefits, and limitations, the patient chose to pursue and provided informed consent for the following testing: Custom Cancer Panel through [employer]. The Custom Common Hereditary Cancer panel plus preliminary evidence colorectal cancer genes includes APC, ALYCE, AXIN2, BAP1, BARD1, BLM, BMPR1A, BRCA1, BRCA2, BRIP1, BUB1B, CDH1, CDK4, CDKN2A, CEP57, CHEK2, CTNNA1, DDX41, DICER1, ENG, EPCAM, FH, FLCN, GALNT12, GREM1, HOXB13, MAX, MEN1, MET, MITF, MLH1, MLH3, MSH2, MSH3, MSH6, MUTYH, NF1, NTHL1, PALB2, PMS2, POLD1, POLE, POT1, PTCH1, PTEN, RAD51C, RAD51D, RET, RNF43, RPS20, SDHA, SDHAF2, SDHB, SDHC, SDHD, SMAD4, SMARCA4, STK11, SSGV902, TP53, TSC1, TSC2, and VHL We discussed that an NGS panel can rarely result in an unexpected finding in a gene which may or may not be related to the presenting phenotype. Per the patient's request, I will contact him by telephone to discuss these results. A follow up genetic counseling visit will be scheduled if requested. The patient was seen for a total of 35 minutes, greater than 50% of which was spent acvd-hs-mncb counseling. This plan is being carried out per Dr. Zenaida Dixon's recommendations. This note will also be sent to the referring provider via the electronic medical record. Paul Morataya MS, [facility] Licensed, Certified Genetic Counselor [facility] CC: Dr. Ayad Dixon documented in this encounterPremier Health Atrium Medical Center09-20-2022 History of Present illness Narrative* Martita Epstein RT(R) - 04/22/2022 10:30 AM EDT Radiology Service Progress Note PATIENT NAME: Adan Menard DATE OF SERVICE: April 22, 2022 TIME: 11:01 AM PATIENT IDENTITY VERIFICATION COMPLETED USING TWO (2) IDENTIFIERS: Name and Date of confirmedby patient verbally. FALL SCREENING: Has the patient had 2 falls in the last year or 1 fall with injury or currently using an Ambulatory Assistive Device (Walker, Cane, Wheelchair, Crutches, etc.)? No PATIENT GENDER DATA: Male PATIENT RELEVANT IMPLANT DATA REVIEWED: Not Applicable RADIOLOGY DEPARTMENT: General X-ray: Exam(s) Completed: Chest X-Ray PERIPHERAL IV DATA: Not applicable SIGNED BY: RT Anahi(R) April 22, 2022 11:01 AM documented in this encounterPremier Health Atrium Medical Center09-16-2022 Miscellaneous Notes* Telephone Encounter - Helen Red - 04/18/2022 12:10 PM EDT CXR scheduled, confirmed with [facility] pt is scheduled for ct abd/pel @ bone scan 04/23. * Telephone Encounter - Yamilet Graf APRN.CNP - 04/18/2022 11:30 AM EDT Great. Will do. Thanks! Pss: Schedule chest xray on 04/22 after genetic appointments. Patient states he's scheduled for CT abd/pel and bone scan at [facility]. Please verify. Yamilet Graf APRN.CNP * Telephone Encounter - Ayad Harrison MD - 04/18/2022 11:11 AM EDT Okay to cancel chest CT and order a chest x-ray. Please check to see if a CT abdomen/pelvis and bone scan was ordered by his urologist. He can have the chest x-ray done when he is in for those scans. Thanks, BRM * Telephone Encounter - Yamilet Graf APRN.CNP - 04/18/2022 9:[address] Harrison how would you like me to proceed? Yamilet Graf APRN.CNP * Telephone Encounter - Helen Red - 04/18/2022 7:[address] Chest scheduled at [facility] has been denied by insurance. Denial packet on Yamilet's desk. Please let me know how you would like to proceed. Scan is scheduled 04/23. documented in this encounterPremier Health Atrium Medical Center09-15-2022 Hospital Discharge instructions Patient Education 04/17/2022 12:08:16 Indwelling Urinary Catheter Insertion Indwelling Urinary Catheter Insertion For people with certain conditions, urine is not able to move normally through the part of the bodythat drains urine from the bladder (urethra). An indwelling urinary catheter is a thin, sterile tube (catheter) that is placed (inserted) into the bladder through the urethra to help drain urine out of the body. After the catheter is inserted, it is held in place by a small balloon on the catheter that is filled with sterile water. Urine drains from the catheter into a drainage bag outside of thebody. An indwelling urinary catheter may be needed if you have urinary retention problems or bladder obstruction. It may also be needed during and after surgical procedures and for other medical conditions. Tell a health care provider about: Any allergies you have. Any surgeries you have had. Any medical conditions you have. Any blood disorders you have. What are the risks? Generally, this is a safe procedure. However, problems may occur, including: Infection. Bleeding. Damage to other structures or organs. What happens before the procedure? Your health care provider will inspect your urethra before inserting the catheter. What happens during the procedure? To lower your risk of infection: ?Your health care team will wash or sanitize their hands. ?Your skin will be washed with soap. A lubricant will be placed on the catheter to ease the insertion of it into the urethra. The catheter will be inserted into the urethra until you can see urine in the drainage bag. After the urine starts to flow, the catheter may be inserted another couple of inches (about 5 cm). Sterile water will be used to inflate the balloon to hold the catheter in place. After the catheter balloon is inflated, it will be pulled back so it is against the narrow opening at the end of the bladder. Your health care provider will check for urine flow into the drainage bag. The procedure may vary among health care providers and hospitals. What happens after the procedure? Urine in the drainage bag will be emptied and measured by your health care provider while you are in the hospital. Your health care provider will remove the catheter for you. This will be done when the catheter is no longer necessary, which is likely to be before you leave the hospital. Summary An indwelling catheter is a sterile tube that is placed into the bladder through the urethra to help drain urine out of the body. The catheter will be removed as soon as it is no longer necessary. This information is not intended to replace advice given to you by your health care provider. Make sure you discuss any questions you have with your health care provider. Document Released: 08/29/2017 Document Revised: 11/11/2019 Document Reviewed: 08/29/2017 [employer] Patient Education 2020 [employer]. Follow Up Care 04/17/2022 08:48:45 With:YUE DENNY, TAMIKO Hines, URL Address: [address] [address] Business (1) When: only if needed [facility] [place] 09-12-2022 Miscellaneous Notes* Telephone Encounter - Mary Motley RN - 04/14/2022 2:39 PM EDT I called and left a message on GAURAV Conrad @ Dr Marcos office of Dr Harrison's previous note re:staging. She is encouraged to call back with any additional needs. I also called and spoke to pt and he is aware of the information as well. He is scheduled for CT 04/23 at [facility]. He is aware a message was left for Anamaria and will call if he has any additional needs. Mary Motley RN * Telephone Encounter - Ayad Harrison MD - 04/14/2022 12:07 PM EDT The patient has not had a scan yet, therefore cannot accurately stage. However, with the elevated PSA most likely stage IV. BRM * Telephone Encounter - Sarah Phelan RN - 04/11/2022 4:38 PM EDT Adan called stating that Anamaria from Dr. Smyth's office is having issues getting his pills approved because she does not have a stage for his prostate cancer. He wants to know if you can tell him his stage? Please advise? Sarah Banegas RN documented in this encounterPremier Health At[facility] Medical Center09-06-2022 Miscellaneous Notes* Telephone Encounter - Yuly Zapata Sec - 04/08/2022 1:55 PM EDT Cxed appointments. * Telephone Encounter - Martita Zamora RN - 04/08/2022 1:42 PM EDT Spoke w/ pt. His scans are scheduled @ [facility] on 04/23. Pt has an appointment w/ BRM on 04/28. Will leave appointments as scheduled. Clerical: Please cancel pt's CT appointment on 04/17. Thanks! Martita Zamora RN * Telephone Encounter - Martita Zamora RN - 04/08/2022 1:32 PM EDT Call placed to pt. No answer. Message left requesting call back. Martita Zamora RN * Telephone Encounter - Ayad Harrison MD - 04/08/2022 11:28 AM EDT Please follow-up with the patient and ask if he would like for us to try and reschedule his scans to be done prior to 04/23. Otherwise his follow-up with me should be rescheduled after his scan results are available. Thanks, BRM * Telephone Encounter - Sarah Phelan RN - 04/04/2022 4:22 PM EDT Oscar called stating that he is having her CT chest added on to his other scan on 04/23/22. He wanted you to be aware. Sarah Banegas RN documented in this encounterPremier Health Atrium Medical Center09-02-2022 Miscellaneous Notes* Telephone Encounter - Ayad Harrison MD - 04/04/2022 2:28 PM EDT The patient already is scheduled to have a CT abdomen/pelvis at [facility], ordered by Dr. Marcos. I wanted him to have a CT chest there at the same time. Please check that they have him scheduled for that. Thanks, BRM * Telephone Encounter - Mila Kilpatrick RN - 04/04/2022 1:[address] Harrison, I'm reading your office note from 04/03/[address] A CT chest is ordered but your noted saidCT abd/pelvis also. Did you still want the abd/pelvis? If so, please order. Thank you. Mila Kilpatrick RN documented in this encounterPremier Health Atrium Medical Center09-01-2022 History of Present illness Narrative* Ayad Harrison MD - 04/03/2022 7:03 AM EDT PATIENT NAME: Adan Menard DATE: 04/03/2022 PRIMARY CARE PHYSICIAN: No primary care provider on file. OTHER PHYSICIANS: Dr. Marcos HPI: This is a 56 year old male with recently diagnosed prostate cancer, referred for further management. The patient has a long history of urinary symptoms including urinary hesitancy, postvoid dribbling,and hematospermia. He apparently developed severe urinary retention requiring placement of a Goodman catheter on 03/04/2022 at the [facility]. He was seen by urology (Dr. Marcos) on 03/10/2022, and labs revealed an elevated PSA of >100. Examination revealed an enlarged prostate with diffuse nodularity. The patient underwent a prostate biopsy in 03/18/2022, and pathology revealed high-grade adenocarcinoma. On 03/31/2022 he received Lupron 45 mg IM. He was also prescribed enzalutamide, but has been unable to obtain the pills. A bone scan and CT scans have been ordered. Clinically the patient feels fairly well today. His Goodman catheter remains in place, therefore he has no ongoing urinary symptoms. He denies any unusual bone pain. No weight loss or other systemic symptoms. The patient's past medical history otherwise is unremarkable. Apparently he was diagnosed with a cardiac dysrhythmia as a teenager, and underwent a cardiac ablation with resolution of his tachycardia. He apparently has been prescribed aspirin, otherwise has been on no medications. The patient's family history is significant for multiple family members diagnosed with prostate cancer including his father and paternal uncle. The patient is currently , and is raising 2 children aged 9 and 10. 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 He has a long history of smoking, currently less than 1 pack/day. He does not drink alcohol significantly. MEDICATIONS: Current Outpatient Medications Medication Sig aspirin, enteric coated (ASPIRIN, ENTERIC COATED) 81 mg EC tablet Take 81 mg by mouth once daily. docosahexaenoic acid/epa (FISH OIL ORAL) Take by mouth once daily. MULTI-VITAMIN ORAL Take by mouth once daily. No current facility-administered medications for this visit. ALLERGIES: ALLERGIES Allergen Reactions Ciprofloxacin Other: See Comments Abdominal breathing PAST MEDICAL HISTORY: PAST MEDICAL HISTORY Diagnosis Date BPH (benign prostatic hyperplasia) Hematospermia Prostate cancer (HCC) Urinary retention PAST SURGICAL HISTORY: PAST SURGICAL HISTORY Procedure Laterality Date PROSTATE BIOPSY W/TRANSRECTAL US FAMILY HISTORY: FAMILY HISTORY Problem Relation Age of Onset Prostate Cancer Father SOCIAL HISTORY: Social History Tobacco Use Smoking status: Every Day Types: Cigarettes Passive exposure: Current Smokeless tobacco: Never COMPLETE REVIEW OF SYSTEMS: CONSTITUTION: Negative for pain, fatigue, weight loss, or appetite loss. EENT: Negative for mouth soreness, antibiotics use, epistaxis, visual problems, neck or facial swelling, fever/chills, bleeding gums, or hearing loss. CV: Negative for edema, calf swelling, palpitations, or chest pain. RESPIRATORY: Negative for cough, SOB, hemoptysis, or wheezing. GI: Negative for nausea/vomiting, heartburn, vomiting blood, dysphasia, diarrhea, blood in stool, constipation, early satiety, PICA, vegetarian, poor nutrition, abdominal fullness, or abdominal pain. NEUROLOGICAL: Negative for numbness/tingling, dizziness, gait disturbance, headache, speech disturbance, tremor, hemiparesis/sensory loss, or change in mental status. MUSCULOSKELETAL: Negative for joint pain, joint swelling, or proximal muscle weakness. SKIN: Negative for hair loss, bruising, nail changes, rash, itching, pallor, or jaundice. ENDO/URO: Negative for hot flashes, cold or heat intolerance, urinary frequency, urinary hesitancy,menorrhagia, or hematuria. PSYCH: Negative for anxiety, depression, or other. PHYSICAL EXAM: BP 110/64 Pulse 74 Temp 36.8 C (98.2 F) (Temporal) Resp 16 Ht 163.4 cm (5' 4.33 ) Wt 64.1 kg (141 lb 6.4 oz) SpO2 97% BMI 24.02 kg/m GENERAL EXAM: Well developed/well nourished; in no acute distress. SKIN: Negative for lesions, rashes, or ulcers on the upper and lower extremities and face. Negativefor palpations/nodules, purpura, and ecchymosis. EENT: Negative for conjunctiva, mucosal pallor, JVD, LAP, thyromegaly, and glossitis. Supple & PERRL. 2-3 cm lns left SC EXTREMITIES: Negative for cyanosis, clubbing, and crepitus. LUNGS: Negative to auscultation, respiratory effort, and percussion. CARDIOVASCULAR: Regular rate. Negative for murmurs/S3S4/abnormal sounds, edema, and carotid bruits. ABDOMEN: Negative for masses, hernia, and spleen/liver abnormalities. RECTAL: Not done PSYCHIATRIC: Negative for mood/affect changes, recent & remote memory changes, and judgement and insight. NEUROLOGICAL: Alert, oriented x person, place, time. Cranial nerves 2-12 intact. Sensory for pain, light touch, vibration intact on all 4 extremities. Reflexes symmetric for biceps/brachioradial/patella/achilles. MUSCULOSKELETAL: Negative examination of joints, bones, muscles/tendons of all four extremities forinspection, percussion, and palpation. Negative for misallignment, asymmetry, crepitation, tenderness, mass, effusions. Range of motion normal. Negative for joint instability, laxity, dislocation. Gait steady. Negative for swelling, erythema, tenderness, soft tissue swelling, and atrophy. PATHOLOGY: 03/18/2022 TRUS prostate biopsy ([facility]) Adenocarcinoma, Hernan score 10 (1 core) left lateral base Total 12 of 14 cores involved, 60 to 100% LABS: Hemoglobin (g/dL) Date Value 04/03/2022 13.5 Hematocrit (%) Date Value 04/03/2022 39.3 WBC (k/uL) Date Value 04/03/2022 9.40 Platelet Count (k/uL) Date Value 04/03/2022 297 03/10/2022 [facility] labs PSA >100.0 RADIOLOGY/OTHER STUDIES: CT CAP - pending Bone Scan - pending ASSESSMENT/PLAN: 1. Prostate cancer (HCC) - ICD9: 185, ICD10: C61 The patient has a long history of LUTS and developed acute urinary obstruction requiring Goodman catheter placement 03/04/2022. He was seen by urology on 03/10/2022, and evaluation revealed an enlarged prostate with diffuse nodularity and PSA > 100. TRUS biopsy 03/18/2022 revealed high-grade adenocarcinoma. On 03/31/2022 the patient received Lupron 45 mg IM. He was also prescribed enzalutamide 160 mg d aily, but has not yet been able to obtain the medication. With placement of his Goodman catheter the patient is currently asymptomatic. Examination reveals left supraclavicular lymphadenopathy suspicious for lymph node metastases. Options for further management were discussed at length. We will check baseline labs today. Stagingbone scan and CT abdomen/pelvis has been ordered, we will also add a CT chest. Based on these findings we will consider further evaluation with a PET scan. Because of his family history we will referto medical genetics for genomic testing. I suggested the patient obtain the enzalutamide when approved by his insurance. However, I suggested he not start the medication until he returns for follow-up in 2 weeks. Based on scan results upfront chemotherapy with Taxotere may be indicated if he has visceral organ involvement. 2. Bladder outlet obstruction The patient has a long history of LUTS, most likely secondary to BPH +/- prostate cancer. Goodman catheter placed 03/10/2022. Continue management per urology. 2. Cardiac dysrhythmia Tachycardia diagnosed as a teenager. Status post cardiac ablation 2005. Currently stable. Ayad Harrison MD CC: Dr. Marcos, [facility] urology documented in this encounterPremier Health Atrium Medical Center08-29-2022 Evaluation + Plan note Diagnostic Tests Pending * CBC w/ Auto Diff 03/31/22 * Comprehensive Metabolic Panel 03/31/22 [facility] [place] 08-29-2022 Hospital Discharge instructions Patient Education 03/31/2022 10:56:50 Prostate Cancer Prostate Cancer The prostate is a walnut-sized gland that is involved in the production of semen. It is located below a man's bladder, in front of the rectum. Prostate cancer is the abnormal growth of cells in the prostate gland. What are the causes? The exact cause of this condition is not known. What increases the risk? This condition is more likely to develop in men who: Are older than age 65. Are -[place]. Are obese. Have a family history of prostate cancer. Have a family history of breast cancer. What are the signs or symptoms? Symptoms of this condition include: A need to urinate often. Weak or interrupted flow of urine. Trouble starting or stopping urination. Inability to urinate. Pain or burning during urination. Painful ejaculation. Blood in urine or semen. Persistent pain or discomfort in the lower back, lower abdomen, hips, or upper thighs. Trouble getting an erection. Trouble emptying the bladder all the way. How is this diagnosed? This condition can be diagnosed with: A digital rectal exam. For this exam, a health care provider inserts a gloved finger into the rectum to feel the prostate gland. A blood test called a prostate-specific antigen (PSA) test. An imaging test called transrectal ultrasonography. A procedure in which a sample of tissue is taken from the prostate and examined under a microscope (prostate biopsy). Once the condition is diagnosed, tests will be done to determine how far the cancer has spread. This is called staging the cancer. Staging may involve imaging tests, such as: A bone scan. A CT scan. A PET scan. An MRI. The stages of prostate cancer are as follows: Stage I. At this stage, the cancer is found in the prostate only. The cancer is not visible on imaging tests and it is usually found by accident, such as during a prostate surgery. Stage II. At this stage, the cancer is more advanced than it is in stage I, but the cancer has not spread outside the prostate. Stage III. At this stage, the cancer has spread beyond the outer layer of the prostate to nearby tissues. The cancer may be found in the seminal vesicles, which are near the bladder and the prostate. Stage IV. At this stage, the cancer has spread other parts of the body, such as the lymph nodes, bones, bladder, rectum, liver, or lungs. How is this treated? Treatment for this condition depends on several factors, including the stage of the cancer, your age, personal preferences, and your overall health. Talk with your health care provider about treatment options that are recommended for you. Common treatments include: Observation for early stage prostate cancer (active surveillance). This involves having exams, blood tests, and in some cases, more biopsies. For some men, this is the only treatment needed. Surgery. Types of surgeries include: ?Open surgery. In this surgery, a larger incision is made to remove the prostate. ?A laparoscopic prostatectomy. This is a surgery to remove the prostate and lymph nodes through several, small incisions. It is often referred to as a minimally invasive surgery. ?A robotic prostatectomy. This is a surgery to remove the prostate and lymph nodes with the help ofa robotic arm that is controlled by a computer. ?Orchiectomy. This is a surgery to remove the testicles. ?Cryosurgery. This is a surgery to freeze and destroy cancer cells. Radiation treatment. Types of radiation treatment include: ?External beam radiation. This type aims beams of radiation from outside the body at the prostate to destroy cancerous cells. ?Brachytherapy. This type uses radioactive needles, seeds, wires, or tubes that are implanted into the prostate gland. Like external beam radiation, brachytherapy destroys cancerous cells. An advantage is that this type of radiation limits the damage to surrounding tissue and has fewer side effects. High-intensity, focused ultrasonography. This treatment destroys cancer cells by delivering high-energy ultrasound waves to the cancerous cells. Chemotherapy medicines. This treatment kills cancer cells or stops them from multiplying. Hormone treatment. This treatment involves taking medicines that act on one of the male hormones (testosterone): ?By stopping your body from producing testosterone. ?By blocking testosterone from reaching cancer cells. Follow these instructions at home: Take uwpi-nob-bezasve and prescription medicines only as told by your health care provider. Maintain a healthy diet. Get plenty of sleep. Consider joining a support group for men who have prostate cancer. Meeting with a support group mayhelp you learn to cope with the stress of having cancer. Keep all follow-up visits as told by your health care provider. This is important. If you have to go to the hospital, notify your cancer specialist (oncologist). Treatment for prostate cancer may affect sexual function. Continue to have intimate moments with your partner. This may include touching, holding, hugging, and caressing. Contact a health care provider if: You have trouble urinating. You have blood in your urine. You have pain in your hips, back, or chest. Get help right away if: You have weakness or numbness in your legs. You cannot control urination or your bowel movements (incontinence). You have trouble breathing. You have sudden chest pain. You have chills or a fever. Summary The prostate is a walnut-sized gland that is involved in the production of semen. It is located below a man's bladder, in front of the rectum. Prostate cancer is the abnormal growth of cells in the prostate gland. Treatment for this condition depends on several factors, including the stage of the cancer, your age, personal preferences, and your overall health. Talk with your health care provider about treatment options that are recommended for you. Consider joining a support group for men who have prostate cancer. Meeting with a support group mayhelp you learn to cope with the stress of having cancer. This information is not intended to replace advice given to you by your health care provider. Make sure you discuss any questions you have with your health care provider. Document Released: 07/20/2006 Document Revised: 07/02/2018 Document Reviewed: 03/30/2017 [employer] Patient Education 2020 [employer]. Follow Up Care 03/13/2022 10:45:24 With:PRITI JONES, Eloise Mccarthy, URL Address: [address] [place] [phone] When: Unknown [facility] 08-08-2022 Evaluation + Plan note Diagnostic Tests Pending * PSA Total 03/10/22 [facility] 08-08-2022 Hospital Discharge instructions Patient Education 03/10/2022 10:27:01 Benign Prostatic Hyperplasia Benign Prostatic Hyperplasia Benign prostatic hyperplasia (BPH) is an enlarged prostate gland that is caused by the normal agingprocess and not by cancer. The prostate is a walnut-sized gland that is involved in the production of semen. It is located in front of the rectum and below the bladder. The bladder stores urine and the urethra is the tube that carries the urine out of the body. The prostate may get bigger as a man gets older. An enlarged prostate can press on the urethra. This can make it harder to pass urine. The build-up of urine in the bladder can cause infection. Back pressure and infection may progress to bladder damage and kidney (renal) failure. What are the causes? This condition is part of a normal aging process. However, not all men develop problems from this condition. If the prostate enlarges away from the urethra, urine flow will not be blocked. If it enlarges toward the urethra and compresses it, there will be problems passing urine. What increases the risk? This condition is more likely to develop in men over the age of 50 years. What are the signs or symptoms? Symptoms of this condition include: Getting up often during the night to urinate. Needing to urinate frequently during the day. Difficulty starting urine flow. Decrease in size and strength of your urine stream. Leaking (dribbling) after urinating. Inability to pass urine. This needs immediate treatment. Inability to completely empty your bladder. Pain when you pass urine. This is more common if there is also an infection. Urinary tract infection (UTI). How is this diagnosed? This condition is diagnosed based on your medical history, a physical exam, and your symptoms. Tests will also be done, such as: A post-void bladder scan. This measures any amount of urine that may remain in your bladder after you finish urinating. A digital rectal exam. In a rectal exam, your health care provider checks your prostate by putting a lubricated, gloved finger into your rectum to feel the back of your prostate gland. This exam detects the size of your gland and any abnormal lumps or growths. An exam of your urine (urinalysis). A prostate specific antigen (PSA) screening. This is a blood test used to screen for prostate cancer. An ultrasound. This test uses sound waves to electronically produce a picture of your prostate gland. Your health care provider may refer you to a specialist in kidney and prostate diseases (urologist). How is this treated? Once symptoms begin, your health care provider will monitor your condition (active surveillance or watchful waiting). Treatment for this condition will depend on the severity of your condition. Treatment may include: Observation and yearly exams. This may be the only treatment needed if your condition and symptoms are mild. Medicines to relieve your symptoms, including: ?Medicines to shrink the prostate. ?Medicines to relax the muscle of the prostate. Surgery in severe cases. Surgery may include: ?Prostatectomy. In this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 abuse patient.[facility] CenterIn the event this information is protected by the Federal Confidentiality of Alcohol and Drug Abuse Patient Records regulations: The Federal rules restrict any use of the information to criminally investigate or prosecute any alcohol or drug abuse patient.[facility] CenterIn the event this information is protected by the Federal Confidentiality of Alcohol and Drug Abuse Patient Records regulations: The Federal rules restrict any use of the information to criminally investigate or prosecute any alcohol or drug abuse patient.[facility] CenterIn the event this information is protected by the Federal Confidentiality of Alcohol and Drug Abuse Patient Records regulations: The Federal rules restrict any use of the information to criminally investigate or prosecute any alcohol or drug abuse patient.[facility] CenterIn the event this information is protected by the Federal Confidentiality of Alcohol and Drug Abuse Patient Records regulations: The Federal rules restrict any use of the information to criminally investigate or prosecute any alcohol or drug abuse patient.[facility] CenterIn the event this information is protected by the Federal Confidentiality of Alcohol and Drug Abuse Patient Records regulations: The Federal rules restrict any use of the information to criminally investigate or prosecute any alcohol or drug abuse patient.[facility] CenterIn the event this information is protected by the Federal Confidentiality of Alcohol and Drug Abuse Patient Records regulations: The Federal rules restrict any use of the information to criminally investigate or prosecute any alcohol or drug abuse patient.[facility] CenterIn the event this information is protected by the Federal Confidentiality of Alcohol and Drug Abuse Patient Records regulations: The Federal rules restrict any use of the information to criminally investigate or prosecute any alcohol or drug abuse patient.[facility] CenterIn the event this information is protected by the Federal Confidentiality of Alcohol and Drug Abuse Patient Records regulations: The Federal rules restrict any use of the information to criminally investigate or prosecute any alcohol or drug abuse patient.[facility] CenterIn the event this information is protected by the Federal Confidentiality of Alcohol and Drug Abuse Patient Records regulations: The Federal rules restrict any use of the information to criminally investigate or prosecute any alcohol or drug abuse patient.[facility] CenterIn the event this information is protected by the Federal Confidentiality of Alcohol and Drug Abuse Patient Records regulations: The Federal rules restrict any use of the information to criminally investigate or prosecute any alcohol or drug abuse patient.[facility] CenterIn the event this information is protected by the Federal Confidentiality of Alcohol and Drug Abuse Patient Records regulations: The Federal rules restrict any use of the information to criminally investigate or prosecute any alcohol or drug abuse patient.[facility] CenterIn the event this information is protected by the Federal Confidentiality of Alcohol and Drug Abuse Patient Records regulations: The Federal rules restrict any use of the information to criminally investigate or prosecute any alcohol or drug abuse patient.[facility] CenterIn the event this information is protected by the Federal Confidentiality of Alcohol and Drug Abuse Patient Records regulations: The Federal rules restrict any use of the information to criminally investigate or prosecute any alcohol or drug abuse patient.[facility] CenterIn the event this information is protected by the Federal Confidentiality of Alcohol and Drug Abuse Patient Records regulations: The Federal rules restrict any use of the information to criminally investigate or prosecute any alcohol or drug abuse patient.[facility] CenterIn the event this information is protected by the Federal Confidentiality of Alcohol and Drug Abuse Patient Records regulations: The Federal rules restrict any use of the information to criminally investigate or prosecute any alcohol or drug abuse patient.[facility] CenterIn the event this information is protected by the Federal Confidentiality of Alcohol and Drug Abuse Patient Records regulations: The Federal rules restrict any use of the information to criminally investigate or prosecute any alcohol or drug abuse patient.[facility] CenterIn the event this information is protected by the Federal Confidentiality of Alcohol and Drug Abuse Patient Records regulations: The Federal rules restrict any use of the information to criminally investigate or prosecute any alcohol or drug abuse patient.[facility] CenterIn the event this information is protected by the Federal Confidentiality of Alcohol and Drug Abuse Patient Records regulations: The Federal rules restrict any use of the information to criminally investigate or prosecute any alcohol or drug abuse patient.[facility] CenterIn the event this information is protected by the Federal Confidentiality of Alcohol and Drug Abuse Patient Records regulations: The Federal rules restrict any use of the information to criminally investigate or prosecute any alcohol or drug abuse patient.[facility] CenterIn the event this information is protected by the Federal Confidentiality of Alcohol and Drug Abuse Patient Records regulations: The Federal rules restrict any use of the information to criminally investigate or prosecute any alcohol or drug abuse patient.[facility] Reason for Visit (unrecogniz ed section and content) Reason Comments Prostate Cancer New patient consulta tion Reason Comments Orders Reason Comments Patient Update Reason Comments Patient Question Reason Comments Insurance Authorization Reason Comments Prostate Cancer Specialty Diagnoses / Procedures Referred By Contac t Referred To Contact Diagnoses Prostate cancer (HCC) Procedures CONSULT TO MEDICAL GENETICS - CANCER MEDICAL GENETICS COUNSELING EACH 30 MINUTES Ayad Harrison MD [address] [place] [address] [place] [address] [facility] [address] [place] [address] Referral ID Status Reason Start Date Expiration Date V isits Requested Visits Authorized [id number] Closed PCP Requested Referral Auto-Generated Referral 04/03/2022 04/03/2023 1 1 Reason Comments Results Specialty Diagnoses / Procedures Referred By Contac t Referred To Contact Diagnoses Prostate cancer (HCC) Bone metastasis (HCC) Procedures DENOSUMAB INJECTION Ayad Harrison MD [address] [facility] [place] [address] [facility] [address] [place] [address] Referral ID Status Reason Start Date Expiration Date V isits Requested Visits Authorized [id number] Authorized 04/28/2022 12/02/2022 199 99 Reason Comments Appointment Reason Comments Medication Problem Reason Comments Patient Update elevated BP Reason Comments Patient Education Reason Onset Date Comments Simulation Request Form 07/16/2022 Reason Comments Radiotherapy On-treatment Visit Reason Comments Prostate Cancer 7 week follow up Reason Comments Prostate Cancer Treatment visit Specialty Diagnoses / Procedures Referred By Contac t Referred To Contact Diagnoses Prostate cancer (HCC) Bone metastasis Procedures DENOSUMAB INJECTION Ayad Harrison MD [address] [facility] [place] [address] [facility] [address] [place] [address] Reason Comments Prostate Cancer 3 month follow up Reason Onset Date Comments Refill Request 11/10/2022 Reason Comments Consult Reason Comments Lab Orders Reason Onset Date Comments Refill Request 03/16/2023 Referral ID Status Reason Start Date Expiration Date V isits Requested Visits Authorized [id number] Authorized 04/28/2022 12/17/2023 99 99 Reason Comments Prostate Cancer Follow up Reason Comments Injections Specialty Diagnoses / Procedures Referred By Contac t Referred To Contact Diagnoses Prostate cancer (HCC) Bone metastasis Procedures DENOSUMAB INJECTION Ayad Harrison MD [address] [facility] [place] [address] [facility] [address] [facility] [place] [address] Referral ID Status Reason Start Date Expiration Date V isits Requested Visits Authorized [id number] Authorized 04/28/2022 12/18/2023 8 8 Reason Comments Refill Request Reason Comments Radio Gen RMP Specialty Diagnoses / Procedures Referred By Contac t Referred To Contact XR IMAGING Diagnoses Malignant neoplasm metastatic to bone (HCC) Prostate cancer (HCC) Procedures XR RIBS/CHEST 3V AP RIB/OBLS/CXR LEFT RADEX RIBS UNI W/POSTEROANT CH MINIMUM 3 VIEWS Ayad Harrison MD [address] [place] [address] [place] [address] [place] [address] Referral ID Status Reason Start Date Expiration Date V isits Requested Visits Authorized [id number] Closed Auto-Generate d Referral 12/15/2022 01/14/2024 1 1 Specialty Diagnoses / Procedures Referred By Contac t Referred To Contact Radiation Oncology / RADIATION ONCOLOGY Diagnoses Malignant neoplasm of prostate SIM/ALICE/Pelvis Procedures SIMULATION HAYSI IMRT 28 fractions Joe Funez MD [address] [place] [address] [place] [address] Joe Funez MD [address] [place] [address] [place] [address] Referral ID Status Reason Start Date Expiration Date Visits Re quested Visits Authorized [id number] Closed 07/16/2022 08/02/2022 99 99 Reason Comments Radio Gen RMP Reason Comments Medication Authorization Xgeva renewal d enied Reason Comments Consult Chest Cyst- on Rt br east x 20yrs. Pt says it is not painful and has gotten bigger over time. Specialty Diagnoses / Procedures Referred By Contac t Referred To Contact General Surgery Diagnoses Epidermal cyst Procedures [facility] OFFICE/OUTPATIENT NEW HIGH MDM 60 MINUTES Tamiko Reece NP [address] [facility] [place] [address] Phone: tel: fax: [facility] [address] [place] [address] [facility] [address] [place] [address] Phone: tel: fax: Referral ID Status Reason Start Date Expiration Date V isits Requested Visits Authorized [id number] Closed Specialty Services Required 09/23/2024 03/22/2025 1 1 Reason Comments 1st po exc of chest wall mass Care Teams (unrecognized sec tion and content) Electrical And Electronic Assembler Relationship Specialty Start Date End Date Tamiko Reece NP [address] [place] [id number] PCP - General Family Medicine 11/30/24 Tamiko Reece NP [address] [place] [id number] Referring Physician Family Medicine 09/23/24 Electrical And Electronic Assembler Relationship Specialty Start Date End Date Roland Garcia DO [address] [place] [id number] PCP - General 10/05/24 Tamiko Reece NP [address] [place] [address] Referring Physician Family Medicine 09/23/24 Electrical And Electronic Assembler Relationship Specialty Start Date End Date Roland Garcia MD [address] [facility] [place] [id number] PCP - General 10/05/24 Tamiko Reece NP [address] [place] [id number] Referring Physician Family Medicine 09/23/24 Electrical And Electronic Assembler Relationship Specialty Start Date End Date Tamiko Reece NP [address] [facility] [place] [address] PCP - General Nurse Practitioner 10/20/23 Team Status: Active Member Role Status Dates Tamiko Reece APRN WEB RETAILER-C Primary Care Provider Active Team Status: Inactive Member Role Status Dates Tamiko Reece APRN [employer] RETAILER-C Primary Care Provider, Attending Provider Active Start: September 21, 2024 End: September 21, 2024 Personnel Name: SHANELL NUNEZ [place] Address: Address: [address] [place] [address] [place], [place] [address] Personnel Name: SHANELL NUNEZ [place] Address: Address: [address] [place] [address] Electrical And Electronic Assembler Relationship Specialty Start Date End Date Tamiko Reece NP [address] [place] [id number] PCP - General Nurse Practitioner 10/20/23 Team Status: Active Member Role Status Dates PHYSICIAN NO FAMILY Primary Care Provider Active Team Status: Inactive Member Role Status Dates Fausto Spicer DO Emergency Provider Active Start: August 28, 2023 End: August 29, 2023 PHYSICIAN NO FAMILY Primary Care Provider Active Start: August 28, 2023 End: August 29, 2023 Team Status: Inactive Member Role Status Dates Eloise Marcos MD Attending Provider Active PHYSICIAN NO FAMILY Primary Care Provider Active Team Status: Active Member Role Status Dates PHYSICIAN NO FAMILY Primary Care Provider Active Goals (unrecognized section and content) Goals may be documented in a n alternate section (unrecognized sect ion and content) No Status Records FoundNo Status Records FoundNo Status Records FoundNo Status Records FoundNo Status Records FoundNo Status Records FoundNo Status Records Found INFORMATION SOURCE (unrecogn ized section and content) DATE CREATED AUTHOR 07/23/2022 Brennan ruano DATE CREATED AUTHOR AUTHOR'S ORGANIZ ATION 09/22/2024 [facility] DATE CREATED AUTHOR AUTHOR'S ORGANIZ ATION 10/21/2024 [facility] DATE CREATED AUTHOR AUTHOR'S ORGANIZ ATION 11/23/2024 [facility] DATE CREATED AUTHOR AUTHOR'S ORGANIZ ATION 12/16/2024 [facility] DATE CREATED AUTHOR AUTHOR'S ORGANIZ ATION 12/21/2024 [facility] DATE CREATED AUTHOR AUTHOR'S ORGANIZ ATION 02/20/2025 [facility] Inactive Administered Medications - up to 3 most recent administrations Administered Medications (un recognized section and content) Medication Order MAR Action Action Date Dose Rate Site denosumab 120 mg injection (XGEVA) 120 mg, SUBCUTANEOUS, ONCE, 1 dose, On Thu10/20/23 at 1600, REFRIGERATE Given 10/20/2023 3:41 PM EDT 120 mg Arm, Left FOR RECORDS PERTAINING TO PATIENTS WHO ARE OR HAVE BEEN ENROLLED IN A CHEMICAL DEPENDENCY/SUBSTANCEABUSE PROGRAM, SOME INFORMATION MAY BE OMITTED. This clinical summary was aggregated from multiple sources. Caution should be exercised in using it in the provision of clinical care. This summary normalizes information from multiple sources, and as a consequence, information in this document may materially change the coding, format and clinical context of patient data. In addition, data may be omitted in some cases. CLINICAL DECISIONS SHOULD BE BASED ON THE PRIMARY CLINICAL RECORDS. [employer] provides no warranty or guarantee of the accuracy or completeness of information in this document.
[2025-03-16 14:51] LABS: Prostate Specific Antigen Dx <0.13 ng/mL (<=4.00)
== END 2025-03-16 13:38 | disposition home or self-care (01) ==
LOC: LAB 13:39
PROVIDERS: PCP Nurse Practitioner Family; Visit Provider Urology
DX: C61 Malignant neoplasm of prostate (principal); N20.0 Calculus of kidney
CPT/HCPCS: 36415; 74018; 84153